=== PATIENT | male | born 1945 | race Caucasian/White ===

== ENCOUNTER 2016-12-17 10:23 | Observation (INO) | payer MEDICARE ==
[2016-12-17 11:12] LABS: Hematocrit 50 % (42-52); Hemoglobin 16.7 g/dl (14.0-18.0); Mean Corpuscular HGB Conc 34 g/dl (31-36); Mean Corpuscular Hemoglobin 30 pg (27-31); Mean Corpuscular Volume 89 fL (80-94); Mean Platelet Volume 8 um3 (7.4-10.4); Red Blood Count 5.59 10^6/ul (4.0-5.4); Red Cell Distribution Width 14 % (10.5-15); White Blood Count 6.1 10^3/ul (3.5-10.8)
--- NOTE | 2016-12-17 11:23 | RAD ---
Indication: Bradycardia. Single frontal view of the chest performed at 1100 hours was reviewed. Comparison is made with previous exam dated January 15, 2016. Likely is noted. Lung slater demonstrate no pleural fluid, pneumonia or pneumothorax. No changes noted since previous exam. IMPRESSION: NO ACTIVE CARDIOPULMONARY DISEASE IS NOTED.
[2016-12-17 11:30] LABS: ALT 20 U/L (7-52); Albumin 4.6 g/dL (3.2-5.2); Alkaline Phosphatase 63 U/L (34-104); BUN/Creatinine Ratio 12.6 (8-20); Blood Urea Nitrogen 11 mg/dL (6-24); CO2 Carbon Dioxide 24 mmol/L (22-32); Calcium 9.6 mg/dL (8.6-10.3); Chloride 106 mmol/L (101-111); EGFR African American 110.6 (>60); Globulin 3.3 g/dL (2-4); Glucose 96 mg/dL (70-100); Sodium 136 mmol/L (133-145); Total Protein 7.9 g/dL (6.4-8.9)
[2016-12-17 12:00] LABS: T4 10.81 g/dL (6.09-12.23)
[2016-12-17 12:01] LABS: TSH (Thyroid Stimulating Horm) 3.94 mcIU/mL (0.34-5.60)
[2016-12-17 12:23] LABS: Magnesium 2.1 mg/dL (1.9-2.7)
[2016-12-17 12:33] LABS: Urine Bilirubin Negative (Negative); Urine Glucose Negative (Negative); Urine Nitrite Negative (Negative)
[2016-12-17] MEDS ORDERED: Fluticasone NASAL SPRAY 50MCG* 16 gm SPRAY BTL BOTH NARES PRN (12:47)
[2016-12-17] MEDS ORDERED: Methocarbamol TAB* 500 MG PO PRN (12:47)
--- NOTE | 2016-12-17 13:42 | ED ---
Peggy Hercules Alok, scribed for Vlad Ambrose MD on 12/17/16 at 1055 . Shortness of Breath - HPI Summary HPI Summary: 71 y/o male presents to the ED for concern of SOB, bradycardia, and HTN for the past 3 days. HR has been fluctuating between 30 and 60 BPM. Patient has no other complains. Pt denies any dizziness, feeling of weakness or LOC. Pt also denies any N/V or CP. His last BM was this morning. PMHx include bowel obstructions and irregular heart rate. - History of Current Complaint Chief Complaint: EDDysrhythmPalp Time Seen by Provider: 12/17/16 10:33 Hx Obtained From: Patient Onset/Duration: Gradual Onset, Lasting Days, Still Present Timing: Constant Current Severity: Moderate Aggrevating Factors: Nothing Alleviating Factors: Nothing - Allergy/Home Medications Allergies/Adverse Reactions: Allergies Allergy/AdvReac Type Severity Reaction Status Date / Time Morphine Allergy Severe Severe Verified 05/22/15 07:53 Nausea and Heart Palpitations Amoxicillin Allergy Unknown Unknown Verified 05/22/15 07:53 Reaction Details Atorvastatin Allergy Unknown Unknown Verified 05/22/15 07:53 Reaction Details Ezetimibe Allergy Unknown Unknown Verified 05/22/15 07:53 Reaction Details Niacin Allergy Unknown Unknown Verified 05/22/15 07:53 Reaction Details Penicillins Allergy Unknown Unknown Verified 05/22/15 07:53 Reaction Details Home Medications: Home Medications Fluticasone NASAL SPRAY 50MCG* [Flonase NASAL SPRAY 50MCG*] 2 spray BOTH NARES QAM PRN 12/17/16 [History Confirmed 12/17/16] Losartan TAB* [Cozaar TAB*] 25 mg PO QPM 12/17/16 [History Confirmed 12/17/16] Methocarbamol TAB* [Robaxin TAB*] 750 mg PO BID PRN 12/17/16 [History Confirmed 12/17/16] Prazosin CAP* [Minipress CAP*] 10 mg PO BEDTIME 12/17/16 [History Confirmed 06/27] Sertraline* [Zoloft*] 50 mg PO DAILY 12/17/16 [History Confirmed 12/17/16] PMH/Surg Hx/FS Hx/Imm Hx Endocrine/Hematology History: Reports: Other Endocrine/Hematological Disorders - Polycythemia Denies: Hx Anticoagulant Therapy, Hx Blood Disorders, Hx Blood Transfusions, Hx Bone Marrow Disease, Hx Diabetes, Hx Systemic Lupus Erythematosus, Hx Sickle Cell Disease, Hx Thyroid Disease, Hx Anemia, Hx Unexplained Bleeding Cardiovascular History: Reports: Hx Hypertension, Other Cardiovascular Problems/ Disorders - HLD Denies: Hx Aneurysm, Hx Angina, Hx Angioplasty, Hx Auto Implanted Cardiovert Defib, Hx Cardiac Arrest, Hx Cardiomegaly, Hx Congenital Heart Disease, Hx Congestive Heart Failure, Hx Coronary Artery Disease, Hx Deep Vein Thrombosis, Hx Embolism, Hx Hypercholesterolemia, Hx Hypotension, Hx Pacemaker/ICD, Hx Peripheral Vascular Disease, Hx Rheumatic Fever, Hx Syncope, Hx Valvular Heart Disease Respiratory History: Reports: Hx Sleep Apnea, Other Respiratory Problems/ Disorders - states [facility] is [facility] growths on right lung Denies: Hx Asthma, Hx Chronic Bronchitis, Hx Chronic Obstructive Pulmonary Disease (COPD), Hx Cystic Fibrosis, Hx Lung Cancer, Hx Pleural Effusion, Hx Pneumonia, Hx Pulmonary Edema, Hx Pulmonary Embolism, Hx Seasonal Allergies GI History: Reports: Hx Irritable Bowel, Hx Obstructive Bowel, Other GI Disorders - multiple SBO Denies: Hx Cirrhosis, Hx Crohn's Disease, Hx Diverticulosis, Hx Gall Bladder Disease, Hx Gastroesophageal Reflux Disease, Hx Gastrointestinal Bleed, Hx Hiatal Hernia, Hx Jaundice, Hx Ileostomy, Hx Pyloric Stenosis, Hx Ulcer History: Reports: Other Problems/Disorders - RENAL CALCULI YRS AGO Denies: Hx Acute Renal Failure, Hx Benign Prostatic Hyperplasia, Hx Chronic Renal Failure, Hx Dialysis, Hx Kidney Infection, Hx Kidney Stones - once, Hx Renal Disease Musculoskeletal History: Reports: Hx Back Problems - ruptured disc Denies: Hx Arthritis, Hx Rheumatoid Arthritis, Hx Bursitis, Hx Congenital Bone Abnormalities, Hx Fibromyalgia, Hx Gout, Hx Orthopedic Injury, Hx Osteoporosis, Hx Scoliosis, Hx Tendonitis, Other Musculoskeletal History Sensory History: Reports: Hx Cataracts - surgery, Hx Contacts or Glasses Denies: Hx Eye Injury, Hx Eye Prosthesis, Hx Glaucoma, Hx Legally Blind, Hx Macular Degeneration, Hx Vision Problem, Hx Deafness, Hx Hearing Aid, Other Sensory Impairments Opthamlomology History: Reports: Hx Cataracts - surgery, Hx Contacts or Glasses Denies: Hx Eye Injury, Hx Eye Prosthesis, Hx Glaucoma, Hx Legally Blind, Hx Macular Degeneration, Hx Vision Problem, Other Sensory Impairments Neurological History: Reports: Other Neuro Impairments/Disorders - SPINE PAIN HX OF RUPTURED DISCS Denies: Hx Dementia, Hx Developmental Delay, Hx Headaches, Hx Migraine, Hx Nerve Disease, Hx Seizures, Hx Spinal Cord Injury, Hx Transient Ischemic Attacks (TIA) Psychiatric History: Reports: Hx Anxiety, Hx Post Traumatic Stress Disorder Denies: Hx Attention Deficit Hyperactivity Disorder, Hx Eating Disorder, Hx Depression, Hx Panic Disorder, Hx Inpatient Treatment, Hx Community Mental Health Tx, Hx Schizophrenia, Hx Bipolar Disorder, Hx Suicide Attempt, Hx of Violent Episodes Against Others, Hx Substance Abuse, Other Psychiatric Issues/ Disorders - Cancer History Cancer Type, Location and Year: "Skin cancer" mid abdomen, 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, left back, right leg Hx Chemotherapy: No Hx Radiation Therapy: No Hx Palliative Cancer Treatment: No - Surgical History Surgery Procedure, Year, and Place: INTESTINAL SX FOR BLOCKAGES X35; APPY; ZEKE ; SINUS POLYP; CATARACTS, skin cancer removal 12/05/14 Hx Anesthesia Reactions: No - Immunization History Date of Tetanus Vaccine: Unknown Date of Influenza Vaccine: Fall 2012 Infectious Disease History: No Infectious Disease History: Denies: Hx Clostridium Difficile, Hx Hepatitis, Hx Human Immunodeficiency Virus (HIV), Hx of Known/Suspected MRSA, Hx Shingles, Hx Tuberculosis, Hx Known/ Suspected VRE, Hx Known/Suspected VRSA, History Other Infectious Disease, Traveled Outside the [place] in Last 30 Days - Family History Known Family History: Positive: Hypertension - Social History Alcohol Use: None Substance Use Type: Reports: None Smoking Status (MU): Former Smoker Type: Cigarettes Amount Used/How Often: PPD Length of Time of Smoking/Using Tobacco: 20 Have You Smoked in the Last Year: No Review of Systems Negative: Fever All Other Systems Reviewed And Are Negative: Yes Physical Exam - Summary Physical Exam Summary: VITAL SIGNS: Reviewed. GENERAL: Patient is a well developed and nourished male who is lying comfortable in the stretcher. Patient is not in any acute respiratory distress. HEAD AND FACE: No signs of trauma. No ecchymosis, hematomas or skull depressions. No sinus tenderness. EYES: PERRLA, EOMI x 2, No injected conjunctiva, no nystagmus. EARS: Hearing grossly intact. Ear canals and tympanic membranes are within normal limits. MOUTH: Oropharynx within normal limits. NECK: Supple, trachea is midline, no adenopathy, no JVD, no carotid bruit, no c- spine tenderness, neck with full ROM. CHEST: Symmetric, no tenderness at palpation LUNGS: Clear to auscultation bilaterally. No wheezing or crackles. CVS: Bradycardia, Regular rate and rhythm, S1 and S2 present, no murmurs or gallops appreciated. ABDOMEN: Soft, non-tender. No signs of distention. No rebound no guarding, and no masses palpated. Bowel sounds are normal. EXTREMITIES: FROM in all major joints, no edema, no cyanosis or clubbing. NEURO: Alert and oriented x 3. No acute neurological deficits. Speech is normal and follows commands. SKIN: Dry and warm Triage Information Reviewed: Yes Vital Signs On Initial Exam: Initial Vitals Temp Pulse Resp BP Pulse Ox 98.1 F 35 20 162/60 95 12/17/16 10:25 12/17/16 10:25 12/17/16 10:25 12/17/16 10:25 12/17/16 10:25 Vital Signs Reviewed: Yes Diagnostics - Vital Signs Vital Signs Temp Pulse Resp BP Pulse Ox 12/17/16 10:25 98.1 F 35 20 162/60 95 - Laboratory Lab Results: Lab Results 12/17/16 Range/Units 10:50 WBC 6.1 (3.5-10.8) 10^3/ul RBC 5.59 H (4.0-5.4) 10^6/ul Hgb 16.7 (14.0-18.0) g/dl Hct 50 (42-52) % MCV 89 (80-94) fL MCH 30 (27-31) pg MCHC 34 (31-36) g/dl RDW 14 (10.5-15) % Plt Count 112 L (150-450) 10^3/ul MPV 8 (7.4-10.4) um3 Neut % (Auto) 62.4 (38-83) % Lymph % (Auto) 23.0 L (25-47) % [place] % (Auto) 8.3 (1-9) % Eos % (Auto) 5.7 (0-6) % Baso % (Auto) 0.6 (0-2) % Absolute Neuts (auto) 3.8 (1.5-7.7) 10^3/ul Absolute Lymphs (auto) 1.4 (1.0-4.8) 10^3/ul Absolute Monos (auto) 0.5 (0-0.8) 10^3/ul Absolute Eos (auto) 0.3 (0-0.6) 10^3/ul Absolute Basos (auto) 0 (0-0.2) 10^3/ul Absolute Nucleated RBC 0.01 10^3/ul Nucleated RBC % 0.1 Result Diagrams: 12/17/16 10:50 12/17/16 11:55 Lab Statement: Any lab studies that have been ordered have been reviewed, and results considered in the medical decision making process. - Radiology CXR Xray Interpretation: Positive (See Comments) - IMPRESSION: NO ACTIVE CARDIOPULMONARY DISEASE IS NOTED. Radiology Interpretation Completed By: Radiologist - EKG 1028 Cardiac Rate: NL EKG Rhythm: Sinus Rhythm Ectopy: PVCs - Multiple EKG Interpretation: No ST elevation Course/Dx - Course Course Of Treatment: 71 y/o male presents to the ED for concern of SOB, bradycardia, and HTN for the past 3 days. Pt denies any dizziness, feeling of weakness or LOC. Pt also denies any N/V or CP. His last BM was this morning. PMHx include bowel obstructions and irregular heart rate. Assessment/Plan: Bloodwork is normal. Urine analysis was negative. CXR IMPRESSION: NO ACTIVE CARDIOPULMONARY DISEASE IS NOTED. EKG showed sinus bradycardia 89 bpm with multiple PVCs. Because of symptoms diagnosed pt with bradycardia and will admit to [facility]. Pt is hemodynamically stable and alert and oriented x3. - Diagnoses Differential Diagnosis/HQI/PQRI: Positive: Other - Arrythmia, bradycardia, Atrial fib Provider Diagnoses: Symptomatic bradycardia - Physician Notifications Discussed Care of Patient With: Dr Sylvester (Hospitalist) - agreed to admit pt Discharge - Discharge Plan Condition: Stable Disposition: ADMITTED TO [facility] documentation as recorded by the Peggy hills Alok accurately reflects the service I personally performed and the decisions made by , Vlad Ambrose MD.
--- NOTE | 2016-12-17 14:39 | ECHO ---
Patient: ANTOLIN SHELTON [facility] Rec#: [id number] : 1945 Date: 12/17/2016 Age: 71y Height: 185.42 cm / 73.0 in Weight: 112.49 kg / 247.9 lbs Sex: M BSA: 2.36 Room#: OP Admit Date#: 12/17/2016 Type: Outpatient Referring: Brandy Henderson NP Reading: Gil Trinh MD Land Acquisition Manager: Agapito Bravo RDCS CC: Guevara Cuadra MD Transthoracic Echocardiogram Indication: Bradycardia,MELGOZA BP: 138/54 HR: 77 Rhythm: Bradycardia Findings History: HLD,HTN,depress PSTD Technical Comments: The study quality is fair. Completed 1430 The study is technically limited due to patient body habitus. Bigeminy confounds wall motion evaluation. Left Ventricle: The left ventricular chamber size is normal. Global left ventricular wall motion and contractility are within normal limits. There is normal left ventricular systolic function. The estimated ejection fraction is 55-60%. The assessment of diastolic function is non-diagnostic. Left Atrium: The left atrial chamber size is normal. Right Ventricle: The right ventricular cavity size is normal. The right ventricular global systolic function is normal. Right Atrium: The right atrial cavity size is normal. Aortic Valve: The aortic valve is trileaflet. There is no evidence of aortic regurgitation. There is no evidence of aortic stenosis. Mitral Valve: The mitral valve leaflets appear normal. There is trace to mild mitral regurgitation. There is no evidence of mitral stenosis. Tricuspid Valve: There is no evidence of tricuspid valve regurgitation. Pulmonic Valve: The pulmonic valve structure is not well visualized. Pericardium: There is no pericardial effusion. Aorta: There is no dilatation of the ascending aorta. There is no dilatation of the aortic arch. There is no dilation of the aortic root. Pulmonary Artery: The main pulmonary artery is not well visualized. Venous: The inferior vena cava appears normal in size. There is a greater than 50% respiratory change in the inferior vena cava dimension. Conclusions The study is technically limited due to patient body habitus. Bigeminy confounds wall motion evaluation. Global left ventricular wall motion and contractility are within normal limits. The estimated ejection fraction is 55-60%. There is trace to mild mitral regurgitation. Similar to 2.2015 except that LVH was not confirmed on this study. Measurements Name Value Normal Range RVIDd (AP) 2D 2.6 cm (0.9 - 2.6) RVDdMajor (2D) 2.7 cm (2.2 - 4.4) RAd ISD 4CH 5 cm (3.4 - 4.9) RA (A4C)W 4 cm (2.9 - 4.6) IVSd (2D) 0.8 cm (0.6 - 1) LVPWd (2D) 0.9 cm (0.6 - 1) LVIDd (2D) 5.6 cm (3.6 - 5.4) LVIDs (2D) 4.2 cm - LV FS (2D) 25 % (25 - 45) Aortic Annulus 2 cm (1.4 - 2.6) Ao root diameter (2D) 3 cm (2.1 - 3.5) Ascending Ao 3 cm (2.1 - 3.4) Aortic arch 1.7 cm (1.8 - 3.4) LA dimension (AP) 2D 4 cm (2.3 - 3.8) LAd ISD 4CH 4.5 cm (2.9 - 5.3) LA ISD 4CH W 3.7 cm (2.5 - 4.5) Name Value Normal Range LA ESV SP 4CH (A/L) 60 ml - LA ESV SP 2CH (A/L) 74 ml - LA ESV BP (A/L) 72 ml - LA ESV BP (A/L) index 30.25 ml/m2 - LA ESV SP 4CH (MOD) 55 ml - LA ESV SP 2CH (MOD) 71 ml - Name Value Normal Range MV E-wave Vmax 0.57 m/sec - MV deceleration time 224 msec - MV A-wave Vmax 0.71 m/sec - MV E:A ratio 0.79 ratio - LV septal e' Vmax 0.09 m/sec - LV lateral e' Vmax 0.09 m/sec - LV E:e' septal ratio 6.3 ratio - LV E:e' lateral ratio 6.3 ratio - Name Value Normal Range LVOT diameter 2.4 cm - LVOT Vmax 0.9 m/sec - Name Value Normal Range IVC diameter 0.7 cm - Name Value Normal Range PV Vmax 1.1 m/sec -
[2016-12-17] MEDS ORDERED: Amiodarone IV VIAL* 0 ML ONE (14:55)
[2016-12-17] MEDS ORDERED: Potassium Chloride LIQUID* 20 MEQ PACKET PO ONE ×2 (16:00→20:00)
[2016-12-17] MEDS: Heparin VIAL(*) 5000 UNITS/ML VIAL (FIVE THOUSAND) SUBCUT SCH ×2 (16:11→21:33)
[2016-12-17] MEDS: Flecainide TAB* 100 MG PO SCH (17:08)
[2016-12-17] MEDS ORDERED: Losartan TAB* 25 MG PO SCH (18:00)
[2016-12-17] MEDS ORDERED: Prazosin CAP* 5 MG PO SCH (21:00)
--- NOTE | 2016-12-17 21:58 | HP ---
HOSPITAL MEDICINE HISTORY AND PHYSICAL: DATE OF ADMISSION: 12/17/16 PRIMARY CARE PHYSICIAN: Dr. Cuadra. MATERIAL COMBINER: Dr. Bhat. ATTENDING PHYSICIAN: Dr. Gilbert Sylvester *(dictation provided by Brandy Henderson NP). CHIEF COMPLAINT: Lower extremity edema and worsening dyspnea on exertion. HISTORY OF PRESENT ILLNESS: Mr. Richey is a 71-year-old male with past medical history of multiple small bowel obstructions as well as hypertension, hyperlipidemia, who presents today to the hospital with concern for new lower extremity edema and increasing shortness of breath with exertion. Mr. Richey has a history also of known very mild bradycardia with PVCs. He has been monitored via Holter monitor with few PVCs noted. He states that he has over the past couple of weeks had increased lower extremity edema. He has also had 2 episodes of chest pain, both occurred while at rest and lasted a few seconds. They were along the left side of the chest. There was no nausea or sweating associated with it. It resolved spontaneously. He has also noted that over several months, he has had increasing dyspnea on exertion. 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 For the lower extremity edema and episodes of chest pain, he went to see Dr. Cuadra. He noted that his blood pressure was high. At that time, the patient was started on lovastatin and pravastatin. The patient did start the lovastatin, but has not started the pravastatin as he recalls having an adverse reaction to pravastatin in the past. The patient was also given a blood pressure cuff to check his blood pressure at home. The patient states when checking his blood pressure, he has noted that his heart rate running in the 30s continuously. He is concerned that perhaps the slow heart rate was what was driving his other symptoms and therefore came to the emergency room for evaluation. In the emergency room, Mr. Richey was confirmed to have a bradycardia with bigeminy, heart rate 70 with bigeminy, but on palpation of the pulse, his heart rate was about 35 due to poor conduction of PVCs. His labs are unremarkable. His troponin is 0. His chest x-ray shows no acute process. PAST MEDICAL HISTORY: 1. Small bowel obstruction, over 30. 2. Hypertension. 3. Hyperlipidemia. 4. Depression. 5. PTSD. 6. History of polycythemia. 7. History of thrombocytopenia. MEDICATIONS: 1. Red yeast rice extract 1200 mg p.o. daily. 2. Aspirin 81 mg p.o. daily. 3. Flonase 2 sprays both nares as needed. 4. Losartan 25 mg p.o. q.p.m. 5. Robaxin 750 mg p.o. b.i.d. 6. Prazosin 2 mg at bedtime. 7. Sertraline 50 mg p.o. daily. ALLERGIES: To MORPHINE, AMOXICILLIN, ATORVASTATIN, ZETIA, NIACIN, and PENICILLIN. FAMILY HISTORY: Reviewed and noncontributory. SOCIAL HISTORY: No report of alcohol, tobacco, or drug use. The patient lives with his , who is healthcare proxy. REVIEW OF SYSTEMS: A 14-point review of systems was completed with the patient and all those not mentioned above are negative. PHYSICAL EXAMINATION GENERAL: Mr. Richey is lying in the bed. He is in no acute distress. He is calm and cooperative to my examination. VITAL SIGNS: Temperature 98.1, heart rate 69, respiratory rate 12, O2 saturation 97% on room air, blood pressure 162/60. LUNGS: Clear to auscultation bilaterally with no accessory muscle use and good aeration. HEART: S1, S2. No murmur, rub, or gallop and regular. ABDOMEN: Soft, nontender with bowel sounds positive x4. EXTREMITIES: No cyanosis or edema. NEUROLOGIC: He is alert and oriented x3. He moves all extremities equally. There is no facial asymmetry or focal weakness. Extraocular movements are intact. SKIN: Intact. DIAGNOSTIC STUDIES/LAB DATA: WBC 6.1, hemoglobin 16.7, hematocrit 50, platelet count 112. Sodium 136, potassium 4.0, chloride 106, serum bicarbonate 24, BUN 11, creatinine 0.87, glucose 96. Urine shows no evidence of infection. Chest x-ray shows no acute intrathoracic process. EKG shows sinus rhythm with bigeminy. ASSESSMENT AND PLAN: Mr. Richey is a 71-year-old male with past medical history of small bowel obstructions and hypertension with hyperlipidemia as well as known mild bradycardia that has been asymptomatic at this time, presents today to the hospital with concern for lower extremity edema and worsening dyspnea on exertion. In the emergency room, he has been found to have a sinus rhythm, but with a persistent bigeminy which is new for him. Plans are for observation in the hospital for the followin. Dyspnea on exertion with lower extremity edema: There is suspicion that this is secondary to his new bigeminy. It is possible that his cardiac output has decreased with poor conduction of premature ventricular contractions. Plan to check transthoracic echocardiogram to evaluate overall cardiac function. The patient will have telemetry monitoring. He will on go for consultation with Dr. Trinh as well. The patient shows no evidence of infection, pulmonary disease or acute coronary syndrome. His troponins are 0.00. 2. Sinus bradycardia with bigeminy. Consultation per Dr. Trinh. 3. Hypertension: Continue losartan and amlodipine. 4. Depression: Continue sertraline. 5. Code status: Full code. 6. DVT prophylaxis: Heparin subcu. 7. Disposition to telemetry floor. TIME SPENT: Approximately 60 minutes was spent on the admission of this patient , more than half the time spent with the patient at the bedside reviewing the events leading up to this hospitalization, performing the physical examination, and reviewing the plan of care. BRANDY HENDERSON NP CC: Dr. Cuadra* [id number]/[facility] [place] [id number] [place]
--- NOTE | 2016-12-17 22:23 | CONS ---
CARDIOLOGY EVALUATION: DATE OF CONSULT: 12/17/16 PATIENT OF: Dr. Cuadra at the [place]. CONSULTING PROVIDER: Brandy Henderson NP REASON FOR EVALUATION: Bradycardia, exercise intolerance. HISTORY OF PRESENT ILLNESS: This is a very pleasant 71-year-old gentleman with a longstanding history of slow heart rates and PVCs. He also has a history of hypertension, hyperlipidemia, and has been limited by back problems. Having said that, he has been fairly active. He has had multiple admissions for small bowel obstruction and at least 3 operations for small bowel obstruction, last one about 10 years ago. He said that he has had over 30 admissions for small bowel obstruction, but had been doing fairly well over the last year from a GI standpoint. About a year ago, he had some atypical chest pain and was evaluated by Dr. Bhat and had a negative stress nuclear. He did well again, but has noticed over the last year that he thinks he is "slowing down." He usually tinkers in his garage, working on old lawn mowers fixing them and he says that he gets a little winded doing his chores over the last few weeks. 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 He also noticed that over the last 2 weeks, he has had a little more swelling in his legs at the end of the day, which somewhat improves in the morning. He has had no syncope or near syncope. He did have one episode of chest pain after working in the garage, sitting in his chair. He sat down in his chair and had about 2 minutes of light pressure over the left side of his chest, it resolved. No associated gas , diaphoresis, or shortness of breath. He also says that when he lays down at night, he gets sweaty for about 10 to 20 minutes and it resolves. He is able to get up in the morning without lightheadedness or shortness of breath. PAST MEDICAL HISTORY: Includes hypertension, hyperlipidemia, multiple small bowel obstructions, back pain. He denies diabetes. He has a history of tobacco use, discontinued 40 years ago. Denies asthma or emphysema. No strokes or mini strokes. He has a history of depression, posttraumatic stress disorder, polycythemia, and thrombocytopenia. PAST SURGICAL HISTORY: Includes appendectomy, cholecystectomy, lysis of adhesions, 3 explorations for small bowel obstruction, cataract surgery, he also had a sinus polyp removed on the left side. MEDICATIONS: At home include: 1. Red rice yeast 1200 mg a day. 2. Aspirin 81 mg a day. 3. Losartan 25 mg in the evening. 4. Nasal spray with Flonase. 5. Amlodipine 10 mg a day. 6. Sertraline (Zoloft) 50 mg a day. 7. Prazosin 10 mg at bedtime. 8. Methocarbamol 750 mg b.i.d. p.r.n. As an inpatient, he is being continued on the same medications except for the red rice yeast. ALLERGIES: Include MORPHINE - nausea, palpitations; AMOXICILLIN - unknown; ATORVASTATIN - unknown; EZETIMIBE - unknown; NIACIN - unknown; PENICILLIN. FAMILY HISTORY: He had 1 brother who of a CVA at 57. He has had 4 sisters , one sister of a congenital heart problem at 8. His mother of an NV at 89. His father of cancer at 74. SOCIAL HISTORY: He denies caffeine use. He denies alcohol use. He is and has 1 adult child. 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 REVIEW OF SYSTEMS: Review of systems x10 was negative except as above. PHYSICAL EXAM: General: He is a well-developed, well-nourished, overweight gentleman in no apparent distress. Vital signs: Weight 248 pounds, blood pressure 138/54, pulse approximately 35 with heart rate of 70 and bigeminy. Neck: No significant JVD. Carotids 2+ without bruits. No cervical adenopathy or thyromegaly. HEENT: Extraocular muscles intact. Sclerae anicteric. Cardiac Exam: S1, S2. Somewhat distant underneath his pacing pad. Lungs: Chest was clear. No CVAT. Abdomen: Multiple healed surgical scars. Nontender. No hepatosplenomegaly. Extremities: Femoral pulses intact without bruits. Distal pulses intact with 1+ edema and chronic venous stasis changes. Deep tendon reflexes 2/4. Neurologic: Alert and oriented x3. Skin: Turgor normal. DIAGNOSTIC STUDIES/LAB DATA: Include white count of 6.1, hemoglobin of 16.7, hematocrit of 50, and platelet count low at 112. Sodium 136, potassium of 4, BUN 11, creatinine of 0.87, and magnesium 2.1. Troponin of 0. BNP minimally elevated at 125. TSH 3.94. Chest x-ray: No acute disease. EKG revealed sinus rhythm with bigeminy with old inferior infarct and probable left atrial enlargement. His EKG from February 2016 revealed sinus rhythm with 2 beats of bigeminy. Otherwise, similar EKG. He had an echocardiogram performed in 2007, which revealed EF of 60%, trace TR. There was a more recent echo, the report of which is not available at present, a year ago which revealed normal LV function and he had a negative stress nuclear approximately a year ago. IMPRESSION: My impression is that Mr. Richey has bigeminy and decreased exercise tolerance and atypical chest pain. He may have developed coronary insufficiency on the basis of bigeminy and perhaps chronotropic insufficiency with exercise due to progression of his bigeminal pattern. Also, he may have developed LV dysfunction or ischemia. For the time being, I have recommended the followin. I suggested a stress echo to evaluate LV function and his heart rate response to exercise. 2. If we determine that he has chronotropic insufficiency, a pacemaker may be helpful. 3. If he is compromised due to frequent PVCs and bigeminy, it may be worth considering a trial of suppression of his PVCs with antiarrhythmics and/or referral for EP evaluation for possible PVC ablation. 4. He is to continue to refrain from caffeine and alcohol use. 5. Further recommendations will depend on his clinical course. We also considered the possibility of PVC-induced cardiomyopathy. CC: Dr. Bhat; Dr. Cuadra at the [facility] in [place]; Gil Trinh MD * [id number]/[facility] #: [id number] [facility]
[2016-12-18] MEDS ORDERED: Ondansetron INJ* 2 MG/ML VIAL IV PRN (01:00)
[2016-12-18 04:58] LABS: BUN/Creatinine Ratio 15.7 (8-20); Calcium 8.9 mg/dL (8.6-10.3); EGFR African American 116.8 (>60); EGFR Non-African American 90.8 (>60); Potassium 4.1 mmol/L (3.5-5.0)
[2016-12-18] MEDS: Heparin VIAL(*) 5000 UNITS/ML VIAL (FIVE THOUSAND) SUBCUT SCH ×2 (05:13→14:59)
[2016-12-18] MEDS ORDERED: Regadenoson* 0.4 MG/5 ML SYRINGE ONE (07:26)
[2016-12-18] MEDS ORDERED: Sertraline* 50 MG TAB PO SCH (09:00)
[2016-12-18] MEDS ORDERED: Aspirin EC Low Dose* 81 MG TAB.EC PO SCH (09:00)
[2016-12-18] MEDS ORDERED: amLODIPine TAB* 5 MG PO SCH (09:00)
--- NOTE | 2016-12-18 11:27 | RAD ---
Edited for charges. INDICATION: Chest pain, abnormal EKG, multiple risk factors for coronary artery disease. COMPARISON: No previous nuclear cardiac studies available for comparison on the [facility] PACS. TECHNIQUE: 10.300 mCi of Tc-99m Myoview were administered IV. SPECT images of the heart were obtained. Later on the same day under the direction of Dr. Trinh, the patient was given an IV injection of a pharmacologic stress agent. Subsequently, the patient was given an IV injection of 25.230 mCi Tc-99m Myoview. SPECT images of the heart were obtained and a gated wall motion study was performed. FINDINGS: Gated wall motion images were obtained at stress and demonstrate global hypokinesia. Calculated left ventricular ejection fraction is 40 % at stress. Estimated LEFT ventricular end diastolic volume is 157 mL. TID 1.02. There is inferior diaphragmatic attenuation and gastrointestinal activity. Based on review of the attenuation corrected and non corrected images there is a small focus of reduced perfusion at the apical inferior wall segments at stress with reversal at rest concerning for ischemia however artifact from inferior bowel activity decreases specificity. IMPRESSION: 1. Dilated cardiomyopathy with global hypokinesia and moderate LEFT ventricular dysfunction with estimated LVEF of 40%. 2. Potential small focus of stress-induced ischemia involving the apical inferior segment. ASSESSMENT: Intermediate risk Based on imaging criteria from ACC/AHA 2002 Guideline Update for the Management of Patients With Chronic Stable Angina Table 23. Noninvasive Risk Stratification. MTDD
[2016-12-18 11:55] VITALS: BP 147/55
[2016-12-18] MEDS: Flecainide TAB* 100 MG PO SCH (12:09)
--- NOTE | 2016-12-18 15:43 | DCNOTE ---
Subjective Date of Service: 12/18/16 Interval History: No c/o, anxious to go home. Objective Active Medications: Amlodipine Besylate (Norvasc Tab*) 10 mg PO DAILY [facility] Last Admin: 12/18/16 12:09 Dose: 10 mg Aspirin (Aspirin Ec Low Dose*) 81 mg PO DAILY [facility] Last Admin: 12/18/16 12:09 Dose: 81 mg Flecainide Acetate (Tambocor Tab*) 50 mg PO DAILY [facility] Last Admin: 12/18/16 12:09 Dose: 50 mg Fluticasone Propionate (Flonase Nasal [place] 50mcg*) 2 spray BOTH NARES QAM PRN PRN Reason: CONGESTION Heparin Sodium (Porcine) (Heparin Vial(*)) 5,000 units SUBCUT Q8HR [facility] Last Admin: 12/18/16 14:59 Dose: 5,000 units Losartan Potassium (Cozaar Tab*) 25 mg PO QPM [facility] Last Admin: 12/17/16 17:09 Dose: 25 mg Methocarbamol (Robaxin Tab*) 750 mg PO BID PRN PRN Reason: SPASMS - MUSCLE Last Admin: 12/17/16 22:23 Dose: 750 mg Ondansetron HCl (Zofran Inj*) 4 mg IV Q6H PRN PRN Reason: NAUSEA Last Admin: 12/18/16 01:07 Dose: 4 mg Prazosin HCl (Minipress Cap*) 10 mg PO BEDTIME [facility] Last Admin: 12/17/16 21:34 Dose: 10 mg Sertraline HCl (Zoloft*) 50 mg PO DAILY [facility] Last Admin: 12/18/16 12:10 Dose: 50 mg Vital Signs 12/17/16 12/17/16 12/17/16 15:45 20:12 22:23 Temperature 97.7 F 98.1 F Pulse Rate 39 62 Respiratory 16 18 Rate Blood Pressure 153/56 146/60 (mmHg) O2 Sat by Pulse 95 98 Oximetry 12/17/16 12/18/16 12/18/16 23:48 00:23 03:48 Temperature 97.5 F 98.1 F Pulse Rate 97 55 Respiratory 20 16 20 Rate Blood Pressure 128/52 132/65 (mmHg) O2 Sat by Pulse 96 95 Oximetry 12/18/16 12/18/16 07:48 11:48 Temperature 97.8 F 98.2 F Pulse Rate 66 30 Respiratory 18 18 Rate Blood Pressure 136/75 147/55 (mmHg) O2 Sat by Pulse 95 98 Oximetry Oxygen Devices in Use Now: None Appearance: Alert, sitting up in bed. In good spirits. Looks comfortable. Eyes: No Scleral Icterus Respiratory: Symmetrical Chest Expansion and Respiratory Effort, Clear to Auscultation, Clear to Percussion Cardiovascular: NL Sounds; No Murmurs; No JVD, RRR, No Edema, - Extremities: No Edema, No Clubbing, Cyanosis Skin: No Rash or Ulcers, No Nodules or Sclerosis, - Neurological: Alert and Oriented x 3, NL Sensation Result Diagrams: 12/17/16 10:50 12/18/16 04:26 Additional Lab and Data: Lab Results 12/17/16 Range/Units 10:50 WBC 6.1 (3.5-10.8) 10^3/ul RBC 5.59 H (4.0-5.4) 10^6/ul Hgb 16.7 (14.0-18.0) g/dl Hct 50 (42-52) % MCV 89 (80-94) fL MCH 30 (27-31) pg MCHC 34 (31-36) g/dl RDW 14 (10.5-15) % Plt Count 112 L (150-450) 10^3/ul MPV 8 (7.4-10.4) um3 Neut % (Auto) 62.4 (38-83) % Lymph % (Auto) 23.0 L (25-47) % [place] % (Auto) 8.3 (1-9) % Eos % (Auto) 5.7 (0-6) % Baso % (Auto) 0.6 (0-2) % Absolute Neuts (auto) 3.8 (1.5-7.7) 10^3/ul Absolute Lymphs (auto) 1.4 (1.0-4.8) 10^3/ul Absolute Monos (auto) 0.5 (0-0.8) 10^3/ul Absolute Eos (auto) 0.3 (0-0.6) 10^3/ul Absolute Basos (auto) 0 (0-0.2) 10^3/ul Absolute Nucleated RBC 0.01 10^3/ul Nucleated RBC % 0.1 Assess/Plan/Problems-Billing Assessment: - Patient Problems (1) Ventricular bigeminy Current Visit: Yes Status: Acute Code(s): I49.9 - CARDIAC ARRHYTHMIA, UNSPECIFIED SNOMED Code(s): 38742520 Comment: Markedly reduced on flecainide. Rx 50 mg daily transmitted. Discussed with Dr. Trinh. Fup Dr. Bhat. (2) History of hypertension Current Visit: No Status: Chronic Priority: Medium Code(s): Z86.79 - PERSONAL HISTORY OF OTHER DISEASES OF THE CIRCULATORY SYSTEM SNOMED Code(s): 046780073
--- NOTE | 2016-12-19 04:38 | DS ---
CC: Dr. Cuadra at the [place]; Dr. Bhat DISCHARGE SUMMARY: DATE OF ADMISSION: 12/17/16 DATE OF DISCHARGE: 12/18/16 HISTORY: This 71-year-old man presented with some swelling of his legs and worsening dyspnea on exe rtion. He was found to be in ventricular bigeminy. He was evaluated by Dr. Trinh. He had a trans thoracic echocardiogram as well as a nuclear stress test. The two tests did not agree, but Dr. Deonte douglas's feeling is that this was likely due to his irregular heartbeat with the bigeminy, and Dr. Vinnie katz felt that his cardiac function is good and there is no significant evidence of ischemia. The patient was given flecainide for his ventricular bigeminy. He was also given some oral potassiu m. He had marked improvement after this and felt better. He will continue on flecainide at home an d potassium. He will follow up with Dr. Bhat. FINAL DIAGNOSES: 1. Ventricular bigeminy. 2. Hypertension. DISCHARGE MEDICATIONS: 1. Flecainide 50 mg once daily. 2. Potassium chloride 20 mEq once daily. 3. Red yeast rice extract daily. 4. Aspirin 81 mg daily. 5. Amlodipine 10 mg daily. 6. Losartan 25 mg every evening. 7. Fluticasone nasal spray 2 sprays both nostrils as needed. 8. Sertraline 50 mg daily. 9. Prazosin 10 mg h.s. 10. Methocarbamol 750 mg b.i.d. p.r.n. [id number]/[facility] #: [id number]
== END 2016-12-18 16:16 | disposition home or self-care (01) ==
LOC: ED 10:23 → MEDTELE 12:39
PROVIDERS: ADMIT Internal Medicine; ATTEND Internal Medicine
DX: R00.8 Other abnormalities of heart beat (principal); I10 Essential (primary) hypertension; R06.00 Dyspnea, unspecified; R00.1 Bradycardia, unspecified; I42.9 Cardiomyopathy, unspecified; E78.5 Hyperlipidemia, unspecified; F32.9 Major depressive disorder, single episode, unspecified; F43.10 Post-traumatic stress disorder, unspecified; Z79.82 Long term (current) use of aspirin; Z79.899 Other long term (current) drug therapy; Z88.1 Allergy status to other antibiotic agents; Z88.0 Allergy status to penicillin; Z88.8 Allergy status to other drugs, medicaments and biological substances
CPT/HCPCS: 36415; 71010; 78452; 80048; 80053; 81003; 82553; 83605; 83735; 83880; 84436; 84443; 84484; 85025; 93005; 93017; 93306; 96372; 96374; 99285; A9270-GY; A9502; G0378; J0282; J1644; J2405; J2785

== ENCOUNTER 2017-02-15 22:55 | Inpatient (IN) | payer MEDICARE ==
[2017-02-15] MEDS ORDERED: Ondansetron INJ* 2 MG/ML VIAL IV ONE (23:26)
[2017-02-15] MEDS ORDERED: NS 0.9% 1000 ML* 1,000 ML IV ONE (23:26)
[2017-02-15] MEDS ORDERED: HYDROmorphone* 1 MG/ML 1 ML SYR IV SLOW PU ONE (23:27)
--- NOTE | 2017-02-16 00:11 | ED ---
[place] Matthew, scribed for Eddy Cordoba MD on 02/15/17 at 2351 . Abdominal Pain/Male - HPI Summary HPI Summary: A 71 y/o male presents to the ED with RLQ abdominal pain since 19:30 today. The pain is rated 9/10 in severity. Associated symptoms include diarrhea and nausea. The patient believes he has a SBO, because of his Hx of multiple SBO. He states the symptoms are similar to his previous episodes of SBO. - History of Current Complaint Chief Complaint: EDAbdPain Stated Complaint: POSS SBO Time Seen by Provider: 02/15/17 23:05 Hx Obtained From: Patient Onset/Duration: Sudden Onset, Lasting Hours, Still Present Timing: Constant Severity Initially: Moderate Severity Currently: Moderate Pain Intensity: 9 Pain Scale Used: 0-10 Numeric Location: Discrete At: RLQ Radiates: No Aggravating Factor(s): Nothing Alleviating Factor(s): Nothing Associated Signs And Symptoms: Positive: Nausea, Diarrhea - Allergies/Home Medications Allergies/Adverse Reactions: Allergies Allergy/AdvReac Type Severity Reaction Status Date / Time Morphine Allergy Severe Severe Verified 05/22/15 07:53 Nausea and Heart Palpitations Amoxicillin Allergy Unknown Unknown Verified 05/22/15 07:53 Reaction Details Atorvastatin Allergy Unknown Unknown Verified 05/22/15 07:53 Reaction Details Ezetimibe Allergy Unknown Unknown Verified 05/22/15 07:53 Reaction Details Niacin Allergy Unknown Unknown Verified 05/22/15 07:53 Reaction Details Penicillins Allergy Unknown Unknown Verified 05/22/15 07:53 Reaction Details PMH/Surg Hx/FS Hx/Imm Hx Endocrine/Hematology History: Reports: Other Endocrine/Hematological Disorders - Polycythemia Denies: Hx Anticoagulant Therapy, Hx Blood Disorders, Hx Blood Transfusions, Hx Bone Marrow Disease, Hx Diabetes, Hx Systemic Lupus Erythematosus, Hx Sickle Cell Disease, Hx Thyroid Disease, Hx Anemia, Hx Unexplained Bleeding Cardiovascular History: Reports: Hx Hypertension, Other Cardiovascular Problems/ Disorders - HLD Denies: Hx Aneurysm, Hx Angina, Hx Angioplasty, Hx Auto Implanted Cardiovert Defib, Hx Cardiac Arrest, Hx Cardiomegaly, Hx Congenital Heart Disease, Hx Congestive Heart Failure, Hx Coronary Artery Disease, Hx Deep Vein Thrombosis, Hx Embolism, Hx Hypercholesterolemia, Hx Hypotension, Hx Myocardial Infarction, Hx Pacemaker/ICD, Hx Peripheral Vascular Disease, Hx Rheumatic Fever, Hx Syncope , Hx Valvular Heart Disease Respiratory History: Reports: Hx Sleep Apnea, Other Respiratory Problems/ Disorders - states [facility] is monitoring growths on right lung Denies: Hx Asthma, Hx Chronic Bronchitis, Hx Chronic Obstructive Pulmonary Disease (COPD), Hx Cystic Fibrosis, Hx Lung Cancer, Hx Pleural Effusion, Hx Pneumonia, Hx Pulmonary Edema, Hx Pulmonary Embolism, Hx Seasonal Allergies GI History: Reports: Hx Irritable Bowel, Hx Obstructive Bowel, Other GI Disorders - multiple SBO Denies: Hx Cirrhosis, Hx Crohn's Disease, Hx Diverticulosis, Hx Gall Bladder Disease, Hx Gastroesophageal Reflux Disease, Hx Gastrointestinal Bleed, Hx Hiatal Hernia, Hx Jaundice, Hx Ileostomy, Hx Pyloric Stenosis, Hx Ulcer History: Reports: Other Problems/Disorders - RENAL CALCULI YRS AGO Denies: Hx Acute Renal Failure, Hx Benign Prostatic Hyperplasia, Hx Chronic Renal Failure, Hx Dialysis, Hx Kidney Infection, Hx Kidney Stones - once, Hx Renal Disease Musculoskeletal History: Reports: Hx Back Problems - ruptured disc Denies: Hx Arthritis, Hx Rheumatoid Arthritis, Hx Bursitis, Hx Congenital Bone Abnormalities, Hx Fibromyalgia, Hx Gout, Hx Orthopedic Injury, Hx Osteoporosis, Hx Scoliosis, Hx Tendonitis, Other Musculoskeletal History Sensory History: Reports: Hx Cataracts - surgery, Hx Contacts or Glasses Denies: Hx Eye Injury, Hx Eye Prosthesis, Hx Glaucoma, Hx Legally Blind, Hx Macular Degeneration, Hx Vision Problem, Hx Deafness, Hx Hearing Aid, Other Sensory Impairments Opthamlomology History: Reports: Hx Cataracts - surgery, Hx Contacts or Glasses Denies: Hx Eye Injury, Hx Eye Prosthesis, Hx Glaucoma, Hx Legally Blind, Hx Macular Degeneration, Hx Vision Problem, Other Sensory Impairments Neurological History: Reports: Other Neuro Impairments/Disorders - SPINE PAIN HX OF RUPTURED DISCS Denies: Hx Dementia, Hx Developmental Delay, Hx Headaches, Hx Migraine, Hx Nerve Disease, Hx Seizures, Hx Spinal Cord Injury, Hx Transient Ischemic Attacks (TIA) Psychiatric History: Reports: Hx Anxiety, Hx Post Traumatic Stress Disorder Denies: Hx Attention Deficit Hyperactivity Disorder, Hx Eating Disorder, Hx Depression, Hx Panic Disorder, Hx Inpatient Treatment, Hx Community Mental Health Tx, Hx Schizophrenia, Hx Bipolar Disorder, Hx Suicide Attempt, Hx of Violent Episodes Against Others, Hx Substance Abuse, Other Psychiatric Issues/ Disorders - Cancer History Cancer Type, Location and Year: "Skin cancer" mid abdomen, 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, left back, right leg Hx Chemotherapy: No Hx Radiation Therapy: No Hx Palliative Cancer Treatment: No - Surgical History Surgery Procedure, Year, and Place: INTESTINAL SX FOR BLOCKAGES X35; APPY; [facility] ; SINUS POLYP; CATARACTS, skin cancer removal 12/05/14 Hx Anesthesia Reactions: No - Immunization History Date of Tetanus Vaccine: Unknown Date of Influenza Vaccine: Fall 2012 Infectious Disease History: Denies: Hx Clostridium Difficile, Hx Hepatitis, Hx Human Immunodeficiency Virus (HIV), Hx of Known/Suspected MRSA, Hx Shingles, Hx Tuberculosis, Hx Known/ Suspected VRE, Hx Known/Suspected VRSA, History Other Infectious Disease, Traveled Outside the [place] in Last 30 Days - Family History Known Family History: Positive: Hypertension - Social History Alcohol Use: None Substance Use Type: Reports: None Smoking Status (MU): Former Smoker Type: Cigarettes Amount Used/How Often: PPD Length of Time of Smoking/Using Tobacco: 20 Have You Smoked in the Last Year: No Review of Systems Constitutional: Negative Eyes: Negative ENT: Negative Cardiovascular: Negative Respiratory: Negative Positive: Abdominal Pain - RLQ, Diarrhea, Nausea Genitourinary: Negative Musculoskeletal: Negative Skin: Negative Neurological: Negative Psychological: Normal All Other Systems Reviewed And Are Negative: Yes Physical Exam Triage Information Reviewed: Yes Vital Signs On Initial Exam: Initial Vitals Temp Pulse Resp BP Pulse Ox 99.7 F 82 20 148/62 96 02/15/17 22:57 02/15/17 22:57 02/15/17 22:57 02/15/17 22:57 02/15/17 22:57 Vital Signs Reviewed: Yes Appearance: Positive: Ill-Appearing, Pain Distress - moderate discomfort Skin: Positive: Warm Head/Face: Positive: Normal Head/Face Inspection Eyes: Positive: ALEXA ENT: Positive: Hearing grossly normal Neck: Positive: Supple Respiratory/Lung Sounds: Positive: Clear to Auscultation, Breath Sounds Present Cardiovascular: Positive: RRR Abdomen Description: Positive: Soft, Distended, Other: - moderate diffuse abd tenderness Bowel Sounds: Positive: Hypoactive Musculoskeletal: Positive: Strength/ROM Intact Neurological: Positive: Alert, Oriented to Person Place, Time Psychiatric: Positive: Affect/Mood Appropriate Diagnostics - Vital Signs Vital Signs Temp Pulse Resp BP Pulse Ox 02/15/17 22:57 99.7 F 82 20 148/62 96 - Laboratory Result Diagrams: 02/16/17 00:05 02/16/17 00:05 Lab Statement: Any lab studies that have been ordered have been reviewed, and results considered in the medical decision making process. - CT A/P CT CT Interpretation: Positive (See Comments) - Stable splenic mass and mild splenomegaly. Low-grade partial small bowel obstruction abscess or free air. Questionable mid pelvic transition point may be secondary to adhesions. Punctate right renal stone. CT Interpretation Completed By: Radiologist - EKG 00:12 Cardiac Rate: NL - 79 bpm EKG Rhythm: Sinus Rhythm EKG Interpretation: Nonspecific IVCD Abdominal Pain Fem Course/Dx - Course Assessment/Plan: A 71 y/o male presents to the ED with RLQ abdominal pain since 19:30 today. The pain is rated 9/10 in severity. Associated symptoms include diarrhea and nausea. The patient believes he has a SBO, because of his Hx of multiple SBO. He states the symptoms are similar to his previous episodes of SBO. Labs were reviewed. CT A/P shows stable splenic mass and mild splenomegaly. Low-grade partial small bowel obstruction abscess or free air. Questionable mid pelvic transition point may be secondary to adhesions. Punctate right renal stone. EKG shows sinus rhythm at 79 bpm w/ nonspecific IVCD. Discussed the case with Dr. Zamudio who will see the patient. Discussed the case with Dr. Hayes who will admit the patient into his services. - Diagnoses Provider Diagnoses: Partial small bowel obstruction - Provider Notifications Discussed Care Of Patient With: Dr. Zamudio (Surgery) at 04:05 -- Notified of patient's history and will see the patient. Dr. Hayes (Hospitalist) at 04:05 - - Notified of patient's history and will admit the patient into his services. Instructed by Provider To: Admit As Inpatient - Critical Care Time Critical Care Time: 30-74 min Discharge - Discharge Plan Condition: Stable Disposition: ADMITTED TO [facility] documentation as recorded by the [place] Matthew accurately reflects the service I personally performed and the decisions made by me, Eddy Cordoba MD.
[2017-02-16 00:27] LABS: Hematocrit 51 % (42-52); Mean Corpuscular HGB Conc 34 g/dl (31-36); Mean Corpuscular Hemoglobin 30 pg (27-31); Mean Corpuscular Volume 89 fL (80-94); Mean Platelet Volume 8 um3 (7.4-10.4); Red Blood Count 5.65 10^6/ul (4.0-5.4); Red Cell Distribution Width 14 % (10.5-15); White Blood Count 11.3 10^3/ul (3.5-10.8)
[2017-02-16 00:31] LABS: Albumin 4.7 g/dL (3.2-5.2); BUN/Creatinine Ratio 18.9 (8-20); C Reactive Protein 4.13 mg/L (< 5.00); Calcium 10.1 mg/dL (8.6-10.3); EGFR African American 88.1 (>60); EGFR Non-African American 68.5 (>60); Globulin 3.1 g/dL (2-4); Magnesium 2.1 mg/dL (1.9-2.7); Potassium 4.3 mmol/L (3.5-5.0); Total Protein 7.8 g/dL (6.4-8.9)
[2017-02-16] MEDS ORDERED: Iohexol 300* (CONTRAST) 10 ML SDV IV ONE (02:12)
[2017-02-16] MEDS ORDERED: HYDROmorphone* 1 MG/ML 1 ML SYR IV SLOW PU ONE ×2 (03:30→04:03)
[2017-02-16] MEDS: HYDROmorphone* 1 MG/ML 1 ML SYR IV SLOW PU PRN ×3 (06:30→19:28)
[2017-02-16] MEDS: NS 0.9% 1000 ML* 1,000 ML IV SCH ×2 (06:31→18:23)
--- NOTE | 2017-02-16 08:05 | RAD ---
INDICATION: Lower abdominal pain. COMPARISON: CT abdomen pelvis February 27, 2015 TECHNIQUE: Axial source images were obtained from the hemidiaphragms to the symphysis pubis following administration of oral and intravenous contrast. 149 mL Omnipaque 300 was utilized. Coronal and sagittal reconstructed images were acquired. Lung bases: There is mild bibasilar atelectasis. Liver: The liver is normal in size. There are no masses. There is no ductal dilatation. Gallbladder: Cholecystectomy. Spleen: There is splenomegaly. The spleen measures 15 cm in length. There is a low-density splenic lesion measuring 2.2 cm, unchanged Pancreas: There is no focal pancreatic mass or ductal dilatation. Adrenal glands: There is no evidence of adrenal mass. Kidneys: The kidneys are normal in size and position. There are prompt nephrograms and there is prompt excretion bilaterally. There are no new renal parenchymal masses. There are renal cortical and parapelvic cysts There is a punctate 2 mm right renal calculus. Adenopathy: There is no evidence of adenopathy by size criteria. Fluid collections: There are no free or localized fluid collections. Vessels:There are no significant atherosclerotic changes involving the aorta. There is no focal aneurysm. The iliac vessels are normal in caliber. The IVC appears normal. GI tract: There is dilatation of the a proximal small bowel with dilatation up to 3.5 cm. The cause the obstruction may be related to adhesions. The distal small bowel is fluid-filled and normal in caliber. The colon is decompressed. Pelvic organs: The prostate is mildly enlarged Bladder: There are no bladder masses. Abdominal and pelvic soft tissues: The extraperitoneal abdominal and pelvic soft tissues appear normal.. Osseous structures: There are no acute osseous findings. Other: None IMPRESSION: Mild bibasilar atelectasis Splenomegaly with stable indeterminate splenic lesion. Partial small bowel obstruction. Suggest follow-up plain radiographs. Nonobstructive right renal calculus. Renal cortical and parapelvic cysts unchanged.
--- NOTE | 2017-02-16 08:45 | HP ---
HISTORY AND PHYSICAL: DATE OF ADMISSION: 02/16/17 PRIMARY CARE PHYSICIAN: Dr. Guevara Cuadra. CHIEF COMPLAINT: Abdominal pain. HISTORY OF PRESENT ILLNESS: The patient is a 71-year-old gentleman with past medical history significant for several small bowel obstructions, who presents to [facility] with a chief complaint of abdominal pain this evening. He said it actually started with diarrhea shortly after dinner at about 7:30 p.m. He then suddenly became quite nauseated and went to the bathroom, vomited up 5 times. He then developed abdominal pain that was diffuse, but more localized in the right mid quadrant. He has no fevers or chills and admits he felt quite anxious throughout the experience. He is also quite anxious because he has gotten this before, but has not had it in a few years. He also notes he may have been drinking somewhat less fluid lately and thinks he may have been dehydrated, which may have prompted this. It should be noted that surgery is aware of his prior SBOs and would like to avoid surgical intervention because of his propensity to develop significant adhesions very quickly. PAST MEDICAL HISTORY: Significant for small bowel obstruction secondary to abdominal surgery, cataracts, posttraumatic stress disorder, thrombocytopenia, chronic kidney disease, hyperlipidemia, and polycythemia. CURRENT MEDICATIONS: The patient is unaware but on discharge on 02/17/17 from this hospital, he was on: 1. Flecainide 50 mg daily. 2. Potassium chloride 20 mEq daily. 3. Red yeast rice extract daily. 4. Aspirin 81 mg daily. 5. Amlodipine 10 mg daily. 6. Losartan 25 mg in the evening. 7. Fluticasone nasal spray 2 sprays each nostril as needed. 8. Sertraline 50 mg daily. 9. Prazosin 10 mg in the evening. 10. Methocarbamol 750 mg twice a day as needed. ALLERGIES: He has an allergy/adverse reaction to MORPHINE, AMOXICILLIN, ATORVASTATIN, ZETIA, NIACIN, and PENICILLIN. FAMILY HISTORY: Reviewed, contributory. SOCIAL HISTORY: No tobacco, alcohol, or recreational drug use. He lives with his who is also his healthcare proxy. REVIEW OF SYSTEMS: A 14-point review of systems was completed with the patient. All pertinent positives and negatives are in the history of present illness, otherwise negative. PHYSICAL EXAMINATION GENERAL: A pleasant gentleman, lying in bed, in no acute distress. VITAL SIGNS: Heart rate 67 beats per minute, respiratory rate 16 breaths per minute, pulse ox 94% on room air, blood pressure 139/61, and temperature is 98.4 degrees. HEENT: Normocephalic, atraumatic. Pupils equal, round, and reactive to light. Moist mucous membranes. NECK: Supple. No JVD, bruits, palpable thyroid, or lymphadenopathy. CHEST: Clear to auscultation and percussion bilaterally. CARDIOVASCULAR EXAM: S1, S2 appreciated. Regularly rate and rhythm. ABDOMINAL EXAM: Positive bowel sounds in all 4 quadrants. Soft, it is distended, but it is only minimally tender in the mid epigastric area. No rebound, guarding, or rigidity. EXTREMITIES: No cyanosis, clubbing, or edema; +2 peripheral pulses bilaterally. NEUROLOGIC: Alert and oriented x3. Moves all extremities. SKIN: No rashes or abnormalities. DIAGNOSTIC STUDIES/LAB DATA: White count 11.3, hemoglobin 17, hematocrit 51, and platelets 134. Sodium 140, potassium 4.2, chloride 105, CO2 26, BUN 20, creatinine 1.06, and glucose 151. INR 0.98. EKG shows normal sinus rhythm at 79 beats per minute; left axis deviation, Qs in II, III, and aVF; and no acute ST-T wave changes. Abdominal and pelvic CT was interpreted by the nighttime radiologist as stable splenic mass; mild splenomegaly; low-grade partial small bowel obstruction, abscess, or free air; mid pelvic transition point, maybe secondary to adhesions ; and punctate right renal stone. ASSESSMENT AND PLAN: 1. Small bowel obstruction: The patient unfortunately has had this before. He does not need an NG tube at this time. We will place him on Dilaudid p.r.n. , Zofran p.r.n., normal saline 100 cc an hour, and Surgery to see in the a.m. 2. Hypertension: Borderline controlled, continue current medication adjusted accordingly. 3. Hyperlipidemia: Stable, continue statin. 4. Arrhythmia: Continue flecainide. 5. DVT prophylaxis: Heparin subcu. 6. FEN: NPO, IV fluids as noted. 7. The patient is a full code. TIME SPENT: Over 75 minutes was spent on this H and P; more than 40 minutes of which was spent in direct [id number] contact with the patient, evaluation, physical exam, counseling, and coordination of care. Please note the patient's med list is not updated, unless we get this, we will not be able to start medications as noted earlier in the assessment and plan. CC: Dr. Guevara Cuadra* [id number]/[facility] #: [id number] MTDD
[2017-02-16] MEDS: Ondansetron INJ* 2 MG/ML VIAL IV PRN ×2 (11:52→19:28)
--- NOTE | 2017-02-16 14:46 | PN ---
Subjective Date of Service: 02/16/17 Interval History: Patient seen and examined at bedside. He reports some intermittent abd pain that is relieved with pain medication. Denies any flatus at this time. No other acute concerns. Family History: Unchanged from Admission Social History: Unchanged from Admission Past Medical History: Unchanged from Admission Objective Active Medications: Hydromorphone HCl (Dilaudid Iv*) 1 mg IV SLOW PU Q4H PRN PRN Reason: PAIN Last Admin: 02/16/17 11:52 Dose: 1 mg Sodium Chloride (Ns 0.9% 1000 Ml*) 1,000 mls @ 100 mls/hr IV PER RATE [facility] Last Admin: 02/16/17 06:31 Dose: 100 mls/hr Ondansetron HCl (Zofran Inj*) 4 mg IV Q4H PRN PRN Reason: NAUSEA Last Admin: 02/16/17 11:52 Dose: 4 mg Vital Signs 02/16/17 02/16/17 02/16/17 04:44 05:00 05:30 Temperature Pulse Rate 65 56 Respiratory 18 16 12 Rate Blood Pressure 139/61 122/62 (mmHg) O2 Sat by Pulse 94 91 Oximetry 02/16/17 02/16/17 02/16/17 06:00 06:26 06:30 Temperature 98.2 F Pulse Rate 56 59 Respiratory 9 20 20 Rate Blood Pressure 134/50 144/66 (mmHg) O2 Sat by Pulse 93 96 Oximetry 02/16/17 02/16/17 02/16/17 07:30 11:52 11:54 Temperature 97.8 F Pulse Rate 57 Respiratory 16 16 16 Rate Blood Pressure 138/68 (mmHg) O2 Sat by Pulse 93 Oximetry 02/16/17 12:52 Temperature Pulse Rate Respiratory 16 Rate Blood Pressure (mmHg) O2 Sat by Pulse Oximetry Oxygen Devices in Use Now: None Appearance: Older male patient, lying in bed, NAD Eyes: PERRLA Ears/Nose/Mouth/Throat: Mucous Membranes Moist Neck: NL Appearance and Movements; NL JVP Respiratory: Symmetrical Chest Expansion and Respiratory Effort, Clear to Auscultation Cardiovascular: NL Sounds; No Murmurs; No JVD, RRR Abdominal: - - abd soft, mildly distended, tender in epigastric and mid abdomen , BS hypoactive Extremities: No Edema Skin: No Rash or Ulcers Neurological: Alert and Oriented x 3, NL Gait, NL Muscle Strength and Tone Lines/Tubes/Other Access: Clean, Dry and Intact Peripheral IV Nutrition: Taking PO's Result Diagrams: 02/16/17 00:05 02/16/17 00:05 Assess/Plan/Problems-Billing Assessment: Mr. Richey is a 71 yo male with a PMH of previous SBO, CKD, polycythemia, HLD , PTSD, thrombocytopenia, and cataracts who presented to the ED on 02/15/17 with concern for abdominal pain that is secondary to SBO. - Patient Problems (1) Partial small bowel obstruction Code(s): K56.69 - OTHER INTESTINAL OBSTRUCTION Comment: Appreciate surgery consult. Continue conservative medical management. NPO, IVF, prn analgesia and antiemetics No BM or flatus reported. (2) Ventricular bigeminy Code(s): I49.9 - CARDIAC ARRHYTHMIA, UNSPECIFIED Comment: Stable. Continue flecainide. Continue outpatient cardiology follow-up. (3) Hypertension Code(s): I10 - ESSENTIAL (PRIMARY) HYPERTENSION Comment: Normotensive Continue amlodipine, prazosin, and losartan. (4) History of posttraumatic stress disorder (PTSD) Code(s): Z86.59 - PERSONAL HISTORY OF OTHER MENTAL AND BEHAVIORAL DISORDERS Comment: Continue sertraline, prazosin. Continue supportive care. (5) Hyperlipidemia Code(s): E78.5 - HYPERLIPIDEMIA, UNSPECIFIED Comment: Resume gemfibrozil when taking PO. (6) Hx of polycythemia Code(s): Z86.2 - PRSNL HISTORY OF DIS OF THE BLD/BLD-FORM ORG/IMMUN MECHNSM (7) Hx of thrombocytopenia Status: Chronic Code(s): Z86.2 - PRSNL HISTORY OF DIS OF THE BLD/BLD-FORM ORG/ IMMUN MECHNSM Comment: Stable. Continue to trend. (8) DVT prophylaxis Code(s): [id number] - Comment: Heparin SQ Status and Disposition: Inpatient admission. Anticipate LOS 2-4 days.
[2017-02-16] MEDS: Losartan TAB* 25 MG PO SCH (18:32)
--- NOTE | 2017-02-16 18:56 | CONS ---
CONSULTATION REPORT: DATE OF CONSULT: 02/16/17 REFERRING PROVIDER: Dr. Nishant Arceo, hospitalist. REASON FOR CONSULTATION: Abdominal pain and small bowel obstruction. HISTORY OF PRESENT ILLNESS: Mr. Conrad Richey is a very pleasant 71-year- old gentleman, who presented to the emergency room last night. He felt that he had become somewhat dehydrated over the course of the day after working, developed some diarrhea with subsequent nausea and some bloating. His pain became somewhat crampy and he was nauseated, although he did not throw up but he presented to the emergency room later last night. He has a history of multiple admissions for bowel obstructions, most recently in 2014. He has had several laparotomies in the past, however, not in the last 10 to 12 years and his recent admission for small bowel obstruction, he responded nicely to nonoperative management. In the emergency room, he is noted to be afebrile with stable vital signs. Laboratory workup included white blood cell count of 11,000, hemoglobin of 17, BUN and creatinine were within normal limits. He had a normal lactic acid and lipase. He underwent a CAT scan of the abdomen and pelvis. I did review these images. This showed some chronic splenomegaly with an intermittent splenic lesion which is unchanged. There was some proximal small bowel distension with distal small bowel collapse consistent with small bowel obstruction. The colon was decompressed. No free fluid or free intraluminal air and these findings were felt secondary to adhesive small bowel disease. He was admitted to the hospitalist service and surgical consultation was obtained. He has not had any further nausea or vomiting but he is refusing a nasogastric tube. PAST MEDICAL HISTORY: 1. Hypertension. 2. Hyperlipidemia. 3. Depression. 4. PTSD. 5. History of polycythemia and thrombocytopenia. 6. Recent admission for right ventricular bigeminy, treated medically with Dr. Trinh. PAST SURGICAL HISTORY: 1. Appendectomy. 2. Open cholecystectomy. 3. Exploratory laparotomy several times for lysis of adhesions but not within the last 12 years. MEDICATIONS: Include: 1. Amlodipine. 2. Zoloft. 3. Minipress. 4. Potassium. 5. Robaxin. 6. Cozaar. 7. Flecainide. 8. Aspirin 81 mg. ALLERGIES: To MORPHINE, AMOXICILLIN, ATORVASTATIN, EZETIMIBE, NIACIN, PENICILLIN. SOCIAL HISTORY: He has no report of alcohol, tobacco, or drug use. The patient lives with his who is his healthcare proxy. He also has a daughter living in town. REVIEW OF SYSTEMS: Cerebrovascular: He denies any visual disturbances or headaches. Cardiovascular: No recent chest pain, shortness of breath or arrhythmia, other than above. Abdomen: As per above. PHYSICAL EXAM: Temperature 98.2, pulse 59, blood pressure 144/66. In general, overweight male, who is in no apparent distress. He is quite alert and conversive. HEENT: Sclerae are anicteric. His oral mucosa is dry. Lungs were clear to auscultation with normal respiratory effort. Heart was a regular rate and rhythm without murmurs, rubs or gallops. Abdomen is soft but protuberant and mildly distended. He had diminished bowel sounds throughout. There is no high pitched sound or tinkling, however. He has a well-healed midline incision from below the xiphoid down towards the pubis. I appreciate no hernia. He has some mild generalized tenderness but no rebound, guarding, or peritoneal signs. IMPRESSION: Small bowel obstruction, most likely adhesive disease. He has had several admissions over the past several years for similar symptoms and he responded nicely to nonoperative management. He has no urgent need for surgical intervention at this point. However, I would recommend placement of a nasogastric tube for gastric and bowel decompression. However, at this point, he is refusing placement of this but would be willing to consent if he developed nausea or vomiting. For now, I recommend continued IV fluids, keeping him n.p.o., increasing his activity as tolerated. Repeat abdominal x-rays have been ordered for tomorrow. Certainly, it would be nice to avoid any surgical intervention in a gentleman who has had multiple procedures in the past and has had a recent cardiac admission and I discussed all of this with him Thank you for this consultation. We will follow him closely with you. CC: [facility]; Dr. Cuadra, [facility], [place], [place]* [id number]/[facility] #: [id number] OMAR
[2017-02-16] MEDS: Heparin VIAL(*) 5000 UNITS/ML VIAL (FIVE THOUSAND) SUBCUT SCH (22:19)
[2017-02-16] MEDS: Prazosin CAP* 5 MG PO SCH (22:21)
[2017-02-16] MEDS: Flecainide TAB* 100 MG PO SCH (23:51)
[2017-02-16] MEDS: Temazepam CAP* 15 MG PO PRN (23:52)
[2017-02-17] MEDS: NS 0.9% 1000 ML* 1,000 ML IV SCH ×3 (04:39→20:49)
[2017-02-17] MEDS: Heparin VIAL(*) 5000 UNITS/ML VIAL (FIVE THOUSAND) SUBCUT SCH ×3 (06:07→21:52)
[2017-02-17 07:11] LABS: Hematocrit 45 % (42-52); Hemoglobin 15.3 g/dl (14.0-18.0); Mean Corpuscular HGB Conc 34 g/dl (31-36); Mean Corpuscular Hemoglobin 30 pg (27-31); Mean Corpuscular Volume 90 fL (80-94); Mean Platelet Volume 8 um3 (7.4-10.4); Red Blood Count 5.04 10^6/ul (4.0-5.4); Red Cell Distribution Width 15 % (10.5-15); White Blood Count 5.3 10^3/ul (3.5-10.8)
[2017-02-17 07:22] LABS: BUN/Creatinine Ratio 17.1 (8-20); Calcium 8.6 mg/dL (8.6-10.3); EGFR African American 129.3 (>60); EGFR Non-African American 100.5 (>60); Potassium 3.8 mmol/L (3.5-5.0)
[2017-02-17 07:46] LABS: Magnesium 2.1 mg/dL (1.9-2.7)
[2017-02-17] MEDS: HYDROmorphone* 1 MG/ML 1 ML SYR IV SLOW PU PRN (07:58)
--- NOTE | 2017-02-17 08:49 | RAD ---
INDICATION: Follow-up partial small bowel obstruction COMPARISON: CT February 16, 2017; abdomen March 08, 2015 TECHNIQUE: Erect and supine views of the abdomen are submitted. FINDINGS: Bones: There are no acute bony findings. Soft tissues: The soft tissues appear normal. The psoas margins are sharp. Bowel gas pattern: There is no current plain radiographic evidence of obstruction. There is residual contrast within a normal caliber colon. Calcifications: There are no abnormal calcifications. Other: None IMPRESSION: NO CURRENT RADIOGRAPHIC EVIDENCE OF PARTIAL SMALL BOWEL OBSTRUCTION
--- NOTE | 2017-02-17 08:56 | PN ---
Progress Note - Progress Note Note: Surgery Progress: S: Denies abd pain; passing flatus. Only used Dilaudid for back pain. O: Vital Signs - 8 hr 02/17/17 02/17/17 02/17/17 03:32 07:50 07:58 Temperature 97.9 F 98.1 F Pulse Rate 48 67 Respiratory 12 15 18 Rate Blood Pressure 135/55 133/58 (mmHg) O2 Sat by Pulse 95 96 Oximetry 02/17/17 08:00 Temperature Pulse Rate Respiratory 18 Rate Blood Pressure (mmHg) O2 Sat by Pulse Oximetry Intake and Output Last 24 Hours 02/15/17 02/16/17 02/17/17 02/18/17 06:59 06:59 06:59 06:59 Intake Total 1000 1994 Output Total 1400 150 Balance 1000 595 -150 Weight 246 lb 246 lb Intake: IV Fluids 1000 1970 NS (0.9%) 1970 Oral 25 Output: Urine 1400 150 Heart: reg Lungs: clear ant Abd: +BS; nondistended; soft, nontender to palp AXR: contrast throughout colon (not read yet) A/P: pSBO, resolving. Will start clear liqs.
[2017-02-17] MEDS ORDERED: Flecainide TAB* 100 MG PO SCH (09:00)
[2017-02-17] MEDS: Flecainide TAB* 100 MG PO SCH (09:39)
[2017-02-17] MEDS: amLODIPine TAB* 5 MG PO SCH (09:39)
[2017-02-17] MEDS: Sertraline* 50 MG TAB PO SCH (09:39)
--- NOTE | 2017-02-17 10:53 | PN ---
Subjective Date of Service: 02/17/17 Interval History: Patient seen and examined at bedside. He reports passing flatus and denies abd pain. Denies CP, SOB. No acute concerns. Family History: Unchanged from Admission Social History: Unchanged from Admission Past Medical History: Unchanged from Admission Objective Active Medications: Amlodipine Besylate (Norvasc Tab*) 10 mg PO DAILY [facility] Last Admin: 02/17/17 09:39 Dose: 10 mg Flecainide Acetate (Tambocor Tab*) 50 mg PO DAILY [facility] Last Admin: 02/17/17 09:39 Dose: 50 mg Heparin Sodium (Porcine) (Heparin Vial(*)) 5,000 units SUBCUT Q8HR [facility] Last Admin: 02/17/17 06:07 Dose: 5,000 units Hydromorphone HCl (Dilaudid Iv*) 1 mg IV SLOW PU Q4H PRN PRN Reason: PAIN Last Admin: 02/17/17 07:58 Dose: 1 mg Sodium Chloride (Ns 0.9% 1000 Ml*) 1,000 mls @ 50 mls/hr IV PER RATE [facility] Last Admin: 02/17/17 09:52 Dose: 50 mls/hr Losartan Potassium (Cozaar Tab*) 25 mg PO QPM [facility] Last Admin: 02/16/17 18:32 Dose: 25 mg Ondansetron HCl (Zofran Inj*) 4 mg IV Q4H PRN PRN Reason: NAUSEA Last Admin: 02/16/17 19:28 Dose: 4 mg Prazosin HCl (Minipress Cap*) 10 mg PO BEDTIME [facility] Last Admin: 02/16/17 22:21 Dose: 10 mg Sertraline HCl (Zoloft*) 50 mg PO DAILY [facility] Last Admin: 02/17/17 09:39 Dose: 50 mg Temazepam (Restoril Cap*) 15 mg PO BEDTIME PRN PRN Reason: INSOMNIA Last Admin: 02/16/17 23:52 Dose: 15 mg Vital Signs 02/16/17 02/16/17 02/16/17 11:52 11:54 12:52 Temperature 97.8 F Pulse Rate 57 Respiratory 16 16 16 Rate Blood Pressure 138/68 (mmHg) O2 Sat by Pulse 93 Oximetry 02/16/17 02/16/17 02/16/17 15:17 19:13 19:28 Temperature 98.0 F Pulse Rate 50 Respiratory 16 16 16 Rate Blood Pressure 130/66 (mmHg) O2 Sat by Pulse 93 Oximetry 02/16/17 02/16/17 02/16/17 20:02 20:28 23:23 Temperature 97.8 F 97.9 F Pulse Rate 61 31 Respiratory 17 16 12 Rate Blood Pressure 152/71 144/50 (mmHg) O2 Sat by Pulse 95 94 Oximetry 02/17/17 02/17/17 02/17/17 03:32 07:50 07:58 Temperature 97.9 F 98.1 F Pulse Rate 48 67 Respiratory 12 15 18 Rate Blood Pressure 135/55 133/58 (mmHg) O2 Sat by Pulse 95 96 Oximetry 02/17/17 02/17/17 08:00 08:58 Temperature Pulse Rate Respiratory 18 18 Rate Blood Pressure (mmHg) O2 Sat by Pulse Oximetry Oxygen Devices in Use Now: None Appearance: Older male patient, ambulating in halls, NAD Eyes: PERRLA Ears/Nose/Mouth/Throat: Mucous Membranes Moist Neck: NL Appearance and Movements; NL JVP Respiratory: Symmetrical Chest Expansion and Respiratory Effort, Clear to Auscultation Cardiovascular: NL Sounds; No Murmurs; No JVD, RRR Abdominal: NL Sounds; No Tenderness; No Distention Extremities: - - trace BLE edema Neurological: Alert and Oriented x 3, NL Gait, NL Muscle Strength and Tone Lines/Tubes/Other Access: Clean, Dry and Intact Peripheral IV Nutrition: Taking PO's Result Diagrams: 02/17/17 06:37 02/17/17 06:37 Assess/Plan/Problems-Billing Assessment: Mr. Richey is a 71 yo male with a PMH of previous SBO, CKD, polycythemia, HLD , PTSD, thrombocytopenia, and cataracts who presented to the ED on 02/15/17 with concern for abdominal pain that is secondary to SBO. - Patient Problems (1) Partial small bowel obstruction Code(s): K56.69 - OTHER INTESTINAL OBSTRUCTION Comment: Appreciate surgery consult. Continue medical management. IVF, prn analgesia and antiemetics Patient with reported flatus Start clear liquids. (2) Ventricular bigeminy Code(s): I49.9 - CARDIAC ARRHYTHMIA, UNSPECIFIED Comment: Continue flecainide. Continue outpatient cardiology follow-up. (3) Hypertension Code(s): I10 - ESSENTIAL (PRIMARY) HYPERTENSION Comment: Normotensive Continue amlodipine, prazosin, and losartan. (4) History of posttraumatic stress disorder (PTSD) Code(s): Z86.59 - PERSONAL HISTORY OF OTHER MENTAL AND BEHAVIORAL DISORDERS Comment: Continue sertraline, prazosin. Continue supportive care. (5) Hyperlipidemia Code(s): E78.5 - HYPERLIPIDEMIA, UNSPECIFIED Comment: Resume gemfibrozil when taking PO. (6) Hx of polycythemia Code(s): Z86.2 - PRSNL HISTORY OF DIS OF THE BLD/BLD-FORM ORG/IMMUN MECHNSM (7) Hx of thrombocytopenia Status: Chronic Code(s): Z86.2 - PRSNL HISTORY OF DIS OF THE BLD/BLD-FORM ORG/ IMMUN MECHNSM Comment: Stable. Continue to trend. (8) DVT prophylaxis Code(s): [id number] - Comment: Heparin SQ Status and Disposition: Inpatient admission. Anticipate LOS 2-4 days.
[2017-02-17] MEDS ORDERED: Potassium Chlor TAB* 20 MEQ TAB.ER PO ONE (12:44)
[2017-02-17] MEDS: Losartan TAB* 25 MG PO SCH (17:05)
[2017-02-17] MEDS: Prazosin CAP* 5 MG PO SCH (21:51)
[2017-02-17] MEDS: Temazepam CAP* 15 MG PO PRN (21:51)
[2017-02-18] MEDS: Heparin VIAL(*) 5000 UNITS/ML VIAL (FIVE THOUSAND) SUBCUT SCH ×3 (05:56→22:15)
[2017-02-18] MEDS: Ondansetron INJ* 2 MG/ML VIAL IV PRN ×2 (05:56→09:39)
[2017-02-18] MEDS: amLODIPine TAB* 5 MG PO SCH (09:32)
[2017-02-18] MEDS: Sertraline* 50 MG TAB PO SCH (09:32)
[2017-02-18] MEDS: Flecainide TAB* 100 MG PO SCH (09:32)
[2017-02-18] MEDS: HYDROmorphone* 1 MG/ML 1 ML SYR IV SLOW PU PRN (09:39)
--- NOTE | 2017-02-18 09:58 | PN ---
Subjective Date of Service: 02/18/17 Interval History: Patient seen and examined at bedside. He reports increased nausea this morning and return of abdominal pain. Also reports multiple BM with both formed and liquid stool, as well as flatus. Denies CP, SOB. Family History: Unchanged from Admission Social History: Unchanged from Admission Past Medical History: Unchanged from Admission Objective Active Medications: Amlodipine Besylate (Norvasc Tab*) 10 mg PO DAILY [facility] Last Admin: 02/18/17 09:32 Dose: 10 mg Flecainide Acetate (Tambocor Tab*) 50 mg PO DAILY [facility] Last Admin: 02/18/17 09:32 Dose: 50 mg Heparin Sodium (Porcine) (Heparin Vial(*)) 5,000 units SUBCUT Q8HR [facility] Last Admin: 02/18/17 05:56 Dose: 5,000 units Hydromorphone HCl (Dilaudid Iv*) 1 mg IV SLOW PU Q4H PRN PRN Reason: PAIN Last Admin: 02/18/17 09:39 Dose: 1 mg Sodium Chloride (Ns 0.9% 1000 Ml*) 1,000 mls @ 50 mls/hr IV PER RATE [facility] Last Admin: 02/17/17 20:49 Dose: 50 mls/hr Losartan Potassium (Cozaar Tab*) 25 mg PO QPM [facility] Last Admin: 02/17/17 17:05 Dose: 25 mg Ondansetron HCl (Zofran Inj*) 4 mg IV Q4H PRN PRN Reason: NAUSEA Last Admin: 02/18/17 09:39 Dose: 4 mg Prazosin HCl (Minipress Cap*) 10 mg PO BEDTIME [facility] Last Admin: 02/17/17 21:51 Dose: 10 mg Sertraline HCl (Zoloft*) 50 mg PO DAILY [facility] Last Admin: 02/18/17 09:32 Dose: 50 mg Temazepam (Restoril Cap*) 15 mg PO BEDTIME PRN PRN Reason: INSOMNIA Last Admin: 02/17/17 21:51 Dose: 15 mg Vital Signs 02/17/17 02/17/17 02/17/17 11:27 15:46 20:03 Temperature 97.4 F 97.8 F 98.1 F Pulse Rate 69 47 53 Respiratory 16 17 19 Rate Blood Pressure 129/59 132/66 141/66 (mmHg) O2 Sat by Pulse 96 96 97 Oximetry 02/17/17 02/17/17 02/18/17 21:43 23:31 03:48 Temperature 98.0 F 98.0 F Pulse Rate 62 63 Respiratory 20 16 17 Rate Blood Pressure 146/59 146/69 (mmHg) O2 Sat by Pulse 97 98 Oximetry 02/18/17 02/18/17 02/18/17 07:59 08:06 09:39 Temperature 98.2 F Pulse Rate 57 Respiratory 17 15 18 Rate Blood Pressure 134/73 (mmHg) O2 Sat by Pulse 98 Oximetry Oxygen Devices in Use Now: None Appearance: Older male, lying in bed, NAD Eyes: PERRLA Ears/Nose/Mouth/Throat: Mucous Membranes Moist Neck: NL Appearance and Movements; NL JVP Respiratory: Symmetrical Chest Expansion and Respiratory Effort, Clear to Auscultation Cardiovascular: NL Sounds; No Murmurs; No JVD, RRR Abdominal: - - abd soft, less distended, hyperactive BS Extremities: No Edema Skin: No Rash or Ulcers Neurological: Alert and Oriented x 3 Lines/Tubes/Other Access: Clean, Dry and Intact Peripheral IV Nutrition: Taking PO's Result Diagrams: 02/17/17 06:37 02/17/17 06:37 Assess/Plan/Problems-Billing Assessment: Mr. Richey is a 71 yo male with a PMH of previous SBO, CKD, polycythemia, HLD , PTSD, thrombocytopenia, and cataracts who presented to the ED on 02/15/17 with concern for abdominal pain that is secondary to SBO. - Patient Problems (1) Partial small bowel obstruction Code(s): K56.69 - OTHER INTESTINAL OBSTRUCTION Comment: Appreciate surgery consult. Patient with increased nausea and pain today - check abd XR. Continue medical management. IVF, prn analgesia and antiemetics (2) Ventricular bigeminy Code(s): I49.9 - CARDIAC ARRHYTHMIA, UNSPECIFIED Comment: Continue flecainide. Continue outpatient cardiology follow-up. (3) Hypertension Code(s): I10 - ESSENTIAL (PRIMARY) HYPERTENSION Comment: Normotensive Continue amlodipine, prazosin, and losartan. (4) History of posttraumatic stress disorder (PTSD) Code(s): Z86.59 - PERSONAL HISTORY OF OTHER MENTAL AND BEHAVIORAL DISORDERS Comment: Continue sertraline, prazosin. Continue supportive care. (5) Hyperlipidemia Code(s): E78.5 - HYPERLIPIDEMIA, UNSPECIFIED Comment: Resume gemfibrozil when taking PO. (6) Hx of polycythemia Code(s): Z86.2 - PRSNL HISTORY OF DIS OF THE BLD/BLD-FORM ORG/IMMUN MECHNSM (7) Hx of thrombocytopenia Status: Chronic Code(s): Z86.2 - PRSNL HISTORY OF DIS OF THE BLD/BLD-FORM ORG/ IMMUN MECHNSM Comment: Stable. Continue to trend. (8) DVT prophylaxis Code(s): [id number] - Comment: Heparin SQ Status and Disposition: Inpatient admission. Anticipate LOS 2-4 days.
--- NOTE | 2017-02-18 12:46 | RAD ---
INDICATION: Small bowel myxbjyzamid-ydoqxi-et COMPARISON: February 17, 2017 TECHNIQUE: Erect and supine views of the abdomen are submitted. FINDINGS: Bones: There are no acute bony findings. Soft tissues: The soft tissues appear normal. The psoas margins are sharp. Bowel gas pattern: The colon is normal in caliber and and contains residual contrast. There are mildly prominent loops of small bowel in left abdomen which are not evident previously and perhaps because they were fluid-filled. There are scant air-fluid levels. The findings suggest a mild partial small bowel obstruction Calcifications: There are no abnormal calcifications. Other: None IMPRESSION: MILD PARTIAL SMALL BOWEL OBSTRUCTION
--- NOTE | 2017-02-18 14:57 | PN ---
Progress Note - Progress Note Note: Surgery Progress: S: Had some increased pain and nausea this a.m. which has since resolved. He has continued to pass both stool and gas. He would like to try clear liqs again. O: Vital Signs - 8 hr 02/18/17 02/18/17 02/18/17 07:59 08:06 09:39 Temperature 98.2 F Pulse Rate 57 Respiratory 17 15 18 Rate Blood Pressure 134/73 (mmHg) O2 Sat by Pulse 98 Oximetry 02/18/17 10:39 Temperature Pulse Rate Respiratory 18 Rate Blood Pressure (mmHg) O2 Sat by Pulse Oximetry Intake and Output Last 24 Hours 02/16/17 02/17/17 02/18/17 02/19/17 06:59 06:59 06:59 06:59 Intake Total 1000 1994 2107 Output Total 1400 4275 Balance 1000 595 -2168 Weight 246 lb 246 lb Intake: IV Fluids 1000 1969 957 NS (0.9%) 1969 957 Oral 25 1150 Output: Urine 1400 4275 Other: # Bowel Movements 1 1 Estimated Stool Amount Small Medium # Voids 1 Heart: reg Lungs: clear ant Abd: +BS; soft; nondistended, nontender to palp AXR: Bowel gas pattern: The colon is normal in caliber and and contains residual contrast. There are mildly prominent loops of small bowel in left abdomen which are not evident previously and perhaps because they were fluid-filled. There are scant air- fluid levels. The findings suggest a mild partial small bowel obstruction Calcifications: There are no abnormal calcifications. Other: None IMPRESSION: MILD PARTIAL SMALL BOWEL OBSTRUCTION A/P: mild pSBO, resolving. Will try clear liqs again. If he does well overnight , adv diet and prob home.
[2017-02-18] MEDS: Losartan TAB* 25 MG PO SCH (17:38)
[2017-02-18] MEDS: NS 0.9% 1000 ML* 1,000 ML IV SCH (19:22)
[2017-02-18] MEDS: Prazosin CAP* 5 MG PO SCH (22:15)
[2017-02-18] MEDS: Temazepam CAP* 15 MG PO PRN (22:19)
[2017-02-19] MEDS: Heparin VIAL(*) 5000 UNITS/ML VIAL (FIVE THOUSAND) SUBCUT SCH ×2 (06:05→14:20)
[2017-02-19] MEDS: Sertraline* 50 MG TAB PO SCH (09:00)
[2017-02-19] MEDS: amLODIPine TAB* 5 MG PO SCH (09:01)
[2017-02-19] MEDS: Flecainide TAB* 100 MG PO SCH (09:01)
--- NOTE | 2017-02-19 09:03 | PN ---
Progress Note - Progress Note Note: Surgery Progress: S: No pain. Has passed further flatus and BM. Blane clears well. O: Vital Signs - 8 hr 02/19/17 02/19/17 03:30 07:49 Temperature 98.1 F 98.1 F Pulse Rate 68 62 Respiratory 16 15 Rate Blood Pressure 145/77 131/68 (mmHg) O2 Sat by Pulse 97 97 Oximetry Intake and Output Last 24 Hours 02/17/17 02/18/17 02/19/17 02/20/17 06:59 06:59 06:59 06:59 Intake Total 1994 2107 3260 Output Total 1400 4275 3050 Balance 595 -2168 210 Weight 246 lb Intake: IV Fluids 1969 957 780 NS (0.9%) 1969 957 780 Medicated IV 60 Zofran 60 Oral 25 1150 2420 Output: Urine 1400 4275 3050 Other: # Bowel Movements 1 1 Estimated Stool Amount Small Medium # Voids 1 Heart: reg LUngs: clear ant Abd: +BS; soft, nontender A: SBO, resolving P: will adv to full liq; if blane could go home and cont to advance at home
[2017-02-19 12:43] VITALS: BP 131/63
--- NOTE | 2017-02-19 12:47 | PN ---
Subjective Date of Service: 02/19/17 Interval History: Patient seen and examined at bedside. Patient reports reinitiating clear liquids last night with no c/o pain or n/v. Tolerating full liquids this AM. Passing flatus and BM. Denies CP, SOB or other acute concern. Requesting to go home. Family History: Unchanged from Admission Social History: Unchanged from Admission Past Medical History: Unchanged from Admission Objective Active Medications: Amlodipine Besylate (Norvasc Tab*) 10 mg PO DAILY [facility] Last Admin: 02/19/17 09:01 Dose: 10 mg Flecainide Acetate (Tambocor Tab*) 50 mg PO DAILY [facility] Last Admin: 02/19/17 09:01 Dose: 50 mg Heparin Sodium (Porcine) (Heparin Vial(*)) 5,000 units SUBCUT Q8HR [facility] Last Admin: 02/19/17 06:05 Dose: 5,000 units Hydromorphone HCl (Dilaudid Iv*) 1 mg IV SLOW PU Q4H PRN PRN Reason: PAIN Last Admin: 02/18/17 09:39 Dose: 1 mg Sodium Chloride (Ns 0.9% 1000 Ml*) 1,000 mls @ 50 mls/hr IV PER RATE [facility] Last Admin: 02/18/17 19:22 Dose: 50 mls/hr Losartan Potassium (Cozaar Tab*) 25 mg PO QPM [facility] Last Admin: 02/18/17 17:38 Dose: 25 mg Ondansetron HCl (Zofran Inj*) 4 mg IV Q4H PRN PRN Reason: NAUSEA Last Admin: 02/18/17 09:39 Dose: 4 mg Prazosin HCl (Minipress Cap*) 10 mg PO BEDTIME [facility] Last Admin: 02/18/17 22:15 Dose: 10 mg Sertraline HCl (Zoloft*) 50 mg PO DAILY [facility] Last Admin: 02/19/17 09:00 Dose: 50 mg Temazepam (Restoril Cap*) 15 mg PO BEDTIME PRN PRN Reason: INSOMNIA Last Admin: 02/18/17 22:19 Dose: 15 mg Vital Signs 02/18/17 02/18/17 02/18/17 15:30 19:12 19:26 Temperature 97.7 F 98.1 F Pulse Rate 54 59 Respiratory 17 18 16 Rate Blood Pressure 139/64 135/62 (mmHg) O2 Sat by Pulse 99 98 Oximetry 02/18/17 02/18/17 02/19/17 19:29 23:27 03:30 Temperature 97.9 F 98.1 F Pulse Rate 53 68 Respiratory 16 14 16 Rate Blood Pressure 131/62 145/77 (mmHg) O2 Sat by Pulse 98 97 Oximetry 02/19/17 02/19/17 02/19/17 07:49 09:09 11:34 Temperature 98.1 F 98.1 F Pulse Rate 62 59 Respiratory 15 18 15 Rate Blood Pressure 131/68 131/63 (mmHg) O2 Sat by Pulse 97 99 Oximetry Oxygen Devices in Use Now: None Appearance: Older male, sitting in chair, NAD Eyes: PERRLA Ears/Nose/Mouth/Throat: Mucous Membranes Moist Neck: NL Appearance and Movements; NL JVP Respiratory: Symmetrical Chest Expansion and Respiratory Effort, Clear to Auscultation Cardiovascular: NL Sounds; No Murmurs; No JVD, RRR Abdominal: NL Sounds; No Tenderness; No Distention Extremities: No Edema Neurological: Alert and Oriented x 3, NL Gait, NL Muscle Strength and Tone Lines/Tubes/Other Access: Clean, Dry and Intact Peripheral IV Nutrition: Taking PO's Result Diagrams: 02/17/17 06:37 02/17/17 06:37 Assess/Plan/Problems-Billing Assessment: Mr. Richey is a 71 yo male with a PMH of previous SBO, CKD, polycythemia, HLD , PTSD, thrombocytopenia, and cataracts who presented to the ED on 02/15/17 with concern for abdominal pain that is secondary to SBO. - Patient Problems (1) Partial small bowel obstruction Code(s): K56.69 - OTHER INTESTINAL OBSTRUCTION Comment: Appreciate surgery consult. Pain and n/v resolved. Tolerating full liquids. Advance diet as tolerated. Outpatient surgical follow-up as needed. (2) Ventricular bigeminy Code(s): I49.9 - CARDIAC ARRHYTHMIA, UNSPECIFIED Comment: Continue flecainide. Continue outpatient cardiology follow-up. (3) Hypertension Code(s): I10 - ESSENTIAL (PRIMARY) HYPERTENSION Comment: Normotensive Continue amlodipine, prazosin, and losartan. (4) History of posttraumatic stress disorder (PTSD) Code(s): Z86.59 - PERSONAL HISTORY OF OTHER MENTAL AND BEHAVIORAL DISORDERS Comment: Continue sertraline, prazosin. Continue supportive care. (5) Hyperlipidemia Code(s): E78.5 - HYPERLIPIDEMIA, UNSPECIFIED Comment: Resume gemfibrozil. (6) Hx of polycythemia Code(s): Z86.2 - PRSNL HISTORY OF DIS OF THE BLD/BLD-FORM ORG/IMMUN MECHNSM (7) Hx of thrombocytopenia Status: Chronic Code(s): Z86.2 - PRSNL HISTORY OF DIS OF THE BLD/BLD-FORM ORG/ IMMUN MECHNSM Comment: Stable. Continue to trend. (8) DVT prophylaxis Code(s): UTJ3271 - Comment: Heparin SQ Status and Disposition: Inpatient admission. D/c to home.
--- NOTE | 2017-02-21 01:58 | DS ---
DISCHARGE SUMMARY: DATE OF ADMISSION: 02/16/17 DATE OF DISCHARGE: 02/19/17 PROVIDER: Laura Avery NP ATTENDING PHYSICIAN: Richie Sylvester MD *(as dictated by Laura Avery NP) CONSULTING PHYSICIAN: Donte Zamudio MD, Surgery PRIMARY CARE PROVIDER: Dr. Guevara Cuadra. PRIMARY DISCHARGE DIAGNOSIS: Small bowel obstruction. SECONDARY DISCHARGE DIAGNOSES: 1. Ventricular bigeminy. 2. History of previous small bowel obstruction. 3. Posttraumatic stress disorder. 4. Thrombocytopenia. 5. Chronic kidney disease. 6. Hyperlipidemia. 7. Polycythemia. MEDICATIONS AT DISCHARGE: 1. [place] 1 tab daily p.r.n. 2. Gemfibrozil 600 mg b.i.d. 3. Losartan 25 mg q.p.m. 4. Fluticasone nasal spray 2 sprays to both nares q.a.m. p.r.n. 5. Flecainide 50 mg daily. 6. Aspirin 81 mg daily. 7. Sertraline 50 mg daily. 8. Red yeast rice extract 1200 mg daily. 9. Prazosin 10 mg at bedtime. 10. Robaxin 750 mg b.i.d. p.r.n. 11. Amlodipine 10 mg daily. HOSPITAL COURSE OF STAY: For full details, please refer to the H and P provided by Dr. Hayes on 02/16/17. In summary, Mr. Richey is a 71-year-old gentleman who presented to the hospital with concern for abdominal pain that initially started with diarrhea shortly after eating dinner. He then became nauseated and went to the bathroom and vomited multiple times. The patient was evaluated in the ER. The CT of the abdomen and pelvis showed low-grade partial small bowel obstruction. The patient was admitted and started on IV fluids and was kept n.p.o. Surgery did consult next morning and advised conservative management at this time given the patient has had multiple surgeries in the past with a recent cardiac admission and it was felt that the patient would be best managed at this time with nonoperative management. The patient responded well to supportive care with IV fluids, p.r.n. antiemetics, and p.r.n. analgesic and was able to transitioned to a clear liquid diet. He did have a brief period where he described some abdominal pain and nausea that returned after being on clear liquids. However, this did resolve on its own without any further intervention. The patient's vital signs remained stable. He was afebrile throughout his stay. The patient still shows signs of ventricular bigeminy, but, however, his rate and symptoms are well controlled on the flecainide. The patient was able to transition from clear to full liquid diet on 02/19/17 and tolerated this successfully. No further complaints. The patient did not require an NG tube during the stay. The patient did request to go home at this point stating that he has had multiple bowel movements and is passing flatus. He was advised to follow up with Surgery as needed and to follow up with his PCP in the upcoming week. CONCERNS AT DISCHARGE: Mr. Richey is discharged to home on 02/19/17 with appointment to follow up at the [facility] with Dr. Cuadra. DIET: Full liquid diet, advanced as tolerated. ACTIVITY: As tolerated. CONDITION: Stable. DISPOSITION: To home. TIME SPENT: Time spent on this discharge was approximately 40 minutes. Again, this is only a brief summary of the patient's hospital course of stay. For full details, please refer to full medical record. If you have any further questions or need further assistance, please feel free to contact me at . LAURA AVERY NP [id number]/[phone]/[facility] #: [id number] OMAR
== END 2017-02-19 15:00 | disposition home or self-care (01) | DRG 390 ==
LOC: ED 22:55 → SSU 02-16 04:35
PROVIDERS: ADMIT Internal Medicine; ATTEND Internal Medicine
DX: K56.60 Unspecified intestinal obstruction (principal); D69.6 Thrombocytopenia, unspecified; F43.10 Post-traumatic stress disorder, unspecified; N18.9 Chronic kidney disease, unspecified; E78.5 Hyperlipidemia, unspecified; I12.9 Hypertensive chronic kidney disease with stage 1 through stage 4 chronic kidney disease, or unspecified chronic kidney disease; G47.30 Sleep apnea, unspecified; K58.9 Irritable bowel syndrome, unspecified; F41.9 Anxiety disorder, unspecified; I49.9 Cardiac arrhythmia, unspecified; M54.9 Dorsalgia, unspecified; D75.1 Secondary polycythemia; Z79.82 Long term (current) use of aspirin; Z88.0 Allergy status to penicillin; Z88.5 Allergy status to narcotic agent; Z88.8 Allergy status to other drugs, medicaments and biological substances; Z88.1 Allergy status to other antibiotic agents; Z87.442 Personal history of urinary calculi; Z85.828 Personal history of other malignant neoplasm of skin; Z98.42 Cataract extraction status, left eye; Z98.41 Cataract extraction status, right eye; Z82.49 Family history of ischemic heart disease and other diseases of the circulatory system; Z87.891 Personal history of nicotine dependence
CPT/HCPCS: 36415; 74020; 74177; 80048; 80053; 83605; 83690; 83735; 84484; 85025; 85610; 86140; 93005; A9270-GY; J1170; J1644; J2405; Q9967

== ENCOUNTER 2017-05-07 02:23 | Observation (INO) | payer MEDICARE ==
[2017-05-07 02:43] LABS: Hematocrit 50 % (42-52); Hemoglobin 16.3 g/dl (14.0-18.0); Mean Corpuscular HGB Conc 33 g/dl (31-36); Mean Corpuscular Hemoglobin 31 pg (27-31); Mean Corpuscular Volume 92 fL (80-94); Mean Platelet Volume 8 um3 (7.4-10.4); Red Blood Count 5.35 10^6/ul (4.0-5.4); Red Cell Distribution Width 14 % (10.5-15); White Blood Count 5.6 10^3/ul (3.5-10.8)
[2017-05-07 02:55] LABS: BUN/Creatinine Ratio 15.4 (8-20); EGFR Non-African American 81.7 (>60); Potassium 4.2 mmol/L (3.5-5.0)
[2017-05-07 02:56] LABS: Albumin 4.1 g/dL (3.2-5.2); Calcium 8.8 mg/dL (8.6-10.3); Globulin 2.8 g/dL (2-4); Total Bilirubin 0.6 mg/dL (0.2-1.0); Total Protein 6.9 g/dL (6.4-8.9)
[2017-05-07 02:58] LABS: Troponin I 0.01 ng/mL (<0.04)
--- NOTE | 2017-05-07 04:50 | ED ---
[facility], scribed for Keli Patel MD on 05/07/17 at 0238 . HPI Chest Pain - HPI Summary HPI Summary: This patient is a 71 year old M BIBA to [facility] with a chief complaint of CP which began at 0115 today. Pt rates the current pain 2/10 and worse pain 10/10 in severity. Symptoms alleviated by NTG SOLE SPLITTER. PMHx of HTN. - History of Current Complaint Chief Complaint: EDChestPainROMI Time Seen by Provider: 05/07/17 02:27 Hx Obtained From: Patient Onset/Duration: Started Minutes Ago - 0115 today, Still Present Timing: Constant Initial Severity: Severe Current Severity: Mild Pain Intensity: 2 - currently. 10/10 at worse Pain Scale Used: 0-10 Numeric Alleviating Factor(s): NTG 123 - Additional Pertinent History Primary Care Physician: SALMA - Allergy/Home Medications Allergies/Adverse Reactions: Allergies Allergy/AdvReac Type Severity Reaction Status Date / Time Morphine Allergy Severe Severe Verified 05/22/15 07:53 Nausea and Heart Palpitations Amoxicillin Allergy Unknown Unknown Verified 05/22/15 07:53 Reaction Details Atorvastatin Allergy Unknown Unknown Verified 05/22/15 07:53 Reaction Details Ezetimibe Allergy Unknown Unknown Verified 05/22/15 07:53 Reaction Details Niacin Allergy Unknown Unknown Verified 05/22/15 07:53 Reaction Details Penicillins Allergy Unknown Unknown Verified 05/22/15 07:53 Reaction Details PMH/Surg Hx/FS Hx/Imm Hx Endocrine/Hematology History: Reports: Other Endocrine/Hematological Disorders - Polycythemia Denies: Hx Anticoagulant Therapy, Hx Blood Disorders, Hx Blood Transfusions, Hx Bone Marrow Disease, Hx Diabetes, Hx Systemic Lupus Erythematosus, Hx Sickle Cell Disease, Hx Thyroid Disease, Hx Anemia, Hx Unexplained Bleeding Cardiovascular History: Reports: Hx Hypertension, Other Cardiovascular Problems/ Disorders - HLD Denies: Hx Aneurysm, Hx Angina, Hx Angioplasty, Hx Auto Implanted Cardiovert Defib, Hx Cardiac Arrest, Hx Cardiomegaly, Hx Congenital Heart Disease, Hx Congestive Heart Failure, Hx Coronary Artery Disease, Hx Deep Vein Thrombosis, Hx Embolism, Hx Hypercholesterolemia, Hx Hypotension, Hx Myocardial Infarction, Hx Pacemaker/ICD, Hx Peripheral Vascular Disease, Hx Rheumatic Fever, Hx Syncope , Hx Valvular Heart Disease Respiratory History: Reports: Hx Sleep Apnea, Other Respiratory Problems/ Disorders - [facility] is monitoring growths on right lung Denies: Hx Asthma, Hx Chronic Bronchitis, Hx Chronic Obstructive Pulmonary Disease (COPD), Hx Cystic Fibrosis, Hx Lung Cancer, Hx Pleural Effusion, Hx Pneumonia, Hx Pulmonary Edema, Hx Pulmonary Embolism, Hx Seasonal Allergies GI History: Reports: Hx Gall Bladder Disease, Hx Irritable Bowel, Hx Obstructive Bowel, Other GI Disorders - multiple SBO Denies: Hx Cirrhosis, Hx Crohn's Disease, Hx Diverticulosis, Hx Gastroesophageal Reflux Disease, Hx Gastrointestinal Bleed, Hx Hiatal Hernia, Hx Jaundice, Hx Ileostomy, Hx Pyloric Stenosis, Hx Ulcer History: Reports: Other Problems/Disorders - RENAL CALCULI YRS AGO Denies: Hx Acute Renal Failure, Hx Benign Prostatic Hyperplasia, Hx Chronic Renal Failure, Hx Dialysis, Hx Kidney Infection, Hx Kidney Stones - once, Hx Renal Disease Musculoskeletal History: Reports: Hx Back Problems - ruptured disc Denies: Hx Arthritis, Hx Rheumatoid Arthritis, Hx Bursitis, Hx Congenital Bone Abnormalities, Hx Fibromyalgia, Hx Gout, Hx Orthopedic Injury, Hx Osteoporosis, Hx Scoliosis, Hx Tendonitis, Other Musculoskeletal History Sensory History: Reports: Hx Cataracts - surgery, Hx Contacts or Glasses Denies: Hx Eye Injury, Hx Eye Prosthesis, Hx Glaucoma, Hx Legally Blind, Hx Macular Degeneration, Hx Vision Problem, Hx Deafness, Hx Hearing Aid, Other Sensory Impairments Opthamlomology History: Reports: Hx Cataracts - surgery, Hx Contacts or Glasses Denies: Hx Eye Injury, Hx Eye Prosthesis, Hx Glaucoma, Hx Legally Blind, Hx Macular Degeneration, Hx Vision Problem, Other Sensory Impairments Neurological History: Reports: Other Neuro Impairments/Disorders - SPINE PAIN HX OF RUPTURED DISCS Denies: Hx Dementia, Hx Developmental Delay, Hx Headaches, Hx Migraine, Hx Nerve Disease, Hx Seizures, Hx Spinal Cord Injury, Hx Transient Ischemic Attacks (TIA) Psychiatric History: Reports: Hx Anxiety, Hx Post Traumatic Stress Disorder Denies: Hx Attention Deficit Hyperactivity Disorder, Hx Eating Disorder, Hx Depression, Hx Panic Disorder, Hx Inpatient Treatment, Hx Community Mental Health Tx, Hx Schizophrenia, Hx Bipolar Disorder, Hx Suicide Attempt, Hx of Violent Episodes Against Others, Hx Substance Abuse, Other Psychiatric Issues/ Disorders - Cancer History Cancer Type, Location and Year: "Skin cancer" mid abdomen, 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, left back, right leg Hx Chemotherapy: No Hx Radiation Therapy: No Hx Palliative Cancer Treatment: No - Surgical History Surgery Procedure, Year, and Place: INTESTINAL SX FOR BLOCKAGES X35; APPY; [facility] ; SINUS POLYP; CATARACTS, skin cancer removal 12/05/14 Hx Anesthesia Reactions: No - Immunization History Date of Tetanus Vaccine: Unknown Date of Influenza Vaccine: Fall 2012 Infectious Disease History: Denies: Hx Clostridium Difficile, Hx Hepatitis, Hx Human Immunodeficiency Virus (HIV), Hx of Known/Suspected MRSA, Hx Shingles, Hx Tuberculosis, Hx Known/ Suspected VRE, Hx Known/Suspected VRSA, History Other Infectious Disease, Traveled Outside the [place] in Last 30 Days - Family History Known Family History: Positive: Hypertension Negative: Cardiac Disease - Social History Alcohol Use: None Substance Use Type: Reports: None Smoking Status (MU): Former Smoker Type: Cigarettes Amount Used/How Often: PPD Length of Time of Smoking/Using Tobacco: 20 Have You Smoked in the Last Year: No Review of Systems Negative: Fever Positive: Chest Pain All Other Systems Reviewed And Are Negative: Yes Physical Exam Triage Information Reviewed: Yes Vital Signs On Initial Exam: Initial Vitals Temp Pulse Resp BP Pulse Ox 98.6 F 64 12 145/69 95 05/07/17 02:24 05/07/17 02:24 05/07/17 02:24 05/07/17 02:24 05/07/17 02:24 Vital Signs Reviewed: Yes Appearance: Positive: Well-Appearing, No Pain Distress Skin: Positive: Warm, Skin Color Reflects Adequate Perfusion, Dry Eyes: Positive: EOMI, ALEXA ENT: Positive: Pharynx normal, TMs normal Neck: Positive: Supple, Nontender Respiratory/Lung Sounds: Positive: Clear to Auscultation, Breath Sounds Present. Negative: Rales, Rhonchi, Wheezes Cardiovascular: Positive: RRR, Other - No gallop. Negative: Murmur, Rub Abdomen Description: Positive: Nontender, Soft, Other: - No rebound. Negative: Distended, Guarding Bowel Sounds: Positive: Present Musculoskeletal: Positive: Strength/ROM Intact, Other - No edema Neurological: Positive: Sensory/Motor Intact, Alert, Oriented to Person Place, Time, CN Intact II-III - 2-12 Psychiatric: Positive: Affect/Mood Appropriate Diagnostics - Vital Signs Vital Signs Temp Pulse Resp BP Pulse Ox 05/07/17 02:24 98.6 F 64 12 145/69 95 - Laboratory Lab Results: Lab Results 05/07/17 05/07/17 05/07/17 Range/Units 02:31 02:31 02:31 WBC 5.6 (3.5-10.8) 10^3/ul RBC 5.35 (4.0-5.4) 10^6/ul Hgb 16.3 (14.0-18.0) g/dl Hct 50 (42-52) % MCV 92 (80-94) fL MCH 31 (27-31) pg MCHC 33 (31-36) g/dl RDW 14 (10.5-15) % Plt Count 117 L (150-450) 10^3/ul MPV 8 (7.4-10.4) um3 Neut % (Auto) 56.2 (38-83) % Lymph % (Auto) 28.4 (25-47) % [place] % (Auto) 7.4 (1-9) % Eos % (Auto) 7.4 H (0-6) % Baso % (Auto) 0.6 (0-2) % Absolute Neuts (auto) 3.2 (1.5-7.7) 10^3/ul Absolute Lymphs (auto) 1.6 (1.0-4.8) 10^3/ul Absolute Monos (auto) 0.4 (0-0.8) 10^3/ul Absolute Eos (auto) 0.4 (0-0.6) 10^3/ul Absolute Basos (auto) 0 (0-0.2) 10^3/ul Absolute Nucleated RBC 0 10^3/ul Nucleated RBC % 0.1 Sodium 138 (133-145) mmol/L Potassium 4.2 (3.5-5.0) mmol/L Chloride 108 (101-111) mmol/L Carbon Dioxide 26 (22-32) mmol/L Anion Gap 4 (2-11) mmol/L BUN 14 (6-24) mg/dL Creatinine 0.91 (0.67-1.17) mg/dL Est GFR ( Amer) 105.0 (>60) Est GFR (Non-Af Amer) 81.7 (>60) BUN/Creatinine Ratio 15.4 (8-20) Glucose 123 H (70-100) mg/dL Lactic Acid 1.4 (0.5-2.0) mmol/L Calcium 8.8 (8.6-10.3) mg/dL Total Bilirubin 0.60 (0.2-1.0) mg/dL AST 18 (13-39) U/L ALT 18 (7-52) U/L Alkaline Phosphatase 53 (34-104) U/L Troponin I 0.01 (<0.04) ng/mL Total Protein 6.9 (6.4-8.9) g/dL Albumin 4.1 (3.2-5.2) g/dL Globulin 2.8 (2-4) g/dL Albumin/Globulin Ratio 1.5 (1-3) Result Diagrams: 05/07/17 02:31 05/07/17 02:31 Lab Statement: Any lab studies that have been ordered have been reviewed, and results considered in the medical decision making process. - Radiology CXR Radiology Interpretation Completed By: ED Physician - Cardiomegaly otherwise negative. - EKG 0230 Cardiac Rate: NL - BPM 74 EKG Rhythm: Sinus Rhythm EKG Interpretation: Frequent PVCs and Inferior Q-waves EKG Comparison: No Significant Change - 12/17/16 Chest Pain Course/Dx - Course Course Of Treatment: 71 yo male with history of bigeminy who reports recent neg chemical stress test here for cp will get 2nd trop at 730 and will go home if trop is neg - Diagnoses Provider Diagnoses: Chest pain Discharge - Discharge Plan Condition: Stable Disposition: OTHER Discharge Disposition Comment: to be determined The documentation as recorded by the [facility] accurately reflects the service I personally performed and the decisions made by me, Keli Patel MD.
[2017-05-07] MEDS ORDERED: Nitroglycerin TAB 0.4 MG* 0.4 MG TAB SL ONE (06:29)
--- NOTE | 2017-05-07 07:36 | RAD ---
INDICATION: Chest pain. COMPARISON: Comparison is made with a prior chest x-ray study from December 17, [address] of the abdomen and pelvis from March 07, 2015. TECHNIQUE: A portable view of the chest was obtained. FINDINGS: The heart is within normal limits in size. There is increased density in the right cardiophrenic angle which is unchanged from the prior chest x-ray study and correlates with a prominent pericardial fat pad on the prior CT study. The lungs are underinflated and clear. No pleural effusion is seen. IMPRESSION: NO EVIDENCE FOR ACUTE DISEASE.
[2017-05-07] MEDS ORDERED: Lidocaine 2% VISCOUS* 15 ML UDC PO ONE (08:02)
[2017-05-07] MEDS ORDERED: Al Hydrox/Mg Hydrox/Simet LIQ* 30 ML UDC PO ONE (08:02)
[2017-05-07] MEDS ORDERED: Methocarbamol TAB* 500 MG PO PRN (08:18)
[2017-05-07] MEDS ORDERED: Fluticasone NASAL SPRAY 50MCG* 16 gm SPRAY BTL BOTH NARES PRN (08:18)
[2017-05-07] MEDS ORDERED: HYDROcodone/ACETAMIN 5-325 MG* 1 TAB PO PRN (08:18)
[2017-05-07] MEDS ORDERED: amLODIPine TAB* 5 MG PO SCH (09:00)
[2017-05-07] MEDS ORDERED: Aspirin EC Low Dose* 81 MG TAB.EC PO SCH (09:00)
[2017-05-07] MEDS ORDERED: Flecainide TAB* 100 MG PO SCH (09:00)
[2017-05-07] MEDS ORDERED: Sertraline* 50 MG TAB PO SCH (09:00)
[2017-05-07] MEDS ORDERED: Gemfibrozil TAB* 600 MG PO SCH (09:00)
--- NOTE | 2017-05-07 10:23 | CONSULT ---
Subjective Date of Service: 05/07/17 Interval History: DOS and admission 05/07/2017 [employer] Reconditioning: Dr. Aidan Bhat PMD: Dr. Cuadra CC: Chest pain Reason for consult: Chest pain. HPI: Mr. 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 Aidan Bhat. He has been in his usual state of health. He worked on [employer] yesterday like he usually does. No memorable trauma or injury. Was awoken overnight with 10/10 sharp focal chest discomfort near left breast that lasted 15 seconds. Went to bathroom, laid down, had another episode that lasted 5 seconds at 2/10 while laying in bed. He had call an ambulance. Had another 2/10 sharp pain lasting several seconds in the ambulance. He had been given a SL NTG but his discomfort had already resolved by the time he received it. Had another episode of sharp pain lasting seconds earlier about 6 AM. He was given another SL NTG but his discomfort had already resolved by the time he received it. Also received a GI cocktail was asymptomatic at that point. His EKG's have shows LAFB with PVC's, no ischemic changes and grossly unchanged from prior EKG's. Has had ischemic work-ups in the past as below that have been without definite ischemia. We ambulated briskly 4 times around [facility] and he did not have any discomfort at that time. The discomfort is not reproducible. Allergies: Niaspan 07/08/06 - flushing Amoxicillin 08/23/06 - hives Penicillin 08/28/13 Morphine 08/28/13 Statins 12/28/16 zetia PMH: Hypertension Small Bowel Obstruction. 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 Personal Habits: Smoking: Patient is a former smoker - quit in 1982.Cigarette Use: Quit 32 Years Ago.Alcohol: Denies alcohol use. Medications Active Medications: Hydrocodone Bitart/Acetaminophen ([place] 5-325 Tab*) 1 tab PO DAILY PRN PRN Reason: PAIN Amlodipine Besylate (Norvasc Tab*) 10 mg PO DAILY [facility] Aspirin (Aspirin Ec Low Dose*) 81 mg PO DAILY [facility] Flecainide Acetate (Tambocor Tab*) 50 mg PO DAILY [facility] Fluticasone Propionate (Flonase Nasal [place] 50mcg*) 2 spray BOTH NARES QAM PRN PRN Reason: CONGESTION Gemfibrozil (Lopid Tab*) 600 mg PO BID [facility] Heparin Sodium (Porcine) (Heparin Vial(*)) 5,000 units SUBCUT Q8HR LYNN Losartan Potassium (Cozaar Tab*) 25 mg PO QPM LYNN Methocarbamol (Robaxin Tab*) 750 mg PO BID PRN PRN Reason: SPASMS - MUSCLE Prazosin HCl (Minipress Cap*) 10 mg PO BEDTIME LYNN Sertraline HCl (Zoloft*) 50 mg PO DAILY [facility] Home Medications: Aspirin EC Low Dose* [Ecotrin EC Low Dose 81 MG*] 81 mg PO DAILY 10/06/12 [ History Confirmed 05/07/17] Red Yeast Rice Extract 1,200 mg PO DAILY 10/06/12 [History Confirmed 05/07/17] amLODIPine TAB* [Norvasc 5 mg TAB*] 10 mg PO DAILY 05/23/14 [History Confirmed 05/07/17] Fluticasone NASAL SPRAY 50MCG* [Flonase NASAL SPRAY 50MCG*] 2 spray BOTH NARES QAM PRN 12/17/16 [History Confirmed 05/07/17] Losartan TAB* [Cozaar TAB*] 25 mg PO QPM 12/17/16 [History Confirmed 05/07/17] Methocarbamol TAB* [Robaxin 500 MG TAB*] 750 mg PO BID PRN 12/17/16 [History Confirmed 05/07/17] Prazosin CAP* [Minipress CAP*] 10 mg PO BEDTIME 12/17/16 [History Confirmed ] Sertraline* [Zoloft*] 50 mg PO DAILY 12/17/16 [History Confirmed 05/07/17] Flecainide TAB* [Tambocor TAB*] 50 mg PO DAILY #30 tab 12/18/16 [Rx Confirmed ] Gemfibrozil TAB* [Lopid TAB*] 600 mg PO BID 02/16/17 [History Confirmed ] HYDROcodone/ACETAMIN 5-325 MG* [[facility] 5-325 TAB*] 1 tab PO DAILY PRN 02/16/17 [ History Confirmed 05/07/17] Icaps Areds 2 1 cap PO DAILY 05/07/17 [History Confirmed 05/07/17] Review of Systems - Measurements Intake and Output: Intake and Output Last 24 Hours 05/05/17 05/06/17 05/07/17 05/08/17 06:59 06:59 06:59 06:59 Weight 245 lb - Review of Systems Constitutional Symptoms: Negative: Weakness, Fatigue, Fever Dermatology: Negative: Rash, Skin Lesions, Skin Lumps HEENT: Negative: Change in Hearing, Vertigo, Sinus Problem Eyes: Negative: Change in Vision, Double Vision Thyroid: Negative: Heat Intolerance, Sweatiness, Tremor, Constipation, Palpitations, Primary Hypothyroidism, Primary Hyperthyroidism, Weight Loss, Weight Gain Pulmonary: Negative: Cough, Sputum, Hemoptysis, Wheezing, Respiratory Distress, Shortness of Breath Cardiology: Positive: Chest Pain Negative: Shortness of Breath, Palpitations, Swelling of Ankles, Peripheral Vascular Dis, Edema, Faintness, Syncope, Claudication, Paroxysmal Nocturnal Dyspnea, Orthopnea Gastroenterology: Negative: Abdominal Pain, Nausea, Vomiting, Anorexia, Indigestion, Difficulty Swallowing, Heartburn, Constipation, Diarrhea, Blood in Stools, Change in Bowel Habits, Haematemesis, Melena Genital - Urinary: Negative: Dysuria, Hematuria, Polyuria Musculoskeletal: Negative: Joint Pain, Joint Stiffness, Arthritis Endocrinology: Positive: Obesity Negative: Calluses, Polydipsia, Polyuria, Gynecomastia, Pituitary Disease Hematologic/Lymphatic: Positive: Use of Antiplatelet Drugs Negative: Anemia, Easy Brusing, Hx Leukemia, Hx Lymphoma, Use of Anticoagulant Neurology: Negative: Headaches, Migraines, Change in Vision, Diplopia, Dizziness, Change in Balancing, Change in Coordination, Change in Memory, Change in Speech , Change in Sphincter Function, Change in Walking, Numbness\Paresthesiae, Unexplained Weakness, Hx of Stroke\TIA, Hx Seizures Psychiatry: Negative: Depressed Mood, Eating Disorders Allergic/Immunologic: Negative: Hx Seasonal Allergies, Hx HIV, Immunocompromise, Swollen Glands Lymph Nodes Review of Systems Statement: All other review of systems negative, unless stated above. Objective Vital Signs: Temp Pulse Resp BP Pulse Ox 97.5 F 60 20 151/68 97 05/07/17 09:55 05/07/17 09:55 05/07/17 09:55 05/07/17 09:55 05/07/17 09:55 Appearance: nad, very pleasant Neck: NL Appearance and Movements; NL JVP, Trachea Midline Respiratory: Symmetrical Chest Expansion and Respiratory Effort, Clear to Auscultation Cardiovascular: NL Sounds; No Murmurs; No JVD, RRR, No Edema Abdominal: NL Sounds; No Tenderness; No Distention Extremities: No Edema Skin: No Rash or Ulcers Neurological: Alert and Oriented x 3 Laboratory Results: Total Bilirubin 0.60 mg/dL (0.2-1.0) 05/07/17 02:31 AST 18 U/L (13-39) 05/07/17 02:31 ALT 18 U/L (7-52) 05/07/17 02:31 Alkaline Phosphatase 53 U/L (34-104) 05/07/17 02:31 Total Protein 6.9 g/dL (6.4-8.9) 05/07/17 02:31 Albumin 4.1 g/dL (3.2-5.2) 05/07/17 02:31 Globulin 2.8 g/dL (2-4) 05/07/17 02:31 Albumin/Globulin Ratio 1.5 (1-3) 05/07/17 02:31 Diagnostic Imaging: Cardiac Testing: Holter Monitor - (02/08/2017) No VT, no SVT, no significant pauses, no AF, very frequent PVC's despite Flecainide use. Echocardiogram - (11/15/2015) Mild,CLVH.EF 55-60%. Grade I (impaired) diastolic dysfunction. Benign heart valves Stress Test - (12/09/2015) Normal cardiac chemical nuclear stress test. No evidence of ischemia/infarction. Normal LVEF 54% Holter Monitor - (07/12/2006) Underlying rhythm was sinus. No pauses. Rare SVE isolated SVE beats and 3 short runs of SVT were seen. Frequent isolated PVC's. [place] focal and 41 vent. couplets. 3 vent triplets and 2 episodes of vent bigeminy were noted. Mild sinus suyapa and tachycardia were seen ( HR 46-[address] bpm). ST levels WNL. All intervals WNL. ( see sample of interval)strip.Record quality was fair to good. Holter Monitor - (08/12/2012) Infrequent vetricular ectopic beats with 9 runs of ventricular bigeminy - longest 5 beats. Stress Test - (08/12/2012) Normal cardiac chemical nuclear stress test. No evidence for ischemia/infarct. Normal LVF EF 51% Echocardiogram - (12/17/2016) The study is technically limited due to patient body habitus. Bigeminy confounds wall motion evaluation. Global left ventricular wall motion and contractility are within normal limits. The estimated EF is 55-60%. There is trace to mild mitral regurgitation. Similar to 2.2016 except that LVH was not confirmed on this study. Lexiscan Stress Test - (12/18/2016) [facility] [place] Dilated cardiomyopathy with global hypokinesia and moderate LVEF ventricular dysfunction with estimated LVEF of 40%. Potential small focus of stress -induced ischemia involving the apical inferior segment. Intermediate risk. Cardiology note: Echo ef 55-60% 12/17/16 Gating suspected on this study due to frequent PVCs. Per cards consult apical defect likely artifact. Assessment/Plan Mr. Bailey pain appears to be non-cardiac. It may have been a muscle spasm. It is now resolved. I advised that he limit work for several days. It was discussed and he expressed understanding that he does have risk factors for cardiac disease and he should not be reassured by this and should not hesitate to seek emergency care for future chest pain episodes. As long as he has no future episodes of chest pain, he can be discharged from a cardiac standpoint. Thank you for allowing me to participate in the cardiovascular care of this patient. Please do not hesitate to contact me with questions or concerns.
[2017-05-07] MEDS ORDERED: Heparin VIAL(*) 5000 UNITS/ML VIAL (FIVE THOUSAND) SUBCUT SCH (14:00)
[2017-05-07 16:08] VITALS: BP 152/71
--- NOTE | 2017-05-07 17:28 | HP ---
CC: Dr. Cuadra; Dr. Bhat HISTORY AND PHYSICAL: DATE OF ADMISSION: 05/07/17 PRIMARY CARE PROVIDER: Dr. Cuadra. STUDENT SUPPORT SERVICES DIRECTOR: Dr. Bhat. CHIEF COMPLAINT: Chest pain. HISTORY OF PRESENT ILLNESS: Mr. Richey is a 71-year-old male, well known to the hospitalist [facility] from multiple previous hospitalizations related to small-bowel obstructions. He presents to the emergency room with complaints of chest pain. The patient states that in general, he had normal day the day prior to admission. 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 The patient had no other symptoms at that point an d came inside. The patient went to bed like usual; however, awakened at approximately 1:15 a.m. wit h complaints of severe chest pain. He can only describe it as horrible and sharp. He states this l asted approximately 30 seconds. He got up, he went to the bathroom, and then went back to bed. Whe n lying back down, he noted where he described as a slight twinge in his chest, rated it to be a 2/1 0 in pain intensity. He states that 2/10 discomfort, however, lasted approximately 45 minutes. The patient was given nitroglycerin by the ambulance crew, which relieved his discomfort. The patient did state that while he was in the ambulance, he felt short of breath and sweaty. In the ER, while awaiting for blood results to return, he had another episode of short-lived chest discomfort, and ju st prior to my arrival in the room at approximately 7 a.m., he had another episode of short-lived ch est discomfort. At this point, the patient is chest pain free. PAST MEDICAL HISTORY: 1. History of recurrent small-bowel obstructions secondary to multiple previous abdominal surgeries . 2. Bilateral cataract extractions. 3. PTSD. 4. Thrombocytopenia. 5. Chronic kidney disease. 6. Hyperlipidemia. 7. Polycythemia. 8. Very frequent PVCs, currently on flecainide. 9. Hypertension. PAST SURGICAL HISTORY: 1. Appendectomy. 2. Cholecystectomy. MEDICATIONS: 1. Norvasc 5 mg p.o. daily. 2. Sertraline 50 mg p.o. daily. 3. Aspirin 81 mg p.o. daily. 4. Red yeast rice 600 mg, 2 caps p.o. daily. 5. Prazosin 5 mg, 2 caps p.o. q.h.s. 6. Flonase 2 squirts each nostril daily as needed for allergies. 7. Flecainide 50 mg p.o. daily. 8. Methocarbamol 750 mg p.o. q.6 hours p.r.n. spasm. 9. Losartan 25 mg p.o. daily. 10. [place] 5/325 one tab p.o. daily p.r.n. pain. 11. Gemfibrozil 600 mg p.o. twice daily. ALLERGIES: NIASPAN, AMOXICILLIN, MORPHINE, LIPITOR, and ZETIA. FAMILY HISTORY: Mom at the age of 89 related to CHF. Dad of colon cancer. The patient's brother has stroke. SOCIAL HISTORY: The patient is a former smoker, quitting approximately 35 years ago. He does not drink alcohol. 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 He is . He has one daughter. Hi s , Vesna Richey, is his healthcare proxy. REVIEW OF SYSTEMS: The patient denies any fevers, chills, or anorexia. He admits to the chest disc omfort as above. No palpitations. No lower extremity edema. No cough. He had mild shortness of breath as above. No nausea, vomiting, abdominal pain, constipation, diarrhea, or hematochezia. No hematuria, no dysuria. He does note he has had increased frequency of urination recently. No strok e-like symptoms. No sudden changes in vision. No dysphagia. He does state that he has been having some muscle spasms in his back recently. No rashes. No anxiety or depression. PHYSICAL EXAMINATION GENERAL: The patient is a well-developed, elderly, well-appearing male, lying in the stretcher, in no acute distress. VITAL SIGNS: Blood pressure 123/66, pulse 58, respirations 11, temp 98.6, O2 sat 94% on room air. HEENT: Pupils are equal. There is evidence of prior cataract extraction bilaterally. Extraocular muscles intact. Oropharynx is clear. Oral mucosa is moist. There is no submandibular, cervical, or supraclavicular adenopathy. Thyroid is not enlarged. No thyroid nodules are noted. PULMONARY: Lungs are clear to auscultation bilaterally. CARDIAC: Normal S1, S2. Heart rate is regular. I did not appreciate any murmurs. There is no lowe r extremity edema. ABDOMEN: Bowel sounds present. Abdomen is soft, nontender, nondistended. MUSCULOSKELETAL: There is no cyanosis or clubbing of the digits. There is full active range of mot ion of all 4 extremities. NEURO: Cranial nerves II through XII are grossly intact. Sensation is intact to light touch throug hout. Strength is 5/5 and symmetric in both upper and lower extremities bilaterally. PSYCH: The patient is alert. He is oriented x3. Affect appears appropriate. SKIN: Warm and dry. There are no rashes. DIAGNOSTIC STUDIES/LAB DATA: Sodium 138, potassium 4.2, chloride 108, CO2 26, BUN 14, creatinine 0 .91, glucose 123, lactic acid 1.4, calcium 8.8. Bilirubin 0.6, AST 18, ALT 18, alk phos 53. Tropon in 0.01, followed up 0.0. Albumin 4.1. WBC 5.6, hemoglobin 16.3, hematocrit 50, platelets 117. EKG reveals sinus rhythm with ventricular trigeminy, but no acute ST-T wave abnormalities. ASSESSMENT AND PLAN: Mr. Richey is 71-year-old male with history of frequent premature ventricul ar contractions, started on flecainide in December 2016, at which time, he was also evaluated with stre ss testing and was felt to have artifactual finding of apical ischemia, who presents to the emergenc y room with complaints of chest pain. 1. Chest pain. At this point, the patient is chest pain free. The description of the pain seems t o be more noncardiac in nature than cardiac. I will get a Cardiology consultation as it is unclear if the patient will benefit from a stress test at this point as it was felt during his admission in December of 2016 that his stress test results were not accurate due to the frequent premature ventricul ar contractions. The patient continues to have frequent premature ventricular contractions. Theref ore, I do not know if he will benefit from stress test at this point. Dr. Davila will be seeing the patient in consultation later this morning. For now, we will go ahead and continue the patient's [facility] medication regimen. A followup troponin will be obtained at 10 o'clock. 2. Hypertension. The patient's blood pressure is under excellent control. He will be maintained o n his usual home medication regimen. 3. Frequent premature ventricular contractions. The patient will continue on flecainide. 4. Hyperlipidemia. The patient will continue on gemfibrozil. His red yeast rice will be held whil e hospitalized. 5. Posttraumatic stress disorder/depression. Continue sertraline. 6. DVT prophylaxis. According to Adult Thrombosis Prophylaxis Risk Factor Assessment Guide, the francine rausch has a total risk factor score of 3, making him high risk. He will be placed on heparin 5000 u nits subcutaneous q.8 hours. 8. Code status is full. TIME SPENT: Fifty-five minutes was spent admitting this patient. [id number]/[facility] #: [id number]
[2017-05-07] MEDS ORDERED: Losartan TAB* 25 MG PO SCH (18:00)
[2017-05-07] MEDS ORDERED: Prazosin CAP* 5 MG PO SCH (21:00)
[2017-05-08] MEDS ORDERED: Pneumococcal Vac Polyvalent* 0.5 ML VIAL IM ONE (09:00)
--- NOTE | 2017-05-08 14:25 | DS ---
CC: Dr. Cuadra DISCHARGE SUMMARY: DATE OF ADMISSION: 05/07/17 DATE OF DISCHARGE: 05/07/17 PRIMARY CARE PROVIDER: Dr. Cuadra. MATERIAL PROCESSOR: Dr. Bhat. PRINCIPAL DIAGNOSIS: Noncardiac chest pain. SECONDARY DIAGNOSES: 1. Frequent premature ventricular contractions. 2. Hypertension. 3. Hyperlipidemia. 4. Benign prostatic hyperplasia. DISCHARGE MEDICATIONS: 1. Icaps 1 cap p.o. daily. 2. Flecainide 50 mg p.o. daily. 3. Aspirin 81mg p.o. daily. 4. [place] 5/325 one tab p.o. daily p.r.n. pain. 5. Gemfibrozil 600 mg p.o. b.i.d.. 6. Flonase 2 squirts both nostrils daily p.r.n. allergies 7. Methocarbamol 750 mg p.o. b.i.d. p.r.n. back spasm. 8. Losartan 25 mg p.o. q.h.s. 9. Red yeast rice 1200 mg p.o. daily. 10. Prazosin 10 mg p.o. q.h.s. 11. Sertraline 50 mg p.o. daily. 12. Amlodipine 5 mg p.o. daily. HOSPITAL COURSE: Mr. Richey is a 71-year-old male who presented to emergency room with complaint s of chest pain. The patient had recent exercise stress test as well as Lexiscan nuclear stress lindsey t in December 2016. The findings of these were felt to not accurately represent the patient's ischemic burden due to the frequent PVCs that he was found to be having at the time of his testing. The pat ient today presented with very atypical chest pain. However, given the abnormal stress test cardiol ogy consultation was requested. The patient was seen in consultation by Dr. Davila who felt that th e patient's chest pain was likely noncardiac in nature. The patient ambulated briskly around the [facility] four times without any discomfort whatsoever. At this point, it was felt the patient is stable for discharge home without any further ischemic workup including echocardiogram or stress testing. T he patient has however been instructed to return to the emergency room if he has any worsened chest pain or any other concerning symptoms. FOLLOWUP CONCERNS: The patient is being discharged home today, 05/07/17. ACTIVITY LEVEL: As tolerated. DIET: Low fat. CONDITION ON DISCHARGE: Stable. The patient should follow up with Dr. Cuadra in the next 4 to 7 days. TIME SPENT: 25 minutes was spent discharging this patient. [id number]/[facility] #: [id number]
== END 2017-05-07 16:34 | disposition home or self-care (01) ==
LOC: ED 02:23 → MEDTELE 07:54
PROVIDERS: ADMIT Hospitalist; ATTEND Hospitalist
DX: R07.89 Other chest pain (principal); I49.3 Ventricular premature depolarization; I10 Essential (primary) hypertension; E78.5 Hyperlipidemia, unspecified; N40.0 Benign prostatic hyperplasia without lower urinary tract symptoms; Z79.899 Other long term (current) drug therapy; Z88.0 Allergy status to penicillin; Z88.5 Allergy status to narcotic agent; Z88.8 Allergy status to other drugs, medicaments and biological substances; I12.9 Hypertensive chronic kidney disease with stage 1 through stage 4 chronic kidney disease, or unspecified chronic kidney disease; N18.9 Chronic kidney disease, unspecified; Z87.891 Personal history of nicotine dependence; F43.10 Post-traumatic stress disorder, unspecified
CPT/HCPCS: 36415; 71010; 80053; 83605; 84484; 85025; 93005; 99284; A9270-GY; G0378; J1644

== ENCOUNTER 2017-09-04 11:26 | Emergency (ER) | payer MEDICARE ==
[2017-09-04 13:23] VITALS: BP 157/80
--- NOTE | 2017-09-04 14:32 | UC ---
Throat Pain/Nasal Gus HPI - HPI Summary HPI Summary: 7 days of worsening sinus pain and congestion - History of Current Complaint Chief Complaint: UCGeneralIllness Stated Complaint: HEAD COLD/SINUS/EARS POPPING Time Seen by Provider: 09/04/17 14:21 Hx Obtained From: Patient Onset/Duration: Gradual Onset, Lasting Days - 7, Still Present Severity: Moderate Pain Intensity: 7 Pain Scale Used: 0-10 Numeric Cough: None Associated Signs & Symptoms: Positive: Sinus Discomfort, Nasal Discharge - Allergies/Home Medications Allergies/Adverse Reactions: Allergies Allergy/AdvReac Type Severity Reaction Status Date / Time Morphine Allergy Severe Severe Verified 09/04/17 11:40 Nausea and Heart Palpitations Amoxicillin Allergy Unknown Unknown Verified 09/04/17 11:40 Reaction Details Atorvastatin Allergy Unknown Unknown Verified 09/04/17 11:40 Reaction Details Ezetimibe Allergy Unknown Unknown Verified 09/04/17 11:40 Reaction Details Niacin Allergy Unknown Unknown Verified 09/04/17 11:40 Reaction Details Penicillins Allergy Unknown Unknown Verified 09/04/17 11:40 Reaction Details PMH/Surg Hx/FS Hx/Imm Hx Previously Healthy: No Endocrine History: Dyslipidemia Cardiovascular History: Cardiac Disease, Hypertension Psychological History: Depression Other History Of: Negative For: Anticoagulant Therapy - Surgical History Surgical History: Yes Surgery Procedure, Year, and Place: INTESTINAL SX FOR BLOCKAGES X35; APPY; [facility] ; SINUS POLYP; CATARACTS, skin cancer removal 12/05/14 - Family History Known Family History: Positive: None, Hypertension Negative: Cardiac Disease - Social History Occupation: Retired Lives: With Family Alcohol Use: None Substance Use Type: None Smoking Status (MU): Former Smoker Type: Cigarettes Amount Used/How Often: PPD Length of Time of Smoking/Using Tobacco: 20 Have You Smoked in the Last Year: No When Did the Patient Quit Smoking/Using Tobacco: 1969 - Immunization History Most Recent Influenza Vaccination: 06/25 Most Recent Tetanus Shot: Within 10 yrs Most Recent Pneumonia Vaccination: 2012 Review of Systems Constitutional: Negative Skin: Negative Eyes: Negative ENT: Nasal Discharge, Sinus Congestion, Sinus Pain/Tenderness Respiratory: Negative Cardiovascular: Negative Gastrointestinal: Negative Genitourinary: Negative Motor: Negative Neurovascular: Negative Musculoskeletal: Negative Neurological: Headache Psychological: Negative Is Patient Immunocompromised?: No All Other Systems Reviewed And Are Negative: Yes Physical Exam Triage Information Reviewed: Yes Appearance: Well-Appearing, No Pain Distress, Well-Nourished Vital Signs: Initial Vital Signs Temp 97.6 F 09/04/17 11:35 Pulse 72 09/04/17 11:35 Resp 18 09/04/17 11:35 BP 171/63 09/04/17 11:35 Pulse Ox 96 09/04/17 11:35 Vital Signs Reviewed: Yes Eye Exam: Normal Eyes: Positive: Conjunctiva Clear ENT Exam: Normal ENT: Positive: Normal ENT inspection, Hearing grossly normal, Pharynx normal, Nasal congestion, Nasal drainage, Uvula midline. Negative: TMs normal, Tonsillar swelling, Tonsillar exudate, Trismus, Muffled voice, Hoarse voice, Dental tenderness, Sinus tenderness Dental Exam: Normal Neck exam: Normal Neck: Positive: Supple, Nontender, No Lymphadenopathy Respiratory Exam: Normal Respiratory: Positive: Chest non-tender, Lungs clear, Normal breath sounds, No respiratory distress, No accessory muscle use Cardiovascular Exam: Normal Cardiovascular: Positive: RRR, No Murmur, Pulses Normal, Brisk Capillary Refill Musculoskeletal Exam: Normal Musculoskeletal: Positive: Strength Intact, ROM Intact, No Edema Neurological Exam: Normal Neurological: Positive: Alert, Muscle Tone Normal Psychological Exam: Normal Skin Exam: Normal Throat Pain/Nasal Course/Dx - Course Assessment/Plan: doxycycline, flonase coninue nasal rinses follow blood pressure with pcp - Differential Dx/Diagnosis Provider Diagnoses: Hypertension in poor control, acute rhinosinusitis Discharge - Discharge Plan Condition: Stable Disposition: HOME Prescriptions: DOXYcycline CAP(*) [DOXYcycline 100MG CAP(*)] 100 mg PO BID #20 cap Fluticasone NASAL SPRAY 50MCG* [Flonase NASAL SPRAY 50MCG*] 2 spray BOTH NARES DAILY #1 btl Patient Education Materials: Fluticasone (Into the nose), Sinusitis (ED), Hypertension (ED) Referrals: Guevara Cuadra MD [Primary Care Provider] - 2 Weeks
== END 2017-09-04 14:40 | disposition home or self-care (01) ==
LOC: UCEAST 11:26
DX: I10 Essential (primary) hypertension (principal); J01.90 Acute sinusitis, unspecified; Z87.891 Personal history of nicotine dependence
CPT/HCPCS: 99212; G0463

== ENCOUNTER 2018-10-26 21:37 | Inpatient (IN) | payer MEDICARE ==
[2018-10-26 22:26] LABS: ABS Basophils 0 10^3/ul (0-0.2); ABS Eosinophils 0.1 10^3/ul (0-0.6); ABS Lymphocytes 0.6 10^3/ul (1.0-4.8); ABS Monocytes 0.8 10^3/ul (0-0.8); ABS Neutrophils 12.6 10^3/ul (1.5-7.7); ABS Nucleated RBC 0 10^3/ul; Eosinophil % 0.5 %; Hematocrit 57 % (42-52); Hemoglobin 19.5 g/dl (14.0-18.0); Lymphocyte % 4.3 %; Mean Corpuscular HGB Conc 34 g/dl (31-36); Mean Corpuscular Hemoglobin 30 pg (27-31); Mean Corpuscular Volume 89 fL (80-94); Mean Platelet Volume 7.6 fL (7.4-10.4); Nucleated Red Blood Cells % 0; Platelet Count 175 10^3/ul (150-450); Red Blood Count 6.44 10^6/ul (4.00-5.40); Red Cell Distribution Width 14 % (10.5-15); White Blood Count 14.1 10^3/ul (3.5-10.8)
[2018-10-26] MEDS ORDERED: NS 0.9% 1000 ML* 1,000 ML IV ONE (22:36)
[2018-10-26 22:43] LABS: Albumin 4.8 g/dL (3.2-5.2); Albumin/Globulin Ratio 1.4 (1-3); BUN/Creatinine Ratio 9.9 (8-20); C Reactive Protein 2.8 mg/L (<8.01); Calcium 10.5 mg/dL (8.6-10.3); EGFR Non-African American 36.7 (>60); Globulin 3.4 g/dL (2-4); Potassium 4.5 mmol/L (3.5-5.0); Total Bilirubin 0.9 mg/dL (0.2-1.0); Total Protein 8.2 g/dL (6.4-8.9)
[2018-10-26] MEDS ORDERED: Ondansetron INJ* 2 MG/ML VIAL IV ONE (22:44)
[2018-10-26] MEDS ORDERED: HYDROmorphone INJ1* 1 MG/ML SYRINGE IV SLOW PU ONE (22:44)
[2018-10-26] MEDS ORDERED: Iodixanol* (CONTRAST) 320 MG/ML 100 ML SDV IV ONE (22:55)
--- NOTE | 2018-10-26 23:45 | ED ---
Abdominal Pain/Male - HPI Summary HPI Summary: Patient is a 73-year-old male who presents emergency department for lower abdominal pain and vomiting that started today. Patient is a history of bowel obstructions and states his symptoms are similar. Patient denies fever, chills , chest pain, shortness of breath, urinary symptoms, blood in stool or emesis. Patient states he had a bowel movement this afternoon. Symptoms are moderate in severity. No current modifying factors. Past medical history polycythemia, hypertension, hyperlipidemia, depression. - History of Current Complaint Chief Complaint: EDAbdPain Stated Complaint: ABD PAIN Time Seen by Provider: 10/26/18 22:07 Hx Obtained From: Patient Pain Intensity: 8 - Allergies/Home Medications Allergies/Adverse Reactions: Allergies Allergy/AdvReac Type Severity Reaction Status Date / Time amoxicillin Allergy Unknown Verified 10/27/18 01:44 Reaction Details atorvastatin [From Lipitor] Allergy Unknown Verified 10/27/18 01:44 Reaction Details ezetimibe [From Zetia] Allergy Unknown Verified 10/27/18 01:44 Reaction Details morphine Allergy Nausea And Verified 10/27/18 01:44 Vomiting niacin Allergy Unknown Verified 10/27/18 01:44 Reaction Details PMH/Surg Hx/FS Hx/Imm Hx Previously Healthy: Yes Endocrine/Hematology History: Reports: Other Endocrine/Hematological Disorders - Polycythemia Denies: Hx Anticoagulant Therapy, Hx Blood Disorders, Hx Blood Transfusions, Hx Bone Marrow Disease, Hx Diabetes, Hx Systemic Lupus Erythematosus, Hx Sickle Cell Disease, Hx Thyroid Disease, Hx Anemia, Hx Unexplained Bleeding Cardiovascular History: Reports: Hx Hypertension, Other Cardiovascular Problems/ Disorders - HLD Denies: Hx Aneurysm, Hx Angina, Hx Angioplasty, Hx Auto Implanted Cardiovert Defib, Hx Cardiac Arrest, Hx Cardiomegaly, Hx Congenital Heart Disease, Hx Congestive Heart Failure, Hx Coronary Artery Disease, Hx Deep Vein Thrombosis, Hx Embolism, Hx Hypercholesterolemia, Hx Hypotension, Hx Myocardial Infarction, Hx Pacemaker/ICD, Hx Peripheral Vascular Disease, Hx Rheumatic Fever, Hx Syncope , Hx Valvular Heart Disease Respiratory History: Reports: Hx Sleep Apnea, Other Respiratory Problems/ Disorders - states [facility] is [facility] growths on right lung Denies: Hx Asthma, Hx Chronic Bronchitis, Hx Chronic Obstructive Pulmonary Disease (COPD), Hx Cystic Fibrosis, Hx Lung Cancer, Hx Pleural Effusion, Hx Pneumonia, Hx Pulmonary Edema, Hx Pulmonary Embolism, Hx Seasonal Allergies GI History: Reports: Hx Gall Bladder Disease, Hx Irritable Bowel, Hx Obstructive Bowel, Other GI Disorders - multiple SBO Denies: Hx Cirrhosis, Hx Crohn's Disease, Hx Diverticulosis, Hx Gastroesophageal Reflux Disease, Hx Gastrointestinal Bleed, Hx Hiatal Hernia, Hx Jaundice, Hx Ileostomy, Hx Pyloric Stenosis, Hx Ulcer History: Reports: Other Problems/Disorders - RENAL CALCULI YRS AGO Denies: Hx Acute Renal Failure, Hx Benign Prostatic Hyperplasia, Hx Chronic Renal Failure, Hx Dialysis, Hx Kidney Infection, Hx Kidney Stones - once, Hx Renal Disease Musculoskeletal History: Reports: Hx Back Problems - ruptured disc Denies: Hx Arthritis, Hx Rheumatoid Arthritis, Hx Bursitis, Hx Congenital Bone Abnormalities, Hx Fibromyalgia, Hx Gout, Hx Orthopedic Injury, Hx Osteoporosis, Hx Scoliosis, Hx Tendonitis, Other Musculoskeletal History Sensory History: Reports: Hx Cataracts - surgery, Hx Contacts or Glasses Denies: Hx Eye Injury, Hx Eye Prosthesis, Hx Glaucoma, Hx Legally Blind, Hx Macular Degeneration, Hx Vision Problem, Hx Deafness, Hx Hearing Aid, Other Sensory Impairments Opthamlomology History: Reports: Hx Cataracts - surgery, Hx Contacts or Glasses Denies: Hx Eye Injury, Hx Eye Prosthesis, Hx Glaucoma, Hx Legally Blind, Hx Macular Degeneration, Hx Vision Problem, Other Sensory Impairments Neurological History: Reports: Other Neuro Impairments/Disorders - SPINE PAIN HX OF RUPTURED DISCS Denies: Hx Dementia, Hx Developmental Delay, Hx Headaches, Hx Migraine, Hx Nerve Disease, Hx Seizures, Hx Spinal Cord Injury, Hx Transient Ischemic Attacks (TIA) Psychiatric History: Reports: Hx Anxiety, Hx Post Traumatic Stress Disorder Denies: Hx Attention Deficit Hyperactivity Disorder, Hx Eating Disorder, Hx Depression, Hx Panic Disorder, Hx Inpatient Treatment, Hx Community Mental Health Tx, Hx Schizophrenia, Hx Bipolar Disorder, Hx Suicide Attempt, Hx of Violent Episodes Against Others, Hx Substance Abuse, Other Psychiatric Issues/ Disorders - Cancer History Cancer Type, Location and Year: "Skin cancer" mid abdomen, 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, left back, right leg Hx Chemotherapy: No Hx Radiation Therapy: No Hx Palliative Cancer Treatment: No - Surgical History Surgery Procedure, Year, and Place: INTESTINAL SX FOR BLOCKAGES X35; APPY; [facility] ; SINUS POLYP; CATARACTS, skin cancer removal 12/05/14 Hx Anesthesia Reactions: No - Immunization History Date of Tetanus Vaccine: Unknown Date of Influenza Vaccine: Fall 2012 Infectious Disease History: No Infectious Disease History: Denies: Hx Clostridium Difficile, Hx Hepatitis, Hx Human Immunodeficiency Virus (HIV), Hx of Known/Suspected MRSA, Hx Shingles, Hx Tuberculosis, Hx Known/ Suspected VRE, Hx Known/Suspected VRSA, History Other Infectious Disease, Traveled Outside the [place] in Last 30 Days - Family History Known Family History: Positive: None, Hypertension, Non-Contributory Negative: Cardiac Disease - Social History Occupation: Retired Lives: With Family Alcohol Use: None Substance Use Type: Reports: None Smoking Status (MU): Former Smoker Type: Cigarettes Amount Used/How Often: PPD Length of Time of Smoking/Using Tobacco: 20 Have You Smoked in the Last Year: No Review of Systems Constitutional: Negative Negative: Fever, Chills Cardiovascular: Negative Negative: Chest Pain Respiratory: Negative Negative: Shortness Of Breath Positive: Abdominal Pain, Vomiting, Nausea. Negative: Diarrhea Genitourinary: Negative Neurological: Negative All Other Systems Reviewed And Are Negative: Yes Physical Exam Triage Information Reviewed: Yes Vital Signs On Initial Exam: Initial Vitals Temp Pulse Resp BP Pulse Ox 96.9 F 81 20 138/79 97 10/26/18 21:38 10/26/18 21:38 10/26/18 21:38 10/26/18 21:38 10/26/18 21:38 Vital Signs Reviewed: Yes Appearance: Positive: Well-Appearing - Pt. lying in bed in NAD. Appears uncomfortable but nontoxic. Skin: Positive: Warm, Dry Head/Face: Positive: Normal Head/Face Inspection Eyes: Positive: Normal, EOMI Neck: Positive: Supple Respiratory/Lung Sounds: Positive: Clear to Auscultation, Breath Sounds Present Cardiovascular: Positive: Normal Abdomen Description: Positive: Other: - Abd. distended but soft. Pain diffusely. No rigidity. Musculoskeletal: Negative: Edema Left, Edema Right Neurological: Positive: Normal, CN Intact II-III Psychiatric: Positive: Affect/Mood Appropriate Diagnostics - Vital Signs Vital Signs Temp Pulse Resp BP Pulse Ox 10/26/18 23:27 18 10/26/18 22:08 74 163/73 97 10/26/18 22:07 60 96 10/26/18 21:38 96.9 F 81 20 138/79 97 - Laboratory Lab Results: Lab Results 10/26/18 10/26/18 10/26/18 Range/Units 22:18 22:18 22:18 WBC 14.1 H (3.5-10.8) 10^3/ul RBC 6.44 H (4.00-5.40) 10^6/ul Hgb 19.5 H (14.0-18.0) g/dl Hct 57 H (42-52) % MCV 89 (80-94) fL MCH 30 (27-31) pg MCHC 34 (31-36) g/dl RDW 14 (10.5-15) % Plt Count 175 (150-450) 10^3/ul MPV 7.6 (7.4-10.4) fL Neut % (Auto) 89.4 % Lymph % (Auto) 4.3 % [place] % (Auto) 5.6 % Eos % (Auto) 0.5 % Baso % (Auto) 0.2 % Absolute Neuts (auto) 12.6 H (1.5-7.7) 10^3/ul Absolute Lymphs (auto) 0.6 L (1.0-4.8) 10^3/ul Absolute Monos (auto) 0.8 (0-0.8) 10^3/ul Absolute Eos (auto) 0.1 (0-0.6) 10^3/ul Absolute Basos (auto) 0 (0-0.2) 10^3/ul Absolute Nucleated RBC 0 10^3/ul Nucleated RBC % 0 Sodium 140 (135-145) mmol/L Potassium 4.5 (3.5-5.0) mmol/L Chloride 104 (101-111) mmol/L Carbon Dioxide 21 L (22-32) mmol/L Anion Gap 15 H (2-11) mmol/L BUN 18 (6-24) mg/dL Creatinine 1.81 H (0.67-1.17) mg/dL Est GFR ( Amer) 44.4 (>60) Est GFR (Non-Af Amer) 36.7 (>60) BUN/Creatinine Ratio 9.9 (8-20) Glucose 189 H (70-100) mg/dL Lactic Acid 1.6 (0.5-2.0) mmol/L Calcium 10.5 H (8.6-10.3) mg/dL Total Bilirubin 0.90 (0.2-1.0) mg/dL AST 20 (13-39) U/L ALT 18 (7-52) U/L Alkaline Phosphatase 75 (34-104) U/L Troponin I 0.00 (<0.04) ng/mL C-Reactive Protein 2.80 (<8.01) mg/L Total Protein 8.2 (6.4-8.9) g/dL Albumin 4.8 (3.2-5.2) g/dL Globulin 3.4 (2-4) g/dL Albumin/Globulin Ratio 1.4 (1-3) Lipase 23 (11.0-82.0) U/L Result Diagrams: 10/26/18 22:18 10/26/18 22:18 Lab Statement: Any lab studies that have been ordered have been reviewed, and results considered in the medical decision making process. Abdominal Pain Fem Course/Dx - Course Course Of Treatment: Pt. presenting with abd. pain and vomiting. He is afebrile with stable VS. Will obtain labs and CT scan for further evaluation. Pt. states pain is 8/10. Pt. states he has had a bad rxn to morphine in the past and usually gets dilaudid for pain. ECG done at 2224 shows a sinus rhythm of 73 bpm , left axis deviation, no ST elevation or depression. CBC shows leukocytosis of 14.1 with left shift. H and H 19.[address] per virtual radiology: IMPRESSION: 1. Stable mild colonic diverticulosis without evidence for acute. diverticulitis. 2. As previously seen there are mildly dilated small bowel loops with air-fluid. levels possibly indicating some degree of small bowel obstruction. There is. borderline wall thickening involving some of the small bowel loops, cannot. exclude nonspecific enteritis. Given CBC, vomiting and dehydration will admit. I spoke with hospitalist, Dr. Moon, who has accepted pt. to her service. Results discussed with pt. He request more nausea and pain medicine. Pt. now notes he is having diarrhea. Pt. has remained stable in ED> - Diagnoses Differential Diagnosis/HQI/PQRI: Abdominal Aortic Aneurysm, ACS, AMI, Appendicitis, Bowel Obstruction, Constipation, Ischemic Bowel, Renal Colic, Urinary Tract Infection Provider Diagnoses: Dehydration, Nausea vomiting and diarrhea Discharge - Sign-Out/Discharge Documenting (check all that apply): Patient Departure - Discharge Plan Condition: Stable Disposition: ADMITTED TO [facility] Referrals: Guevara Cuadra MD [Primary Care Provider] - - Billing Disposition and Condition Condition: STABLE Disposition: Admitted to [facility]
[2018-10-27] MEDS ORDERED: Ondansetron INJ* 2 MG/ML VIAL IV ONE (00:51)
[2018-10-27] MEDS ORDERED: HYDROmorphone INJ* 2 MG/ML CARPUJECT SYRINGE IV SLOW PU ONE (01:00)
[2018-10-27] MEDS ORDERED: HYDROmorphone INJ* 0.5 MG/0.5 ML SYRINGE IV SLOW PU ONE (02:00)
[2018-10-27] MEDS: NS 0.9% 1000 ML* 1,000 ML IV SCH ×2 (04:00→15:06)
[2018-10-27] MEDS ORDERED: hydrALAZINE IV* 20 MG/ML VIAL IV SLOW PU PRN (05:09)
--- NOTE | 2018-10-27 05:12 | HP ---
CC: Dr. Cuadra * HISTORY AND PHYSICAL: DATE OF ADMISSION: 10/27/18 PRIMARY CARE PROVIDER: Dr. Cuadra. COMBINATION PRESSER: Dr. Davila. CHIEF COMPLAINT: Nausea, vomiting, and possible small bowel obstruction. HISTORY OF PRESENT ILLNESS: Mr. Richey is a 73-year-old male, well-known to myself from multiple prior hospitalizations over the last several years for recurrent small bowel obstructions, who presents to the emergency room on the evening of 10/26/18 with complaints of nausea, vomiting, and abdominal pain. The patient states that on newscast director of 10/26/18, he took his to a followup doctor's appointment. While he was sitting in the office waiting for her to finish, he developed mild discomfort in the right lower quadrant. They drove home and he then had diarrhea upon getting home. He subsequently felt nauseous. He sat in his recliner, taking it easy; however, at approximately 11: 30 a.m., he was again feeling nauseous and at approximately 2 p.m., he began vomiting. He states he vomited 6 times. He, at approximately 4:30 p.m., had diarrhea again. He states that he did have a bowel movement before he went to his 's doctor's appointment. He states that the symptoms that he was feeling on 10/26/18 are identical to the symptoms that he feels when he has a bowel obstruction. The patient has had recurrent small bowel obstructions related to prior abdominal surgeries and is sometimes managed without an NG tube and other times managed with NG tube decompression. Today, he feels as if he can manage without the NG tube in place. The abdominal pain at this point is mild. PAST MEDICAL AND SURGICAL HISTORY: 1. History of recurrent small bowel obstructions secondary to multiple prior abdominal surgeries. 2. Bilateral cataract extractions. 3. PTSD. 4. Thrombocytopenia. 5. Chronic kidney disease. 6. Hyperlipidemia. 7. Polycythemia. 8. Frequent PVCs, on flecainide. 9. Hypertension. 10. BPH. 11. Appendectomy. 12. Cholecystectomy. 13. Numerous abdominal surgeries for obstruction. MEDICATIONS: 1. Norvasc 5 mg p.o. daily. 2. Aspirin 81 mg p.o. daily. 3. Red yeast rice 600 mg 2 caps p.o. daily. 4. Finasteride 5 mg p.o. daily. 5. Flonase 2 squirts to each nostril daily as needed for allergies. 6. Flecainide 50 mg p.o. daily. 7. Methocarbamol 750 mg p.o. q.6 hours p.r.n. spasm. 8. Losartan 25 mg p.o. daily. 9. [place] 5/325 one tab p.o. daily p.r.n. pain. 10. Gemfibrozil 600 mg p.o. twice daily. 11. Trazodone 50 mg p.o. q.h.s. (This is reviewed based on prior hospitalization in 2017 as well as outpatient cardiology note by Dr. Davila from July 2018; this list needs to be reviewed with the patient's when she is able to bring in his home medication list). ALLERGIES: NIACIN, AMOXICILLIN, MORPHINE, LIPITOR, and ZETIA. FAMILY HISTORY: Mom at the age of 89 secondary to CHF. Dad secondary to colon cancer. The patient's brother had a stroke. SOCIAL HISTORY: The patient is a former smoker. He quit greater than 35 years ago. He does not drink alcohol. 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 He is . He has 1 daughter. His , Vesna, is his healthcare proxy. REVIEW OF SYSTEMS: A complete 11-system review of systems is obtained. Pertinent positives and negatives are as per HPI. In addition, the patient does state that he fell approximately 1 month ago. He has been having some discomfort in his legs since. Otherwise, the review of systems is negative. PHYSICAL EXAMINATION GENERAL: The patient is a well-developed elderly male, seen sitting up in the stretcher, in no acute distress. VITAL SIGNS: Blood pressure 144/75, pulse 61, O2 sat 96% on room air. HEENT: Pupils are equal and round. Extraocular muscles are intact. There is evidence of prior cataract extraction. Oropharynx is clear. Oral mucosa is moist. There is no submandibular, cervical, or supraclavicular adenopathy. Thyroid is not enlarged. No thyroid nodule is noted. PULMONARY: Lungs are clear to auscultation bilaterally. CARDIAC: Normal S1 and S2. Regular rate and rhythm. I do not appreciate any murmurs. There is no lower extremity edema. ABDOMEN: Bowel sounds are hypoactive. Abdomen is soft. It is mildly tender to palpation in the right lower quadrant, is tympanic to percussion. MUSCULOSKELETAL: There is no cyanosis or clubbing of the digits. There is full active range of motion of all 4 extremities. NEURO: Cranial nerves II through XII are grossly intact. Sensation is intact to light touch throughout. Strength is 5/5 and symmetric in both upper and lower extremities bilaterally. PSYCHIATRIC: The patient is alert. He is oriented x3. Affect appears appropriate. SKIN: Warm and dry. There are no rashes. DIAGNOSTIC STUDIES/LAB DATA: WBC 14.1, hemoglobin 19.5, hematocrit 57, platelets 175. Sodium 140, potassium 4.5, chloride 104, CO2 of 21, BUN 18, creatinine 1.81, glucose 189, lactic acid 1.6, calcium 10.5. Bilirubin 0.9, AST 20, ALT 18, alk phos 75. Troponin 0. CRP 2.8. Albumin 4.8. Lipase 23. CT abdomen and pelvis: The patient is status post cholecystectomy. There is slight decrease in size of 2-cm low attenuation lesion in the spleen. There is stable mild nodularity of the left adrenal gland, stable bilateral renal peripelvic cysts and right renal cortical cysts. Stable mild colonic diverticulosis without evidence for acute diverticulitis. As previously seen, there are mildly dilated small bowel loops with air fluid levels possibly indicating some degree of small bowel obstruction. There is borderline wall thickening involving some of the small bowel loops. Cannot exclude nonspecific enteritis. There is stable diffuse osteopenia and degenerative changes of the spine. There are stable atherosclerotic, aortic, iliac, and femoral artery calcifications. ASSESSMENT AND PLAN: Mr. Richey is a 73-year-old male, who has had a history of recurrent small bowel obstructions, but none over the last year and a half or so, who presents to the emergency room now with complaints of nausea, vomiting, and abdominal pain, and is being admitted for a possible recurrent small bowel obstruction. 1. Probable recurrent small bowel obstruction. The patient has had numerous bowel obstructions in the past. He states this feels very similar to what he has experienced. At this point, the patient will be made n.p.o. except for ice chips. We will hold off on NG tube as there is no evidence of markedly dilated stomach. Additionally, the patient does not feel he needs an NG tube at this point. He will have p.r.n. Zofran for nausea and fentanyl for pain. Typically , the patient is able to resolve these bowel obstructions with conservative management alone. Abdominal x-ray has been ordered for 0900 to evaluate progression of the obstruction. I am going to hold all the patient's home medications though once taking clear liquids, these should all be added back. 2. Hypertension. I am holding the patient's Norvasc and losartan. I have ordered p.r.n. IV hydralazine as needed. 3. Frequent premature ventricular contractions. The patient's flecainide will be on hold. Once taking clear liquids, this should be added back. 4. Posttraumatic stress disorder. The patient states that he believes he takes trazodone at bedtime, this was not on either list from prior hospitalization or Dr. Davila's office. This needs to be confirmed with his when she brings his list in from home. I am holding this for now. 5. Benign prostatic hyperplasia. Hold finasteride. 6. Polycythemia. The patient's CBC will need to be followed. 7. Elevated creatinine. The patient's creatinine today is approximately 2 times his prior baseline. He is going to be receiving normal saline. Followup basic metabolic panel will be obtained at 0900 on 10/27/18. 8. DVT prophylaxis. According to the Adult Thrombosis Prophylaxis Risk Factor Assessment Guide, the patient has a total risk factor score of 4 making him high risk. Heparin 500 units subcutaneous q.8 hours will be utilized as DVT prophylaxis. 9. Code status is full. TIME SPENT: Sixty-five minutes was spent admitting this patient. [id number]/[facility] #: [id number] OMAR
[2018-10-27] MEDS: PROCHLORPERAZINE INJ 5 MG/ML 2 ML VIAL IV PRN ×2 (06:26→11:58)
[2018-10-27] MEDS: Heparin VIAL(*) 5000 UNITS/ML VIAL (FIVE THOUSAND) SUBCUT SCH ×3 (06:26→21:54)
[2018-10-27] MEDS: fentaNYL* 50 MCG/ML 2 ML VIAL (100 MCG VIAL) IV PRN ×2 (06:27→11:58)
[2018-10-27] MEDS: Ondansetron INJ* 2 MG/ML VIAL IV PRN ×3 (08:58→21:49)
[2018-10-27 10:14] LABS: BUN/Creatinine Ratio 16.7 (8-20); Calcium 9.3 mg/dL (8.6-10.3); EGFR Non-African American 55.8 (>60); Potassium 4.3 mmol/L (3.5-5.0)
[2018-10-27 10:53] LABS: Urine Appearance Cloudy; Urine Bilirubin Negative (Negative); Urine Blood Negative (Negative); Urine Color Yellow; Urine Glucose Negative (Negative); Urine Ketones Negative (Negative); Urine Nitrite Negative (Negative); Urine Protein Negative (Negative); Urine Specific Gravity 1.056 (1.010-1.030); Urine Urobilinogen Negative (Negative)
[2018-10-27] MEDS: metroNIDAZOLE IV 500 MG/100ML* 500 MG/100 ML BAG IVPB SCH ×2 (17:29→23:35)
--- NOTE | 2018-10-27 17:50 | PN ---
Subjective Date of Service: 10/27/18 Interval History: patient c/o nausea, mild abd pain. Denies vomiting or diarrhea. Denies chest pain or shortness of breath. Denies fever or chills Family History: Unchanged from Admission Social History: Unchanged from Admission Past Medical History: Unchanged from Admission Objective Active Medications: Fentanyl Citrate (Fentanyl*) 25 mcg IV Q3H PRN PRN Reason: PAIN Last Admin: 10/27/18 11:58 Dose: 25 mcg Heparin Sodium (Porcine) (Heparin Vial(*)) 5,000 units SUBCUT Q8H [facility] Last Admin: 10/27/18 15:08 Dose: 5,000 units Hydralazine HCl (Apresoline Iv*) 5 mg IV SLOW PU Q6H PRN PRN Reason: SBP>170 Sodium Chloride (Ns 0.9% 1000 Ml*) 1,000 mls @ 100 mls/hr IV PER RATE [facility] Last Admin: 10/27/18 15:06 Dose: 100 mls/hr Ciprofloxacin/Dextrose (Cipro 400 Mg Ivpremix(*)) 400 mg in 200 mls @ 200 mls/ hr IVPB Q12H [facility] Metronidazole/Sodium Chloride (Flagyl 500 Mg Ivpb*) 500 mg in 100 mls @ 100 mls /hr IVPB Q8H [facility] Last Admin: 10/27/18 17:29 Dose: 100 mls/hr Ondansetron HCl (Zofran Inj*) 4 mg IV Q6H PRN PRN Reason: NAUSEA Last Admin: 10/27/18 15:17 Dose: 4 mg Prochlorperazine Edisylate (Compazine Inj*) 10 mg IV Q6H PRN PRN Reason: NAUSEA/VOMITING Last Admin: 10/27/18 11:58 Dose: 10 mg Vital Signs - 8 hr 10/27/18 10/27/18 10/27/18 11:37 11:58 13:00 Temperature 98.6 F Pulse Rate 78 Respiratory 16 19 18 Rate Blood Pressure 146/68 (mmHg) O2 Sat by Pulse 95 Oximetry 10/27/18 15:23 Temperature 98.8 F Pulse Rate 80 Respiratory 16 Rate Blood Pressure 157/68 (mmHg) O2 Sat by Pulse 95 Oximetry Oxygen Devices in Use Now: None Appearance: Appears comfortable, sitting in the chair Eyes: No Scleral Icterus Ears/Nose/Mouth/Throat: Clear Oropharnyx, Mucous Membranes Moist Neck: NL Appearance and Movements; NL JVP, Trachea Midline Respiratory: Symmetrical Chest Expansion and Respiratory Effort, Clear to Auscultation Cardiovascular: NL Sounds; No Murmurs; No JVD, No Edema Abdominal: - - soft, mild tenderness with palpation to right lower quadrant. BS hypoactive x4 Extremities: No Edema, No Clubbing, Cyanosis Skin: No Rash or Ulcers Neurological: Alert and Oriented x 3 Nutrition: - - ICE chips Result Diagrams: 10/26/18 22:18 10/27/18 09:22 Additional Lab and Data: Lab Results 10/26/18 10/26/18 10/26/18 Range/Units 22:18 22:18 22:18 WBC 14.1 H (3.5-10.8) 10^3/ul RBC 6.44 H (4.00-5.40) 10^6/ul Hgb 19.5 H (14.0-18.0) g/dl Hct 57 H (42-52) % MCV 89 (80-94) fL MCH 30 (27-31) pg MCHC 34 (31-36) g/dl RDW 14 (10.5-15) % Plt Count 175 (150-450) 10^3/ul MPV 7.6 (7.4-10.4) fL Neut % (Auto) 89.4 % Lymph % (Auto) 4.3 % [place] % (Auto) 5.6 % Eos % (Auto) 0.5 % Baso % (Auto) 0.2 % Absolute Neuts (auto) 12.6 H (1.5-7.7) 10^3/ul Absolute Lymphs (auto) 0.6 L (1.0-4.8) 10^3/ul Absolute Monos (auto) 0.8 (0-0.8) 10^3/ul Absolute Eos (auto) 0.1 (0-0.6) 10^3/ul Absolute Basos (auto) 0 (0-0.2) 10^3/ul Absolute Nucleated RBC 0 10^3/ul Nucleated RBC % 0 Sodium 140 (135-145) mmol/L Potassium 4.5 (3.5-5.0) mmol/L Chloride 104 (101-111) mmol/L Carbon Dioxide 21 L (22-32) mmol/L Anion Gap 15 H (2-11) mmol/L BUN 18 (6-24) mg/dL Creatinine 1.81 H (0.67-1.17) mg/dL Est GFR ( Amer) 44.4 (>60) Est GFR (Non-Af Amer) 36.7 (>60) BUN/Creatinine Ratio 9.9 (8-20) Glucose 189 H (70-100) mg/dL Lactic Acid 1.6 (0.5-2.0) mmol/L Calcium 10.5 H (8.6-10.3) mg/dL Total Bilirubin 0.90 (0.2-1.0) mg/dL AST 20 (13-39) U/L ALT 18 (7-52) U/L Alkaline Phosphatase 75 (34-104) U/L Troponin I 0.00 (<0.04) ng/mL C-Reactive Protein 2.80 (<8.01) mg/L Total Protein 8.2 (6.4-8.9) g/dL Albumin 4.8 (3.2-5.2) g/dL Globulin 3.4 (2-4) g/dL Albumin/Globulin Ratio 1.4 (1-3) Lipase 23 (11.0-82.0) U/L Assess/Plan/Problems-Billing Assessment: Mr. Bailey is a 73 y.o male with pmhx significant for multiple abd surgeries , hx of several bowel obstructions, PTSD, who presented to the ER with abd pain found to have possible bowel obstruction. - Patient Problems (1) Partial small bowel obstruction Current Visit: No Status: Acute Priority: High Code(s): K56.69 - OTHER INTESTINAL OBSTRUCTION * DO NOT USE * SNOMED Code(s): 256380520 Comment: Appreciate surgery consult. continue with nausea and mild RLQ abd pain ice chips/ IVF- poss. advance diet tomorrow. Patient with possible enteritis will start on cipro and flagyl - patient with 14 WBC's lower abd pain. i will cover him empirically (2) History of depression Current Visit: No Status: Chronic Priority: Medium Code(s): Z86.59 - PERSONAL HISTORY OF OTHER MENTAL AND BEHAVIORAL DISORDERS SNOMED Code(s): 753663669 Comment: will resume medications when patient is tolerating orals (3) Hyperlipidemia Current Visit: No Status: Acute Code(s): E78.5 - HYPERLIPIDEMIA, UNSPECIFIED SNOMED Code(s): 26477033 Comment: will resume medications when taking orals (4) History of posttraumatic stress disorder (PTSD) Current Visit: No Status: Chronic Priority: Medium Code(s): Z86.59 - PERSONAL HISTORY OF OTHER MENTAL AND BEHAVIORAL DISORDERS SNOMED Code(s): 944599663 Comment: will resume medications when taking orals . Continue supportive care. (5) Hx of thrombocytopenia Current Visit: No Status: Chronic Priority: Medium Code(s): Z86.2 - PRSNL HISTORY OF [facility] SN[facility] Code(s): 214388255 Comment: Stable. Continue to trend. (6) Hypertension Current Visit: No Status: Chronic Priority: Medium Code(s): I10 - ESSENTIAL (PRIMARY) HYPERTENSION SNOMED Code(s): 22120280 Comment: Normotensive will resume medications when taking orals (7) DVT prophylaxis Current Visit: No Status: Acute Priority: Medium Code(s): FJK6157 - SNOMED Code(s): 801251812 Comment: Heparin SQ Status and Disposition: Discharge home when medically stable
[2018-10-27] MEDS: Ciprofloxacin 400MG IVPREMIX(* 400 MG/200 ML BAG IVPB SCH (18:43)
[2018-10-27] MEDS ORDERED: HYDROmorphone INJ1* 1 MG/ML SYRINGE IV SLOW PU ONE (19:43)
--- NOTE | 2018-10-27 20:35 | CONS ---
CONSULTATION REPORT: DATE OF CONSULT: 10/27/18 CHIEF COMPLAINT: Bowel obstruction. HISTORY OF PRESENT ILLNESS: This is a pleasant 73-year-old gentleman who was admitted to the medical service after presenting to the emergency room with some nausea, vomiting, and abdominal discomfort. While in the hospital, he was placed on IV fluids n.p.o., serial abdominal exams, and abdominal films. Abdominal x-ray today revealed a nonspecific pattern. He started passing flatus around noon. He states he may feel just mildly nauseated but is thirsty and would like to try some water. PAST MEDICAL HISTORY: He had multiple recurrent small bowel obstructions treated conservatively here at the hospital. He has had multiple prior abdominal surgeries by report. He has a history of PTSD, thrombocytopenia, chronic renal disease, hyperlipidemia, polycythemia, frequent PVCs, hypertension , and BPH. PAST SURGICAL HISTORY: Cholecystectomy, appendectomy, surgeries for bowel obstructions, bilateral cataract surgery. ALLERGIES: NIACIN, AMOXICILLIN, MORPHINE, LIPITOR, and ZETIA. FAMILY HISTORY: His mother at the age of 89 of CHF. His father had colon cancer. SOCIAL HISTORY: He is a former smoker quitting 35 years ago. No alcohol use. He is retired, . REVIEW OF SYSTEMS: Complete 11-system review of systems was performed. Positives are in the history of present illness. PHYSICAL EXAM: General: A pleasant gentleman lying in bed in no apparent distress. His vital signs were stable. HEENT: The sclerae are anicteric. Oral mucosa is pink and moist. Neck is supple, no JVD, no mass. Heart is regular. Lungs are clear. Abdomen: Soft, nondistended, nontender. No masses or organomegaly. Surgical scars are noted. Extremities: No clubbing, cyanosis , or edema. Skin: No rash, petechiae, or jaundice. Neuro Exam: Grossly intact. No focal motor or sensory deficits obvious. DIAGNOSTIC STUDIES/LAB DATA: Radiologic scans as above. Plain x-ray showed nonspecific bowel gas pattern today. CT scan showed possible partial obstruction with some mildly dilated loops of bowel. ASSESSMENT AND PLAN: Resolved or resolving possible partial obstruction. At this point, he has been passing gas since noon and is going to try a little water tonight. I discussed the case with nurse practitioner and he may get advanced tomorrow depending on how he feels to a liquid diet. At this time there is no obvious acute surgical issue. [id number]/[facility] #: [id number] OMAR
[2018-10-28] MEDS: Ciprofloxacin 400MG IVPREMIX(* 400 MG/200 ML BAG IVPB SCH (03:53)
[2018-10-28] MEDS: NS 0.9% 1000 ML* 1,000 ML IV SCH ×2 (05:14→18:20)
[2018-10-28] MEDS: Heparin VIAL(*) 5000 UNITS/ML VIAL (FIVE THOUSAND) SUBCUT SCH ×3 (05:59→21:34)
[2018-10-28] MEDS: metroNIDAZOLE IV 500 MG/100ML* 500 MG/100 ML BAG IVPB SCH ×3 (06:45→23:16)
[2018-10-28] MEDS: fentaNYL* 50 MCG/ML 2 ML VIAL (100 MCG VIAL) IV PRN (07:10)
[2018-10-28 08:19] LABS: ABS Basophils 0 10^3/ul (0-0.2); ABS Eosinophils 0.1 10^3/ul (0-0.6); ABS Monocytes 0.6 10^3/ul (0-0.8); ABS Neutrophils 4.7 10^3/ul (1.5-7.7); ABS Nucleated RBC 0 10^3/ul; Eosinophil % 1.7 %; Hematocrit 47 % (42-52); Hemoglobin 15.8 g/dl (14.0-18.0); Lymphocyte % 14.8 %; Mean Corpuscular HGB Conc 34 g/dl (31-36); Mean Corpuscular Hemoglobin 30 pg (27-31); Mean Corpuscular Volume 90 fL (80-94); Mean Platelet Volume 7.6 fL (7.4-10.4); Nucleated Red Blood Cells % 0; Platelet Count 118 10^3/ul (150-450); Red Blood Count 5.21 10^6/ul (4.00-5.40); Red Cell Distribution Width 14 % (10.5-15); White Blood Count 6.5 10^3/ul (3.5-10.8)
[2018-10-28 08:30] LABS: BUN/Creatinine Ratio 18.3 (8-20); Calcium 8.8 mg/dL (8.6-10.3); EGFR Non-African American 69.6 (>60); Potassium 4.1 mmol/L (3.5-5.0)
--- NOTE | 2018-10-28 11:37 | PN ---
Progress Note - Progress Note Date of Service: 10/28/18 SOAP: Subjective: Passing large amounts of flatus Tolerating water No abdominal pain No N/V Objective: Temp Pulse Resp BP Pulse Ox 98.5 F 58 18 146/69 95 10/28/18 07:43 10/28/18 07:43 10/28/18 08:00 10/28/18 07:43 10/28/18 07:43 PEX: Abd is soft and slightly distended. Bowel sounds are present and are normoactive. No tenderness Assessment: SBO-resolving Plan: Start clear liquids If tolerates, could be discharged later today if patient desires. Will follow
[2018-10-28] MEDS ORDERED: LORazepam INJ* 2 MG/ML 1 ML VIAL ONE ×2 (13:23→20:42)
[2018-10-28] MEDS: Sertraline* 50 MG TAB PO SCH (14:57)
[2018-10-28] MEDS ORDERED: cefTRIAXone(*) 1 GM in NS 0.9% 50 ML* 50 ML IVPB SCH (15:00)
[2018-10-28] MEDS ORDERED: Losartan TAB* 25 MG PO SCH (18:00)
[2018-10-28] MEDS: Flecainide TAB* 100 MG PO SCH (18:19)
[2018-10-28] MEDS: Ondansetron INJ* 2 MG/ML VIAL IV PRN (18:26)
[2018-10-28] MEDS ORDERED: LORazepam INJ* 2 MG/ML 1 ML VIAL IV PUSH ONE (20:43)
--- NOTE | 2018-10-28 20:47 | PN ---
Hospitalist Progress Note Date of Service: 10/28/18 HOSPITALIST ADDENDUM Called by RN because patient was complaining of chest pain. Patient seen and examined at bedside. He c/o feeling jittery, with a flushing sensation, very hot as if sweat was about to pour out of him. He describes his chest pain as tightness and it makes difficult to breathe. Feels better if he stands by his bed. States abdominal pain is resolved and although he has not had a BM yet, he has passed flatus. RN states he had a similar episode earlier, improved with Ativan and Zoloft, but he was not as flushed as he is now. VS 77 22 140/80 97% 2 liters Gen: elderly gentleman sitting up in bed, appears anxious, with flushed appearance, no diaphoresis Chest: BS+ bilaterally with no added sounds CVS: normal S1 and S2, RRR Abd: soft, NT, BS+ Neuro: AAOx3, BELL EKG: NSR at 77bpm, PVCs, no ST-T changes, IVCD, no significant changes from prior A/P: This appears to be anxiety related, but will check CxR and labs. Ativan for symptomatic treatment now. If recurrent may need further w/u, including for carcinoid, considering his significant flushing.
[2018-10-28 21:00] LABS: ABS Basophils 0 10^3/ul (0-0.2); ABS Eosinophils 0.1 10^3/ul (0-0.6); ABS Lymphocytes 1.5 10^3/ul (1.0-4.8); ABS Monocytes 0.7 10^3/ul (0-0.8); ABS Neutrophils 4.9 10^3/ul (1.5-7.7); ABS Nucleated RBC 0 10^3/ul; Eosinophil % 0.7 %; Hematocrit 49 % (42-52); Hemoglobin 16.7 g/dl (14.0-18.0); Lymphocyte % 20.2 %; Mean Corpuscular HGB Conc 34 g/dl (31-36); Mean Corpuscular Hemoglobin 31 pg (27-31); Mean Corpuscular Volume 89 fL (80-94); Mean Platelet Volume 7.7 fL (7.4-10.4); Nucleated Red Blood Cells % 0; Platelet Count 153 10^3/ul (150-450); Red Blood Count 5.48 10^6/ul (4.00-5.40); Red Cell Distribution Width 14 % (10.5-15); White Blood Count 7.2 10^3/ul (3.5-10.8)
[2018-10-28] MEDS ORDERED: traZODone TAB* 50 MG TAB PO SCH (21:00)
[2018-10-28 21:16] LABS: Calcium 9.3 mg/dL (8.6-10.3)
[2018-10-28 21:22] LABS: BUN/Creatinine Ratio 21.1 (8-20); EGFR Non-African American 77.3 (>60)
--- NOTE | 2018-10-28 21:53 | PN ---
Subjective Date of Service: 10/28/18 Interval History: Patient with no complaints. Patient states that he is passing gas, abdominal pain has resolved. Denies chest pain or shortness of breath. denies n/v/d. 1400 patient c/o feeling jittery and shaky. tearful, slightly short of breath , vital sign taken and WNL. Patient denies abd pain , nausea or vomiting. Ativan 0.5mg ordered and given. 1430 patient reports relief of symptoms. after ativan. Family History: Unchanged from Admission Social History: Unchanged from Admission Past Medical History: Unchanged from Admission Objective Active Medications: Amlodipine Besylate (Norvasc Tab*) 10 mg PO DAILY [facility] Aspirin (Aspirin Ec Tab*) 81 mg PO DAILY [facility] Fentanyl Citrate (Fentanyl*) 25 mcg IV Q3H PRN PRN Reason: PAIN Last Admin: 10/28/18 07:10 Dose: 25 mcg Finasteride (Proscar Tab*) 5 mg PO DAILY [facility] Flecainide Acetate (Tambocor Tab*) 50 mg PO DAILY [facility] Last Admin: 10/28/18 18:19 Dose: 50 mg Heparin Sodium (Porcine) (Heparin Vial(*)) 5,000 units SUBCUT Q8H [facility] Last Admin: 10/28/18 21:34 Dose: 5,000 units Hydralazine HCl (Apresoline Iv*) 5 mg IV SLOW PU Q6H PRN PRN Reason: SBP>170 Sodium Chloride (Ns 0.9% 1000 Ml*) 1,000 mls @ 100 mls/hr IV PER RATE [facility] Last Admin: 10/28/18 18:20 Dose: 100 mls/hr Metronidazole/Sodium Chloride (Flagyl 500 Mg Ivpb*) 500 mg in 100 mls @ 100 mls /hr IVPB Q8H [facility] Last Admin: 10/28/18 15:58 Dose: 100 mls/hr Ceftriaxone Sodium 1 gm/ (Sodium Chloride) 50 mls @ 200 mls/hr IVPB Q24H [facility] Last Admin: 10/28/18 15:30 Dose: 200 mls/hr Losartan Potassium (Cozaar Tab*) 25 mg PO QPM [facility] Last Admin: 10/28/18 18:20 Dose: 25 mg Ondansetron HCl (Zofran Inj*) 4 mg IV Q6H PRN PRN Reason: NAUSEA Last Admin: 10/28/18 18:26 Dose: 4 mg Prochlorperazine Edisylate (Compazine Inj*) 10 mg IV Q6H PRN PRN Reason: NAUSEA/VOMITING Last Admin: 10/27/18 11:58 Dose: 10 mg Sertraline HCl (Zoloft*) 50 mg PO DAILY [facility] Last Admin: 10/28/18 14:57 Dose: 50 mg Trazodone HCl (Desyrel Tab*) 50 mg PO BEDTIME [facility] Last Admin: 10/28/18 21:32 Dose: 50 mg Vital Signs - 8 hr 10/28/18 10/28/18 10/28/18 13:51 15:01 15:42 Temperature 98.0 F 98.1 F Pulse Rate 75 68 Respiratory 16 20 16 Rate Blood Pressure 122/56 150/60 (mmHg) O2 Sat by Pulse 96 96 Oximetry 10/28/18 10/28/18 10/28/18 19:17 20:32 20:44 Temperature 97.8 F Pulse Rate 88 75 Respiratory 18 22 25 Rate Blood Pressure 141/50 147/76 (mmHg) O2 Sat by Pulse 96 97 Oximetry Oxygen Devices in Use Now: None Appearance: alert and oriented x 3 no acute distress Eyes: No Scleral Icterus Ears/Nose/Mouth/Throat: Clear Oropharnyx, Mucous Membranes Moist Neck: NL Appearance and Movements; NL JVP Respiratory: Symmetrical Chest Expansion and Respiratory Effort, Clear to Auscultation Cardiovascular: NL Sounds; No Murmurs; No JVD, No Edema Abdominal: - - no tenderness, mild distention, BS active x 4 Extremities: No Edema, No Clubbing, Cyanosis Skin: No Rash or Ulcers Neurological: Alert and Oriented x 3 Nutrition: Taking PO's Result Diagrams: 10/28/18 20:50 10/28/18 20:50 Additional Lab and Data: Lab Results 10/26/18 10/26/18 10/26/18 Range/Units 22:18 22:18 22:18 WBC 14.1 H (3.5-10.8) 10^3/ul RBC 6.44 H (4.00-5.40) 10^6/ul Hgb 19.5 H (14.0-18.0) g/dl Hct 57 H (42-52) % MCV 89 (80-94) fL MCH 30 (27-31) pg MCHC 34 (31-36) g/dl RDW 14 (10.5-15) % Plt Count 175 (150-450) 10^3/ul MPV 7.6 (7.4-10.4) fL Neut % (Auto) 89.4 % Lymph % (Auto) 4.3 % [place] % (Auto) 5.6 % Eos % (Auto) 0.5 % Baso % (Auto) 0.2 % Absolute Neuts (auto) 12.6 H (1.5-7.7) 10^3/ul Absolute Lymphs (auto) 0.6 L (1.0-4.8) 10^3/ul Absolute Monos (auto) 0.8 (0-0.8) 10^3/ul Absolute Eos (auto) 0.1 (0-0.6) 10^3/ul Absolute Basos (auto) 0 (0-0.2) 10^3/ul Absolute Nucleated RBC 0 10^3/ul Nucleated RBC % 0 Sodium 140 (135-145) mmol/L Potassium 4.5 (3.5-5.0) mmol/L Chloride 104 (101-111) mmol/L Carbon Dioxide 21 L (22-32) mmol/L Anion Gap 15 H (2-11) mmol/L BUN 18 (6-24) mg/dL Creatinine 1.81 H (0.67-1.17) mg/dL Est GFR ( Amer) 44.4 (>60) Est GFR (Non-Af Amer) 36.7 (>60) BUN/Creatinine Ratio 9.9 (8-20) Glucose 189 H (70-100) mg/dL Lactic Acid 1.6 (0.5-2.0) mmol/L Calcium 10.5 H (8.6-10.3) mg/dL Total Bilirubin 0.90 (0.2-1.0) mg/dL AST 20 (13-39) U/L ALT 18 (7-52) U/L Alkaline Phosphatase 75 (34-104) U/L Troponin I 0.00 (<0.04) ng/mL C-Reactive Protein 2.80 (<8.01) mg/L Total Protein 8.2 (6.4-8.9) g/dL Albumin 4.8 (3.2-5.2) g/dL Globulin 3.4 (2-4) g/dL Albumin/Globulin Ratio 1.4 (1-3) Lipase 23 (11.0-82.0) U/L Assess/Plan/Problems-Billing Assessment: Mr. Bailey is a 73 y.o male with pmhx significant for multiple abd surgeries , hx of several bowel obstructions, PTSD, who presented to the ER with abd pain found to have possible bowel obstruction. - Patient Problems (1) Partial small bowel obstruction Current Visit: No Status: Acute Priority: High Code(s): K56.69 - OTHER INTESTINAL OBSTRUCTION * DO NOT USE * SNOMED Code(s): 566270733 Comment: Appreciate surgery consult. continue with nausea and mild RLQ abd pain - diet advanced by surgery to clear liquids - patient tolerating well. Patient with possible enteritis will start on ceftriaxone and flagyl - patient with 14 WBC's lower abd pain. i will cover him empirically - changed cipro to ceftriaxone d/t resuming flecainide and risk of QT prolongation - will repeat flat plate of the abd in the AM (2) History of depression Current Visit: No Status: Chronic Priority: Medium Code(s): Z86.59 - PERSONAL HISTORY OF OTHER MENTAL AND BEHAVIORAL DISORDERS SNOMED Code(s): 252255323 Comment: - resumed zoloft and trazadone - patient with episode of feeling anxious, shaky and mild shortness of breath. Given ativan 0.5mg symptoms resolved - suspect this could be related to serotonin withdrawal from holding zoloft (3) History of posttraumatic stress disorder (PTSD) Current Visit: No Status: Chronic Priority: Medium Code(s): Z86.59 - PERSONAL HISTORY OF OTHER MENTAL AND BEHAVIORAL DISORDERS SNOMED Code(s): 721848541 Comment: will resume medications when taking orals . Continue supportive care. (4) Hx of thrombocytopenia Current Visit: No Status: Chronic Priority: Medium Code(s): Z86.2 - PRSNL HISTORY OF DIS [facility]LD[facility] SNOM[facility] Code(s): 458618974 Comment: Stable. Continue to trend. (5) Hypertension Current Visit: No Status: Chronic Priority: Medium Code(s): I10 - ESSENTIAL (PRIMARY) HYPERTENSION SNOMED Code(s): 20510311 Comment: Normotensive will resume medications when taking orals (6) DVT prophylaxis Current Visit: No Status: Acute Priority: Medium Code(s): ZIC7483 - SNOMED Code(s): 936857835 Comment: Heparin SQ Status and Disposition: Discharge home when medically stable
[2018-10-28 22:00] LABS: Potassium 3.8 mmol/L (3.5-5.0)
[2018-10-29] MEDS: fentaNYL* 50 MCG/ML 2 ML VIAL (100 MCG VIAL) IV PRN ×2 (03:23→08:05)
[2018-10-29] MEDS: metroNIDAZOLE IV 500 MG/100ML* 500 MG/100 ML BAG IVPB SCH (06:05)
[2018-10-29] MEDS: Heparin VIAL(*) 5000 UNITS/ML VIAL (FIVE THOUSAND) SUBCUT SCH (06:06)
[2018-10-29 07:52] LABS: BUN/Creatinine Ratio 18.4 (8-20); Calcium 8.9 mg/dL (8.6-10.3); EGFR Non-African American 85.5 (>60); Potassium 3.7 mmol/L (3.5-5.0)
[2018-10-29] MEDS: Flecainide TAB* 100 MG PO SCH (08:11)
[2018-10-29] MEDS: Ondansetron INJ* 2 MG/ML VIAL IV PRN (08:11)
[2018-10-29] MEDS: Sertraline* 50 MG TAB PO SCH (08:11)
[2018-10-29] MEDS ORDERED: Aspirin EC TAB* 81 MG TAB.EC PO SCH (09:00)
[2018-10-29] MEDS ORDERED: Finasteride TAB* 5 MG PO SCH (09:00)
[2018-10-29] MEDS ORDERED: amLODIPine TAB* 5 MG PO SCH (09:00)
[2018-10-29] MEDS ORDERED: LORazepam TAB(*) 1 MG PO PRN (09:45)
--- NOTE | 2018-10-29 11:43 | PN ---
Progress Note - Progress Note Date of Service: 10/29/18 SOAP: Subjective: Reports passing flatus and stool. Tolerating liquids with no pain. He is anxious to go home. Objective: Vital Signs Temp 98.4 F 10/29/18 07:32 Pulse 68 10/29/18 07:32 Resp 20 10/29/18 10:25 BP 137/62 10/29/18 07:32 Pulse Ox 96 10/29/18 07:32 Gen: NAD Abd: distended, soft and nontender. Intake & Output 10/28/18 10/29/18 10/29/18 18:59 06:59 18:59 Intake Total 2435 992 60 Output Total 600 100 Balance 1835 892 60 Intake: IV Fluids 1595 992 all fluids 560 ns 1035 992 Oral 840 0 60 Output: Urine 600 100 Other: Estimated Void Medium # Bowel Movements 0 1 Estimated Stool Amount Medium # Voids 1 0 Assessment: SBO-resolving Plan: Agree with plan for discharge. No need for further imaging or surgical followup.
[2018-10-29 11:46] VITALS: BP 140/55
--- NOTE | 2018-10-29 21:54 | DS ---
DISCHARGE SUMMARY: DATE OF ADMISSION: 10/27/18 DATE OF DISCHARGE: 10/29/18 PRIMARY DIAGNOSIS: Small-bowel obstruction. SECONDARY DIAGNOSES: 1. History of depression. 2. Posttraumatic stress disorder. 3. Thrombocytopenia. 4. Hypertension. HOSPITAL COURSE: This is a 73-year-old male with a history of recurrent small- bowel obstruction, ca me into the hospital with complaints of nausea, vomiting, abdominal pain, and right lower quadrant pa in. Please refer to the history and physical for full details. The patient has a history of multipl e recurrent small- bowel obstruction secondary to multiple prior abdominal surgeries. The patient humphrey d a CT of the abdomen and pelvis that showed mildly dilated small-bowel loops with air-fluid levels i ndicating partial small-bowel obstruction, borderline wall- thickening of the bowel loops, possible e nteritis. The patient was supportively managed, initially n.p.o., also on Zofran and pain medication s as needed, was seen by Dr. Frankel, General Surgery. With supportive management, patient's obstruc tion improved. Patient tolerated clear liquid diet. Please refer to surgical consult by Dr. Oliveros for full details. As the patient is tolerating his diet, patient is being discharged. Patient is to slowly advance his diet. Patient agrees that he has had these episodes multiple times and wants to go slow on his diet. Vitals and labs noted to be stable at the time of discharge. Patient was also noted to be anxious in the hospital, needing Ativan. Patient does have a history of PTSD and anxiety and had a panic attack, which improved with Ativan. Vitals and labs noted to be stable at the time of discharge. WBC 7.2, hemoglobin 16.7, hematocrit 49, platelets noted to be 153. Sodium 141, potas sium 3.7, chloride 110, CO2 of 24, BUN 16, creatinine 0.8. PHYSICAL EXAMINATION: HEENT: NCAT. Heart: S1 and S2 present. Regular at the time of exam. Lungs : Clear to auscultation bilaterally. Abdomen: Soft, nontender. No rebound, no guarding. Bowel so unds present. Extremities: No edema. Neuro: Alert, oriented x3. Patient requesting to go home at this time. CONDITION: Stable. INSTRUCTIONS: Patient to follow up with his primary care physician in a week. MEDICATIONS LIST: At the time of discharge, 1. Trazodone 50 mg p.o. b.i.d. 2. Amlodipine 10 mg p.o. daily. 3. Triamcinolone cream. 4. Sertraline 50 mg p.o. daily. 5. Red yeast rice. 6. 7. Methocarbamol/Robaxin 750 mg p.o. b.i.d. that he takes p.r.n. 8. Losartan 25 mg p.o. q.p.m. 9. Lorazepam 1 mg p.o. q.8 hours p.r.n. 10. [place] 5/325 one tab p.o. daily p.r.n. Patient advised to use this very sparingly and is angelia su to use it for severe pain. This is a home medication for the patient. 11. Gemfibrozil 600 mg p.o. b.i.d. 13. Fluticasone daily. 14. Flecainide 50 mg p.o. daily. 15. Finasteride 5 mg p.o. daily. 16. Aspirin 81 mg p.o. daily. TIME SPENT: Total time spent on discharge is equal to 45 minutes. [id number]/[facility] #: [id number]
== END 2018-10-29 13:30 | disposition home or self-care (01) | DRG 390 ==
LOC: ED 21:37 → MED 10-27 01:41
PROVIDERS: ADMIT Hospitalist; ATTEND Internal Medicine
DX: K56.600 Partial intestinal obstruction, unspecified as to cause (principal); E78.5 Hyperlipidemia, unspecified; F32.9 Major depressive disorder, single episode, unspecified; G47.30 Sleep apnea, unspecified; K58.9 Irritable bowel syndrome, unspecified; K57.30 Diverticulosis of large intestine without perforation or abscess without bleeding; E86.0 Dehydration; I49.3 Ventricular premature depolarization; I12.9 Hypertensive chronic kidney disease with stage 1 through stage 4 chronic kidney disease, or unspecified chronic kidney disease; K52.9 Noninfective gastroenteritis and colitis, unspecified; N18.9 Chronic kidney disease, unspecified; N40.0 Benign prostatic hyperplasia without lower urinary tract symptoms; M85.88 Other specified disorders of bone density and structure, other site; F43.10 Post-traumatic stress disorder, unspecified; D75.1 Secondary polycythemia; D69.6 Thrombocytopenia, unspecified; F41.0 Panic disorder [episodic paroxysmal anxiety]; Z88.8 Allergy status to other drugs, medicaments and biological substances; Z87.442 Personal history of urinary calculi; Z98.42 Cataract extraction status, left eye; Z98.41 Cataract extraction status, right eye; Z88.5 Allergy status to narcotic agent; Z88.0 Allergy status to penicillin; Z85.828 Personal history of other malignant neoplasm of skin; Z90.49 Acquired absence of other specified parts of digestive tract; Z87.891 Personal history of nicotine dependence; Z82.49 Family history of ischemic heart disease and other diseases of the circulatory system; Z80.0 Family history of malignant neoplasm of digestive organs; Z82.3 Family history of stroke; Z79.82 Long term (current) use of aspirin
CPT/HCPCS: 36415; 71045; 74018; 74177; 80048; 80053; 81003; 83605; 83690; 84484; 85025; 86140; 93005; 99284; A9270-GY; J0696; J0744; J0780; J1170; J1644; J2060; J2405; J3010; J3490; Q9967

== ENCOUNTER 2019-01-26 20:28 | Emergency (ER) | payer MEDICARE ==
[2019-01-26] MEDS ORDERED: Ketorolac INJ* 30 MG/ML 1 ML VIAL IM ONE (23:04)
--- NOTE | 2019-01-26 23:12 | ED ---
Back Pain - HPI Summary HPI Summary: 73-year-old male presents with complaints of left lower back pain. States sudden onset yesterday morning around 6 AM. States he was sitting on the toilet and leaned over to wipe when the pain started. Describes pain as sharp and nonradiating. States pain was initially intermittent but today has become more constant. Pain worsens with movement especially walking and twisting. Took 1 dose of ibuprofen today with some improvement in the pain. Denies fever , chills, abdominal pain, nausea, vomiting, diarrhea, dysuria, frequency, urgency, hematuria, loss of bowel or bladder control, weakness, numbness, or tingling of the lower extremities. - History of Current Complaint Chief Complaint: EDFlankPain Stated Complaint: BACK PAIN PER EMS Time Seen by Provider: 01/26/19 22:50 Hx Obtained From: Patient Pain Intensity: 5 - Allergies/Home Medications Allergies/Adverse Reactions: Allergies Allergy/AdvReac Type Severity Reaction Status Date / Time amoxicillin Allergy Unknown Verified 01/26/19 20:50 Reaction Details atorvastatin [From Lipitor] Allergy Unknown Verified 01/26/19 20:50 Reaction Details ezetimibe [From Zetia] Allergy Unknown Verified 01/26/19 20:50 Reaction Details morphine Allergy Nausea And Verified 01/26/19 20:50 Vomiting niacin Allergy Unknown Verified 01/26/19 20:50 Reaction Details Penicillins Allergy Unknown Verified 01/26/19 20:50 Reaction Details PMH/Surg Hx/FS Hx/Imm Hx Endocrine/Hematology History: Reports: Other Endocrine/Hematological Disorders - Polycythemia Denies: Hx Anticoagulant Therapy, Hx Blood Disorders, Hx Blood Transfusions, Hx Bone Marrow Disease, Hx Diabetes, Hx Systemic Lupus Erythematosus, Hx Sickle Cell Disease, Hx Thyroid Disease, Hx Anemia, Hx Unexplained Bleeding Cardiovascular History: Reports: Hx Hypercholesterolemia, Hx Hypertension, Other Cardiovascular Problems/Disorders - Ventricular bigemini Denies: Hx Aneurysm, Hx Angina, Hx Angioplasty, Hx Auto Implanted Cardiovert Defib, Hx Cardiac Arrest, Hx Cardiomegaly, Hx Congenital Heart Disease, Hx Congestive Heart Failure, Hx Coronary Artery Disease, Hx Deep Vein Thrombosis, Hx Embolism, Hx Hypotension, Hx Myocardial Infarction, Hx Pacemaker/ICD, Hx Peripheral Vascular Disease, Hx Rheumatic Fever, Hx Syncope, Hx Valvular Heart Disease Respiratory History: Reports: Hx Sleep Apnea, Other Respiratory Problems/ Disorders - states [facility] on right lung Denies: Hx Asthma, Hx Chronic Bronchitis, Hx Chronic Obstructive Pulmonary Disease (COPD), Hx Cystic Fibrosis, Hx Lung Cancer, Hx Pleural Effusion, Hx Pneumonia, Hx Pulmonary Edema, Hx Pulmonary Embolism, Hx Seasonal Allergies GI History: Reports: Hx Gall Bladder Disease, Hx Irritable Bowel, Hx Obstructive Bowel - multiple SBO Denies: Hx Cirrhosis, Hx Crohn's Disease, Hx Diverticulosis, Hx Gastroesophageal Reflux Disease, Hx Gastrointestinal Bleed, Hx Hiatal Hernia, Hx Jaundice, Hx Ileostomy, Hx Pyloric Stenosis, Hx Ulcer History: Reports: Hx Kidney Stones - once, Other Problems/Disorders - BPH Denies: Hx Acute Renal Failure, Hx Benign Prostatic Hyperplasia, Hx Chronic Renal Failure, Hx Dialysis, Hx Kidney Infection, Hx Renal Disease Musculoskeletal History: Reports: Hx Back Problems - ruptured disc Denies: Hx Arthritis, Hx Rheumatoid Arthritis, Hx Bursitis, Hx Congenital Bone Abnormalities, Hx Fibromyalgia, Hx Gout, Hx Orthopedic Injury, Hx Osteoporosis, Hx Scoliosis, Hx Tendonitis, Other Musculoskeletal History Sensory History: Reports: Hx Cataracts - surgery, Hx Contacts or Glasses Denies: Hx Eye Injury, Hx Eye Prosthesis, Hx Glaucoma, Hx Legally Blind, Hx Macular Degeneration, Hx Vision Problem, Hx Deafness, Hx Hearing Aid, Other Sensory Impairments Opthamlomology History: Reports: Hx Cataracts - surgery, Hx Contacts or Glasses Denies: Hx Eye Injury, Hx Eye Prosthesis, Hx Glaucoma, Hx Legally Blind, Hx Macular Degeneration, Hx Vision Problem, Other Sensory Impairments Neurological History: Reports: Other Neuro Impairments/Disorders - SPINE PAIN HX OF RUPTURED DISCS Denies: Hx Dementia, Hx Developmental Delay, Hx Headaches, Hx Migraine, Hx Nerve Disease, Hx Seizures, Hx Spinal Cord Injury, Hx Transient Ischemic Attacks (TIA) Psychiatric History: Reports: Hx Anxiety, Hx Post Traumatic Stress Disorder Denies: Hx Attention Deficit Hyperactivity Disorder, Hx Eating Disorder, Hx Depression, Hx Panic Disorder, Hx Inpatient Treatment, Hx Community Mental Health Tx, Hx Schizophrenia, Hx Bipolar Disorder, Hx Suicide Attempt, Hx of Violent Episodes Against Others, Hx Substance Abuse, Other Psychiatric Issues/ Disorders - Cancer History Cancer Type, Location and Year: "Skin cancer" mid abdomen, 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, left back, right leg Hx Chemotherapy: No Hx Radiation Therapy: No Hx Palliative Cancer Treatment: No - Surgical History Surgery Procedure, Year, and Place: INTESTINAL SX FOR BLOCKAGES X35; APPY; [facility] ; SINUS POLYP; CATARACTS, skin cancer removal 12/05/14 Hx Anesthesia Reactions: No - Immunization History Date of Tetanus Vaccine: Unknown Date of Influenza Vaccine: Fall 2012 Infectious Disease History: No Infectious Disease History: Denies: Hx Clostridium Difficile, Hx Hepatitis, Hx Human Immunodeficiency Virus (HIV), Hx of Known/Suspected MRSA, Hx Shingles, Hx Tuberculosis, Hx Known/ Suspected VRE, Hx Known/Suspected VRSA, History Other Infectious Disease, Traveled Outside the [place] in Last 30 Days - Family History Known Family History: Positive: None, Hypertension, Non-Contributory Negative: Cardiac Disease - Social History Occupation: Retired Lives: With Family Alcohol Use: None Substance Use Type: Reports: None Smoking Status (MU): Former Smoker Type: Cigarettes Amount Used/How Often: PPD Length of Time of Smoking/Using Tobacco: 20 Have You Smoked in the Last Year: No Review of Systems Negative: Fever, Chills Negative: Palpitations, Chest Pain Negative: Shortness Of Breath, Cough Negative: Abdominal Pain, Vomiting, Diarrhea, Nausea Negative: dysuria, frequency, hematuria, incontinence, urgency Musculoskeletal: Other - See HPI Negative: Rash Negative: Weakness, Paresthesia, Numbness All Other Systems Reviewed And Are Negative: Yes Physical Exam - Summary Physical Exam Summary: GENERAL APPEARANCE: Well developed, well nourished, alert and cooperative, and appears to be in no acute distress. NECK: Neck supple, non-tender. CARDIAC: Normal S1 and S2. No S3, S4 or murmurs. Rhythm is regular. There is no peripheral edema, cyanosis or pallor. Extremities are warm and well perfused. Capillary refill is less than 2 seconds. Peripheral pulses intact. LUNGS: Clear to auscultation without rales, rhonchi, wheezing or diminished breath sounds. ABDOMEN: Positive bowel sounds. Soft, nondistended, nontender. No guarding or rebound. No masses or hepatosplenomegally. No CVA tenderness. MUSKULOSKELETAL: ROM intact to all extremities. No joint erythema or tenderness. Normal muscular development. Normal gait. BACK: Examination of the spine reveals normal posture, no spinal deformity or tenderness over the mid spine. Paraspinous tenderness to the left lower back over the sacroiliac joint without muscular spasm. EXTREMITIES: No significant deformity or joint abnormality. No edema. NEUROLOGICAL: Strength and sensation symmetric and intact to lower extremities. Reflexes 2+ bilaterally. SKIN: Skin normal color, texture and turgor with no lesions or eruptions. Triage Information Reviewed: Yes Vital Signs On Initial Exam: Initial Vitals Temp Pulse Resp BP Pulse Ox 97.8 F 73 18 167/74 98 01/26/19 20:30 01/26/19 20:30 01/26/19 20:30 01/26/19 20:30 01/26/19 20:30 Vital Signs Reviewed: Yes Diagnostics - Vital Signs Vital Signs Temp Pulse Resp BP Pulse Ox 01/26/19 23:00 34 97 01/26/19 22:58 14 01/26/19 22:00 97.6 F 44 16 160/63 97 01/26/19 20:59 98.1 F 01/26/19 20:30 97.8 F 73 18 167/74 98 - Laboratory Lab Statement: Any lab studies that have been ordered have been reviewed, and results considered in the medical decision making process. Back Pain Course/Dx - Course Assessment/Plan: 73-year-old male presents with complaints of left lower back pain. States sudden onset yesterday morning around 6 AM. States he was sitting on the toilet and leaned over to wipe when the pain started. Describes pain as sharp and nonradiating. States pain was initially intermittent but today has become more constant. Pain worsens with movement especially walking and twisting. Took 1 dose of ibuprofen today with some improvement in the pain. Denies fever, chills, abdominal pain, nausea, vomiting, diarrhea, dysuria , frequency, urgency, hematuria, loss of bowel or bladder control, weakness, numbness, or tingling of the lower extremities. Afebrile. Hypertensive otherwise vital signs are stable. Exam was unremarkable except for some paraspinous tenderness to the left lower back over the sacroiliac joint. Urinalysis was normal. Patient was given an injection of ketorolac 30 mg IM with minimal relief so he was also given a dose of hydrocodoneacetaminophen 5 mg/325 mg 1 tab by mouth for the pain. I'm recommending conservative treatment for acute low back pain including NSAIDs, muscle relaxant, and heat therapy. He is to follow-up with his primary care provider one to 2 days if symptoms do not improve. Anticipatory guidance and warning symptoms are reviewed with the patient. Verbalizes understanding and agrees with plan of care. - Diagnoses Differential Diagnosis/HQI/PQRI: Positive: Herniated Disc, Strain, Other - sacroillitis Provider Diagnoses: Acute low back pain Discharge - Sign-Out/Discharge Documenting (check all that apply): Patient Departure Patient Received Moderate/Deep Sedation with Procedure: No - Discharge Plan Condition: Stable Disposition: HOME Prescriptions: Cyclobenzaprine HCl 10 mg PO Q8HR PRN #21 tablet PRN Reason: Spasms Ibuprofen 600 mg PO Q8HR PRN #30 tablet PRN Reason: Pain Patient Education Materials: Acute Low Back Pain (ED) Referrals: Guevara Cuadra MD [Primary Care Provider] - 2 Days Additional Instructions: The urine test performed in the emergency room tonight was normal. I suspect that your pain in musculoskeletal in origin. You were given an anti-inflammatory injection called ketorolac (Toradol) and a dose of hydrocodoneacetaminophen (Altus) for your pain. Take ibuprofen 600 mg 1 tablet every 8 hours as needed for pain. Take cyclobenzaprine (Flexeril) one tablet every 8 hours as needed for severe pain or spasm. Apply a heating pad to the affected area for 15-20 minutes at least 4 times a day to help with the pain into relax the muscles. Follow-up with your primary care provider within the next 1-2 days for recheck of symptoms. Seek immediate medical attention in the emergency room if you develop any fever , severe abdominal pain, nausea, vomiting, worsening of back pain, numbness, tingling, or weakness of the lower extremities, or loss of bowel or bladder control, or any worsening of symptoms. - Billing Disposition and Condition Condition: STABLE Disposition: Home
[2019-01-26 23:29] LABS: Urine Appearance Clear; Urine Bilirubin Negative (Negative); Urine Blood Negative (Negative); Urine Color Yellow; Urine Glucose Negative (Negative); Urine Ketones Negative (Negative); Urine Nitrite Negative (Negative); Urine Protein Negative (Negative); Urine Specific Gravity 1.015 (1.010-1.030); Urine Urobilinogen Negative (Negative)
[2019-01-27] MEDS ORDERED: HYDROcodone/ACETAMIN 5-325 MG* 1 TAB PO ONE (00:04)
[2019-01-27 00:14] VITALS: BP 162/80
== END 2019-01-27 00:22 | disposition home or self-care (01) ==
LOC: ED 20:28
DX: M54.5 Low back pain (principal); I10 Essential (primary) hypertension; E78.00 Pure hypercholesterolemia, unspecified; D75.1 Secondary polycythemia; R00.8 Other abnormalities of heart beat; G47.30 Sleep apnea, unspecified; F41.9 Anxiety disorder, unspecified; F43.12 Post-traumatic stress disorder, chronic; Z87.442 Personal history of urinary calculi; Z88.3 Allergy status to other anti-infective agents; Z88.5 Allergy status to narcotic agent; Z88.8 Allergy status to other drugs, medicaments and biological substances; Z88.0 Allergy status to penicillin; Z85.828 Personal history of other malignant neoplasm of skin; Z87.891 Personal history of nicotine dependence
CPT/HCPCS: 81003; 96374; 99283; J1885

== ENCOUNTER 2019-04-06 13:43 | Emergency (ER) | payer MEDICARE ==
[2019-04-06 17:17] LABS: Urine Appearance Cloudy; Urine Bacteria Absent (Absent); Urine Bilirubin Negative (Negative); Urine Blood 1+ (Negative); Urine Color Amber; Urine Glucose Negative (Negative); Urine Granular Casts Present (Absent); Urine Ketones Negative (Negative); Urine Nitrite Negative (Negative); Urine Protein 2+(100 mg/dL) (Negative); Urine Red Blood Cell 3+(>10/hpf) (Absent); Urine Specific Gravity 1.025 (1.010-1.030); Urine Urobilinogen Negative (Negative); Urine White Blood Cell 1+(6-10/hpf) (Absent)
[2019-04-06] MEDS ORDERED: Ondansetron INJ* 2 MG/ML VIAL IV ONE (17:39)
[2019-04-06] MEDS ORDERED: HYDROmorphone INJ1* 1 MG/ML SYRINGE IV SLOW PU ONE (17:39)
[2019-04-06 17:42] LABS: ABS Lymphocytes 0.4 10^3/ul (1.0-4.8); ABS Monocytes 0.7 10^3/ul (0-0.8); ABS Neutrophils 11.1 10^3/ul (1.5-7.7); Eosinophil % 0.3 %; Hematocrit 52 % (42-52); Hemoglobin 17.4 g/dL (14.0-18.0); Lymphocyte % 3.1 %; Mean Corpuscular HGB Conc 34 g/dL (31-36); Mean Corpuscular Hemoglobin 30 pg (27-31); Mean Corpuscular Volume 90 fL (80-94); Nucleated Red Blood Cells % 0.2; Platelet Count 139 10^3/uL (150-450); Red Blood Count 5.77 10^6 /uL (4.18-5.48); Red Cell Distribution Width 14 % (10-15); White Blood Count 12.2 10^3/uL (3.5-10.8)
--- NOTE | 2019-04-06 17:44 | ED ---
Abdominal Pain/Male - HPI Summary HPI Summary: This patient is a 73 year old M presenting to [facility] with a chief complaint of lower right quadrant abdominal pain since the afternoon of 04/06/19. Pt had diarrhea the night of 04/05/19. Then the morning of 04/06/19 he had a bowl of cereal and drank water. Pt reports at 1030 feeling nauseous, vomiting from 1030- 1330. Pain onset today as well. At present he is still feeling nauseous and still has pain. In triage severity was rated 8/10. Pt has PMHx of bowel obstruction, per triage, he states that present symptoms are similar to his prior bowel obstruction. - History of Current Complaint Chief Complaint: EDAbdPain Stated Complaint: ABDOMINAL PAIN PER PT Time Seen by Provider: 04/06/19 16:43 Hx Obtained From: Patient Onset/Duration: Lasting Hours, Still Present Timing: Constant, Lasting Hours Severity Initially: Severe Severity Currently: Severe Pain Intensity: 8 Pain Scale Used: 0-10 Numeric Location: Discrete At: RLQ Associated Signs And Symptoms: Positive: Nausea, Vomiting, Diarrhea - Allergies/Home Medications Allergies/Adverse Reactions: Allergies Allergy/AdvReac Type Severity Reaction Status Date / Time amoxicillin Allergy Unknown Verified 04/06/19 13:48 Reaction Details atorvastatin [From Lipitor] Allergy Unknown Verified 04/06/19 13:48 Reaction Details ezetimibe [From Zetia] Allergy Unknown Verified 04/06/19 13:48 Reaction Details morphine Allergy Nausea And Verified 04/06/19 13:48 Vomiting niacin Allergy Unknown Verified 04/06/19 13:48 Reaction Details Penicillins Allergy Unknown Verified 04/06/19 13:48 Reaction Details PMH/Surg Hx/FS Hx/Imm Hx Endocrine/Hematology History: Reports: Other Endocrine/Hematological Disorders - Polycythemia Denies: Hx Anticoagulant Therapy, Hx Blood Disorders, Hx Blood Transfusions, Hx Bone Marrow Disease, Hx Diabetes, Hx Systemic Lupus Erythematosus, Hx Sickle Cell Disease, Hx Thyroid Disease, Hx Anemia, Hx Unexplained Bleeding Cardiovascular History: Reports: Hx Hypercholesterolemia, Hx Hypertension, Other Cardiovascular Problems/Disorders - Ventricular bigemini Denies: Hx Aneurysm, Hx Angina, Hx Angioplasty, Hx Auto Implanted Cardiovert Defib, Hx Cardiac Arrest, Hx Cardiomegaly, Hx Congenital Heart Disease, Hx Congestive Heart Failure, Hx Coronary Artery Disease, Hx Deep Vein Thrombosis, Hx Embolism, Hx Hypotension, Hx Myocardial Infarction, Hx Pacemaker/ICD, Hx Peripheral Vascular Disease, Hx Rheumatic Fever, Hx Syncope, Hx Valvular Heart Disease Respiratory History: Reports: Hx Sleep Apnea, Other Respiratory Problems/ Disorders - states [facility] on right lung Denies: Hx Asthma, Hx Chronic Bronchitis, Hx Chronic Obstructive Pulmonary Disease (COPD), Hx Cystic Fibrosis, Hx Lung Cancer, Hx Pleural Effusion, Hx Pneumonia, Hx Pulmonary Edema, Hx Pulmonary Embolism, Hx Seasonal Allergies GI History: Reports: Hx Gall Bladder Disease, Hx Irritable Bowel, Hx Obstructive Bowel - multiple SBO, Other GI Disorders - multiple SBO Denies: Hx Cirrhosis, Hx Crohn's Disease, Hx Diverticulosis, Hx Gastroesophageal Reflux Disease, Hx Gastrointestinal Bleed, Hx Hiatal Hernia, Hx Jaundice, Hx Ileostomy, Hx Pyloric Stenosis, Hx Ulcer History: Reports: Hx Kidney Stones - once, Other Problems/Disorders - BPH Denies: Hx Acute Renal Failure, Hx Benign Prostatic Hyperplasia, Hx Chronic Renal Failure, Hx Dialysis, Hx Kidney Infection, Hx Renal Disease Musculoskeletal History: Reports: Hx Back Problems - ruptured disc Denies: Hx Arthritis, Hx Rheumatoid Arthritis, Hx Bursitis, Hx Congenital Bone Abnormalities, Hx Fibromyalgia, Hx Gout, Hx Orthopedic Injury, Hx Osteoporosis, Hx Scoliosis, Hx Tendonitis, Other Musculoskeletal History Sensory History: Reports: Hx Cataracts - surgery, Hx Contacts or Glasses Denies: Hx Eye Injury, Hx Eye Prosthesis, Hx Glaucoma, Hx Legally Blind, Hx Macular Degeneration, Hx Vision Problem, Hx Deafness, Hx Hearing Aid, Other Sensory Impairments Opthamlomology History: Reports: Hx Cataracts - surgery, Hx Contacts or Glasses Denies: Hx Eye Injury, Hx Eye Prosthesis, Hx Glaucoma, Hx Legally Blind, Hx Macular Degeneration, Hx Vision Problem, Other Sensory Impairments Neurological History: Reports: Other Neuro Impairments/Disorders - SPINE PAIN HX OF RUPTURED DISCS Denies: Hx Dementia, Hx Developmental Delay, Hx Headaches, Hx Migraine, Hx Nerve Disease, Hx Seizures, Hx Spinal Cord Injury, Hx Transient Ischemic Attacks (TIA) Psychiatric History: Reports: Hx Anxiety, Hx Post Traumatic Stress Disorder Denies: Hx Attention Deficit Hyperactivity Disorder, Hx Eating Disorder, Hx Depression, Hx Panic Disorder, Hx Inpatient Treatment, Hx Community Mental Health Tx, Hx Schizophrenia, Hx Bipolar Disorder, Hx Suicide Attempt, Hx of Violent Episodes Against Others, Hx Substance Abuse, Other Psychiatric Issues/ Disorders - Cancer History Cancer Type, Location and Year: "Skin cancer" mid abdomen, 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, left back, right leg Hx Chemotherapy: No Hx Radiation Therapy: No Hx Palliative Cancer Treatment: No - Surgical History Surgery Procedure, Year, and Place: INTESTINAL SX FOR BLOCKAGES X35; APPY; [facility] ; SINUS POLYP; CATARACTS, skin cancer removal 12/05/14 Hx Anesthesia Reactions: No - Immunization History Date of Tetanus Vaccine: Unknown Date of Influenza Vaccine: Fall 2012 Infectious Disease History: No Infectious Disease History: Denies: Hx Clostridium Difficile, Hx Hepatitis, Hx Human Immunodeficiency Virus (HIV), Hx of Known/Suspected MRSA, Hx Shingles, Hx Tuberculosis, Hx Known/ Suspected VRE, Hx Known/Suspected VRSA, History Other Infectious Disease, Traveled Outside the [place] in Last 30 Days - Family History Known Family History: Positive: Hypertension Negative: Cardiac Disease - Social History Alcohol Use: None Substance Use Type: Reports: None Smoking Status (MU): Former Smoker Type: Cigarettes Amount Used/How Often: PPD Length of Time of Smoking/Using Tobacco: 20 Have You Smoked in the Last Year: No Review of Systems Negative: Fever Positive: Abdominal Pain, Vomiting, Diarrhea, Nausea All Other Systems Reviewed And Are Negative: Yes Physical Exam - Summary Physical Exam Summary: Appearance: The patient is well-nourished in no acute distress and in no acute pain. Skin: The skin is warm and dry and skin color reflects adequate perfusion. HEENT: The head is normocephalic and atraumatic. The pupils are equal and reactive. The conjunctivae are clear and without drainage. Nares are patent and without drainage. Mouth reveals moist mucous membranes and the throat is without erythema and exudate. The external ears are intact. The ear canals are patent and without drainage. The tympanic membranes are intact. Neck: The neck is supple with full range of motion and non-tender. There are no carotid bruits. There is no neck vein distemension. Respiratory: Chest is non-tender. Lungs are clear to auscultation and breath sounds are symmetrical and equal. Cardiovascular: Heart is regular rate and rhythm. There is no murmur or rub auscultated. There is no peripheral edema and pulses are symmetrical and equal. Abdomen: The abdomen is soft and mild right lower quadrant tenderness. There are few high pitched bowel sounds. There is no organomegaly palpated. Musculoskeletal: There is no back tenderness noted. Extremities are non-tender with full range of motion. There is good capillary refill. There is no peripheral edema or calf tenderness elicited. Neurological: Patient is alert and oriented to person, place and time. The patient has symmetrical motor strength in all four extremities. Cranial nerves are grossly intact. Deep tendon reflexes are symmetrical and equal in all four extremities. Psychiatric: The patient has an appropriate affect and does not exhibit any anxiety or depression. Triage Information Reviewed: Yes Vital Signs On Initial Exam: Initial Vitals Temp Pulse Resp BP Pulse Ox 97.2 F 91 16 124/85 96 04/06/19 13:45 04/06/19 13:45 04/06/19 13:45 04/06/19 13:45 04/06/19 13:45 Vital Signs Reviewed: Yes Diagnostics - Vital Signs Vital Signs Temp Pulse Resp BP Pulse Ox 04/06/19 17:00 72 92 04/06/19 16:44 74 96 04/06/19 15:49 98.3 F 71 16 135/72 100 04/06/19 13:45 97.2 F 91 16 124/85 96 - Laboratory Lab Results: Lab Results 04/06/19 Range/Units 16:47 Urine Color Josselin Urine Appearance Cloudy Urine pH 5.0 (5-9) Ur Specific [place] 1.025 (1.010-1.030) Urine Protein 2+(100 mg/dl) A (Negative) Urine Ketones Negative (Negative) Urine Blood 1+ A (Negative) Urine Nitrate Negative (Negative) Urine Bilirubin Negative (Negative) Urine Urobilinogen Negative (Negative) Ur Leukocyte Esterase Negative (Negative) Urine WBC (Auto) 1+(6-10/hpf) A (Absent) Urine RBC (Auto) 3+(>10/hpf) A (Absent) Calcium Oxalate Crystal Present A (Absent) Urine Bacteria Absent (Absent) Hyaline Casts Present A (Absent) Granular Casts Present A (Absent) Urine Glucose Negative (Negative) Result Diagrams: 04/06/19 17:29 04/06/19 17:29 Lab Statement: Any lab studies that have been ordered have been reviewed, and results considered in the medical decision making process. - Radiology Abd X-Ray Radiology Interpretation Completed By: Radiologist Summary of Radiographic Findings: Abdominal X-Ray reveals, per radiologist, IMPRESSION: Nonobstructive bowel gas pattern. ED physician has reviewed this radiology report. Abdominal Pain Male Course/Dx - Course Course Of Treatment: Mr. Richey presented concerned that he was having another episode of small bowel obstruction. He has come to the emergency department frequently with a bowel obstruction or an incomplete bowel obstruction. At times he is gotten better on his own and gone home and at other times he's needed to be admitted. He was nontoxic in appearance with stable vitals. He did begin to feel better on his own here and labs and x-ray were okay aside from a mild nonspecific leukocytosis. I recommended we treat him symptomatically. He knows that if he is worsening again he may need to come back and be hospitalized. - Diagnoses Provider Diagnoses: Abdominal pain Discharge - Sign-Out/Discharge Documenting (check all that apply): Patient Departure - Discharge Patient Received Moderate/Deep Sedation with Procedure: No - Discharge Plan Condition: Stable Disposition: HOME Prescriptions: Ondansetron ODT TAB* [Zofran Odt TAB*] 4 mg PO Q6H PRN #20 tab.odt PRN Reason: Nausea/Vomiting Patient Education Materials: Abdominal Pain (ED) Referrals: Guevara Cuadra MD [Primary Care Provider] - 3 Days Additional Instructions: Follow up with primary care provider within 2-3 days. RETURN TO THE EMERGENCY DEPARTMENT FOR CHANGING OR WORSENING SYMPTOMS. - Billing Disposition and Condition Condition: STABLE Disposition: Home - Attestation Statements Document Initiated by Jeana: Yes Documenting Scribe: VAN DECKER Provider For Whom Jeana is Documenting (Include Credential): JUSTUS TRIVEDI MD Scribe Attestation: ICARLOS GAYATRI PRAKASH, scribed for JUSTUS TRIVEDI MD on 04/06/19 at 2214. Scribe Documentation Reviewed: Yes Provider Attestation: The documentation as recorded by the jeana, VAN DECKER accurately reflects the service I personally performed and the decisions made by me, JUSTUS TRIVEDI MD Status of Scribe Document: Viewed
[2019-04-06 18:00] LABS: Albumin 4.4 g/dL (3.2-5.2); Albumin/Globulin Ratio 1.5 (1-3); BUN/Creatinine Ratio 16.7 (8-20); C Reactive Protein 12.38 mg/L (<8.01); Calcium 9.7 mg/dL (8.6-10.3); EGFR African American 71.4 (>60); Globulin 2.9 g/dL (2-4); Potassium 4.5 mmol/L (3.5-5.0); Total Bilirubin 0.9 mg/dL (0.2-1.0); Total Protein 7.3 g/dL (6.4-8.9)
[2019-04-06 21:06] VITALS: BP 133/83
== END 2019-04-06 20:40 | disposition home or self-care (01) ==
LOC: ED 13:43
DX: R10.31 Right lower quadrant pain (principal); I10 Essential (primary) hypertension; Z87.891 Personal history of nicotine dependence; Z88.5 Allergy status to narcotic agent; Z88.0 Allergy status to penicillin; Z88.8 Allergy status to other drugs, medicaments and biological substances
CPT/HCPCS: 36415; 74019; 80053; 81003; 81015; 83605; 83690; 85025; 86140; 87086; 96374; 96375; 99283; J1170; J2405

== ENCOUNTER 2019-07-24 08:17 | Inpatient (IN) | payer MEDICARE ==
[2019-07-24] MEDS ORDERED: Famotidine IV* 10 MG/ML 2 ML (20 mg) IV SLOW PU ONE (08:38)
[2019-07-24] MEDS ORDERED: fentaNYL* 50 MCG/ML 2 ML VIAL (100 MCG VIAL) IV SLOW PU ONE ×2 (08:38→10:46)
[2019-07-24] MEDS ORDERED: Ondansetron INJ* 2 MG/ML VIAL IV ONE (08:38)
[2019-07-24] MEDS ORDERED: Lactated Ringers 1000 ML Bag* 1,000 ML IV ONE (09:00)
[2019-07-24] MEDS ORDERED: Lactated Ringers 1000 ML Bag* 1,000 ML IV SCH (09:00)
--- OUTSIDE RECORDS SUMMARY | 2019-07-24 09:05 | XMS REPORT | Continuity of Care Document ---
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 Onset: 06/08/2012 Difficulty breathing Altaf Rosales M.D. 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 ETOH Use Quit Using Alcohol. Recreational Drug Use Never Used Drugs Allergies, Adverse Reactions, Alerts Active Allergies Reaction Severity Comments Date Amoxicillin 08/02/2007 Zetia 08/02/2007 Penicillins 03/16/2014 Inactive Allergies NKDA 08/02/2007 Medications Active Medications SIG Qnty Indications Ordering Provider Date Fluticasone 2 sprays each 29.7ml Altaf Rosales, 05/17/2019 Propionate nostril every day M.D. 50mcg/Act Suspension Sertraline HCL Unknown 100mg Tablets Metoprolol Succinate 1/4 Tab bid Unknown ER 50mg Tablets ER 24HR Amlodipine Besylate Unknown 10mg Tablets Aspirin qday Unknown 81mg Tablets Prazosin HCL Unknown 2mg Capsules Red Yeast Rice Unknown 600mg Capsules Immunizations Description No Information Available Vital Signs Date Vital Result Comment 06/22/2019 8:26am Weight 241.00 lb Height 72 inches 6'0" BMI (Body Mass Index) 32.7 kg/m2 BP Systolic 140 mmHg BP Diastolic 68 mmHg Heart Rate 59 /min O2 % BldC Oximetry 95 % Body Temperature 96.7 F Pain Level 0 05/17/2019 9:48am Weight 245.00 lb Height 72 inches 6'0" BMI (Body Mass Index) 33.2 kg/m2 BP Systolic 162 mmHg BP Diastolic 75 mmHg Heart Rate 67 /min O2 % BldC Oximetry 95 % Body Temperature 96.8 F Steele Score 3 Pain Level 0 Results Description No Information Available Procedures Date Code Description Status 05/17/2019 97752 Nasal Endoscopy, Diag. Completed Medical Devices Description No Information Available Encounters Type Date Location Provider Dx Diagnosis Office Visit 06/22/2019 Main Office Kasey Porter J33.9 Nasal polyp, 8:45a [employer] SPECIALIST unspecified Office Visit 05/17/2019 Main Office Kasey Porter G47.33 Obstructive sleep 10:00a [employer] SPECIALIST apnea (adult) (pediatric) J33.9 Nasal polyp, unspecified Assessments Date Code Description Provider 06/22/2019 J33.9 Nasal polyp, unspecified Kasey Porter NP 05/17/2019 G47.33 Obstructive sleep apnea (adult) (pediatric) Kasey Porter NP 05/17/2019 J33.9 Nasal polyp, unspecified Kasey Porter NP Plan of Treatment Future Appointment(s):09/21/2019 8:45 am - Kasey Porter NP at Main Office Functional Status Description No Information Available Mental Status Description No Information Available Referrals Description No Information Available
--- OUTSIDE RECORDS SUMMARY | 2019-07-24 09:05 | XMS REPORT | Continuity of Care Document ---
:1945 External Reference #:[id number] Author Name Kasey Porter NP (transmitted by agent of provider Ya Hein) Address [address] [place] [address] Care Team Providers Name Role Phone Guevara Cuadra MD - Family Medicine Care Team Information [employer]ist Problems Active Problems Provider Date Disturbance in sleep behavior Altaf Rosales M.D. Onset: 06/08/2012 Difficulty breathing Altaf Rosales M.D. Onset: 06/08/2012 Social History Type Date Description Comments Sex [...] Oximetry 95 % Body Temperature 96.8 F Raleigh Score 3 Pain Level 0 Results Description No Information Available Procedures Date Code Description Status 05/17/2019 27849 Nasal Endoscopy, Diag. Completed Medical Devices Description No Information Available Encounters Type Date Location Provider Dx Diagnosis Office Visit 05/17/2019 Main Office Kasey Porter G47.33 Obstructive sleep 10:00a [employer]ER apnea (adult) (pediatric) J33.9 Nasal polyp, unspecified Assessments Date Code Description Provider 05/17/2019 G47.33 Obstructive sleep apnea (adult) (pediatric) Kasey Porter NP 05/17/2019 J33.9 Nasal polyp, unspecified Kasey Porter NP Plan of Treatment No Information Available Functional Status Description No Information Available Mental Status Description No Information Available Referrals Description No Information Available
--- NOTE | 2019-07-24 09:19 | ED ---
Abdominal Pain/Male - HPI Summary HPI Summary: Pt is a 74 y/o M presenting to the ED with a chief complaint of abdominal pain. He notes significant PMHx of 36 bowel obstructions. His last bowel movement was this morning, which is typical per the pt, and he last ate at 0200, but it did not stay down. He has been nauseous and vomiting, with his last episode of emesis described as feculent. He denies dysuria or hematuria. - History of Current Complaint Chief Complaint: EDAbdPain Stated Complaint: ABDOMINAL PAIN AND VOMITING PER PT Time Seen by Provider: 07/24/19 08:34 Hx Obtained From: Patient Onset/Duration: Sudden Onset, Lasting Hours, Still Present Timing: Constant, Lasting Hours Severity Initially: Moderate Severity Currently: Severe Pain Intensity: 10 Pain Scale Used: 0-10 Numeric Location: Diffuse Radiates: No Aggravating Factor(s): Nothing Alleviating Factor(s): Nothing Associated Signs And Symptoms: Positive: Nausea, Vomiting. Negative: Urinary Symptoms - Allergies/Home Medications Allergies/Adverse Reactions: Allergies Allergy/AdvReac Type Severity Reaction Status Date / Time amoxicillin Allergy Unknown Verified 07/24/19 08:29 Reaction Details atorvastatin [From Lipitor] Allergy Unknown Verified 07/24/19 08:29 Reaction Details ezetimibe [From Zetia] Allergy Unknown Verified 07/24/19 08:29 Reaction Details morphine Allergy Nausea And Verified 07/24/19 08:29 Vomiting niacin Allergy Unknown Verified 07/24/19 08:29 Reaction Details Penicillins Allergy Unknown Verified 07/24/19 08:29 Reaction Details PMH/Surg Hx/FS Hx/Imm Hx Previously Healthy: Yes Endocrine/Hematology History: Reports: Other Endocrine/Hematological Disorders - Polycythemia Denies: Hx Anticoagulant Therapy, Hx Blood Disorders, Hx Blood Transfusions, Hx Bone Marrow Disease, Hx Diabetes, Hx Systemic Lupus Erythematosus, Hx Sickle Cell Disease, Hx Thyroid Disease, Hx Anemia, Hx Unexplained Bleeding Cardiovascular History: Reports: Hx Hypercholesterolemia, Hx Hypertension, Other Cardiovascular Problems/Disorders - Ventricular bigemini Denies: Hx Aneurysm, Hx Angina, Hx Angioplasty, Hx Auto Implanted Cardiovert Defib, Hx Cardiac Arrest, Hx Cardiomegaly, Hx Congenital Heart Disease, Hx Congestive Heart Failure, Hx Coronary Artery Disease, Hx Deep Vein Thrombosis, Hx Embolism, Hx Hypotension, Hx Myocardial Infarction, Hx Pacemaker/ICD, Hx Peripheral Vascular Disease, Hx Rheumatic Fever, Hx Syncope, Hx Valvular Heart Disease Respiratory History: Reports: Hx Sleep Apnea, Other Respiratory Problems/ Disorders - states [facility] is monitoring growths on right lung Denies: Hx Asthma, Hx Chronic Bronchitis, Hx Chronic Obstructive Pulmonary Disease (COPD), Hx Cystic Fibrosis, Hx Lung Cancer, Hx Pleural Effusion, Hx Pneumonia, Hx Pulmonary Edema, Hx Pulmonary Embolism, Hx Seasonal Allergies GI History: Reports: Hx Gall Bladder Disease, Hx Irritable Bowel, Hx Obstructive Bowel - multiple SBO, Other GI Disorders - multiple SBO Denies: Hx Cirrhosis, Hx Crohn's Disease, Hx Diverticulosis, Hx Gastroesophageal Reflux Disease, Hx Gastrointestinal Bleed, Hx Hiatal Hernia, Hx Jaundice, Hx Ileostomy, Hx Pyloric Stenosis, Hx Ulcer History: Reports: Hx Kidney Stones - once, Other Problems/Disorders - BPH Denies: Hx Acute Renal Failure, Hx Benign Prostatic Hyperplasia, Hx Chronic Renal Failure, Hx Dialysis, Hx Kidney Infection, Hx Renal Disease Musculoskeletal History: Reports: Hx Back Problems - ruptured disc Denies: Hx Arthritis, Hx Rheumatoid Arthritis, Hx Bursitis, Hx Congenital Bone Abnormalities, Hx Fibromyalgia, Hx Gout, Hx Orthopedic Injury, Hx Osteoporosis, Hx Scoliosis, Hx Tendonitis, Other Musculoskeletal History Sensory History: Reports: Hx Cataracts - surgery, Hx Contacts or Glasses Denies: Hx Eye Injury, Hx Eye Prosthesis, Hx Glaucoma, Hx Legally Blind, Hx Macular Degeneration, Hx Vision Problem, Hx Deafness, Hx Hearing Aid, Other Sensory Impairments Opthamlomology History: Reports: Hx Cataracts - surgery, Hx Contacts or Glasses Denies: Hx Eye Injury, Hx Eye Prosthesis, Hx Glaucoma, Hx Legally Blind, Hx Macular Degeneration, Hx Vision Problem, Other Sensory Impairments Neurological History: Reports: Other Neuro Impairments/Disorders - SPINE PAIN HX OF RUPTURED DISCS Denies: Hx Dementia, Hx Developmental Delay, Hx Headaches, Hx Migraine, Hx Nerve Disease, Hx Seizures, Hx Spinal Cord Injury, Hx Transient Ischemic Attacks (TIA) Psychiatric History: Reports: Hx Anxiety, Hx Post Traumatic Stress Disorder Denies: Hx Attention Deficit Hyperactivity Disorder, Hx Eating Disorder, Hx Depression, Hx Panic Disorder, Hx Inpatient Treatment, Hx Community Mental Health Tx, Hx Schizophrenia, Hx Bipolar Disorder, Hx Suicide Attempt, Hx of Violent Episodes Against Others, Hx Substance Abuse, Other Psychiatric Issues/ Disorders - Cancer History Cancer Type, Location and Year: "Skin cancer" mid abdomen, 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, left back, right leg Hx Chemotherapy: No Hx Radiation Therapy: No Hx Palliative Cancer Treatment: No - Surgical History Surgery Procedure, Year, and Place: INTESTINAL SX FOR BLOCKAGES X35; APPY; [facility] ; SINUS POLYP; CATARACTS, skin cancer removal 12/05/14 Hx Anesthesia Reactions: No - Immunization History Date of Tetanus Vaccine: Unknown Date of Influenza Vaccine: Fall 2012 Infectious Disease History: No Infectious Disease History: Denies: Hx Clostridium Difficile, Hx Hepatitis, Hx Human Immunodeficiency Virus (HIV), Hx of Known/Suspected MRSA, Hx Shingles, Hx Tuberculosis, Hx Known/ Suspected VRE, Hx Known/Suspected VRSA, History Other Infectious Disease, Traveled Outside the [place] in Last 30 Days - Family History Known Family History: Positive: Hypertension Negative: Cardiac Disease - Social History Alcohol Use: None Hx Substance Use: No Substance Use Type: Reports: None Hx Tobacco Use: Yes Smoking Status (MU): Former Smoker Type: Cigarettes Amount Used/How Often: PPD Length of Time of Smoking/Using Tobacco: 20 Have You Smoked in the Last Year: No Review of Systems Positive: Abdominal Pain, Vomiting, Nausea Negative: dysuria, hematuria All Other Systems Reviewed And Are Negative: Yes Physical Exam - Summary Physical Exam Summary: Constitutional: Well-developed, Well-nourished, Alert. (-) Distressed Skin: Warm, Dry HENT: Normocephalic; Atraumatic Eyes: Conjunctiva normal Neck: Musculoskeletal ROM normal neck. (-) JVD, (-) Stridor, (-) Tracheal deviation Cardio: Rhythm regular, rate normal, Heart sounds normal; Intact distal pulses; The pedal pulses are 2+ and symmetric. Radial pulses are 2+ and symmetric. Pulmonary/Chest wall: Effort normal. (-) Respiratory distress, (-) Wheezes, (-) Rales Abd: Large midline surgical scar that seems to be well-healed. Slightly distended, moderate diffuse tenderness. Not tympanitic. (-) Guarding, (-) Rebound Musculoskeletal: (-) Edema Neuro: Alert, Oriented x3 Psych: Mood and affect Normal Triage Information Reviewed: Yes Vital Signs On Initial Exam: Initial Vitals Temp Pulse Resp BP Pulse Ox 97.6 F 93 18 110/76 96 07/24/19 08:19 07/24/19 08:19 07/24/19 08:19 07/24/19 08:19 07/24/19 08:19 Vital Signs Reviewed: Yes Procedures - Sedation Patient Received Moderate/Deep Sedation with Procedure: No Diagnostics - Vital Signs Vital Signs Temp Pulse Resp BP Pulse Ox 07/24/19 08:48 22 07/24/19 08:19 97.6 F 93 18 110/76 96 - Laboratory Result Diagrams: 07/24/19 09:00 07/24/19 09:00 Lab Statement: Any lab studies that have been ordered have been reviewed, and results considered in the medical decision making process. - Radiology Abd XR Radiology Interpretation Completed By: Radiologist Summary of Radiographic Findings: Nonspecific bowel gas pattern. ED physician has reviewed this report. CXR Radiology Interpretation Completed By: Radiologist Summary of Radiographic Findings: No active cardiopulmonary disease. ED physician has reviewed this report. - CT CT a/p CT Interpretation Completed By: Radiologist Summary of CT Findings: NO DILATED LOOPS A SMALL BOWEL TRANSITION POINT TO SUGGEST SMALL BOWEL OBSTRUCTION. ED physician has reviewed this report. - EKG 0841 Cardiac Rate: NL - 81bpm EKG Rhythm: Sinus Rhythm ST Segment: Normal Ectopy: PVCs EKG Comparison: No Significant Change Summary of EKG Findings: EKG at 0841 shows NSR at 81bpm with old inferior Q- waves, old PVCs, old incomplete RBBB, and no STEMI. No change in comparison to EKG on 10/28/18. ED physician has reviewed and interpreted this report. Re-Evaluation - Re-Evaluation 1st re-eval Re-Evaluation Time: 13:00 Change: Unchanged Comment: After speaking with the patient again and informing him of his laboratory/imaging results, I do not feel that the pt is stable for discharge, as he has been NPO for about 12 hours, drained about 300-400ml of bilious fluid from his NG tube, and is still unable to keep anything down. I will contact Dr. Oliveros. Abdominal Pain Male Course/Dx - Course Course Of Treatment: Pt is a 74 y/o M presenting to the ED with a chief complaint of abdominal pain. He notes significant PMHx of 36 bowel obstructions, with 3 bowel surgeries, cholecystectomy, and appendectomy. His last bowel movement was this morning, which is typical per the pt, and he last ate at 0200, but it did not stay down. He has been nauseous and vomiting, with his last episode of emesis described as feculent. He denies dysuria or hematuria. On exam, the pt's abdomen has a large midline surgical scar that seems to be well-healed. The abd is slightly distended with moderate diffuse tenderness. In the ED course, the pt was given 20mg Pepcid, 100mcg Fentanyl, 4mg Zofran, and 1L LR. EKG at 0841 shows NSR at 81bpm with old inferior Q-waves , old PVCs, old incomplete RBBB, and no STEMI. No change in comparison to EKG on 10/28/18. Pts lab results show lactic acid of 2.1. He also has RBC of 5.93 with Hgb of 18.2 and Hct of 53, plt of 149, and glucose of 162. Abd XR shows: Nonspecific bowel gas pattern. CXR shows: No active cardiopulmonary disease. Pt's pain returned after a couple of hours, so the pt received another 100mcg of Fentanyl. CT a/p shows: NO DILATED LOOPS A SMALL BOWEL TRANSITION POINT TO SUGGEST SMALL BOWEL OBSTRUCTION. After speaking with the patient again and informing him of his laboratory/imaging results, I do not feel that the pt is stable for discharge, as he has been NPO for about 12 hours, drained about 300- 400ml of bilious fluid from his NG tube, and is still unable to keep anything down. 1321 - I spoke with Dr. Oliveros about the pt's present condition, who recommends admission to medicine for a possible SBO that is not seen on the CT. - Diagnoses Provider Diagnoses: Partial small bowel obstruction - Provider Notifications Discussed Care Of Patient With: Wade Oliveros Time Discussed With Above Provider: 13:21 Instructed by Provider To: Admit As Inpatient Discharge ED - Sign-Out/Discharge Documenting (check all that apply): Patient Departure - Discharge Plan Condition: Stable Disposition: ADMITTED TO [facility] - Billing Disposition and Condition Condition: STABLE Disposition: Admitted to [facility] - Attestation Statements Document Initiated by Scribe: Yes Documenting Scribe: Beatriz Cerda Provider For Whom Mauricio is Documenting (Include Credential): Eddy Barclay MD. Scribe Attestation: Beatriz Hercules, scribed for Eddy Barclay MD. on 07/24/19 at 1850. Scribe Documentation Reviewed: Yes Provider Attestation: The documentation as recorded by the scribe, Beatriz Cerda accurately reflects the service I personally performed and the decisions made by me, Eddy Barclay MD. Status of Scribe Document: Viewed Consult Consult: 1321 - I spoke with Dr. Oliveros about the pt, who recommends admission to medicine for a possible SBO that is not seen on the CT. 1324 - I spoke with Dr. Sylvester about the pt's present condition.
[2019-07-24 09:28] LABS: Albumin 4.6 g/dL (3.2-5.2); Albumin/Globulin Ratio 1.8 (1-3); BUN/Creatinine Ratio 16.2 (8-20); Calcium 9.5 mg/dL (8.6-10.3); EGFR African American 83.1 (>60); EGFR Non-African American 68.7 (>60); Globulin 2.6 g/dL (2-4); Indirect Bilirubin 0.5 mg/dL (0.3-1.0); Magnesium 1.8 mg/dL (1.9-2.7); Potassium 4.6 mmol/L (3.5-5.0); Total Bilirubin 0.7 mg/dL (0.2-1.0); Total Protein 7.2 g/dL (6.4-8.9)
[2019-07-24 10:17] LABS: ABS Eosinophils 0.1 10^3/ul (0-0.6); ABS Lymphocytes 0.3 10^3/ul (1.0-4.8); ABS Monocytes 1.1 10^3/ul (0-0.8); ABS Neutrophils 8.8 10^3/ul (1.5-7.7); ABS Nucleated RBC 0.1 10^3/ul; Hematocrit 53 % (42-52); Hemoglobin 18.2 g/dL (14.0-18.0); Lymphocyte % 2.8 %; Mean Corpuscular HGB Conc 34 g/dL (31-36); Mean Corpuscular Hemoglobin 31 pg (27-31); Mean Corpuscular Volume 89 fL (80-94); Nucleated Red Blood Cells % 0.8; Red Blood Count 5.93 10^6 /uL (4.18-5.48); Red Cell Distribution Width 14 % (10-15); White Blood Count 10.3 10^3/uL (3.5-10.8)
[2019-07-24 11:36] LABS: Mean Platelet Volume 7.8 fL (7.4-10.4); Platelet Count 149 10^3/uL (150-450)
[2019-07-24] MEDS ORDERED: Iohexol 300* (CONTRAST) 10 ML SDV IV ONE (11:44)
[2019-07-24] MEDS ORDERED: Magnesium Sulfate 2 GM IV* 2 GM/50 ML BAG IVPB ONE (13:43)
[2019-07-24] MEDS ORDERED: Ondansetron INJ* 2 MG/ML VIAL IV PRN (13:56)
[2019-07-24] MEDS ORDERED: HYDROmorphone INJ* 0.5 MG/0.5 ML SYRINGE IV SLOW PU PRN (14:01)
[2019-07-24] MEDS ORDERED: Fluticasone NASAL SPRAY 50MCG* 16 gm SPRAY BTL BOTH NARES PRN (14:19)
[2019-07-24] MEDS ORDERED: LORazepam TAB(*) 1 MG PO PRN (14:19)
[2019-07-24] MEDS: NS 0.9% 1000 ML** 1,000 ML IV SCH (15:25)
[2019-07-24] MEDS ORDERED: Sertraline* 25 MG TAB PO ONE (15:28)
[2019-07-24] MEDS: Gemfibrozil TAB* 600 MG PO SCH (15:36)
--- NOTE | 2019-07-24 15:52 | HP ---
CC: Dr. Oliveros; Dr. Guevara Cuadra HISTORY AND PHYSICAL: DATE OF ADMISSION: 07/24/19 PRIMARY CARE PROVIDER: Dr. Guevara Cuadra. CHIEF COMPLAINT: Abdominal pain, nausea and vomiting. HISTORY OF PRESENT ILLNESS: This is a 74-year-old male with past medical history of recurrent small bowel obstruction, multiple abdominal surgeries, who now presents to the emergency room because of abdominal pain. He describes the abdominal pain as right lower quadrant sharp crampy pain, 7/10. The pain started earlier this morning at about 5 p.m. It was associated with nausea and vomiting. Since the pain started, he has had about 7 episodes of emesis with no blood. He also reported since the pain started he had 1 episode of liquid bowel movement. He reports no fevers, no chills, does not recall what he ate yesterday. He reports that he has had several episodes of small bowel obstruction and also several episodes where he has abdominal pain, which has been managed with NG tube and decompression. At this point in time, he reports his pain is 3/10 and his nausea has subsided. In the emergency room, the patient was seen and evaluated, labs and imaging were done. The patient was noted to have on CAT scan no dilated loops of bowel to suggest small bowel obstruction. Dr. Oliveros, the general surgeon was consulted by the emergency room physician, who recommended NG tube and admission to the medical team. Subsequently, NG tube was placed, after which 450 cc of emesis was drained. Subsequently, the hospitalist service was called. PAST MEDICAL HISTORY: Includes: 1. History of recurrent small bowel obstruction secondary to multiple prior abdominal surgeries. 2. PTSD. 3. Thrombocytopenia. 4. Chronic kidney disease. 5. Hyperlipidemia. 6. Polycythemia. 7. Frequent PVCs, on flecainide. 8. Hypertension. 9. BPH. PAST SURGICAL HISTORY: 1. Bilateral cataract extraction. 2. Multiple abdominal surgeries for obstruction. 3. Cholecystectomy. 4. Appendectomy. HOME MEDICATIONS: The patient states that none of his medications have changed, although we are unable to verify the home medications with the primary care provider as today is and his primary care office is closed. The patient reports that his medication list includes: 1. Lorazepam 1 mg every 8 hours as needed. 2. AREDS vitamins 1 cap daily. 3. Ibuprofen 600 mg every 8 hours as needed. 4. Hydrocodone/acetaminophen 5/325 one tablet daily as needed. 5. Gemfibrozil 600 mg twice a day with meals. 6. Trazodone 50 mg at bedtime. 7. Amlodipine 10 mg daily. 8. Triamcinolone 1 application topical b.i.d. as needed. 9. Zoloft 50 mg daily. 10. Red yeast rice 1200 mg daily. 11. Prazosin 10 mg at bedtime. 12. Zofran 4 mg every 6 hours as needed for nausea and vomiting. 13. Robaxin tablet 750 mg b.i.d. as needed. 14. Losartan 25 mg at bedtime. 15. Fluticasone 2 sprays both nares daily. 16. Fluticasone 2 sprays both nares as needed additionally. 17. Flecainide 50 mg daily. 18. Finasteride 5 mg daily. 19. Cyclobenzaprine 10 mg every 8 hours as needed. 20. Aspirin 81 mg daily. ALLERGIES: Include NIACIN, AMOXICILLIN, MORPHINE, LIPITOR, and ZETIA. FAMILY HISTORY: Mother at age 89 due to CHF. Father developed colon cancer and subsequently . Brother has a stroke. SOCIAL HISTORY: The patient is , lives at home with his , Vesna, who is a healthcare proxy. The patient is a former smoker, quit about 36 years ago. Does not drink any alcohol. 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 REVIEW OF SYSTEMS: A complete review of systems was done. There are no fevers , no chills. No chest pain, no shortness of breath, no palpitations, no cough. No burning upon urination. Has frequent urinary hesitancy as well as increased urinary frequency; however, unchanged and baseline. Otherwise, a full review of systems was done and as per the HPI. PHYSICAL EXAMINATION GENERAL: This is a well-developed, well-nourished elderly male, sitting on a chair in the emergency room, in no acute distress. VITAL SIGNS: Blood pressure is 142/63, heart rate of 69, respiratory rate of 94 , temperature of 97.6 Fahrenheit. HEENT: Pupils are equal, round, reactive to light. Atraumatic, normocephalic. Oral mucosa is moist. NG tube is in place. NECK: There are no thyroid nodules noted. LUNGS: There is no tachypnea, no use of accessory muscles. Lungs are clear to auscultation without any wheezing, rales, or rhonchi. HEART: There is no chest wall tenderness. Normal S1, S2. Regular rate and rhythm. No murmurs. No lower extremity edema. ABDOMEN: Bowel sounds are hypoactive. Abdomen is soft. Mild tenderness in the right lower quadrant region. There is no rigidity or guarding. Non- distended abdomen. Multiple surgical scars noted. MUSCULOSKELETAL: There is no cyanosis, clubbing, or edema. NEUROLOGICAL: Alert and oriented x3 with no focal neurological deficits. Tongue is midline with no facial asymmetry. Speech is clear and coherent. PSYCHIATRIC: He appears to be cooperative. SKIN: The skin is warm and dry, with no lesions identified. DIAGNOSTIC STUDIES/LAB DATA: WBC 10.3, hemoglobin 18.2, hematocrit 53, platelets of 149. Chemistry: Sodium of 139, potassium 4.6, chloride 106, bicarb 24, BUN 17, creatinine of 1.05, glucose of 162, lactic acid of 2.1, magnesium of 1.8, lipase of 22. The patient underwent an abdominal x-ray, which showed nonspecific bowel gas pattern. Chest x-ray: No active cardiopulmonary disease. Abdomen CT shows no dilated loops of small bowel transition point to suggest small bowel obstruction. IMPRESSION AND PLAN: 1. Abdominal pain, nausea and vomiting. CT rules out small bowel obstruction. However, the patient has history of recurrent small bowel obstruction episodes. At this time, our working diagnosis is ileus vs. partial small bowel obstruction. At this point, continue NG tube to low intermittent suction. Place the patient n.p.o., pain control with Dilaudid as needed, Zofran as needed. Dr. Oliveros, General Surgery, has been consulted. Continue IV fluids. Obtain abdominal xray in the morning, and then decide regarding NG tube vs. diet stat us. 2. Elevated lactic acid. In the setting of nausea, vomiting, dehydration as well as intraabdominal pathology ongoing. We will start the patient on IV hydration. 3. Hypomagnesemia. Repletion has been ordered. 4. History of premature ventricular contraction. Continue flecainide. 5. History of posttraumatic stress disorder. Continue on sertraline. 6. History of hypertension. Start the patient on amlodipine and continue losartan once the patient is able to eat. 7. Start the patient on pantoprazole 40 mg IV, diet is n.p.o., activity as tolerated. 8. DVT risk assessment: At this point, the patient is high risk; however, due to thrombocytopenia, the patient also may undergo surgery if the patient does not improve, so we will start the patient on sequential compression devices. [id number]/[facility] #: [id number] MTDD
[2019-07-24] MEDS ORDERED: Losartan TAB* 25 MG PO SCH (18:00)
--- NOTE | 2019-07-24 18:05 | PN ---
Progress Note - Progress Note Date of Service: 07/24/19 Note: Brief Surgery Note (full consult dictated): S: 74 yo patient well known to our office w/ mult past episodes of SBO admitted w/ symptoms similar to past episodes, i.e., abdominal pain, nausea, vomiting. At present he is without pain, though still some nausea. NG tube in place. Passing flatus since admission. O: Abd: no sig distension. BS present; somewhat hypo. Soft; no tenderness elicited. Labs and imaging reviewed. A: likely partial SBO, already appears to be resolving P: cont NG overnight; labs and AXR noted as being ordered for a.m. Will follow.
[2019-07-24] MEDS ORDERED: Prazosin CAP* 5 MG PO SCH (21:00)
[2019-07-24] MEDS ORDERED: traZODone TAB* 50 MG TAB PO SCH (21:00)
--- NOTE | 2019-07-24 21:12 | CONS ---
CC: Dr. Cuadra at [facility] * SURGICAL CONSULT NOTE: DATE OF CONSULT: 07/24/19 ATTENDING SURGEON: Wade Oliveros MD CHIEF COMPLAINT: Small bowel obstruction. HISTORY OF PRESENT ILLNESS: This is a 74-year-old male, well known to our service from multiple prior episodes of small bowel obstruction including previous exploratory laparotomies for small bowel obstruction. He states that he had awakened this morning around 2 a.m. and had diarrhea. He tried to go back to sleep and at about 4:30 a.m., woke up with abdominal pain across the lower abdomen with associated vomiting. He states his symptoms were similar to episodes of small bowel obstruction in the past. He presented this morning to the ED. An NG tube was placed with drainage of 450 mL per the hospitalist note. There is minimal drainage in the NG trap at the present time. He has not had any further bowel movements. He states that he has passed some flatus since admission and at the present time denies pain, though still admits to some nausea. He does not feel particularly distended. PAST MEDICAL HISTORY: Includes multiple episodes of small bowel obstruction and at least 2 prior exploratory laparotomies as well as prior appendectomy and laparoscopic cholecystectomy. His medical problems include anxiety and insomnia secondary to PTSD, cardiac arrhythmia, hypertension, and polycythemia. The remainder of his past medical history, family history, social history, and review of systems are outlined in his admission history and physical and are not repeated here (he is followed by Dr. Davila for routine cardiology followup. He also has been followed regularly through the [facility] in [place] for multiple lung nodules and splenic nodule. At this point, no biopsies have been performed and no apparent changes.) PHYSICAL EXAMINATION: Height 6 feet, 1 inch, weight 240 pounds. Temperature 97.9, blood pressure 137/88, pulse 70, respirations 16, room air saturation 98% . General: Well nourished, mildly obese male, in no acute distress. NG tube present. Skin: Warm and dry. No suspicious rashes or lesions. HEENT: Pupils equal and around, reactive. EOMs intact. No conjunctival pallor. Oropharynx: Mucous membranes moist. No intraoral lesions. Neck: No lymphadenopathy or thyromegaly. Heart: Regular rate and rhythm. No murmur appreciated. Lungs: Clear to auscultation. No rales or wheezes. Abdomen: Well-healed midline incision as well as multiple laparoscopic incisions. No apparent distention. Bowel sounds are present, slightly hypoactive. Abdomen is soft with no tenderness elicited by palpation. No palpable masses or organomegaly. No palpable hernias. Extremities: No edema. Neurological: Grossly intact. DIAGNOSTIC STUDIES/LAB DATA: White blood cell count 10,300, hemoglobin 18.2, hematocrit 53, platelets 149. Electrolytes, BUN and creatinine are normal as are liver function tests and lipase. Lactic acid is slightly elevated at 2.1. Magnesium is slightly low at 1.8. Imaging was reviewed including plain films of the abdomen and CT (with IV contrast only). NG tube is in place within the body of the stomach. CT was notable for mildly dilated fluid filled small bowel loops without a transition point (read by the radiologist's as being nondistended). There are occasional diverticula in the distal colon without evidence of diverticulitis as well as multiple renal cysts. IMPRESSION: Partial small bowel obstruction, which appears to be already beginning to resolve. PLAN: Continue NG tube overnight with relative n.p.o. (I did agree that the patient could have ice chips). He does have repeat labs and abdominal x-rays in the morning per the hospitalist orders. We will continue to follow with you , but expect this to resolve without operative intervention. PAULA MCCARTNEY [id number]/[facility] #: [id number] OMAR
[2019-07-25] MEDS: NS 0.9% 1000 ML** 1,000 ML IV SCH (02:15)
[2019-07-25 06:19] LABS: Hematocrit 44 % (42-52); Hemoglobin 15.1 g/dL (14.0-18.0); Mean Corpuscular HGB Conc 34 g/dL (31-36); Mean Corpuscular Hemoglobin 31 pg (27-31); Mean Corpuscular Volume 90 fL (80-94); Mean Platelet Volume 7.6 fL (7.4-10.4); Platelet Count 117 10^3/uL (150-450); Red Blood Count 4.93 10^6 /uL (4.18-5.48); Red Cell Distribution Width 14 % (10-15); White Blood Count 4.7 10^3/uL (3.5-10.8)
[2019-07-25 06:48] LABS: Calcium 8.5 mg/dL (8.6-10.3); Magnesium 2.3 mg/dL (1.9-2.7); Potassium 3.8 mmol/L (3.5-5.0)
[2019-07-25 06:53] LABS: BUN/Creatinine Ratio 17.4 (8-20); EGFR African American 104.6 (>60); EGFR Non-African American 86.5 (>60); Phosphorus 2.5 mg/dL (2.5-5.0)
--- NOTE | 2019-07-25 08:47 | PN ---
Progress Note - Progress Note Date of Service: 07/25/19 Note: Surgery Progress: S: No pain. No N/V. Passing flatus and had BM. O: Vital Signs - 8 hr 07/25/19 07/25/19 03:31 08:07 Temperature 98.4 F 98.6 F Pulse Rate 71 59 Respiratory 17 16 Rate Blood Pressure 141/69 137/60 (mmHg) O2 Sat by Pulse 97 97 Oximetry Intake and Output Last 24 Hours 07/23/19 07/24/19 07/25/19 07/26/19 06:59 06:59 06:59 06:59 Intake Total 3344 Output Total 1100 Balance 2244 Weight 240 lb Intake: IV Fluids 2990 NS 990 IVPB 54 Magnesium Sulfate 54 Oral 300 Output: NG Tube Drainage Amount 400 Urine 700 Other: Estimated Void Medium Date of Last Bowel 07/25 Movement # Bowel Movements 1 Estimated Stool Amount Medium # Voids 1 Gen: NAD Abd: +BS (hypo). Soft, nontender. AXR: (unread) nonspecific bowel gas pattern A: pSBO, resolving P: NG d/c'd; start clears; discussed w/ hospitalist; likely d/c later this pm if blane clears
[2019-07-25] MEDS ORDERED: Fluticasone NASAL SPRAY 50MCG* 16 gm SPRAY BTL BOTH NARES SCH (09:00)
[2019-07-25] MEDS ORDERED: Flecainide TAB* 100 MG PO SCH (09:00)
[2019-07-25] MEDS ORDERED: Aspirin EC TAB* 81 MG TAB.EC PO SCH (09:00)
[2019-07-25] MEDS ORDERED: Influenza VAC *QUAD* 2019-20* 0.5 ML SYRINGE IM ONE (09:00)
[2019-07-25] MEDS ORDERED: Pantoprazole IV* 40 MG IV SCH (09:00)
[2019-07-25] MEDS: Gemfibrozil TAB* 600 MG PO SCH (09:00)
[2019-07-25] MEDS ORDERED: Sertraline* 50 MG TAB PO SCH (09:00)
[2019-07-25] MEDS ORDERED: Finasteride TAB* 5 MG PO SCH (09:00)
[2019-07-25] MEDS ORDERED: amLODIPine TAB* 5 MG PO SCH (09:00)
[2019-07-25 11:48] VITALS: BP 147/62
--- NOTE | 2019-07-25 21:28 | DS ---
CC: Dr. Guevara Cuadra * DISCHARGE SUMMARY: DATE OF ADMISSION: 07/24/19 DATE OF DISCHARGE: 07/25/19 PRIMARY CARE PROVIDER: Dr. Guevara Cuadra. ATTENDING PHYSICIAN: Dr. Paco Comer.* (DICTATED BY BHAKTI THOMPSON NP) PRIMARY DIAGNOSIS: 1. Partial small bowel obstruction. SECONDARY DIAGNOSES: 1. History of premature ventricular contractions. 2. Posttraumatic stress disorder. 3. Hypertension. 4. Hyperlipidemia. 5. Chronic kidney disease. 6. Chronic thrombocytopenia. STUDIES WHILE IN THE HOSPITAL: 1. Abdomen x-ray on 07/24/19, reads as nonspecific bowel gas pattern. 2. Chest x-ray on 07/24/19, reads as no active cardiopulmonary disease. 3. EKG on 07/24/19, shows normal sinus rhythm at a rate of 81, 1 PVC. This EKG appears consistent with prior EKG on file from October 2018. 4. Abdomen and pelvis CT on 07/24/19, reads as no dilated loops of small bowel transition point to suggest small bowel obstruction. 5. Abdomen x-ray on 07/25/19, reads as nasogastric tube at the gastroesophageal junction. Improving small bowel distention. HISTORY OF PRESENT ILLNESS AND HOSPITAL COURSE: Mr. Richey is a 74-year-old male with past medical history of recurrent small bowel obstructions, PTSD, thrombocytopenia, chronic kidney disease, hyperlipidemia, frequent PVCs, on flecainide, hypertension, and BPH, who presented to the emergency room on , with complaints of abdominal pain, nausea, and vomiting. Please see history and physical by Dr. Nicole for complete summary of the events leading up to this hospitalization. In short, the patient reported abdominal pain starting the morning of presentation. This was in the right lower quadrant and rated a 7 out of 10. He reported 1 episode of loose stool since the pain started. In the emergency room, the patient had imaging as noted above and there was no obvious small bowel obstruction on imaging, though clinically the patient certainly appeared to have at least a partial small bowel obstruction. The patient had an NG tube placed and 450 mL of gastric fluid was drained. He was admitted by the hospitalist service. The patient was kept n.p.o., on IV hydration. He did not require any pain medication overnight and as of this morning was feeling significantly better. The patient was seen by PAULA Yuen, with Surgery this morning, who removed the patient's NG tube and placed him on a clear liquid diet. He advised that if the patient tolerated the clear liquid diet, he could be discharged to home. The patient did have clear liquids this morning which he tolerated well. He has had a bowel movement today and has been passing gas. Abdominal pain and nausea and vomiting have resolved. The patient did have an elevated lactic acid in the emergency room, though that was not field representatives director of infection and rather was likely elevated due to nausea, vomiting, and dehydration. On exam, he is alert and oriented x4. He has no focal neurological deficits. His heart has a regular rate and rhythm without murmurs, rubs, or gallops. Lungs are clear to auscultation without rhonchi, wheezes, or rubs. Abdomen is soft, nontender with hypoactive bowel sounds throughout. Mr. Richey is stable for discharge today. Vital signs are as follows: Temp 98.1, heart rate 62, respiratory rate 16, oxygen saturation 98% on room air, blood pressure 147/62. DISCHARGE MEDICATIONS: Continued medications: 1. Amlodipine 10 mg p.o. daily. 2. Aspirin 81 mg p.o. daily. 3. Flexeril 10 mg p.o. q.8 hours p.r.n. muscle spasms. 4. Finasteride 5 mg p.o. daily. 5. Flecainide 50 mg p.o. daily. 6. Fluticasone 2 sprays both nares daily. 7. Gemfibrozil 600 mg p.o. b.i.d. 8. [place] 5/325 one tab p.o. daily p.r.n. pain. 9. Ibuprofen 600 mg p.o. q.8 hours p.r.n. pain. 10. PreserVision 1 cap p.o. daily. 11. Lorazepam 1 mg p.o. q.8 hours p.r.n. anxiety. 12. Losartan 25 mg p.o. daily. 13. Robaxin 750 mg p.o. b.i.d. p.r.n. muscle spasms. 14. Ondansetron 4 mg p.o. q.6 hours p.r.n. nausea and vomiting. 15. Prazosin 10 mg p.o. at bedtime. 16. Red yeast rice 1200 mg p.o. daily. 17. Sertraline 50 mg p.o. daily. 18. Trazodone 50 mg p.o. at bedtime. 19. Triamcinolone 0.1% one application topically b.i.d. DISCHARGE PLAN: Mr. Richey will be discharged home. Activity will be as tolerated. Diet will be clear liquids, advancing as tolerated. The patient has had multiple small bowel obstructions in the past and is quite familiar with how to advance his diet at home. He is comfortable doing this and does not have any further questions regarding this. Medications are as noted above. He can continue his usual medications and I have not made any changes. He will need to follow up with his primary care provider in the next 4 to 7 days. He should return to the emergency room or nearest hospital for any worsening symptoms, shortness of breath, lightheadedness, dizziness, chest discomfort, high fevers, chills, night sweats, loss of consciousness, or any other worrisome signs or symptoms. DISCHARGE CONDITION: Stable. DISCHARGE DISPOSITION: Home. This is a summarized report of a complex medical history and hospital stay. For further details, please see the entire medical record. TIME SPENT: Approximately 45 minutes was spent on this discharge. BHAKTI THOMPSON NP [id number]/[facility] #: [id number] OMAR
== END 2019-07-25 12:50 | disposition home or self-care (01) | DRG 390 ==
LOC: ED 08:17 → SSU 13:54
PROVIDERS: ADMIT Internal Medicine; ATTEND Internal Medicine
PROC: 0D9670Z Drainage of Stomach with Drainage Device, Via Natural or Artificial Opening (ICD-10-PCS; principal; 2019-07-24)
DX: K56.600 Partial intestinal obstruction, unspecified as to cause (principal); D75.1 Secondary polycythemia; E78.00 Pure hypercholesterolemia, unspecified; G47.30 Sleep apnea, unspecified; K58.9 Irritable bowel syndrome, unspecified; N40.0 Benign prostatic hyperplasia without lower urinary tract symptoms; F41.9 Anxiety disorder, unspecified; E86.0 Dehydration; I49.3 Ventricular premature depolarization; E83.42 Hypomagnesemia; I45.10 Unspecified right bundle-branch block; K57.30 Diverticulosis of large intestine without perforation or abscess without bleeding; N18.9 Chronic kidney disease, unspecified; D69.6 Thrombocytopenia, unspecified; R79.89 Other specified abnormal findings of blood chemistry; I12.9 Hypertensive chronic kidney disease with stage 1 through stage 4 chronic kidney disease, or unspecified chronic kidney disease; E78.5 Hyperlipidemia, unspecified; F43.10 Post-traumatic stress disorder, unspecified; Z87.442 Personal history of urinary calculi; Z85.828 Personal history of other malignant neoplasm of skin; Z90.49 Acquired absence of other specified parts of digestive tract; Z87.891 Personal history of nicotine dependence; Z80.0 Family history of malignant neoplasm of digestive organs; Z88.0 Allergy status to penicillin; Z88.8 Allergy status to other drugs, medicaments and biological substances; Z88.5 Allergy status to narcotic agent; Z23 Encounter for immunization; Z79.82 Long term (current) use of aspirin
CPT/HCPCS: 36415; 71046; 74018; 74019; 74177; 80048; 80076; 83605; 83690; 83735; 84100; 85025; 85027; 90686; 93005; 96374; 96375; 99284; A9270-GY; J2405; J3010; J3475; Q9967

== ENCOUNTER 2019-10-09 10:17 | Emergency (ER) | payer MEDICARE ==
--- OUTSIDE RECORDS SUMMARY | 2019-10-09 10:23 | XMS REPORT | Continuity of Care Document ---
:1945 External Reference #:[id number] Author Name Kasey Porter NP (transmitted by agent of provider Bernice Rodriguez) Address [address] [place] [address] Care Team Providers Name Role Phone Guevara Cuadra MD - Family Medicine Care Team Information Tip Inserter Problems Active Problems Provider Date Disturbance in [...] Available Vital Signs Date Vital Result Comment 09/21/2019 8:21am Weight 238.00 lb Height 72 inches 6'0" BMI (Body Mass Index) 32.3 kg/m2 BP Systolic 176 mmHg BP Diastolic 75 mmHg Heart Rate 64 /min O2 % BldC Oximetry 97 % Body Temperature 97.5 F Pain Level 0 06/22/2019 8:26am Weight 241.00 lb Height 72 inches 6'0" BMI (Body Mass Index) 32.7 kg/m2 BP Systolic 140 mmHg BP Diastolic 68 mmHg Heart Rate 59 /min O2 % BldC Oximetry 95 % Body Temperature 96.7 F Pain Level 0 Results Description No Information Available Procedures Date Code Description Status 05/17/2019 95989 Nasal Endoscopy, Diag. 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
--- OUTSIDE RECORDS SUMMARY | 2019-10-09 10:23 | XMS REPORT | Continuity of Care Document ---
:1945 External Reference #:[id number] Author Name Kasey Porter NP Address [address] [place] [address] Care Team Providers Name Role Phone Guevara Cuadra MD - Family Medicine Care Team Information Board Saw Runner Problems Active Problems Provider Date Disturbance in [...] Available Procedures Date Code Description Status 05/17/2019 70226 Nasal Endoscopy, Diag. 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 Office Visit 05/17/2019 Main Office Kasey Porter, G47.33 Obstructive sleep 10:00a NUCLEAR TEST TECHNICIAN apnea (adult) (pediatric) J33.9 Nasal polyp, unspecified Assessments Date Code Description Provider 09/21/2019 J33.9 Nasal polyp, unspecified Kasey Porter, NUCLEAR TEST TECHNICIAN 06/22/2019 J33.9 Nasal polyp, unspecified Kasey Porter, NUCLEAR TEST TECHNICIAN 05/17/2019 G47.33 Obstructive sleep apnea (adult) (pediatric) Kasey Porter, NUCLEAR TEST TECHNICIAN 05/17/2019 J33.9 Nasal polyp, unspecified Kasey Porter, NUCLEAR TEST TECHNICIAN Plan of Treatment No Information Available Functional Status Description No Information Available Mental Status Description No Information Available Referrals Description No Information Available
[2019-10-09 10:32] VITALS: BP 145/68
--- NOTE | 2019-10-09 10:58 | UC ---
Lower Extremity/Ankle HPI - HPI Summary HPI Summary: 74-year-old male comes in with a chief complaint of right great toe pain. Patient reports injured the great toenail about a year ago he's been having some problems ever since. Last several weeks is been some increasing pain. Has had about 3 months of toenail discoloration and change in shape. Has seen a telephone answerer in the past but it's been several years. No fevers no chills no drainage. No specific trauma other than one year ago. - History of Current Complaint Chief Complaint: UCLowerExtremity Stated Complaint: TOE NAIL PROBLEM Time Seen by Provider: 10/09/19 10:42 Pain Intensity: 2 - Allergies/Home Medications Allergies/Adverse Reactions: Allergies Allergy/AdvReac Type Severity Reaction Status Date / Time amoxicillin Allergy Unknown Verified 10/09/19 10:27 Reaction Details atorvastatin [From Lipitor] Allergy Unknown Verified 10/09/19 10:27 Reaction Details ezetimibe [From Zetia] Allergy Unknown Verified 10/09/19 10:27 Reaction Details morphine Allergy Nausea And Verified 10/09/19 10:27 Vomiting niacin Allergy Unknown Verified 10/09/19 10:27 Reaction Details Penicillins Allergy Unknown Verified 10/09/19 10:27 Reaction Details PMH/Surg Hx/FS Hx/Imm Hx Previously Healthy: Yes Endocrine History: Dyslipidemia Cardiovascular History: Hypertension Other History Of: Negative For: Anticoagulant Therapy - Surgical History Surgical History: Yes Surgery Procedure, Year, and Place: INTESTINAL SX FOR BLOCKAGES X35; APPY; [facility] ; SINUS POLYP; CATARACTS, skin cancer removal 12/05/14 - Family History Known Family History: Positive: Hypertension Negative: Cardiac Disease - Social History Alcohol Use: None Substance Use Type: None Smoking Status (MU): Former Smoker Type: Cigarettes Amount Used/How Often: PPD Length of Time of Smoking/Using Tobacco: 20 Have You Smoked in the Last Year: No When Did the Patient Quit Smoking/Using Tobacco: 1969 - Immunization History Most Recent Influenza Vaccination: 07/25/19 Most Recent Tetanus Shot: Within 10 yrs Most Recent Pneumonia Vaccination: 2012 Review of Systems All Other Systems Reviewed And Are Negative: Yes Constitutional: Positive: Negative Skin: Positive: Other - SEE HPI Eyes: Positive: Negative ENT: Positive: Negative Respiratory: Positive: Negative Cardiovascular: Positive: Negative Gastrointestinal: Positive: Negative Motor: Positive: Negative Neurovascular: Positive: Negative Musculoskeletal: Positive: Other: - SEE HPI Neurological: Positive: Negative Psychological: Positive: Negative Is Patient Immunocompromised?: No Physical Exam Triage Information Reviewed: Yes Appearance: Well-Appearing, No Pain Distress, Well-Nourished Vital Signs: Initial Vital Signs Temp 98.0 F 10/09/19 10:27 Pulse 62 10/09/19 10:27 Resp 18 10/09/19 10:27 BP 145/68 10/09/19 10:27 Pulse Ox 96 10/09/19 10:27 Vital Signs Reviewed: Yes Eye Exam: Normal Eyes: Positive: Conjunctiva Clear Neck: Positive: Supple Respiratory: Positive: No respiratory distress Musculoskeletal: Positive: Strength Intact, ROM Intact, Other: - The right toenail is enlarged and appears to have a fungal infection. It's well attached. Neurological: Positive: Alert Psychological: Positive: Age Appropriate Behavior Skin: Positive: Other - Is minimal erythema just proximal to the right great toenail on the dorsal aspect. Normal capillary refill normal sensation. Lower Extremity Course/Dx - Course Course Of Treatment: We will start initial treatment and have the patient follow-up with podiatry. We discussed getting an x-ray today but because there is been no recent trauma and infectious symptoms are minimal no x-ray was done today. - Differential Dx/Diagnosis Provider Diagnosis: Onychia and paronychia of toe Discharge ED - Sign-Out/Discharge Documenting (check all that apply): Patient Departure All imaging exams completed and their final reports reviewed: No Studies - Discharge Plan Condition: Stable Disposition: HOME Prescriptions: Clindamycin Cap(NF) [Clindamycin Cap 300 mg Cap(NF)] 300 mg PO TID #21 cap Efinaconazole [Jublia] 1 applic TOPICAL DAILY #1 bottle Patient Education Materials: Paronychia (ED), Skin Yeast Infection (ED) Referrals: Guevara Cuadra MD [Primary Care Provider] - Coleen Montano DPM [Doctor of Podiatric Medicine] - Redd Hastings DPM [Doctor of Podiatric Medicine] - Additional Instructions: FOLLOW UP WITH YOUR AUTOMOTIVE MANUFACTURER. GET REEVALUATED SOONER IF NOT IMPROVED OR WORSE OR ANY QUESTIONS OR CONCERNS. - Billing Disposition and Condition Condition: STABLE Disposition: Home
== END 2019-10-09 11:04 | disposition home or self-care (01) ==
LOC: UCEAST 10:17
DX: L03.031 Cellulitis of right toe (principal); I10 Essential (primary) hypertension; Z88.0 Allergy status to penicillin; Z88.8 Allergy status to other drugs, medicaments and biological substances; Z88.5 Allergy status to narcotic agent; Z87.891 Personal history of nicotine dependence
CPT/HCPCS: 99211; G0463

== ENCOUNTER 2019-10-30 07:04 | Emergency (ER) | payer MEDICARE ==
[2019-10-30 07:16] VITALS: BP 159/68
--- NOTE | 2019-10-30 07:22 | UC ---
Hip/Pelvis Pain - HPI Summary HPI Summary: Patient presents to urgent care for evaluation of pain in his left hip. Patient is a 74 her abdomen. Patient states about 2 weeks ago he woke up with pain. Patient states intermittently the pain radiates down the lateral aspect of his leg. Patient states that the lateral aspect of the hip. Patient has type I or 2 doses of ibuprofen with little improvement. Patient denies any leg weakness. Patient has trauma. Patient states he does get restless at night cause a PTSD and sometimes knows that he thrashes a little bit. Patient without a change to bowel or bladder. No rash. No fever. Patient has never had surgery visit. Patient's medications as entered in the EMR by triage nurse reviewed. No analgesia today - History Of Current Complaint Chief Complaint: UCLowerExtremity Stated Complaint: LEFT HIP PAIN Time Seen by Provider: 10/30/19 07:21 Hx Obtained From: Patient Pain Intensity: 10 - Allergies/Home Medications Allergies/Adverse Reactions: Allergies Allergy/AdvReac Type Severity Reaction Status Date / Time amoxicillin Allergy Unknown Verified 10/30/19 07:17 Reaction Details atorvastatin [From Lipitor] Allergy Unknown Verified 10/30/19 07:17 Reaction Details ezetimibe [From Zetia] Allergy Unknown Verified 10/30/19 07:17 Reaction Details morphine Allergy Nausea And Verified 10/30/19 07:17 Vomiting niacin Allergy Unknown Verified 10/30/19 07:17 Reaction Details Penicillins Allergy Unknown Verified 10/30/19 07:17 Reaction Details PMH/Surg Hx/FS Hx/Imm Hx Cardiovascular History: Hypertension Psychological History: Post Traumatic Stress Disorder Other History Of: Negative For: Anticoagulant Therapy - Surgical History Surgical History: Yes Surgery Procedure, Year, and Place: INTESTINAL SX FOR BLOCKAGES X35; APPY; ZEKE ; SINUS POLYP; CATARACTS, skin cancer removal 12/05/14 - Family History Known Family History: Positive: Hypertension, Non-Contributory Negative: Cardiac Disease - Social History Occupation: Retired Lives: Alone Alcohol Use: None Substance Use Type: None Smoking Status (MU): Former Smoker Type: Cigarettes Amount Used/How Often: PPD Length of Time of Smoking/Using Tobacco: 20 Have You Smoked in the Last Year: No When Did the Patient Quit Smoking/Using Tobacco: 1969 - Immunization History Most Recent Influenza Vaccination: 07/25/19 Most Recent Tetanus Shot: Within 10 yrs Most Recent Pneumonia Vaccination: 2013 Review of Systems All Other Systems Reviewed And Are Negative: Yes Constitutional: Positive: Negative Skin: Positive: Negative Motor: Positive: Other - left hip pain Is Patient Immunocompromised?: No Physical Exam - Summary Physical Exam Summary: Vital Signs Reviewed: Yes A+Ox3, no distress Eyes: Conjunctiva Clear ENT: Hearing grossly normal neck: supple Respiratory: Positive: No respiratory distress, No accessory muscle use CTA throughout no w/r Cardiovascular: skin color reflect adequate perfusion RRR nl s1, s2 no m/r 2+ DP CBT < 2 sec Musculoskeletal Exam: no spinous process pain c/t/l/s + SLE b/l with pain left hip. + flex/ext knee, ankle + mild increased pain with external rotation of hip lateral aspect. Little pain with internal rotation. + point tenderness superior to greater trochanter Neurological: Positive: Alert, ambulatory without difficulty Psychological: Positive: Normal Response To examiner Skin: Positive: no rash, no ecchymosis Triage Information Reviewed: Yes Vital Signs: Initial Vital Signs Temp 98.2 F 10/30/19 07:11 Pulse 66 10/30/19 07:11 Resp 19 10/30/19 07:11 BP 159/68 10/30/19 07:11 Pulse Ox 100 10/30/19 07:11 Diagnostics - Radiology No standard instances Radiology Interpretation Completed By: Radiologist - Patient Name: ANTOLIN SHELTON Medical Record#: [id number] Ordering Physician: Orquidea Vickers MD Acct.#: [id number] : 1945 Age: 74 Sex: M Location: [facility] Exam Date: 10/30/19736 ADM Status: REG ER Order Information: HIP LEFT 2 VIEWS AND PELVIS Accession Number: [id number] CPT: 93054 HISTORY: pain lateral aspect hip ? bursitis . COMPARISONS: None relevant available at the time of dictation. VIEWS: 3, Frontal view of the pelvis with frontal and frog-leg views of the left hip FINDINGS: BONE DENSITY: Normal. BONES: There is no displaced fracture. JOINTS: There is moderate osteoarthritis of the hips and SI joints. ALIGNMENT: There is no dislocation. SOFT TISSUES: Unremarkable. OTHER FINDINGS : Degenerative changes are noted of the lower lumbar spine. IMPRESSION: OSTEOARTHRITIS. NO ACUTE OSSEOUS INJURY. IF SYMPTOMS PERSIST, RECOMMEND REPEAT IMAGING. < Electronically signed by Guevara Thomas MD in [place]> 10/30/19801 Dictated By: Guevara Thomas MD Dictated Date/Time: 10/30/19800 Transcribed Date/ Time: 10/30/19800 Copy to: CC:Guevara Cuadra MD; Orquidea Vickers MD Imaging - [facility] Imaging - [facility] Imaging - [facility] [address] [address] ph [phone]) ph ([phone]) ph ([phone]) This report is only to be considered final once signed by the Provider (s) as displayed in the "<Electronically Signed by >" field (s). Absence of a signature indicates the report is in a draft status and still needs to be finalized. In the event this document was created by someone other than the signing Provider, the individual initiating the document will be listed in the "Entered by:" or "Dictated by:" slater. 1 of 1 Re-Evaluation - Re-Evaluation First Eval Comment: reviewd imaging with pt - no fx, + osteoarthritis. Concern to give oral prednisone given pt's history of PTSD, vivid dreams, and age. Scheduled appt tomorrow at 2pm with Dr Riley - ? injection. pt comfortable and in agreement with plan. reviewed with pt analgesia regimen. declined offer for cane/walker. strict return precautions - pt comfortable and in agreement with plan Hip Injury Course/Dx - Course Course Of Treatment: Patient presents urgent care with ongoing pain in his left hip. Patient states no trauma spelled it for 3 weeks. Patient took Motrin once with little improvement. Patient states he has radiation of the lateral aspect of his leg up 8 times. No weakness. On exam vital signs are stable. Patient does have point tenderness just superior to the left greater trochanter tear. Patient with good distal CSM. Pain increases with internal/external rotation of the hip and straight leg. Will give Tylenol will take imaging. Suspicious this could be bursitis. After imaging will discuss with orthopedics or sports medicine. Patient comfortable the plan. Slight hesitation to use systemic steroids given patient's age and history of PTSD. slight elevation of BP - history of same - Differential Dx/Diagnosis Provider Diagnosis: Left hip pain Discharge ED - Sign-Out/Discharge Documenting (check all that apply): Patient Departure All imaging exams completed and their final reports reviewed: Yes - Discharge Plan Condition: Stable Disposition: HOME Patient Education Materials: Osteoarthritis (ED), Hip Pain (ED) Referrals: Guevara Cuadra MD [Primary Care Provider] - Cliff Riley MD [Medical Doctor] - (2pm tomorrow, 10/31/2019 - please arrive 15minutes early) Additional Instructions: -Okay to alternate ibuprofen (Advil, Motrin) 400mg and Tylenol (acetaminophen) 1000mg every 3 hours for pain or fever. Take with food. Do NOT take for more than 4-5 days. - Okay to apply heat to your leg - slow, gentle stretching exercises are important - Okay to apply a pillow under knees if you lay on your back or between your knees if you are on your side to help support your hip - Use a walker as needed for balance and support - You have an appointment tomorrow at 2pm with Dr Riley, audio visual specialist. Please arrive 15 minutes early to complete registration paperwork If your pain is uncontrolled, you develop leg weakness, difficulty with your bowel or bladder or any other concerns - it is recommended you go to the emergency department for further evaluation and treatment - Billing Disposition and Condition Condition: STABLE Disposition: Home
[2019-10-30] MEDS ORDERED: Acetaminophen TAB* 325 MG PO ONE (07:30)
== END 2019-10-30 08:51 | disposition home or self-care (01) ==
LOC: UCEAST 07:04
DX: M16.12 Unilateral primary osteoarthritis, left hip (principal); M25.552 Pain in left hip; I10 Essential (primary) hypertension; Z88.0 Allergy status to penicillin; Z88.5 Allergy status to narcotic agent; Z88.8 Allergy status to other drugs, medicaments and biological substances; Z87.891 Personal history of nicotine dependence
CPT/HCPCS: 99212; A9270-GY; G0463

== ENCOUNTER 2019-12-17 17:32 | Inpatient (IN) | payer MEDICARE ==
[2019-12-17] MEDS ORDERED: NS 0.9% 1000 ML** 1,000 ML IV ONE ×2 (17:42→19:13)
[2019-12-17] MEDS ORDERED: Ondansetron INJ* 2 MG/ML VIAL IV ONE ×2 (17:48→19:38)
--- NOTE | 2019-12-17 17:52 | ED ---
Abdominal Pain/Male - HPI Summary HPI Summary: This pt is a 74 Y/O M presenting to [facility] with a CC of abdominal pain that is rated a 7/10 in severity. He states that the feeling is very similar to a SBO as the pt has experienced them before. He states that he has been vomiting excessively since 12/16/2019 without any relief. He states that he feels distended and has been unable to eat without increasing his nausea. The symptoms began at 0700 with nausea. He denies any fevers, chills, headaches, SOB , CP, groin pain, and sore throat. He states that he was unable to take his medications this morning due to the nausea and vomiting. He also denies any hematemesis. He has a PMHx of a previous SBO 3 months ago and HTN, polycythemia and an appendectomy. He denies any alleviating factors. - History of Current Complaint Chief Complaint: EDAbdPain Stated Complaint: ABD PAIN Time Seen by Provider: 12/17/19 17:40 Hx Obtained From: Patient Onset/Duration: Sudden Onset, Lasting Hours - 9 hours, Still Present Severity Initially: Mild Severity Currently: Severe Pain Intensity: 7 Pain Scale Used: 0-10 Numeric Location: Discrete At: RLQ Radiates: No Character: Other: - states similar to SBO Aggravating Factor(s): Food Alleviating Factor(s): Nothing Associated Signs And Symptoms: Positive: Negative - chills, headaches, SOB, groin pain, hematemesis, and sore throat, Decreased Appetite, Nausea, Vomiting. Negative: Fever, Chest Pain - Allergies/Home Medications Allergies/Adverse Reactions: Allergies Allergy/AdvReac Type Severity Reaction Status Date / Time amoxicillin Allergy Unknown Verified 12/17/19 19:43 Reaction Details atorvastatin [From Lipitor] Allergy Unknown Verified 12/17/19 19:43 Reaction Details ezetimibe [From Zetia] Allergy Unknown Verified 12/17/19 19:43 Reaction Details morphine Allergy Nausea And Verified 12/17/19 19:43 Vomiting niacin Allergy Unknown Verified 12/17/19 19:43 Reaction Details Penicillins Allergy Unknown Verified 12/17/19 19:43 Reaction Details Home Medications: Home Medications Aspirin EC TAB* [Ecotrin EC Low Dose 81 MG*] 81 mg PO DAILY 10/06/12 [History Confirmed 12/17/19] Red Yeast Rice 1,200 mg PO DAILY 10/06/12 [History Confirmed 12/17/19] Losartan TAB* [Cozaar TAB*] 25 mg PO QPM 12/17/16 [History Confirmed 12/17/19] Sertraline* [Zoloft*] 50 mg PO DAILY 12/17/16 [History Confirmed 12/17/19] Flecainide TAB* [Tambocor TAB*] 50 mg PO DAILY #30 tab 12/18/16 [Rx Confirmed ] Gemfibrozil TAB* [Lopid TAB*] 600 mg PO BID AC 02/16/17 [History Confirmed 05/30] Fluticasone NASAL SPRAY 50MCG* [Flonase NASAL SPRAY 50MCG*] 2 spray BOTH NARES DAILY #1 btl 09/04/17 [Rx Confirmed 12/17/19] Finasteride TAB* [Proscar TAB*] 5 mg PO DAILY 10/28/18 [History Confirmed ] amLODIPine TAB* [Norvasc 5 mg TAB*] 10 mg PO DAILY 10/28/18 [History Confirmed 12/17/19] traZODone TAB* [Desyrel TAB*] 50 mg PO BEDTIME 10/28/18 [History Confirmed 12/16] PMH/Surg Hx/FS Hx/Imm Hx Previously Healthy: Yes Endocrine/Hematology History: Reports: Other Endocrine/Hematological Disorders - Polycythemia Denies: Hx Anticoagulant Therapy, Hx Blood Disorders, Hx Blood Transfusions, Hx Bone Marrow Disease, Hx Diabetes, Hx Systemic Lupus Erythematosus, Hx Sickle Cell Disease, Hx Thyroid Disease, Hx Anemia, Hx Unexplained Bleeding Cardiovascular History: Reports: Hx Hypercholesterolemia, Hx Hypertension, Other Cardiovascular Problems/Disorders - Ventricular bigemini Denies: Hx Aneurysm, Hx Angina, Hx Angioplasty, Hx Auto Implanted Cardiovert Defib, Hx Cardiac Arrest, Hx Cardiomegaly, Hx Congenital Heart Disease, Hx Congestive Heart Failure, Hx Coronary Artery Disease, Hx Deep Vein Thrombosis, Hx Embolism, Hx Hypotension, Hx Myocardial Infarction, Hx Pacemaker/ICD, Hx Peripheral Vascular Disease, Hx Rheumatic Fever, Hx Syncope, Hx Valvular Heart Disease Respiratory History: Reports: Hx Sleep Apnea, Other Respiratory Problems/ Disorders - states [facility] is monitoring growths on right lung Denies: Hx Asthma, Hx Chronic Bronchitis, Hx Chronic Obstructive Pulmonary Disease (COPD), Hx Cystic Fibrosis, Hx Lung Cancer, Hx Pleural Effusion, Hx Pneumonia, Hx Pulmonary Edema, Hx Pulmonary Embolism, Hx Seasonal Allergies GI History: Reports: Hx Gall Bladder Disease, Hx Irritable Bowel, Hx Obstructive Bowel - multiple SBO, Other GI Disorders - multiple SBO Denies: Hx Cirrhosis, Hx Crohn's Disease, Hx Diverticulosis, Hx Gastroesophageal Reflux Disease, Hx Gastrointestinal Bleed, Hx Hiatal Hernia, Hx Jaundice, Hx Ileostomy, Hx Pyloric Stenosis, Hx Ulcer History: Reports: Hx Kidney Stones - once, Other Problems/Disorders - BPH Denies: Hx Acute Renal Failure, Hx Benign Prostatic Hyperplasia, Hx Chronic Renal Failure, Hx Dialysis, Hx Kidney Infection, Hx Renal Disease Musculoskeletal History: Reports: Hx Back Problems - ruptured disc Denies: Hx Arthritis, Hx Rheumatoid Arthritis, Hx Bursitis, Hx Congenital Bone Abnormalities, Hx Fibromyalgia, Hx Gout, Hx Orthopedic Injury, Hx Osteoporosis, Hx Scoliosis, Hx Tendonitis, Other Musculoskeletal History Sensory History: Reports: Hx Cataracts - surgery, Hx Contacts or Glasses Denies: Hx Eye Injury, Hx Eye Prosthesis, Hx Glaucoma, Hx Legally Blind, Hx Macular Degeneration, Hx Vision Problem, Hx Deafness, Hx Hearing Aid, Other Sensory Impairments Opthamlomology History: Reports: Hx Cataracts - surgery, Hx Contacts or Glasses Denies: Hx Eye Injury, Hx Eye Prosthesis, Hx Glaucoma, Hx Legally Blind, Hx Macular Degeneration, Hx Vision Problem, Other Sensory Impairments Neurological History: Reports: Other Neuro Impairments/Disorders - SPINE PAIN HX OF RUPTURED DISCS Denies: Hx Dementia, Hx Developmental Delay, Hx Headaches, Hx Migraine, Hx Nerve Disease, Hx Seizures, Hx Spinal Cord Injury, Hx Transient Ischemic Attacks (TIA) Psychiatric History: Reports: Hx Anxiety, Hx Post Traumatic Stress Disorder Denies: Hx Attention Deficit Hyperactivity Disorder, Hx Eating Disorder, Hx Depression, Hx Panic Disorder, Hx Inpatient Treatment, Hx Community Mental Health Tx, Hx Schizophrenia, Hx Bipolar Disorder, Hx Suicide Attempt, Hx of Violent Episodes Against Others, Hx Substance Abuse, Other Psychiatric Issues/ Disorders - Cancer History Cancer Type, Location and Year: "Skin cancer" mid abdomen, 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, left back, right leg Hx Chemotherapy: No Hx Radiation Therapy: No Hx Palliative Cancer Treatment: No - Surgical History Surgical History: Yes Surgery Procedure, Year, and Place: INTESTINAL SX FOR BLOCKAGES X35; APPY; ZEKE ; SINUS POLYP; CATARACTS, skin cancer removal 12/05/14 Hx Anesthesia Reactions: No - Immunization History Date of Tetanus Vaccine: Unknown Date of Influenza Vaccine: Fall 2012 Immunizations Up to Date: Yes Infectious Disease History: No Infectious Disease History: Denies: Hx Clostridium Difficile, Hx Hepatitis, Hx Human Immunodeficiency Virus (HIV), Hx of Known/Suspected MRSA, Hx Shingles, Hx Tuberculosis, Hx Known/ Suspected VRE, Hx Known/Suspected VRSA, History Other Infectious Disease, Traveled Outside the [place] in Last 30 Days - Family History Known Family History: Positive: Hypertension, Non-Contributory Negative: Cardiac Disease - Social History Occupation: Retired Lives: With Family Alcohol Use: None Hx Substance Use: No Substance Use Type: Reports: None Hx Tobacco Use: Yes Smoking Status (MU): Former Smoker Type: Cigarettes Amount Used/How Often: PPD Length of Time of Smoking/Using Tobacco: 20 Have You Smoked in the Last Year: No Review of Systems Negative: Fever, Chills Negative: Sore Throat Negative: Chest Pain Negative: Shortness Of Breath Gastrointestinal: Negative - hematemesis Positive: Abdominal Pain, Vomiting, Nausea Genitourinary: Negative - groin pain Negative: Headache All Other Systems Reviewed And Are Negative: Yes Physical Exam - Summary Physical Exam Summary: GENERAL: Patient is a well-developed and nourished male who is lying comfortable in the stretcher. Patient is not in any acute respiratory distress. HEAD AND FACE: No signs of trauma. No ecchymosis, hematomas or skull depressions. No sinus tenderness. EYES: PERRLA, EOMI x 2, No injected conjunctiva, no nystagmus. EARS: Hearing grossly intact. Ear canals and tympanic membranes are within normal limits. MOUTH: Oropharynx within normal limits. NECK: Supple, trachea is midline, no adenopathy, no JVD, no carotid bruit, no c- spine tenderness, neck with full ROM. CHEST: Symmetric, no tenderness at palpation. LUNGS: Clear to auscultation bilaterally. No wheezing or crackles. CVS: Regular rate and rhythm, S1 and S2 present, no murmurs or gallops appreciated. ABDOMEN: RLQ tenderness with mild distension. Soft. No rebound, no guarding, and no masses palpated. Bowel sounds are normal. EXTREMITIES: FROM in all major joints, no edema, no cyanosis or clubbing. NEURO: Alert and oriented x 3. No acute neurological deficits. Speech is normal and follows commands. SKIN: Dry and warm. Triage Information Reviewed: Yes Vital Signs On Initial Exam: Initial Vitals Temp Pulse Resp BP Pulse Ox 96.4 F 104 18 102/78 95 12/17/19 17:34 12/17/19 17:34 12/17/19 17:34 12/17/19 17:34 12/17/19 17:34 Vital Signs Reviewed: Yes Procedures - Sedation Patient Received Moderate/Deep Sedation with Procedure: No Diagnostics - Vital Signs Vital Signs Temp Pulse Resp BP Pulse Ox 12/17/19 17:34 96.4 F 104 18 102/78 95 - Laboratory Result Diagrams: 12/17/19 17:51 12/17/19 17:51 Lab Statement: Any lab studies that have been ordered have been reviewed, and results considered in the medical decision making process. - CT CT A/P CT Interpretation Completed By: Radiologist Summary of CT Findings: 1. Mild versus early small bowel obstruction with transition in the right lower. quadrant. 2. Bosniak type I renal cysts. No followup indicated. 3. Splenic focus likely a hemangioma or hamartoma. No followup imaging. indicated per ACR guidelines. ED physician has reviewed this report. Abdominal Pain Male Course/Dx - Course Course Of Treatment: This pt is a 74 Y/O M presenting to [facility] with a CC of abdominal pain that is rated a 7/10 in severity. He states that the feeling is very similar to a SBO as the pt has experienced them before. He states that he has been vomiting excessively since 12/16/2019 without any relief. He states that he feels distended and has been unable to eat without increasing his nausea. His PE found that he has RLQ tenderness with mild distension and normal bowel sounds. He has abnormalities in his WBC, RBC, and Hgb laboratory values. CT A/ P: 1. Mild versus early small bowel obstruction with transition in the right lower. quadrant. 2. Bosniak type I renal cysts. No followup indicated. 3. Splenic focus likely a hemangioma or hamartoma. No followup imaging indicated per ACR guidelines. ED physician has reviewed this report. He was given Zofran during his ED course. He will be admitted to [facility] for further care by Dr. Smith , Hospitalist, at 2013 for a SBO. surgery was made aware of the pt being admitted at 2124. - Diagnoses Provider Diagnoses: SBO (small bowel obstruction) - Provider Notifications Discussed Care Of Patient With: Aníbal Smith Time Discussed With Above Provider: 20:14 Instructed by Provider To: Admit As Inpatient Discharge ED - Sign-Out/Discharge Documenting (check all that apply): Patient Departure - discharge - Discharge Plan Condition: Good Disposition: ADMITTED TO [facility] Referrals: Guevara Cuadra MD [Primary Care Provider] - - Billing Disposition and Condition Condition: GOOD Disposition: Admitted to [facility] - Attestation Statements Document Initiated by Mauricio: Yes Documenting Scribe: Kingsley Burden Provider For Whom Mauricio is Documenting (Include Credential): Richard Shirley MD Scribe Attestation: Kingsley Hercules scrvioleted for Richard Shirley MD on 12/17/19 at 2143. Scribe Documentation Reviewed: Yes Provider Attestation: The documentation as recorded by the Kingsley hills accurately reflects the service I personally performed and the decisions made by Richard hutchison MD Status of Scribe Document: Viewed
[2019-12-17 18:01] LABS: ABS Eosinophils 0.2 10^3/ul (0-0.6); ABS Lymphocytes 1.4 10^3/ul (1.0-4.8); ABS Monocytes 0.9 10^3/ul (0-0.8); ABS Neutrophils 11.3 10^3/ul (1.5-7.7); Eosinophil % 1.3 %; Hematocrit 57 % (42-52); Hemoglobin 19.7 g/dL (14.0-18.0); Lymphocyte % 10.3 %; Mean Corpuscular HGB Conc 35 g/dL (31-36); Mean Corpuscular Hemoglobin 30 pg (27-31); Mean Corpuscular Volume 88 fL (80-94); Mean Platelet Volume 7.9 fL (7.4-10.4); Nucleated Red Blood Cells % 0.2; Platelet Count 230 10^3/uL (150-450); Red Blood Count 6.46 10^6 /uL (4.18-5.48); Red Cell Distribution Width 14 % (10-15); White Blood Count 13.9 10^3/uL (3.5-10.8)
[2019-12-17 18:18] LABS: Albumin/Globulin Ratio 1.5 (1-3); BUN/Creatinine Ratio 10.2 (8-20); EGFR African American 45.5 (>60); EGFR Non-African American 37.6 (>60); Globulin 3.3 g/dL (2-4); Potassium 4.6 mmol/L (3.5-5.0); Total Bilirubin 0.9 mg/dL (0.2-1.0); Total Protein 8.3 g/dL (6.4-8.9)
[2019-12-17 18:24] LABS: Activated Partial Thrombo Time 32.3 seconds (26.0-38.0); INR 0.98 (0.82-1.09)
--- OUTSIDE RECORDS SUMMARY | 2019-12-17 18:24 | XMS REPORT | Continuity of Care Document ---
:1945 External Reference #:[id number] Author Name Cliff Riley M.D. 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 [phone] Medicine Problems Active Problems Provider Date Conduction disorder of the heart Aidan Bhat M.D., [facility], Onset: 2012 [facility] Premature beats Aidan Bhat M.D., [facility], Onset: 10/15/2014 [facility] Chest pain Aidan Bhat M.D., [facility], Onset: 11/13/2015 [facility] Social History Type Date Description Comments Sex Unknown Cigarette Use Quit 32 Years Ago ETOH Use Denies alcohol use Remote alcoholism Tobacco Use Start: Unknown Patient is a former quit in 1982 End: Unknown smoker Recreational Drug Use Denies Drug Use Smoking Status Reviewed: 10/31/19 Patient is a former quit in 1982 smoker Exercise Type/Frequency Bikes daily stationary bicycle for 10 mins Allergies, Adverse Reactions, Alerts Active Allergies Reaction Severity Comments Date Niaspan flushing 07/08/2006 Amoxicillin hives 08/23/2006 Penicillin 08/28/2013 Morphine 08/28/2013 Statins platelet count went up Moderate 12/28/2016 Medications Active Medications SIG Qnty Indications Ordering Date Provider Sertraline HCL 1/2 tablet po daily 90tabs Unknown 100mg depression Tablets Aspirin Ec 1 po qd 90tabs Unknown 81mg Tablets DR Red Yeast Rice 2 cap po daily Unknown 600mg Tablets Cpap used at night Unknown Device Fluticasone 2 sprays each Unknown Propionate nostril daily as 50mcg/Act needed Suspension Flecainide Acetate take 1 tablet by 90tabs Aidan Rosales mouth once daily Ricky Bhat, 50mg Tablets NIELS LOWE Losartan Potassium 1 by mouth every Unknown day 25mg Tablets Hydrocodone-Acetamin 1 tablet every day Unknown ophen as needed for pain 5-325mg Tablets Gemfibrozil 1 by mouth twice a Unknown 600mg day before Tablets breakfast and dinner Amlodipine Besylate 1 by mouth every [place], Guevara, day MD 10mg Tablets Finasteride 1 by mouth every Unknown 5mg day Tablets Medications Administered in Office Medication SIG Qnty Indications Ordering Provider Date Inj, Regadenoson, 0.1 MG Aidan Bhat M.D., 12/09/2015 Injection BAC, NIELS Technetium TC 99M Aidan Bhat M.D., 12/09/2015 Tetrofosmin, Per Unit Dose FACC, FASNC Up To 40 Millicuries Injection Inj, Regadenoson, 0.1 MG Aidan Bhat M.D., 08/12/2012 Injection FACC, NIELS Technetium TC 99M Aidan Bhat M.D., 08/12/2012 Tetrofosmin, Per Unit Dose FACC, FASNC Up To 40 Millicuries Injection Immunizations Description No Information Available Vital Signs Date Vital Result Comment 10/31/2019 2:21pm Height 72.5 inches 6'0.50" Weight 244.00 lb Heart Rate 78 /min BP Systolic 142 mmHg BP Diastolic 70 mmHg Respiratory Rate 12 /min Body Temperature 97.8 F Pain Level 4 BMI (Body Mass Index) 32.6 kg/m2 08/09/2019 2:36pm Height 73 inches 6'1" Weight 232.38 lb with shoes Heart Rate 60 /min BP Systolic Sitting 142 mmHg Rue reg cuff BP Diastolic Sitting 70 mmHg Rue reg cuff BP Systolic Standing 138 mmHg Rue reg cuff BP Diastolic Standing 72 mmHg Rue reg cuff Respiratory Rate 12 /min BMI (Body Mass Index) 30.7 kg/m2 Ejection Fraction 55-60% ECHO 12/17/2016 Results Description No Information Available Procedures Date Code Description Status 08/09/2019 84974 EKG Tracing & Interpretation Completed Medical Devices Description No Information Available Encounters Type Date Location Provider Dx Diagnosis Office Visit 08/09/2019 [facility] Gianfranco Saenz I49.3 Ventricular premature 2:40p Of Oliver Davila, DO FACC depolarization 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 Office Visit 07/25/2019 Surgical Richard Hernandez K56.600 Partial 7:00a [facility] Katharine PA intestinal obstruction, unspecified as to cause Office Visit 07/25/2019 [facility] Nohelia Gilma, INVENTORY AUDITOR K56.600 Partial 9:49a [facility] intestinal Hospitalists obstruction, unspecified as to cause F43.10 Post-traumatic stress disorder, unspecified I10 Essential (primary) hypertension E78.5 Hyperlipidemia, unspecified N18.9 Chronic kidney disease, unspecified D69.6 Thrombocytopenia, unspecified Z86.79 Personal history of other diseases of the circulatory system Office Visit 07/24/2019 [facility] Richard Hernandez K56.600 Partial 7:00a [facility] PAULA Alcantar intestinal obstruction, unspecified as to cause Office Visit 07/24/2019 [facility] Liz Movva, R10.9 Unspecified 9:49a Assoc,asmita MD abdominal pain Hospitalists R11.2 Nausea with vomiting, unspecified R74.0 Nonspec elev of levels of transamns & lactic acid dehydrgnse E83.42 Hypomagnesemia Z86.79 Personal history of other diseases of the circulatory system Z86.59 Personal history of other mental and behavioral disorders Assessments Date Code Description Provider 10/31/2019 M54.42 Lumbago with sciatica, left side Cliff Riley M.D. 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 Gianfranco Davila, DO FACC 07/25/2019 K56.600 Partial intestinal obstruction, PAULA Norris unspecified as to cause 07/25/2019 K56.600 Partial intestinal obstruction, Nohelia Gilma, INVENTORY AUDITOR unspecified as to cause 07/25/2019 F43.10 Post-traumatic stress disorder, Nohelia Gilma, INVENTORY AUDITOR unspecified 07/25/2019 I10 Essential (primary) hypertension Nohelia Gilma, INVENTORY AUDITOR 07/25/2019 E78.5 Hyperlipidemia, unspecified Nohelia Gilma, INVENTORY AUDITOR 07/25/2019 N18.9 Chronic kidney disease, unspecified Nohelia Gilma, INVENTORY AUDITOR 07/25/2019 D69.6 Thrombocytopenia, unspecified Nohelia Gilma, INVENTORY AUDITOR 07/25/2019 Z86.79 Personal history of other diseases of the Nohelia Gilma, INVENTORY AUDITOR circulatory system 07/24/2019 R10.9 Unspecified abdominal pain Liz Nicole MD 07/24/2019 R11.2 Nausea with vomiting, unspecified Liz Nicole MD 07/24/2019 K56.600 Partial intestinal obstruction, PAULA Norris unspecified as to cause 07/24/2019 R74.0 Nonspecific elevation of levels of Liz Nicole MD transaminase and lactic acid dehydrogenase [LDH] 07/24/2019 E83.42 Hypomagnesemia Liz Nicole MD 07/24/2019 Z86.79 Personal history of other diseases of the Liz Nicole MD circulatory system 07/24/2019 Z86.59 Personal history of other mental and Liz Nicole MD behavioral disorders Plan of Treatment 10/31/2019 - Cliff Riley M.D.M54.42 Lumbago with sciatica, left sideNew Therapy: Physical TherapyFollow up:Follow up: None. Primary care OK to use ice and heat OK to use tylenol and carefully use ibuprofen Care with bending and heavier lifting Functional Status Description No Information Available Mental Status Description No Information Available Referrals Description No Information Available
[2019-12-17] MEDS ORDERED: Iodixanol* (CONTRAST) 320 MG/ML 100 ML SDV IV ONE (18:26)
[2019-12-17] MEDS ORDERED: HYDROmorphone INJ* 0.5 MG/0.5 ML SYRINGE IV ONE (20:34)
[2019-12-17] MEDS ORDERED: HYDROmorphone INJ* 0.5 MG/0.5 ML SYRINGE IV PRN (21:33)
[2019-12-17] MEDS ORDERED: Acetaminophen TAB* 325 MG PO PRN (21:36)
[2019-12-18] MEDS: NS 0.9% 1000 ML** 1,000 ML IV SCH ×3 (00:26→21:31)
[2019-12-18] MEDS: traZODone TAB* 50 MG TAB PO SCH ×2 (00:54→20:14)
[2019-12-18] MEDS: Heparin VIAL(*) 5000 UNITS/ML VIAL (FIVE THOUSAND) SUBCUT SCH ×4 (00:56→20:14)
[2019-12-18 06:20] LABS: ABS Monocytes 0.6 10^3/ul (0-0.8); ABS Neutrophils 5.7 10^3/ul (1.5-7.7); Eosinophil % 0.5 %; Hematocrit 47 % (42-52); Hemoglobin 16.1 g/dL (14.0-18.0); Lymphocyte % 12.9 %; Mean Corpuscular HGB Conc 35 g/dL (31-36); Mean Corpuscular Hemoglobin 31 pg (27-31); Mean Corpuscular Volume 88 fL (80-94); Mean Platelet Volume 7.4 fL (7.4-10.4); Nucleated Red Blood Cells % 0.1; Platelet Count 145 10^3/uL (150-450); Red Blood Count 5.27 10^6 /uL (4.18-5.48); Red Cell Distribution Width 14 % (10-15); White Blood Count 7.4 10^3/uL (3.5-10.8)
[2019-12-18 06:37] LABS: BUN/Creatinine Ratio 19.6 (8-20); Calcium 8.8 mg/dL (8.6-10.3); EGFR African American 85.9 (>60); Magnesium 2.1 mg/dL (1.9-2.7); Phosphorus 4.1 mg/dL (2.5-5.0); Potassium 4.3 mmol/L (3.5-5.0)
--- NOTE | 2019-12-18 06:55 | HP ---
HISTORY AND PHYSICAL: DATE OF ADMISSION: 12/17/19 HISTORY OF PRESENT ILLNESS: This is a 74-year-old male with recurrent history of small bowel obstruction. He has been admitted multiple times for bowel obstructions. He has undergone exploratory laparotomy for adhesiolysis, however the adhesions are so extensive that the bowel cannot be mobilized. His last hospitalization for bowel obstruction was in July 2019. The patient presented to the ED with chief complaint of abdominal pain that is rated at 7/10 in severity. He states that this feeling is very similar to when he had the initial small bowel obstruction. The patient states this is about 37th time he has been hospitalized for small bowel obstruction secondary to adhesions. He states that he has been vomiting excessively that he cannot even count number of times he vomited. There is associated abdominal distention. He said he had not passed gas either. He said because of this, he had not been able to eat and the nausea and vomiting are worsening as well as the abdominal distention. All this problem started around 7 a.m. this morning. He denies any fever, chills, headaches, shortness of breath, chest pain, groin pain and/ or sore throat. He reported he was not able to keep anything down, so he did not take his medications today. He denies any hematemesis. His last small bowel obstruction admission was more than 3 months ago. He denies any aggravating or alleviating factors. PAST MEDICAL HISTORY: Include: 1. Hypertension. 2. Hyperlipidemia. 3. BPH. 4. Anxiety. 5. Depression. 6. Small bowel obstruction. PAST SURGICAL HISTORY: 1. Cholecystectomy. 2. Appendectomy. 3. Laparotomy secondary to small bowel obstruction. MEDICATIONS: The patient is takin. Baby aspirin 81 mg daily. 2. Red yeast rice 1200 mg p.o. daily. 3. Losartan 25 mg daily. 4. Zoloft 50 mg daily. 5. Flecainide tablet 50 mg p.o. daily. 6. Gemfibrozil 600 mg b.i.d. with food. 7. Fluticasone nasal spray 50 mcg 2 sprays both nares daily. 8. Finasteride 5 mg p.o. daily. 9. Amlodipine 5 mg tablet that he takes 10 mg p.o. daily. 10. Trazodone 50 mg p.o. at bedtime. ALLERGIES: AMOXICILLIN, reaction unknown; ATORVASTATIN, reaction unknown; ZETIA , reaction unknown; MORPHINE, nausea and vomiting; NIACIN, unknown reaction; PENICILLINS, unknown reaction. FAMILY HISTORY: Dad had stomach cancer. Mom of heart attack and has a history of hypertension and CAD. SOCIAL HISTORY: Former smoker, quit in 1973, had 25 years history of smoking 1 pack per day. When he was in , he went to [place]; said he was smoking about 2 packs per day while in [place]. Alcohol, quit in 1973, occasional drinker. Denied use of illicit drugs. He is with a daughter and 2 grandsons. Said the is healthy and living with the family. REVIEW OF SYSTEMS: Negative fever and chills. Negative sore throat. Negative chest pain. Negative shortness of breath. There is no significant weight change. There was no double vision. No ear discharge. Denied having rhinorrhea. No thyroid enlargement. No orthopnea. No dyspnea. Positive abdominal pain. Positive nausea and vomiting. No dysuria. No frequency. There is no seizure. No loss of consciousness. No pruritus and no skin ulceration. Review of 14 systems completed, all others negative. PHYSICAL EXAMINATION GENERAL: A 74-year-old male, awake and alert, in no severe distress, well nourished, lying comfortably in bed with NG tube for decompression already in place, the patient is not in any acute respiratory distress. VITAL SIGNS: Temperature 96.4, pulse 104, respiratory rate 18, BP 102/78, pulse oximetry 95%. HEAD AND FACE: No signs of trauma. No ecchymosis. No hematomas as well as cord compression. No sinus tenderness. EYES: EOMI. PERRLA. Noninjected conjunctivae. No nystagmus. EARS: Hearing grossly intact. Ear canals and tympanic membranes are within normal limits. Mouth, oropharynx normal limits. NECK: Supple. Trachea is midline. No adenopathy. No JVD. No carotid bruits. No C-spine tenderness. Full range of motion. CHEST: Symmetric, no tenderness to palpation. LUNGS: Clear to auscultation bilaterally. No wheezes. No crackles. CARDIOVASCULAR: Regular rate and rhythm. S1 and S2 present. No murmurs or gallops appreciated. ABDOMEN: Right lower quadrant tenderness with mild distention. Soft. No rebound, no guarding, and no masses palpated. Bowel sounds are slightly regurgitated. EXTREMITIES: Full range of motion in all major joints. No edema. No cyanosis or clubbing. NEURO: Alert and oriented x3. No acute neurological deficits. Speech is normal and full. PSYCH: Normal mood and affect. SKIN: Dry and warm. DIAGNOSTIC STUDIES/LAB DATA: Labs, hematology, WBC 13.2, RBC 6.46, hemoglobin 19.7, hematocrit 57, MCV 88, MCH 30, MCHC 35, RDW 14, platelet count 230, MPV 7.9, absolute neutrophils 11.3, absolute lymphocytes 1.4, absolute monocytes 0.9 , neutrophil percentage 51.9, lymphocyte percentage 10.3, monocytes 6.2, eosinophils 1.3. Chemistry, sodium 138, potassium 4.6, chloride 103, carbon dioxide 21, anion gap of 14, BUN 50, creatinine 1.77, estimated GFR non- 37.6, BUN creatinine ratio 10.2, glucose 178. Lactic acid of 1.9. Calcium 11.1. Total bilirubin 0.9, AST 18, ALT 20, alkaline phosphatase 83, total protein 8.3, albumin 5.0, globulin 3.3, albumin globulin ratio 1.5. INR 0.98. APTT 32.3. CT abdomen and pelvis, summary of CT findings, mild versus early small bowel obstruction with transition in the right lower quadrant, , no followup indicated, splenic focus likely a hemangioma or hematoma, no followup imaging. ASSESSMENT AND PLAN: A 74-year-old male with previous history of small bowel obstruction came in now with severe nausea and vomiting and abdominal pain. The patient was admitted to the medical floor, will obtain surgical consult, NG tube decompression stat for abdominal pain and small bowel obstruction, pain control, rehydration with IV normal saline, Zofran, nausea and vomiting. As already stated, a Surgery consult is requested. Follow up lab and replete electrolytes as needed. For high blood pressure, hypertension. I will continue home meds, losartan 25 mg p.o. daily and amlodipine 10 mg p.o. daily with holding parameters. For BPH, the patient will continue finasteride 5 mg p.o. daily. For hyperlipidemia, the patient will continue gemfibrozil 600 mg p.o. b.i.d. For insomnia, the patient to continue trazodone 50 mg at bedtime. Anxiety and depression. The patient to continue Zoloft 50 mg p.o. daily. This medication can be taken with little sips of water with again in mind the patient has small bowel obstruction, which will be decompressed with NG tube decompression. We will continue intermittent decompression as needed. The patient chose to be full code at this time. DVT prophylaxis with heparin. Fluids, electrolytes, and nutrition: Cardiac diet for the patient. The patient will continue IV fluid hydration until can tolerate p.o. TIME SPENT: On this admission is greater than 60 minutes, greater than half of the time was spent [id number] with patient obtaining my history and physical, the other half of the time was spent going over the plan of care with the patient and implementing plan of care, the patient is in agreement. Thank you very much for the opportunity to partake in the healthcare needs of this beba gentleman. [id number]/CPS #: [id number] OMAR
[2019-12-18] MEDS: Fluticasone NASAL SPRAY 50MCG* 16 gm SPRAY BTL BOTH NARES SCH (09:22)
[2019-12-18] MEDS: Sertraline* 50 MG TAB PO SCH (09:23)
[2019-12-18] MEDS: amLODIPine TAB* 5 MG PO SCH (09:23)
[2019-12-18] MEDS: Aspirin EC TAB* 81 MG TAB.EC PO SCH (09:23)
[2019-12-18] MEDS: Finasteride TAB* 5 MG PO SCH (09:24)
[2019-12-18] MEDS: Gemfibrozil TAB* 600 MG PO SCH ×2 (09:25→16:54)
[2019-12-18] MEDS: Flecainide* 50 MG TAB PO SCH (09:25)
[2019-12-18] MEDS: RED YEAST RICE 1200 MG PO SCH (09:40)
[2019-12-18] MEDS ORDERED: Ondansetron INJ* 2 MG/ML VIAL IV PRN (10:20)
--- NOTE | 2019-12-18 10:33 | PN ---
Subjective Date of Service: 12/18/19 Interval History: Patient with improved abd pain and bloating sensation since NG tube placed. Tells me abd pain is 3/10. Does report nausea. Denies fever/chills today, difficulty breathing, chest pain, passing flatus. Patient took pills po this AM and has not vomited since. Objective Active Medications: Acetaminophen (Tylenol Tab*) 650 mg PO Q4H PRN PRN Reason: MILD PAIN or TEMP > 100.4 Amlodipine Besylate (Norvasc Tab*) 10 mg PO DAILY [facility] Last Admin: 12/18/19 09:23 Dose: 10 mg Aspirin (Aspirin Ec Tab*) 81 mg PO DAILY [facility] Last Admin: 12/18/19 09:23 Dose: 81 mg Finasteride (Proscar Tab*) 5 mg PO DAILY [facility] Last Admin: 12/18/19 09:24 Dose: 5 mg Flecainide Acetate (Flecainide* Tab) 50 mg PO DAILY [facility] Last Admin: 12/18/19 09:25 Dose: 50 mg Fluticasone Propionate (Flonase Nasal [place] 50mcg*) 2 spray BOTH NARES DAILY [facility] Last Admin: 12/18/19 09:22 Dose: 2 spray Gemfibrozil (Lopid Tab*) 600 mg PO BID AC [facility] Last Admin: 12/18/19 09:25 Dose: 600 mg Heparin Sodium (Porcine) (Heparin Vial(*)) 5,000 units SUBCUT Q8HR [facility] Last Admin: 12/18/19 06:11 Dose: 5,000 units Hydromorphone HCl (Dilaudid Inj*) 0.5 mg IV Q4H PRN PRN Reason: PAIN - SEVERE Last Admin: 12/18/19 03:41 Dose: 0.5 mg Sodium Chloride (Ns 0.9% 1000 Ml) 1,000 mls @ 100 mls/hr IV PER RATE [facility] Last Admin: 12/18/19 00:26 Dose: 100 mls/hr Losartan Potassium (Cozaar Tab*) 25 mg PO BEDTIME [facility] Non-Formulary Medication (Red Yeast Rice [Red Yeast Rice]) 1,200 mg PO DAILY [facility] Last Admin: 12/18/19 09:40 Dose: Not Given Ondansetron HCl (Zofran Inj*) 4 mg IV Q4H PRN PRN Reason: NAUSEA Sertraline HCl (Zoloft*) 50 mg PO DAILY [facility] Last Admin: 12/18/19 09:23 Dose: 50 mg Trazodone HCl (Desyrel Tab*) 50 mg PO BEDTIME [facility] Last Admin: 12/18/19 00:54 Dose: 50 mg Vital Signs - 8 hr 12/18/19 12/18/19 12/18/19 03:41 08:55 09:00 Temperature 98.4 F 97.7 F Pulse Rate 63 55 Respiratory 20 14 14 Rate Blood Pressure 157/63 142/63 (mmHg) O2 Sat by Pulse 97 96 Oximetry Oxygen Devices in Use Now: None Appearance: Elderly white male, sitting on edge of bed, appearing comfortable and in NAD, NG in place not currrently to suction as about to walk to bathroom Eyes: No Scleral Icterus, - - PERRL Ears/Nose/Mouth/Throat: Mucous Membranes Moist Neck: Trachea Midline Respiratory: Symmetrical Chest Expansion and Respiratory Effort, Clear to Auscultation Cardiovascular: NL Sounds; No Murmurs; No JVD, RRR Abdominal: - - hypoactive BS, abd very minimally distended with tenderness to palpation in RLQ; no rebound tenderness or guarding Extremities: No Edema, No Clubbing, Cyanosis Skin: No Rash or Ulcers Neurological: Alert and Oriented x 3 Result Diagrams: 12/18/19 06:03 12/18/19 06:03 Assess/Plan/Problems-Billing Assessment: 74 yo white male with PMHx frequent SBOs and prior lysis of adhesions, HTN, HLD , BPH, anxiety, depression, PTSD, CKD presents with abdominal pain and absence of flatus. - Patient Problems (1) Small bowel obstruction Current Visit: Yes Status: Acute Code(s): K56.609 - UNSP INTESTNL OBST, UNSP TO PARTIAL VERSUS COMPLETE OBST SNOMED Code(s): 920673730 Comment: -hx of frequent SBOs with hx of prior ex lap for lysis of adhesions in 2001 -presented with abdominal pain -CT abd/pelvis demonstrates SBO with transition point in RLQ -continue NG tube, has tolerated pills po today -no flatus or BM today -appreciate gen surg consult, conservative mgmt for now -continue pain control (2) Hyperlipidemia Current Visit: No Status: Acute Code(s): E78.5 - HYPERLIPIDEMIA, UNSPECIFIED SNOMED Code(s): 10227798 Comment: -continue gemfibrozil (3) Hypertension Current Visit: No Status: Chronic Priority: Medium Code(s): I10 - ESSENTIAL (PRIMARY) HYPERTENSION SNOMED Code(s): 14547876 Comment: -minimally hypertensive with SBP in 150s -continue amlodipine and losartan (4) Frequent PVCs Current Visit: Yes Status: Acute Code(s): I49.3 - VENTRICULAR PREMATURE DEPOLARIZATION SNOMED Code(s): 45156482 Comment: -per recent cardiology note, patient has history of left anterior fascicular block with prior frequent ectopy -continue flecainide -rate has been controlled (5) DVT prophylaxis Current Visit: No Status: Acute Priority: Medium Code(s): ZBO1390 - SNOMED Code(s): 454526513 Comment: -Heparin SQ (6) Full code status Current Visit: Yes Status: Acute Code(s): Z78.9 - OTHER SPECIFIED HEALTH STATUS SNOMED Code(s): 012739286 Status and Disposition: pending medical improvement
--- NOTE | 2019-12-18 11:58 | CONSULT ---
Consult Consult: DATE OF CONSULTATION: 12/18/19 REASON FOR CONSULTATION: SBO HPI: Conrad Bailey is a 74-year-old man with a history of recurrent small bowel obstructions who presented to the ED with abdominal pain with nausea and vomiting last night. The symptoms started yesterday morning. He had multiple episodes of emesis before he came to the ED. He has been admitted multiple times for bowel obstructions. He has undergone exploratory laparotomy for adhesiolysis, however the adhesions are so extensive that the bowel cannot be mobilized. His last hospitalization for bowel obstruction was in July 2019. Today the patient reports the abdominal pain is minimal and rates it at 1 or 2 out of 10. Yesterday the pain was 8 out of 10. He denies nausea currently. An NG tube was placed last night. The patient also reports that he feels anxious today. He takes sertraline for anxiety and wonders if the medication is being absorbed with the bowel obstruction. PMH: Hypertension, hyperlipidemia, BPH, anxiety and depression, PTSD PSH: Laparoscopic cholecystectomy, appendectomy, exploratory laparotomy Home Medications Medication Instructions Recorded Confirmed Type Aspirin EC TAB* [Ecotrin EC Low 81 mg PO DAILY 10/06/12 12/17/19 History Dose 81 MG*] Red Yeast Rice 1,200 mg PO DAILY 10/06/12 12/17/19 History Losartan TAB* [Cozaar TAB*] 25 mg PO QPM 12/17/16 12/17/19 History Sertraline* [Zoloft*] 50 mg PO DAILY 12/17/16 12/17/19 History Flecainide TAB* [Tambocor TAB*] 50 mg PO DAILY #30 tab 12/18/16 12/17/19 Rx Gemfibrozil TAB* [Lopid TAB*] 600 mg PO BID AC 02/16/17 12/17/19 History Fluticasone NASAL SPRAY 50MCG* 2 spray BOTH NARES DAILY #1 btl 09/04/17 Rx [Flonase NASAL SPRAY 50MCG*] Finasteride TAB* [Proscar TAB*] 5 mg PO DAILY 10/28/18 12/17/19 History amLODIPine TAB* [Norvasc 5 mg TAB*] 10 mg PO DAILY 10/28/18 12/17/19 History traZODone TAB* [Desyrel TAB*] 50 mg PO BEDTIME 10/28/18 12/17/19 History Allergies amoxicillin Allergy (Verified 12/17/19 19:43) Unknown Reaction Details atorvastatin [From Lipitor] Allergy (Verified 12/17/19 19:43) Unknown Reaction Details ezetimibe [From Zetia] Allergy (Verified 12/17/19 19:43) Unknown Reaction Details morphine Allergy (Verified 12/17/19 19:43) Nausea And Vomiting niacin Allergy (Verified 12/17/19 19:43) Unknown Reaction Details Penicillins Allergy (Verified 12/17/19 19:43) Unknown Reaction Details FH: Father had stomach cancer. Mother had hypertension and CAD. SH: Patient quit smoking 20-30 years ago. He also quit drinking alcohol at that time. He denies recreational drug use. He is a [place] [employer] . ROS: 10 point review of systems was obtained. Pertinent positives and negatives are in the HPI. PHYSICAL EXAM: Temp Pulse Resp BP Pulse Ox 97.5 F 69 18 163/62 95 12/18/19 11:15 12/18/19 14:55 12/18/19 14:55 12/18/19 14:55 12/18/19 14:55 General: No acute distress. Head: Normocephalic and atraumatic. Eyes: Pupils are equal. No scleral icterus. Nose: NG tube to suction. There is brown fluid draining from the tube. Mouth: Moist mucous membranes. CV: Regular rate and rhythm. Respiratory: Clear to auscultation. No sensory muscle use. Abdomen: Soft, nondistended, nontender. Well-healed midline incision. No guarding or rebound. Extremities: Warm. No pedal edema. Skin: Warm and dry. Intact. Neuro: Alert and oriented 3. Moves all extremities equally. Psych: Normal affect. Laboratory Results - last 24 hr 12/17/19 12/17/19 12/17/19 17:51 17:51 18:09 WBC 13.9 H RBC 6.46 H Hgb 19.7 H Hct 57 H MCV 88 MCH 30 MCHC 35 RDW 14 Plt Count 230 MPV 7.9 Neut % (Auto) 81.9 Lymph % (Auto) 10.3 [place] % (Auto) 6.2 Eos % (Auto) 1.3 Baso % (Auto) 0.3 Absolute Neuts (auto) 11.3 H Absolute Lymphs (auto) 1.4 Absolute Monos (auto) 0.9 H Absolute Eos (auto) 0.2 Absolute Basos (auto) 0.0 Absolute Nucleated RBC 0.0 Nucleated RBC % 0.2 INR (Anticoag Therapy) 0.98 APTT 32.3 Sodium 138 Potassium 4.6 Chloride 103 Carbon Dioxide 21 L Anion Gap 14 H BUN 18 Creatinine 1.77 H Est GFR ( Amer) 45.5 Est GFR (Non-Af Amer) 37.6 BUN/Creatinine Ratio 10.2 Glucose 178 H Lactic Acid Calcium 11.0 H Phosphorus Magnesium Total Bilirubin 0.90 AST 18 ALT 20 Alkaline Phosphatase 83 Total Protein 8.3 Albumin 5.0 Globulin 3.3 Albumin/Globulin Ratio 1.5 12/17/19 12/18/19 12/18/19 18:09 06:03 06:03 WBC 7.4 RBC 5.27 Hgb 16.1 Hct 47 MCV 88 MCH 31 MCHC 35 RDW 14 Plt Count 145 L MPV 7.4 Neut % (Auto) 77.6 Lymph % (Auto) 12.9 [place] % (Auto) 8.8 Eos % (Auto) 0.5 Baso % (Auto) 0.2 Absolute Neuts (auto) 5.7 Absolute Lymphs (auto) 1.0 Absolute Monos (auto) 0.6 Absolute Eos (auto) 0.0 Absolute Basos (auto) 0.0 Absolute Nucleated RBC 0.0 Nucleated RBC % 0.1 INR (Anticoag Therapy) APTT Sodium 140 Potassium 4.3 Chloride 111 Carbon Dioxide 22 Anion Gap 7 BUN 20 Creatinine 1.02 Est GFR ( Amer) 85.9 Est GFR (Non-Af Amer) 71.0 BUN/Creatinine Ratio 19.6 Glucose 114 H Lactic Acid 1.9 Calcium 8.8 Phosphorus 4.1 Magnesium 2.1 Total Bilirubin AST ALT Alkaline Phosphatase Total Protein Albumin Globulin Albumin/Globulin Ratio CT abdomen/pelvis: dilated small bowel. Per radiology, transition point likely in the right lower quadrant. IMPRESSION: 74-year-old man with recurrent small bowel obstructions. The abdomen has been explored in the past. There were so many adhesions that the obstruction could not be treated surgically. Fortunately, the obstructions have self-resolved in the past. I recommend continuing conservative management. PLAN: NPO. IV hydration. NG to low continuous suction. Encourage ambulation. Will follow.
[2019-12-18] MEDS ORDERED: hydrOXYzine HCL TAB* 50 MG PO PRN (13:47)
[2019-12-18] MEDS ORDERED: Metoclopramide IV* 5 MG/ML 2 ML VIAL IV PRN (13:59)
[2019-12-18] MEDS ORDERED: LORazepam INJ* 2 MG/ML 1 ML VIAL IV PUSH PRN (15:37)
[2019-12-18] MEDS ORDERED: Lorazepam PYXIS KEY PRN (15:37)
[2019-12-18] MEDS ORDERED: Losartan TAB* 25 MG PO SCH (21:00)
[2019-12-19] MEDS: Heparin VIAL(*) 5000 UNITS/ML VIAL (FIVE THOUSAND) SUBCUT SCH ×3 (06:20→21:46)
[2019-12-19] MEDS: NS 0.9% 1000 ML** 1,000 ML IV SCH ×2 (08:11→21:44)
[2019-12-19] MEDS: Gemfibrozil TAB* 600 MG PO SCH ×2 (08:24→17:03)
[2019-12-19] MEDS: Sertraline* 50 MG TAB PO SCH (08:24)
[2019-12-19] MEDS: Aspirin EC TAB* 81 MG TAB.EC PO SCH (08:24)
[2019-12-19] MEDS: Finasteride TAB* 5 MG PO SCH (08:24)
[2019-12-19] MEDS: amLODIPine TAB* 5 MG PO SCH (08:24)
[2019-12-19] MEDS: Flecainide* 50 MG TAB PO SCH (08:25)
[2019-12-19] MEDS: Fluticasone NASAL SPRAY 50MCG* 16 gm SPRAY BTL BOTH NARES SCH (08:25)
[2019-12-19] MEDS: RED YEAST RICE 1200 MG PO SCH (08:38)
--- NOTE | 2019-12-19 10:19 | PN ---
Progress Note - Progress Note Date of Service: 12/19/19 Note: Feeling better today. Passing flatus, no bowel movements. Denies abdominal pain. NG tube clamped this morning for medications, and patient denies nausea. Denies chest pain or SOB. Has been ambulating without difficulty. NG output recorded as 100 ml. He feels ready to start sips. Vital Signs - 12 hr Temp Pulse Resp BP Pulse Ox 12/19/19 07:39 97.6 F 60 18 138/67 98 12/19/19 02:24 98.6 F 65 19 154/60 96 12/18/19 23:22 97.3 F 59 16 153/57 97 Intake & Output 12/18/19 12/19/19 12/19/19 22:59 06:59 14:59 Intake Total 240 1970 Output Total 400 100 Balance -160 1870 Intake: IV Fluids 1970 NS (0.9%) 1970 Oral 240 0 Output: NG Tube Drainage Amount 100 Urine 400 Other: Estimated Void Large # Voids 1 General: NAD, sitting up in chair. NG tube with clear-brown fluid in tubing. CV: RRR Resp: Clear to auscultation. No accessory muscle use. Abdomen: Soft, nontender, nondistended. Extremities: Warm. No pedal edema Neuro: Alert and oriented x3. Moves all extremities equally. Psych: Normal affect A&P 74M with recurrent SBO, current episode resolving. -Sips of clears today, advance slowly to soft diet later today or tomorrow. -Consider removing NG tube (unless patient becomes nauseous while clamped) -Encourage ambulation.
--- NOTE | 2019-12-19 13:10 | PN ---
Subjective Date of Service: 12/19/19 Interval History: Patient c/o left foot pain with tingling, worse when is dangling off bed, improved when elevated. Had flatus overnight but no BM since admission. Denies fever/chills, chest pain, difficulty breathing. NG clamped this AM and has had no nausea, vomiting, or abd pain since that. Objective Active Medications: Acetaminophen (Tylenol Tab*) 650 mg PO Q4H PRN PRN Reason: MILD PAIN or TEMP > 100.4 Amlodipine Besylate (Norvasc Tab*) 10 mg PO DAILY [facility] Last Admin: 12/19/19 08:24 Dose: 10 mg Aspirin (Aspirin Ec Tab*) 81 mg PO DAILY [facility] Last Admin: 12/19/19 08:24 Dose: 81 mg Finasteride (Proscar Tab*) 5 mg PO DAILY [facility] Last Admin: 12/19/19 08:24 Dose: 5 mg Flecainide Acetate (Flecainide* Tab) 50 mg PO DAILY [facility] Last Admin: 12/19/19 08:25 Dose: 50 mg Fluticasone Propionate (Flonase Nasal [place] 50mcg*) 2 spray BOTH NARES DAILY [facility] Last Admin: 12/19/19 08:25 Dose: 2 spray Gemfibrozil (Lopid Tab*) 600 mg PO BID AC [facility] Last Admin: 12/19/19 08:24 Dose: 600 mg Heparin Sodium (Porcine) (Heparin Vial(*)) 5,000 units SUBCUT Q8HR [facility] Last Admin: 12/19/19 06:20 Dose: 5,000 units Hydromorphone HCl (Dilaudid Inj*) 0.5 mg IV Q4H PRN PRN Reason: PAIN - SEVERE Last Admin: 12/18/19 03:41 Dose: 0.5 mg Hydroxyzine HCl (Atarax Tab*) 50 mg PO Q6H PRN PRN Reason: anxiety Last Admin: 12/18/19 14:06 Dose: 50 mg Sodium Chloride (Ns 0.9% 1000 Ml) 1,000 mls @ 100 mls/hr IV PER RATE [facility] Last Admin: 12/19/19 08:11 Dose: 100 mls/hr Lorazepam (Ativan Inj*) 0.5 mg IV PUSH Q6H PRN PRN Reason: Anxiety Breakthrough Last Admin: 12/18/19 15:54 Dose: 0.5 mg Losartan Potassium (Cozaar Tab*) 25 mg PO BEDTIME [facility] Last Admin: 12/18/19 20:14 Dose: 25 mg Metoclopramide HCl (Reglan Iv*) 5 mg IV Q6H PRN PRN Reason: NAUSEA/VOMITING Miscellaneous (Ativan Pyxis Kwong) 1 ea N/A .ATIVAN IV KWONG PRN PRN Reason: PYXIS KWONG Non-Formulary Medication (Red Yeast Rice [Red Yeast Rice]) 1,200 mg PO DAILY [facility] Last Admin: 12/19/19 08:38 Dose: Not Given Sertraline HCl (Zoloft*) 50 mg PO DAILY [facility] Last Admin: 12/19/19 08:24 Dose: 50 mg Trazodone HCl (Desyrel Tab*) 50 mg PO BEDTIME [facility] Last Admin: 12/18/19 20:14 Dose: 50 mg Vital Signs - 8 hr 12/19/19 12/19/19 07:39 10:20 Temperature 97.6 F Pulse Rate 60 Respiratory 18 16 Rate Blood Pressure 138/67 (mmHg) O2 Sat by Pulse 98 Oximetry Oxygen Devices in Use Now: None Appearance: Elderly, obese, white male, sitting in chair, appearing comfortable and in NAD Eyes: No Scleral Icterus, - - PERRL Ears/Nose/Mouth/Throat: Mucous Membranes Moist Neck: Trachea Midline Respiratory: Symmetrical Chest Expansion and Respiratory Effort, Clear to Auscultation Cardiovascular: NL Sounds; No Murmurs; No JVD, RRR Abdominal: - - normoactive BS, abd soft, nontender, nondistended Extremities: No Edema, No Clubbing, Cyanosis, - - R ankle ROM full, no tenderness to palpation throughout right foot Skin: No Rash or Ulcers Neurological: Alert and Oriented x 3 Result Diagrams: 12/18/19 06:03 12/18/19 06:03 Diagnostic Imaging: CT Abdomen/pelvis IMPRESSION: 1. Mild versus early small bowel obstruction with transition in the right lower quadrant. 2. Bosniak type I renal cysts. No followup indicated. 3. Splenic focus likely a hemangioma or hamartoma. No followup imaging indicated per ACR guidelines. Assess/Plan/Problems-Billing Assessment: 74 yo white male with PMHx frequent SBOs and prior lysis of adhesions, HTN, HLD , BPH, anxiety, depression, PTSD, CKD presents with abdominal pain and absence of flatus. - Patient Problems (1) Small bowel obstruction Current Visit: Yes Status: Acute Code(s): K56.609 - UNSP INTESTNL OBST, UNSP TO PARTIAL VERSUS COMPLETE OBST SNOMED Code(s): 680699507 Comment: -hx of frequent SBOs with hx of prior ex lap for lysis of adhesions in 2001 -presented with abdominal pain -CT abd/pelvis demonstrates SBO with transition point in RLQ -appreciate gen surg consult, conservative mgmt for now -NG tube clamped today, has tolerated for >6hrs and Dr. Wynn says OK to remove -continue pain control (2) Left foot pain Current Visit: Yes Status: Acute Code(s): M79.672 - PAIN IN LEFT FOOT SNOMED Code(s): 49807283 Comment: -chronic issue -pattern sounds as if it could be related to venous insufficiency, and skin changes are consistent with hx of venous insufficiency, ddx includes neuropathic pain or PAD (less likely) -started gabapentin -should f/u issue with PCP (3) Hyperlipidemia Current Visit: No Status: Acute Code(s): E78.5 - HYPERLIPIDEMIA, UNSPECIFIED SNOMED Code(s): 36674929 Comment: -continue gemfibrozil (4) Hypertension Current Visit: No Status: Chronic Priority: Medium Code(s): I10 - ESSENTIAL (PRIMARY) HYPERTENSION SNOMED Code(s): 08020500 Comment: -minimally hypertensive at times -continue amlodipine -increasing home losartan (5) Frequent PVCs Current Visit: Yes Status: Acute Code(s): I49.3 - VENTRICULAR PREMATURE DEPOLARIZATION SNOMED Code(s): 33676470 Comment: -per recent cardiology note, patient has history of left anterior fascicular block with prior frequent ectopy -continue flecainide -rate has been controlled (6) Imaging abnormality Current Visit: Yes Status: Acute Code(s): R93.89 - ABNORMAL FINDINGS ON DX IMAGING OF OTH BODY STRUCTURES SNOMED Code(s): 943755285 Comment: -2.2cm focus on spleen, which on CT radiology read has increased enhancement since last CT in 2019 -briefly discussed with heme/onc team who believes 3 month imaging follow up with CT or abd US is reasonable (7) DVT prophylaxis Current Visit: No Status: Acute Priority: Medium Code(s): OMH1272 - SNOMED Code(s): 641994189 Comment: -Heparin SQ (8) Full code status Current Visit: Yes Status: Acute Code(s): Z78.9 - OTHER SPECIFIED HEALTH STATUS SNOMED Code(s): 722402238 Status and Disposition: pending medical improvement
[2019-12-19] MEDS: Gabapentin CAP(*) 100 MG PO SCH ×2 (14:50→21:44)
[2019-12-19] MEDS ORDERED: Losartan TAB* 25 MG PO SCH (21:00)
[2019-12-19] MEDS: traZODone TAB* 50 MG TAB PO SCH (21:46)
[2019-12-20 04:44] LABS: BUN/Creatinine Ratio 16.9 (8-20); Calcium 8.5 mg/dL (8.6-10.3); EGFR African American 118.9 (>60); EGFR Non-African American 98.2 (>60); Potassium 3.8 mmol/L (3.5-5.0)
[2019-12-20] MEDS: Heparin VIAL(*) 5000 UNITS/ML VIAL (FIVE THOUSAND) SUBCUT SCH (06:34)
[2019-12-20] MEDS: amLODIPine TAB* 5 MG PO SCH (09:25)
[2019-12-20] MEDS: Gemfibrozil TAB* 600 MG PO SCH (09:26)
[2019-12-20] MEDS: Aspirin EC TAB* 81 MG TAB.EC PO SCH (09:29)
[2019-12-20] MEDS: Finasteride TAB* 5 MG PO SCH (09:29)
[2019-12-20] MEDS: Flecainide* 50 MG TAB PO SCH (09:30)
[2019-12-20] MEDS: Sertraline* 50 MG TAB PO SCH (09:30)
[2019-12-20] MEDS: Fluticasone NASAL SPRAY 50MCG* 16 gm SPRAY BTL BOTH NARES SCH (09:33)
[2019-12-20] MEDS: Gabapentin CAP(*) 100 MG PO SCH (09:39)
[2019-12-20] MEDS: RED YEAST RICE 1200 MG PO SCH (09:39)
[2019-12-20 12:20] VITALS: BP 147/58
--- NOTE | 2019-12-20 13:36 | PN ---
Progress Note - Progress Note Date of Service: 12/20/19 Note: Surgery Progress: S: patient seen at bedside. Denies pain, N/V. Passing flatus and stool. Richy reg diet. O: Vital Signs - 8 hr 12/20/19 12/20/19 12/20/19 08:07 09:43 11:13 Temperature 97.6 F 97.6 F Pulse Rate 54 65 Respiratory 18 18 14 Rate Blood Pressure 149/71 149/63 (mmHg) O2 Sat by Pulse 98 98 Oximetry 12/20/19 11:45 Temperature 97.7 F Pulse Rate 68 Respiratory 17 Rate Blood Pressure 147/58 (mmHg) O2 Sat by Pulse 98 Oximetry Intake and Output Last 24 Hours 12/18/19 12/19/19 12/20/19 12/21/19 06:59 06:59 06:59 06:59 Intake Total 2555 685 5873 120 Output Total 0 750 1575 Balance 2555 -65 4298 120 Weight 230 lb 4.8 oz Intake: IV Fluids 2555 445 4583 NS (0.9%) 540 072 9310 Oral 0 240 1290 120 Output: NG Tube Drainage Amount 100 Urine 0 750 1475 Other: Estimated Void Small Medium Date of Last Bowel 12/17/2019 Movement # Bowel Movements 0 # Voids 3 0 PE: no exam performed Lab: P3 nl A: SBO, resolved P: agree w/ discharge; surgical f/u prn
--- NOTE | 2019-12-21 00:38 | DS ---
CC: Dr. Cuadra * DISCHARGE SUMMARY: DATE OF ADMISSION: 12/17/19 DATE OF DISCHARGE: 12/20/19 PRIMARY CARE PROVIDER: Dr. Cuadra. ATTENDING PHYSICIAN: Dr. Colin * (dictated by Salma Marquez NP). PRIMARY DIAGNOSES: 1. Small bowel obstruction. 2. Hypertension. 3. Benign prostatic hyperplasia. 4. Hyperlipidemia. 5. Insomnia. 6. Anxiety and depression. CONSULTATION WHILE IN THE HOSPITAL: General Surgery, Dr. Wynn. STUDIES WHILE IN THE HOSPITAL: 1. CT abdomen/pelvis with contrast: Mild versus early small bowel obstruction with transition in lower right quadrant. Bosniak type 1 renal cyst. No followup indicated. Splenic focus likely a hemangioma or hematoma. No followup imaging indicated per ACR guidelines. 2. Chest x-ray: Lines and tubes as above. No active cardiopulmonary disease. This was obtained for placement of NG tube. 3. EKG: Impression: Sinus rhythm. DISCHARGE HOME MEDICATIONS: Continued home medications: 1. Tambocor tab 50 mg p.o. daily. 2. Proscar 5 mg p.o. daily. 3. Aspirin 81 mg p.o. daily. 4. Lopid 600 mg p.o. b.i.d. a.c. 5. Flonase 2 sprays both nares daily. 6. Amlodipine 10 mg p.o. daily. 7. Zoloft 50 mg p.o. daily. 8. Red yeast rice 1200 mg p.o. daily. 9. Trazodone 50 mg p.o. bedtime. No new home medications, changed home medications, or discontinued home medications. Changed home medications: 1. Losartan increased from 25 mg p.o. daily to 50 mg p.o. daily. HISTORY OF PRESENT ILLNESS/HOSPITAL COURSE: Mr. Richey is a 74-year-old male with a past medical history significant for small bowel obstruction, hypertension, hyperlipidemia, BPH, anxiety, depression; who presented to the emergency department on 12/17/19 with complaints of vomiting and abdominal pain. Please see history and physical dictated by Dr. Smith, for complete summary of events leading up to hospitalization, but in short, the patient presented with above-mentioned complaints and has a significant history of bowel obstruction. Specifically, the patient has been hospitalized 37 times for the same. While in the emergency department, the patient had a CT, which revealed a possible early small bowel obstruction. The patient was admitted to the hospital for medical management. While in the hospital, the patient had an NG tube for compression, pain control , hydration, Zofran. The patient had a surgical consult by Dr. Wynn, who recommended continuing the conservative management specifically IV hydration and NG tube. The patient was trailed with NG tube clamps and tolerated well. Yesterday, the patient was started on clear liquid diet and tolerated this well. The patient was advanced to a soft diet this morning. Upon assessment this morning, the patient reports his abdominal pain has resolved. He denies any nausea or vomiting. He reports he is passing flatus. He reports he also feels that he will have a bowel movement this morning. The patient reports he feels ready for discharge. The patient is stable for discharge home. REVIEW OF SYSTEMS: The patient denies abdominal pain, nausea, vomiting. A 14- point review of systems was completed and all others were negative. PHYSICAL EXAMINATION: General: Mr. Richey is sitting in a chair. Appears to be in no acute distress. Appears stated age. Vital Signs: Temp 97.6, HR 65 , RR 14, O2 saturation 98% on room air, BP is 149/63. HEENT: Sclerae without icterus. EOMs intact. Oral mucosa is moist without lesion. Posterior pharynx is clear. Neck: Supple. Respiratory: Symmetrical chest expansion. No accessory muscle use. Lungs are clear to auscultation. CV: Regular rate and rhythm. S1, S2 present. No murmurs, rubs or gallops. Extremities: Skin is warm and smooth bilaterally. No edema. No clubbing or cyanosis. Musculoskeletal: No pain or deformities. Abdomen: Soft, nontender. Bowel sounds normoactive throughout. Nondistended. Neuro: Awake, alert, and oriented x4. Motor strength is 5/5 in the upper and lower extremities. Skin: Grossly intact. No lesions. LABORATORY DATA: WBC 7.4, hemoglobin 16.1, hematocrit 47, platelets 145. Sodium 140, potassium 3.8, chloride 111, carbon dioxide 23, BUN 13, creatinine 0.77. DISCHARGE PLAN/FOLLOWUP: 1. Small bowel obstruction: As mentioned above, the patient reports symptoms have resolved. He reports he is passing flatus. He reports he as if he is going to have a bowel movement. The patient has a significant history of small bowel obstruction, very worst in signs, symptoms, and treatment. The patient should follow up with his primary care. The patient should monitor self for any signs, symptoms or worsening condition. 2. Hypertension: The patient should continue his home medications of amlodipine 10 mg and increase his losartan to 50 mg at bedtime. 3. Hyperlipidemia: The patient should continue his gemfibrozil. 4. Frequent premature ventricular contractions: The patient should continue his flecainide and follow up with his blueprint reproducer as previously recommended. 5. Imaging abnormality: Focus on spleen, which was seen on CT has increased since last CT in 2019. Previous provider discussed with Hematology/Oncology, who recommends a followup imaging of CT or abdominal ultrasound in 3 months. 6. Benign prostatic hyperplasia: The patient should continue his finasteride. 7. Insomnia: The patient should continue his trazodone. 8. Anxiety and depression: The patient should continue his Zoloft. 9. Followup: The patient should follow up with his primary care in 1 to 3 days. Once again, we recommend repeat imaging in 3 months for foci seen on spleen. 10. Education: The patient was educated on signs and symptoms of new or worsening conditions, when to return to the emergency department. The patient stated understanding. TIME SPENT: Approximately 35 minutes was spent on this discharge, greater than half of that time was spent [id number] with the patient discussing discharge plan and instructions. This is a summarized report of a complex medical history and hospital stay. For further details, please see entire medical record. This plan was discussed with my attending, Dr. Colin, who is in agreement with plan of care. SALMA MARQUEZ, G[employer] PL[employer] TECHNICIAN [id number]/[facility] #: [id number] [place]
== END 2019-12-20 13:20 | disposition home or self-care (01) | DRG 390 ==
LOC: ED 17:32 → MED 21:36
PROVIDERS: ADMIT Family Medicine; ATTEND Internal Medicine
DX: K56.50 Intestinal adhesions [bands], unspecified as to partial versus complete obstruction (principal); E78.5 Hyperlipidemia, unspecified; N40.0 Benign prostatic hyperplasia without lower urinary tract symptoms; F32.9 Major depressive disorder, single episode, unspecified; F43.10 Post-traumatic stress disorder, unspecified; G47.00 Insomnia, unspecified; I10 Essential (primary) hypertension; I49.3 Ventricular premature depolarization; F41.9 Anxiety disorder, unspecified; M79.672 Pain in left foot; I87.2 Venous insufficiency (chronic) (peripheral); Z87.19 Personal history of other diseases of the digestive system; Z79.82 Long term (current) use of aspirin; Z79.899 Other long term (current) drug therapy; Z88.1 Allergy status to other antibiotic agents; Z88.5 Allergy status to narcotic agent; Z88.0 Allergy status to penicillin; Z88.8 Allergy status to other drugs, medicaments and biological substances; Z80.0 Family history of malignant neoplasm of digestive organs; Z82.49 Family history of ischemic heart disease and other diseases of the circulatory system; Z87.891 Personal history of nicotine dependence
CPT/HCPCS: 36415; 71045; 74177; 80048; 80053; 83036; 83605; 83735; 84100; 85025; 85610; 85730; 93005; 96361; 96374; 99284; A9270-GY; J1170; J1644; J2060; J2405; Q9967

== ENCOUNTER 2019-12-26 12:40 | Emergency (ER) | payer MEDICARE ==
--- NOTE | 2019-12-26 12:51 | ED ---
Abdominal Pain/Male - HPI Summary HPI Summary: 74 year old M presenting to [facility] via EMS with a chief complaint of right sided abdominal pain, bloating, nausea, and vomiting since 06:30 this morning. The patient rates the pain 7/10 in severity. Patient reports a slight cough. Symptoms aggravated by nothing. Symptoms alleviated by nothing. Patient reports a history of bowel obstructions and that he was seen 1 week ago for a bowel obstruction. Patient denies any fever or constipation. Medication list reviewed. Allergy list reviewed. Home Medications Medication Instructions Recorded Confirmed Type Aspirin EC TAB* [Ecotrin EC Low 81 mg PO DAILY 10/06/12 12/17/19 History Dose 81 MG*] Red Yeast Rice 1,200 mg PO DAILY 10/06/12 12/17/19 History Sertraline* [Zoloft*] 50 mg PO DAILY 12/17/16 12/17/19 History Flecainide TAB* [Tambocor TAB*] 50 mg PO DAILY #30 tab 12/18/16 12/17/19 Rx Gemfibrozil TAB* [Lopid TAB*] 600 mg PO BID AC 02/16/17 12/17/19 History Fluticasone NASAL SPRAY 50MCG* 2 spray BOTH NARES DAILY #1 btl 09/04/17 Rx [Flonase NASAL SPRAY 50MCG*] Finasteride TAB* [Proscar TAB*] 5 mg PO DAILY 10/28/18 12/17/19 History amLODIPine TAB* [Norvasc 5 mg TAB*] 10 mg PO DAILY 10/28/18 12/17/19 History traZODone TAB* [Desyrel TAB*] 50 mg PO BEDTIME 10/28/18 12/17/19 History Losartan TAB* [Cozaar TAB*] 50 mg PO BEDTIME 30 Days #60 tab 12/20/19 Rx - History of Current Complaint Stated Complaint: GENERALIZED ABD PAIN PER EMS Time Seen by Provider: 12/26/19 12:42 Hx Obtained From: Patient Onset/Duration: Lasting Hours Timing: Constant Severity Currently: Moderate Pain Intensity: 7 Pain Scale Used: 0-10 Numeric Location: Discrete At: RUQ, Discrete At: RLQ Radiates: No Aggravating Factor(s): Nothing Alleviating Factor(s): Nothing Associated Signs And Symptoms: Positive: Cough, Nausea, Vomiting, Other - Bloating. Negative: Fever, Constipation - Allergies/Home Medications Allergies/Adverse Reactions: Allergies Allergy/AdvReac Type Severity Reaction Status Date / Time amoxicillin Allergy Unknown Verified 12/26/19 12:56 Reaction Details atorvastatin [From Lipitor] Allergy Unknown Verified 12/26/19 12:56 Reaction Details ezetimibe [From Zetia] Allergy Unknown Verified 12/26/19 12:56 Reaction Details morphine Allergy Nausea And Verified 12/26/19 12:56 Vomiting niacin Allergy Unknown Verified 12/26/19 12:56 Reaction Details Penicillins Allergy Unknown Verified 12/26/19 12:56 Reaction Details Home Medications: Home Medications Aspirin EC TAB* [Ecotrin EC Low Dose 81 MG*] 81 mg PO DAILY 10/06/12 [History Confirmed 12/26/19] Red Yeast Rice 1,200 mg PO DAILY 10/06/12 [History Confirmed 12/26/19] Sertraline* [Zoloft*] 50 mg PO DAILY 12/17/16 [History Confirmed 12/26/19] Flecainide TAB* [Tambocor TAB*] 50 mg PO DAILY #30 tab 12/18/16 [Rx Confirmed ] Gemfibrozil TAB* [Lopid TAB*] 600 mg PO BID 02/16/17 [History Confirmed ] Fluticasone NASAL SPRAY 50MCG* [Flonase NASAL SPRAY 50MCG*] 2 spray BOTH NARES DAILY #1 btl 09/04/17 [Rx Confirmed 12/26/19] Finasteride TAB* [Proscar TAB*] 5 mg PO DAILY 10/28/18 [History Confirmed ] amLODIPine TAB* [Norvasc 5 mg TAB*] 10 mg PO DAILY 10/28/18 [History Confirmed 12/26/19] traZODone TAB* [Desyrel TAB*] 50 mg PO BEDTIME 10/28/18 [History Confirmed 12/25] Losartan TAB* [Cozaar TAB*] 25 mg PO QPM 12/26/19 [History Confirmed 12/26/19] Metoclopramide TAB* [Reglan TAB*] 5 mg PO Q8H #12 tab 12/26/19 [Rx] PMH/Surg Hx/FS Hx/Imm Hx Endocrine/Hematology History: Reports: Other Endocrine/Hematological Disorders - Polycythemia Denies: Hx Anticoagulant Therapy, Hx Blood Disorders, Hx Blood Transfusions, Hx Bone Marrow Disease, Hx Diabetes, Hx Systemic Lupus Erythematosus, Hx Sickle Cell Disease, Hx Thyroid Disease, Hx Anemia, Hx Unexplained Bleeding Cardiovascular History: Reports: Hx Hypercholesterolemia, Hx Hypertension, Other Cardiovascular Problems/Disorders - Ventricular bigemini Denies: Hx Aneurysm, Hx Angina, Hx Angioplasty, Hx Auto Implanted Cardiovert Defib, Hx Cardiac Arrest, Hx Cardiomegaly, Hx Congenital Heart Disease, Hx Congestive Heart Failure, Hx Coronary Artery Disease, Hx Deep Vein Thrombosis, Hx Embolism, Hx Hypotension, Hx Myocardial Infarction, Hx Pacemaker/ICD, Hx Peripheral Vascular Disease, Hx Rheumatic Fever, Hx Syncope, Hx Valvular Heart Disease Respiratory History: Reports: Hx Sleep Apnea, Other Respiratory Problems/ Disorders - states [facility] is monitoring growths on right lung Denies: Hx Asthma, Hx Chronic Bronchitis, Hx Chronic Obstructive Pulmonary Disease (COPD), Hx Cystic Fibrosis, Hx Lung Cancer, Hx Pleural Effusion, Hx Pneumonia, Hx Pulmonary Edema, Hx Pulmonary Embolism, Hx Seasonal Allergies GI History: Reports: Hx Gall Bladder Disease, Hx Irritable Bowel, Hx Obstructive Bowel - multiple SBO, Other GI Disorders - multiple SBO Denies: Hx Cirrhosis, Hx Crohn's Disease, Hx Diverticulosis, Hx Gastroesophageal Reflux Disease, Hx Gastrointestinal Bleed, Hx Hiatal Hernia, Hx Jaundice, Hx Ileostomy, Hx Pyloric Stenosis, Hx Ulcer History: Reports: Hx Kidney Stones - once, Other Problems/Disorders - BPH Denies: Hx Acute Renal Failure, Hx Benign Prostatic Hyperplasia, Hx Chronic Renal Failure, Hx Dialysis, Hx Kidney Infection, Hx Renal Disease Musculoskeletal History: Reports: Hx Back Problems - ruptured disc Denies: Hx Arthritis, Hx Rheumatoid Arthritis, Hx Bursitis, Hx Congenital Bone Abnormalities, Hx Fibromyalgia, Hx Gout, Hx Orthopedic Injury, Hx Osteoporosis, Hx Scoliosis, Hx Tendonitis, Other Musculoskeletal History Sensory History: Reports: Hx Cataracts - surgery, Hx Contacts or Glasses Denies: Hx Eye Injury, Hx Eye Prosthesis, Hx Glaucoma, Hx Legally Blind, Hx Macular Degeneration, Hx Vision Problem, Hx Deafness, Hx Hearing Aid, Other Sensory Impairments Opthamlomology History: Reports: Hx Cataracts - surgery, Hx Contacts or Glasses Denies: Hx Eye Injury, Hx Eye Prosthesis, Hx Glaucoma, Hx Legally Blind, Hx Macular Degeneration, Hx Vision Problem, Other Sensory Impairments Neurological History: Reports: Other Neuro Impairments/Disorders - SPINE PAIN HX OF RUPTURED DISCS Denies: Hx Dementia, Hx Developmental Delay, Hx Headaches, Hx Migraine, Hx Nerve Disease, Hx Seizures, Hx Spinal Cord Injury, Hx Transient Ischemic Attacks (TIA) Psychiatric History: Reports: Hx Anxiety, Hx Post Traumatic Stress Disorder Denies: Hx Attention Deficit Hyperactivity Disorder, Hx Eating Disorder, Hx Depression, Hx Panic Disorder, Hx Inpatient Treatment, Hx Community Mental Health Tx, Hx Schizophrenia, Hx Bipolar Disorder, Hx Suicide Attempt, Hx of Violent Episodes Against Others, Hx Substance Abuse, Other Psychiatric Issues/ Disorders - Cancer History Cancer Type, Location and Year: "Skin cancer" mid abdomen, 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, left back, right leg Hx Chemotherapy: No Hx Radiation Therapy: No Hx Palliative Cancer Treatment: No - Surgical History Surgery Procedure, Year, and Place: INTESTINAL SX FOR BLOCKAGES X35; APPY; ZEKE ; SINUS POLYP; CATARACTS, skin cancer removal 12/05/14 Hx Anesthesia Reactions: No - Immunization History Date of Tetanus Vaccine: Unknown Date of Influenza Vaccine: Fall 2012 Infectious Disease History: Denies: Hx Clostridium Difficile, Hx Hepatitis, Hx Human Immunodeficiency Virus (HIV), Hx of Known/Suspected MRSA, Hx Shingles, Hx Tuberculosis, Hx Known/ Suspected VRE, Hx Known/Suspected VRSA, History Other Infectious Disease - Family History Known Family History: Positive: Hypertension Negative: Cardiac Disease - Social History Alcohol Use: None Hx Substance Use: No Substance Use Type: Reports: None Hx Tobacco Use: Yes Smoking Status (MU): Former Smoker Type: Cigarettes Amount Used/How Often: PPD Length of Time of Smoking/Using Tobacco: 20 Have You Smoked in the Last Year: No Review of Systems Negative: Fever Positive: Cough Gastrointestinal: Negative - Constipation Positive: Abdominal Pain, Vomiting, Nausea, Other - Bloating All Other Systems Reviewed And Are Negative: Yes Physical Exam - Summary Physical Exam Summary: Constitutional: Well-developed, Well-nourished, Alert. (-) Distressed Skin: Warm, Dry HENT: Normocephalic; Atraumatic Eyes: Conjunctiva normal Neck: Musculoskeletal ROM normal neck. (-) JVD, (-) Stridor, (-) Tracheal deviation Cardio: Rhythm regular, rate normal, Heart sounds normal; Intact distal pulses; Radial pulses are 2+ and symmetric. (-) Murmur Pulmonary/Chest wall: Effort normal. (-) Respiratory distress, (-) Wheezes, (-) Rales Abd: Soft, mild right lower quadrant tenderness, mild distension, (-) Guarding, (-) Rebound Musculoskeletal: (-) Edema Lymph: (-) Cervical adenopathy Neuro: Alert, Oriented x3 Psych: Mood and affect Normal Triage Information Reviewed: Yes Vital Signs Reviewed: Yes Procedures - Sedation Patient Received Moderate/Deep Sedation with Procedure: No Diagnostics - Laboratory Result Diagrams: 12/26/19 13:10 12/26/19 13:11 Lab Statement: Any lab studies that have been ordered have been reviewed, and results considered in the medical decision making process. - CT Abdomen/Pelvis CT CT Interpretation Completed By: Radiologist Summary of CT Findings: 1. AGAIN NOTED ARE FINDINGS SUGGESTIVE OF A PARTIAL OR INTERMITTENT SMALL BOWEL OBSTRUCTION, SIMILAR IN APPEARANCE TO DECEMBER 17, 2019. 2. LOW-ATTENUATION LESION IN THE SPLEEN, STABLE FROM MAY 06, 2013. THE STABILITY IS CONSISTENT WITH A NONAGGRESSIVE LESION. ED physician has reviewed this report. Re-Evaluation - Re-Evaluation First Eval Re-Evaluation Time: 15:55 Comment: The patient has not vomited since coming here, he is comfortable with discharge. Abdominal Pain Male Course/Dx - Course Course Of Treatment: Patient is here with right-sided abdominal pain and vomiting. Patient did have 2 bowel movements today. Patient was here roughly 10 days ago with a partial bowel obstruction. Patient had blood work today which was grossly unremarkable. Patient a CT scan which showed no change from his prior CT scan. Patient had no vomiting while in the ED. Patient will be trialed on outpatient therapy with by mouth nausea medication. Patient was comfortable with this and was discharged just 3 tablets of Zofran and a prescription for Reglan. - Diagnoses Provider Diagnoses: Partial bowel obstruction Discharge ED - Sign-Out/Discharge Documenting (check all that apply): Patient Departure - Discharge Plan Condition: Stable Disposition: HOME Prescriptions: Metoclopramide TAB* [Reglan TAB*] 5 mg PO Q8H #12 tab Patient Education Materials: Bowel Obstruction (ED) Referrals: Guevara Cuadra MD [Primary Care Provider] - 3 Days Additional Instructions: Follow-up with your PCP in a few days. Return to the emergency department for any vomiting or if you are unable to drink any fluids. Fill your prescription tomorrow morning and use your dispensed medications from today. - Billing Disposition and Condition Condition: STABLE Disposition: Home - Attestation Statements Document Initiated by Scribe: Yes Documenting Scribe: Katt Montanez Provider For Whom Mauricio is Documenting (Include Credential): Fabian Currie MD Scribe Attestation: Katt Hercules, scribed for Fabian Currie MD on 12/26/19 at [id number]. Scribe Documentation Reviewed: Yes Provider Attestation: The documentation as recorded by the Katt hills accurately reflects the service I personally performed and the decisions made by me, Fabian Currie MD Status of Scribe Document: Viewed
[2019-12-26] MEDS ORDERED: Ondansetron INJ* 2 MG/ML VIAL IV ONE ×2 (12:52→15:07)
[2019-12-26] MEDS ORDERED: NS 0.9% 1000 ML** 1,000 ML IV ONE (12:52)
--- OUTSIDE RECORDS SUMMARY | 2019-12-26 12:53 | XMS REPORT | Continuity of Care Document ---
:1945 External Reference #:[id number] Author Name Evonne Wynn MD (transmitted by agent of provider Jessica Dennis) Address [address] [place] [id number] Care Team Providers Name Role Phone Guevara Cuadra MD - Emergency Care Team Information Material Clerk [phone] Medicine Problems Active Problems Provider Date Conduction disorder of the heart Aidan Bhat M.D., [facility], Onset: 2012 [facility] Premature beats Aidan Bhat M.D., [facility], Onset: 10/15/2014 [facility] Chest pain Aidan Bhat M.D., [facility], Onset: 11/13/2015 [facility] Social History Type Date Description Comments Sex [...] dinner Amlodipine Besylate 1 by mouth every Venecia, Guevara, day MD 10mg Tablets Finasteride 1 [...] Available Procedures Date Code Description Status 08/09/2019 35877 EKG Tracing & Interpretation Completed Medical Devices Description No Information Available Encounters Type Date Location Provider Dx Diagnosis Office Visit 12/19/2019 Surgical Evonne Wynn MD K56.609 Unsp intestnl obst , 7:00a [facility] unsp as to partial versus complete obst Office Visit 10/31/2019 [facility] Dirk Rosemary, M54.42 Lumbago with 2:00p at [place] Ricky sciatica, left side Office Visit 08/09/2019 [facility] Gianfranco S. 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 Office Visit 07/25/2019 Surgical Richard Hernandez K56.600 Partial 7:00a [facility] [place], [place] intestinal obstruction, unspecified as to cause Office Visit 07/25/2019 [facility] Nohelia Gilma, [employer] SCI[employer] DIRECTOR K56.600 Partial 9:49a [facility] intestinal Hospitalists obstruction, unspecified as to cause F43.10 Post-traumatic stress disorder, unspecified I10 Essential (primary) hypertension E78.5 Hyperlipidemia, unspecified N18.9 Chronic kidney disease, unspecified D69.6 Thrombocytopenia, unspecified Z86.79 Personal history of other diseases of the circulatory system Office Visit 07/24/2019 Surgical Richard Hernandez K56.600 Partial 7:00a [facility] [place] intestinal obstruction, unspecified as to cause Office Visit 07/24/2019 [facility] Liz Movva, R10.9 Unspecified 9:49a Assoc,asmita MD abdominal pain Hospitalists R11.2 Nausea with vomiting, unspecified R74.0 Nonspec elev of levels of transamns & lactic acid dehydrgnse E83.42 Hypomagnesemia Z86.79 Personal history of other diseases of the circulatory system Z86.59 Personal history of other mental and behavioral disorders Assessments Date Code Description Provider 12/19/2019 K56.609 Unspecified intestinal obstruction, Evonne Wynn MD unspecified as to partial versus complete obstruction 12/18/2019 K56.609 Unspecified intestinal obstruction, Evonne Wynn MD unspecified as to partial versus complete obstruction 10/31/2019 M54.42 Lumbago with sciatica, left side Cliff Riley M.D. 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 Gianfranco Davila, DO FAC 07/25/2019 K56.600 Partial intestinal obstruction, PAULA Norris unspecified as to cause 07/25/2019 K56.600 Partial intestinal obstruction, Nohelia Gilma, SPACE SCI[employer] DIRECTOR unspecified as to cause 07/25/2019 F43.10 Post-traumatic stress disorder, Nohelia Gilma, SPACE SCIENC[employer] DIRECTOR unspecified 07/25/2019 I10 Essential (primary) hypertension Nohelia Gilma, SP[employer] SCIENC[employer] DIRECTOR 07/25/2019 E78.5 Hyperlipidemia, unspecified Nohelia Gilma, [employer] SCI[employer] DIRECTOR 07/25/2019 N18.9 Chronic kidney disease, unspecified Nohelia Gilma, [employer] SCI[employer] DIRECTOR 07/25/2019 D69.6 Thrombocytopenia, unspecified Nohelia Gilma, [employer] SCI[employer] DIRECTOR 07/25/2019 Z86.79 Personal history of other diseases of the Nohelia Gilma, SPACE SCIENCES DIRECTOR circulatory system 07/24/2019 R10.9 Unspecified abdominal pain [...] use ice and heat OK to use Tylenol and carefully use ibuprofen Care with bending and heavier lifting Functional Status Description No Information Available Mental Status Description No Information Available Referrals Description No Information Available
--- OUTSIDE RECORDS SUMMARY | 2019-12-26 12:53 | XMS REPORT | Continuity of Care Document ---
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 Helper [phone] Medicine Problems Active Problems Provider Date Conduction disorder of the heart Aidan Bhat M.D., [facility], Onset: 2012 [facility] Premature beats Aidan Bhat M.D., [facility], Onset: 10/15/2014 [facility] Chest pain Aidan Bhat M.D., [facility], Onset: 11/13/2015 [facility] Social History Type Date Description Comments Sex [...] Available Procedures Date Code Description Status 08/09/2019 34182 EKG Tracing & Interpretation Completed Medical Devices Description No Information Available Encounters Type Date Location Provider Dx Diagnosis Office Visit 12/19/2019 Surgical Evonne Wynn MD K56.609 Unsp intestnl obst , 7:00a [facility] unsp as to partial versus complete obst Office Visit 12/18/2019 Surgical Evonne Wynn MD K56.609 Unsp intestnl obst , 7:00a [facility] unsp as to partial versus complete obst Office Visit 10/31/2019 [facility] Dirk Rosemary, M54.42 Lumbago with 2:00p at [place] Ricky sciaticjillian, left side Office Visit 08/09/2019 [facility] Gianfranco Saenz I49.3 Ventricular 2:40p [facility] Davila, DO FACC premature depolarization 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 Office Visit 07/25/2019 Surgical Richard Hernandez K56.600 Partial 7:00a [facility] [place], [place] intestinal obstruction, unspecified as to cause Office Visit 07/25/2019 [facility] Nohelia Gilma, [employer]CH[employer] K56.600 Partial 9:49a Assoc,pc intestinal Hospitalists obstruction, unspecified as to cause F43.10 Post-traumatic stress disorder, unspecified I10 Essential (primary) hypertension E78.5 Hyperlipidemia, unspecified N18.9 Chronic kidney disease, unspecified D69.6 Thrombocytopenia, unspecified Z86.79 Personal history of other diseases of the circulatory system Office Visit 07/24/2019 Surgical Richard Hernandez K56.600 Partial 7:00a [facility] [place], [place] intestinal obstruction, unspecified as to cause Office Visit 07/24/2019 [facility] Liz Movva, R10.9 Unspecified 9:49a Assoc,pc MD abdominal pain Hospitalists R11.2 Nausea with [...] DO FAC 07/25/2019 K56.600 Partial intestinal obstruction, Richard Alcantar, PAULA unspecified as to cause 07/25/2019 K56.600 Partial intestinal obstruction, Nohelia Gilma, [employer] unspecified as to cause 07/25/2019 F43.10 Post-traumatic stress disorder, Onhelia Gilma, [employer] unspecified 07/25/2019 I10 Essential (primary) hypertension Nohelia Gilma, [employer] 07/25/2019 E78.5 Hyperlipidemia, unspecified Nohelia Gilma, [employer] 07/25/2019 N18.9 Chronic kidney disease, unspecified Nohelia Gilma, [employer] 07/25/2019 D69.6 Thrombocytopenia, unspecified Nohelia Gilma, [employer] 07/25/2019 Z86.79 Personal history of other diseases of the Nohelia Gilma, [employer] circulatory system 07/24/2019 R10.9 Unspecified abdominal pain Liz Nicole MD 07/24/2019 R11.2 Nausea with vomiting, unspecified Liz Nicole MD 07/24/2019 K56.600 Partial intestinal obstruction, Richard [place], [place] unspecified as to cause 07/24/2019 R74.0 Nonspecific elevation of levels of Liz Nicole MD transaminase and lactic acid dehydrogenase [LDH] 07/24/2019 E83.42 Hypomagnesemia Liz Nicole MD 07/24/2019 Z86.79 Personal history of other diseases of the Liz Nicole MD circulatory system 07/24/2019 Z86.59 Personal history of other mental and Liz Nicole MD behavioral disorders Plan of Treatment 10/31/2019 - Dirk Rosemary, M.D.M54.42 Lumbago with sciatica, left sideNew Therapy: Physical TherapyFollow up:Follow up: None. Primary care OK to use ice and heat OK to use Tylenol and carefully use ibuprofen Care with bending and heavier lifting Functional Status Description No Information Available Mental Status Description No Information Available Referrals Description No Information Available
[2019-12-26 13:17] LABS: ABS Eosinophils 0.3 10^3/ul (0-0.6); ABS Lymphocytes 1.2 10^3/ul (1.0-4.8); ABS Monocytes 0.5 10^3/ul (0-0.8); ABS Neutrophils 6.2 10^3/ul (1.5-7.7); Eosinophil % 3.1 %; Hematocrit 50 % (42-52); Hemoglobin 17.3 g/dL (14.0-18.0); Lymphocyte % 14.3 %; Mean Corpuscular HGB Conc 35 g/dL (31-36); Mean Corpuscular Hemoglobin 31 pg (27-31); Mean Corpuscular Volume 89 fL (80-94); Mean Platelet Volume 7.6 fL (7.4-10.4); Platelet Count 195 10^3/uL (150-450); Red Blood Count 5.64 10^6 /uL (4.18-5.48); Red Cell Distribution Width 15 % (10-15); White Blood Count 8.2 10^3/uL (3.5-10.8)
[2019-12-26 13:35] LABS: ALT 18 U/L (7-52); Albumin 4.3 g/dL (3.2-5.2); Albumin/Globulin Ratio 1.3 (1-3); Alkaline Phosphatase 74 U/L (34-104); Blood Urea Nitrogen 12 mg/dL (6-24); C Reactive Protein 6.51 mg/L (<8.01); CO2 Carbon Dioxide 27 mmol/L (22-32); Calcium 9.9 mg/dL (8.6-10.3); Chloride 106 mmol/L (101-111); EGFR African American 96.8 (>60); Globulin 3.4 g/dL (2-4); Glucose 119 mg/dL (70-100); Sodium 140 mmol/L (135-145); Total Protein 7.7 g/dL (6.4-8.9)
[2019-12-26] MEDS ORDERED: Iohexol 300* (CONTRAST) 10 ML SDV IV ONE (14:57)
[2019-12-26 15:03] LABS: Anion Gap 7 mmol/L (2-11)
[2019-12-26] MEDS ORDERED: Ondansetron ODT TAB* 4 MG SL SCH (16:00)
[2019-12-26] MEDS: O ndansetron ODT 4MG 5TAB PRPK 4 MG PAK PO ONE ×2 (16:28→16:49)
[2019-12-26 16:47] VITALS: BP 159/76
== END 2019-12-26 16:46 | disposition home or self-care (01) ==
LOC: ED 12:40
DX: K56.600 Partial intestinal obstruction, unspecified as to cause (principal); R10.9 Unspecified abdominal pain; E78.00 Pure hypercholesterolemia, unspecified; R11.2 Nausea with vomiting, unspecified; I10 Essential (primary) hypertension; Z79.82 Long term (current) use of aspirin; Z79.899 Other long term (current) drug therapy; Z88.0 Allergy status to penicillin; Z87.891 Personal history of nicotine dependence; Z85.828 Personal history of other malignant neoplasm of skin; Z86.79 Personal history of other diseases of the circulatory system; Z87.442 Personal history of urinary calculi
CPT/HCPCS: 36415; 74177; 80053; 85025; 86140; 96361; 96374; 96375; 99283; A9270-GY; J2405; Q9967

== ENCOUNTER 2021-07-20 05:56 | Inpatient (IN) ==
[2021-07-20] MEDS ORDERED: Lactated Ringers 1000 ml BAG 1,000 ML IV ONE (06:14)
[2021-07-20 07:14] LABS: ABS Eosinophils 0.1 10^3/ul (0-0.6); ABS Lymphocytes 0.9 10^3/ul (1.0-4.8); ABS Monocytes 0.7 10^3/ul (0-0.8); ABS Neutrophils 2.7 10^3/ul (1.5-7.7); Eosinophil % 1.9 %; Hematocrit 52 % (42-52); Mean Corpuscular HGB Conc 34 g/dL (31-36); Mean Corpuscular Hemoglobin 30 pg (27-31); Mean Corpuscular Volume 89 fL (80-94); Nucleated Red Blood Cells % 0.1; Platelet Count 171 10^3/uL (150-450); Red Cell Distribution Width 15 % (10-15); White Blood Count 4.4 10^3/uL (3.5-10.8)
[2021-07-20] MEDS ORDERED: Ondansetron 4 mg VIAL 2 MG/ML 2 ml VIAL IV ONE ×2 (07:29→10:47)
[2021-07-20] MEDS ORDERED: fentaNYL 100 mcg/2 ml 50 MCG/ML VIAL IV SLOW PU ONE ×2 (07:31→10:47)
[2021-07-20 07:43] LABS: ALT 23 U/L (7-52); AST 23 U/L (13-39); Albumin 4.3 g/dL (3.2-5.2); Albumin/Globulin Ratio 1.5 (1-3); Alkaline Phosphatase 58 U/L (35-149); Anion Gap 12 mmol/L (2-11); Blood Urea Nitrogen 17 mg/dL (6-24); CO2 Carbon Dioxide 22 mmol/L (22-32); Calcium 10.4 mg/dL (8.6-10.3); Chloride 105 mmol/L (101-111); Globulin 2.9 g/dL (2-4); Glucose 124 mg/dL (70-100); Lipase 14 U/L (11.0-82.0); Magnesium 1.9 mg/dL (1.9-2.7); Sodium 139 mmol/L (135-145); Total Protein 7.2 g/dL (6.4-8.9)
[2021-07-20 07:47] LABS: Troponin I 0.03 ng/mL (<0.03)
[2021-07-20] MEDS ORDERED: Iohexol 300 (CONTRAST) 10 ML SDV IV ONE (08:49)
[2021-07-20 11:16] LABS: Urine Appearance Cloudy; Urine Bacteria Absent (Absent); Urine Bilirubin Negative (Negative); Urine Blood Negative (Negative); Urine Color Yellow; Urine Glucose Negative (Negative); Urine Ketones Trace (Negative); Urine Nitrite Negative (Negative); Urine Protein Negative (Negative); Urine Red Blood Cell Trace(0-2/hpf) (Absent); Urine Specific Gravity 1.016 (1.002-1.030); Urine Squamous Epithelial Cell Present (Absent); Urine Urobilinogen Negative (Negative); Urine White Blood Cell 1+(6-10/hpf) (Absent)
[2021-07-20] MEDS ORDERED: Enoxaparin 40 MG/0.4 ML SYR SUBCUT SCH (12:00)
[2021-07-20 12:14] LABS: Rapid COVID-19 Molecular Undetected (Undetected)
[2021-07-20] MEDS ORDERED: Enoxaparin 100 MG/ML SYR SUBCUT SCH (13:00)
[2021-07-20] MEDS: NS 0.9% 1000 ml BAG 1,000 ML IV SCH (14:20)
[2021-07-20] MEDS: fentaNYL 100 mcg/2 ml 50 MCG/ML VIAL IV SLOW PU PRN ×2 (15:25→19:28)
[2021-07-20] MEDS ORDERED: Lorazepam PYXIS KEY PRN (17:45)
[2021-07-20] MEDS: Enoxaparin 100 MG/ML SYR SUBCUT SCH (17:46)
[2021-07-20] MEDS: LORazepam 2 mg VIAL 1 ml IV PUSH PRN (23:15)
[2021-07-21] MEDS: NS 0.9% 1000 ml BAG 1,000 ML IV SCH ×3 (01:11→22:16)
[2021-07-21] MEDS: fentaNYL 100 mcg/2 ml 50 MCG/ML VIAL IV SLOW PU PRN (01:44)
[2021-07-21] MEDS: Ondansetron 4 mg VIAL 2 MG/ML 2 ml VIAL IV PRN ×2 (01:59→22:27)
[2021-07-21 04:56] LABS: ABS Eosinophils 0.1 10^3/ul (0-0.6); ABS Lymphocytes 0.9 10^3/ul (1.0-4.8); ABS Monocytes 0.4 10^3/ul (0-0.8); Eosinophil % 2.8 %; Hematocrit 49 % (42-52); Hemoglobin 16.7 g/dL (14.0-18.0); Lymphocyte % 24.7 %; Mean Corpuscular HGB Conc 34 g/dL (31-36); Mean Corpuscular Hemoglobin 30 pg (27-31); Mean Corpuscular Volume 88 fL (80-94); Mean Platelet Volume 7.8 fL (7.4-10.4); Nucleated Red Blood Cells % 0.2; Platelet Count 143 10^3/uL (150-450); Red Blood Count 5.56 10^6 /uL (4.18-5.48); Red Cell Distribution Width 15 % (10-15); White Blood Count 3.5 10^3/uL (3.5-10.8)
[2021-07-21 05:20] LABS: Potassium 3.7 mmol/L (3.5-5.0)
[2021-07-21] MEDS: Enoxaparin 100 MG/ML SYR SUBCUT SCH ×2 (05:26→18:06)
[2021-07-21] MEDS: LORazepam 2 mg VIAL 1 ml IV PUSH PRN (05:35)
[2021-07-21] MEDS: Pantoprazole VIAL 40 MG VIAL IV SCH (11:00)
[2021-07-22] MEDS ORDERED: Prochlorperazine 5 mg/ml 2 ml VIAL (10 mg) IV PRN (03:20)
[2021-07-22] MEDS: LORazepam 2 mg VIAL 1 ml IV PUSH PRN (04:28)
[2021-07-22 05:13] LABS: Troponin I 0.01 ng/mL (<0.03)
[2021-07-22] MEDS: Enoxaparin 100 MG/ML SYR SUBCUT SCH (05:36)
[2021-07-22] MEDS: NS 0.9% 1000 ml BAG 1,000 ML IV SCH (08:34)
[2021-07-22] MEDS: Pantoprazole VIAL 40 MG VIAL IV SCH (08:38)
[2021-07-22 08:45] LABS: Hematocrit 47 % (42-52); Hemoglobin 15.8 g/dL (14.0-18.0); Mean Corpuscular HGB Conc 34 g/dL (31-36); Mean Corpuscular Hemoglobin 30 pg (27-31); Mean Corpuscular Volume 89 fL (80-94); Mean Platelet Volume 8.7 fL (7.4-10.4); Platelet Count 142 10^3/uL (150-450); Red Blood Count 5.24 10^6 /uL (4.18-5.48); Red Cell Distribution Width 15 % (10-15); White Blood Count 5.9 10^3/uL (3.5-10.8)
[2021-07-22 09:14] LABS: Calcium 8.8 mg/dL (8.6-10.3); Potassium 3.9 mmol/L (3.5-5.0)
[2021-07-22 09:19] LABS: ABS Eosinophils 0.1 10^3/ul (0-0.6); ABS Monocytes 0.6 10^3/ul (0-0.8); ABS Neutrophils 4.2 10^3/ul (1.5-7.7); Lymphocyte % 16.9 %; Nucleated Red Blood Cells % 0.1
[2021-07-23] MEDS: Pantoprazole VIAL 40 MG VIAL IV SCH (08:41)
[2021-07-23 11:19] VITALS: BP 132/70
== END 2021-07-23 15:15 | disposition home or self-care (01) | DRG 309 ==
LOC: ED 05:56 → SSU 11:21
PROVIDERS: ADMIT Internal Medicine; ATTEND Internal Medicine

== ENCOUNTER 2022-06-07 21:30 | Inpatient (IN) ==
[2022-06-07] MEDS ORDERED: NS 0.9% 1000 ml BAG 1,000 ML IV ONE (22:14)
[2022-06-07] MEDS ORDERED: Ondansetron 4 mg VIAL 2 MG/ML 2 ml VIAL IV ONE (22:14)
[2022-06-07 23:23] LABS: ABS Eosinophils 0.1 10^3/ul (0-0.6); ABS Lymphocytes 1.1 10^3/ul (1.0-4.8); ABS Monocytes 0.8 10^3/ul (0-0.8); ABS Neutrophils 4.5 10^3/ul (1.5-7.7); Hematocrit 53 % (42-52); Hemoglobin 18.1 g/dL (14.0-18.0); Lymphocyte % 17.7 %; Mean Corpuscular HGB Conc 34 g/dL (31-36); Mean Corpuscular Hemoglobin 31 pg (27-31); Mean Corpuscular Volume 91 fL (80-94); Mean Platelet Volume 7.7 fL (7.4-10.4); Nucleated Red Blood Cells % 0.3; Platelet Count 154 10^3/uL (150-450); Red Blood Count 5.87 10^6 /uL (4.18-5.48); Red Cell Distribution Width 15 % (10-15); White Blood Count 6.4 10^3/uL (3.5-10.8)
[2022-06-07 23:23] LABS: Urine Appearance Clear; Urine Color Yellow; Urine Glucose Negative (Negative); Urine Ketones Trace (Negative); Urine Specific Gravity 1.029 (1.002-1.030)
[2022-06-07 23:24] LABS: Urine Blood Negative (Negative); Urine Nitrite Positive (Negative); Urine Protein 1+ (30 mg/dL) (Negative); Urine Urobilinogen 0.2 (Negative) (Negative)
[2022-06-07 23:30] LABS: Urine Bacteria Absent (Absent); Urine Red Blood Cell Trace(0-2/hpf) (Absent); Urine White Blood Cell Trace(0-5/hpf) (Absent)
[2022-06-07 23:45] LABS: INR 1.27 (0.89-1.11)
[2022-06-08] LABS: Albumin 4.3 g/dL (3.2-5.2); Albumin/Globulin Ratio 1.6 (1-3); C Reactive Protein 17.54 mg/L (<8.01); Calcium 10.1 mg/dL (8.6-10.3); Globulin 2.7 g/dL (2-4); Potassium 4.2 mmol/L (3.5-5.0); Total Bilirubin 1.3 mg/dL (0.2-1.0); eGFR CKD-EPI 53.7 (>60)
[2022-06-08] MEDS ORDERED: Iodixanol (CONTRAST) 320 MG/ML 100 ML SDV IV ONE (00:12)
[2022-06-08] MEDS ORDERED: Metoclopramide 5 MG/ML VIAL (10 mg) IV SLOW PU ONE (01:24)
[2022-06-08] MEDS ORDERED: Morphine 4 MG/ML VIAL (1 ml) IV ONE (01:24)
[2022-06-08] MEDS ORDERED: Metoprolol Tartrate 5 mg VIAL 5 ml VIAL (1 mg/ml) IV SCH (03:00)
[2022-06-08] MEDS: Metoprolol Tartrate 5 mg VIAL 5 ml VIAL (1 mg/ml) IV SCH ×4 (04:30→21:01)
[2022-06-08] MEDS: Morphine 2 MG/ML SYRINGE IV PRN ×2 (04:39→18:30)
[2022-06-08] MEDS: Lactated Ringers 1000 ml BAG 1,000 ML IV SCH ×2 (04:45→16:43)
[2022-06-08] MEDS: Heparin 5000 UNITS/ML 1 mL VIAL SUBCUT SCH ×3 (06:03→21:01)
[2022-06-08] MEDS: Pantoprazole VIAL 40 MG VIAL IV SCH (10:20)
[2022-06-09] MEDS: Morphine 2 MG/ML SYRINGE IV PRN (01:42)
[2022-06-09] MEDS: Ondansetron 4 mg VIAL 2 MG/ML 2 ml VIAL IV PRN ×4 (01:42→23:29)
[2022-06-09] MEDS ORDERED: Chlorhexidine MOUTHWASH 0.12% 15 ML UDC SWISH SPIT ONE (02:17)
[2022-06-09] MEDS: Metoprolol Tartrate 5 mg VIAL 5 ml VIAL (1 mg/ml) IV SCH ×2 (03:32→07:21)
[2022-06-09 06:10] LABS: ABS Lymphocytes 0.7 10^3/ul (1.0-4.8); ABS Monocytes 0.6 10^3/ul (0-0.8); ABS Neutrophils 4.3 10^3/ul (1.5-7.7); Eosinophil % 0.5 %; Hematocrit 49 % (42-52); Hemoglobin 16.4 g/dL (14.0-18.0); Lymphocyte % 12.7 %; Mean Corpuscular HGB Conc 34 g/dL (31-36); Mean Corpuscular Hemoglobin 31 pg (27-31); Mean Corpuscular Volume 91 fL (80-94); Mean Platelet Volume 7.9 fL (7.4-10.4); Nucleated Red Blood Cells % 0.1; Platelet Count 128 10^3/uL (150-450); Red Blood Count 5.34 10^6 /uL (4.18-5.48); Red Cell Distribution Width 14 % (10-15); White Blood Count 5.7 10^3/uL (3.5-10.8)
[2022-06-09 06:32] LABS: Potassium 4.4 mmol/L (3.5-5.0); eGFR CKD-EPI 85.1 (>60)
[2022-06-09] MEDS: Enoxaparin 80 MG/0.8 ML SYR SUBCUT SCH ×2 (07:21→20:17)
[2022-06-09] MEDS: Pantoprazole VIAL 40 MG VIAL IV SCH (07:21)
[2022-06-09] MEDS ORDERED: Lorazepam PYXIS KEY PRN (07:58)
[2022-06-09] MEDS ORDERED: LORazepam 2 mg VIAL 1 ml IV PUSH ONE (07:59)
[2022-06-09] MEDS ORDERED: Diatrizoate Meg/Sod(CONTRAST) 30 ML ORAL.SOLN PO ONE (13:11)
[2022-06-10] MEDS: Ondansetron 4 mg VIAL 2 MG/ML 2 ml VIAL IV PRN (05:02)
[2022-06-10 05:39] LABS: ABS Lymphocytes 0.9 10^3/ul (1.0-4.8); ABS Monocytes 0.6 10^3/ul (0-0.8); ABS Neutrophils 5.4 10^3/ul (1.5-7.7); ABS Nucleated RBC 0.1 10^3/ul; Eosinophil % 0.2 %; Hematocrit 50 % (42-52); Hemoglobin 16.6 g/dL (14.0-18.0); Lymphocyte % 12.9 %; Mean Corpuscular HGB Conc 33 g/dL (31-36); Mean Corpuscular Hemoglobin 30 pg (27-31); Mean Corpuscular Volume 91 fL (80-94); Mean Platelet Volume 7.5 fL (7.4-10.4); Nucleated Red Blood Cells % 0.7; Platelet Count 142 10^3/uL (150-450); Red Blood Count 5.51 10^6 /uL (4.18-5.48); Red Cell Distribution Width 15 % (10-15); White Blood Count 6.9 10^3/uL (3.5-10.8)
[2022-06-10 07:09] LABS: Calcium 9.2 mg/dL (8.6-10.3); Potassium 4.3 mmol/L (3.5-5.0); eGFR CKD-EPI 75.2 (>60)
[2022-06-10] MEDS: Pantoprazole VIAL 40 MG VIAL IV SCH (10:12)
[2022-06-10] MEDS: Enoxaparin 80 MG/0.8 ML SYR SUBCUT SCH (10:15)
[2022-06-10 12:28] VITALS: BP 129/64
== END 2022-06-10 16:34 | disposition home or self-care (01) | DRG 389 ==
LOC: ED 21:30 → SUATTDRO 06-08 02:12 → EDHOLD 06-08 02:12 → MEDTELE 06-08 15:58
PROVIDERS: ADMIT Internal Medicine; ATTEND Internal Medicine

== ENCOUNTER 2023-09-13 11:07 | Inpatient (IN) ==
[2023-09-13] MEDS ORDERED: cefTRIAXone 1 gm/50 mL D5W 1 GM/50 ML BAG IV ONE (15:27)
[2023-09-13 17:15] LABS: ABS Lymphocytes 0.7 10^3/uL (1.0-4.8); ABS Monocytes 0.4 10^3/uL (0.0-1.1); Hematocrit 56.2 % (38-53); Hemoglobin 19.6 g/dL (13.2-16.3); Lymphocyte % 23.2 %; Mean Corpuscular Hemoglobin 31.3 pg (27-33); Mean Corpuscular Hgb Conc 34.9 g/dL (31-36); Mean Corpuscular Volume 89.9 fL (80-97); Mean Platelet Volume 9.4 fL (7.5-11.2); Nucleated Red Blood Cells % 0.2 %/100WBC (0.0-0.8); Platelet Count 118 10^3/uL (150-450); Red Blood Count 6.25 10^6/uL (4.06-5.63); Red Cell Distribution Width 14.6 % (12-17); White Blood Count 3.1 10^3/uL (3.6-10.2)
[2023-09-13] MEDS ORDERED: Dexamethasone IV 4 MG/ML VIAL 1 ml VIAL IV SLOW PU ONE (18:11)
[2023-09-13 18:28] LABS: ALT 42 U/L (7-52); Albumin 4.1 g/dL (3.2-5.2); Albumin/Globulin Ratio 1.2 (1-3); Alkaline Phosphatase 54 U/L (35-149); Blood Urea Nitrogen 29 mg/dL (6-24); C Reactive Protein 14.52 mg/L (<8.01); CO2 Carbon Dioxide 17 mmol/L (22-32); Calcium 9.3 mg/dL (8.6-10.3); Chloride 106 mmol/L (101-111); Creatinine, Serum 1.16 mg/dL (0.67-1.17); Globulin 3.5 g/dL (2-4); Glucose 151 mg/dL (70-100); Sodium 137 mmol/L (135-145); Total Bilirubin 1.1 mg/dL (0.2-1.0); Total Protein 7.6 g/dL (6.4-8.9); eGFR CKD-EPI 63.7 (>60)
[2023-09-13 18:30] LABS: Anion Gap 14 mmol/L (2-16)
[2023-09-13] MEDS ORDERED: Lactated Ringers 1000 ml BAG 1,000 ML IV ONE (18:36)
[2023-09-13] MEDS ORDERED: Iohexol 350 (CONTRAST) 500 ML MDV IV ONE (18:53)
[2023-09-13 21:17] LABS: Potassium Redraw 3.9 mmol/L (3.5-5.0)
[2023-09-13 21:55] LABS: High Sensitivity Troponin 1 Hr 7 pg/mL (<20)
[2023-09-13] MEDS ORDERED: Remdesivir 100 mg Vial 200 MG in NS 0.9% 250 ml 210 ML IV ONE (23:23)
[2023-09-14] MEDS: Gemfibrozil 600 mg PO SCH ×2 (08:41→17:17)
[2023-09-14 11:12] LABS: INR 1.48 (0.83-1.13)
[2023-09-14 11:28] LABS: Albumin 3.8 g/dL (3.2-5.2); Albumin/Globulin Ratio 1.3 (1-3); Calcium 8.8 mg/dL (8.6-10.3); Creatinine, Serum 1.08 mg/dL (0.67-1.17); Magnesium 1.9 mg/dL (1.9-2.7); Phosphorus 3.9 mg/dL (2.5-5.0); Potassium 3.9 mmol/L (3.5-5.0); Total Bilirubin 0.8 mg/dL (0.2-1.0); Total Protein 6.8 g/dL (6.4-8.9); eGFR CKD-EPI 69.4 (>60)
[2023-09-14 11:45] LABS: ABS Lymphocytes 0.5 10^3/uL (1.0-4.8); ABS Monocytes 0.2 10^3/uL (0.0-1.1); ABS Neutrophils 1.8 10^3/uL (1.5-7.6); ABS Nucleated RBC 0.02 10^3/ul; Hematocrit 51.5 % (38-53); Hemoglobin 17.3 g/dL (13.2-16.3); Lymphocyte % 18.7 %; Mean Corpuscular Hemoglobin 30.4 pg (27-33); Mean Corpuscular Hgb Conc 33.7 g/dL (31-36); Mean Corpuscular Volume 90.4 fL (80-97); Mean Platelet Volume 8.5 fL (7.5-11.2); Nucleated Red Blood Cells % 0.7 %/100WBC (0.0-0.8); Platelet Count 87 10^3/uL (150-450); Red Cell Distribution Width 14.3 % (12-17); White Blood Count 2.5 10^3/uL (3.6-10.2)
[2023-09-14 14:06] LABS: Urine Appearance Clear; Urine Bilirubin Negative (Negative); Urine Blood Negative (Negative); Urine Color Yellow; Urine Glucose Negative (Negative); Urine Ketones Negative (Negative); Urine Nitrite Negative (Negative); Urine Protein Negative (Negative); Urine Specific Gravity 1.026 (1.002-1.030); Urine Urobilinogen Negative (Negative)
[2023-09-14] MEDS: Remdesivir 100 mg Vial 100 MG in NS 0.9% 250 ml 230 ML IV SCH (22:03)
[2023-09-15] MEDS: Gemfibrozil 600 mg PO SCH ×2 (07:50→16:59)
[2023-09-15 08:28] LABS: ABS Lymphocytes 0.8 10^3/uL (1.0-4.8); ABS Monocytes 0.4 10^3/uL (0.0-1.1); ABS Neutrophils 3.8 10^3/uL (1.5-7.6); ABS Nucleated RBC 0.04 10^3/ul; Hematocrit 50.3 % (38-53); Hemoglobin 16.9 g/dL (13.2-16.3); Lymphocyte % 15.5 %; Mean Corpuscular Hemoglobin 30.2 pg (27-33); Mean Corpuscular Hgb Conc 33.6 g/dL (31-36); Mean Corpuscular Volume 89.8 fL (80-97); Mean Platelet Volume 8.9 fL (7.5-11.2); Nucleated Red Blood Cells % 0.9 %/100WBC (0.0-0.8); Platelet Count 101 10^3/uL (150-450); Red Blood Count 5.59 10^6/uL (4.06-5.63); Red Cell Distribution Width 14.7 % (12-17); White Blood Count 4.9 10^3/uL (3.6-10.2)
[2023-09-15 08:42] LABS: INR 1.34 (0.83-1.13)
[2023-09-15] MEDS ORDERED: Empagliflozin 25 MG TAB PO SCH (09:00)
[2023-09-15 10:02] LABS: Albumin 3.7 g/dL (3.2-5.2); Albumin/Globulin Ratio 1.4 (1-3); Calcium 8.9 mg/dL (8.6-10.3); Creatinine, Serum 0.95 mg/dL (0.67-1.17); Globulin 2.7 g/dL (2-4); Magnesium 2.1 mg/dL (1.9-2.7); Potassium 4.1 mmol/L (3.5-5.0); Total Bilirubin 0.7 mg/dL (0.2-1.0); Total Protein 6.4 g/dL (6.4-8.9); eGFR CKD-EPI 80.9 (>60)
[2023-09-15] MEDS: Empagliflozin 25 MG TAB PO SCH (11:09)
[2023-09-15 12:11] LABS: TSH Ultra Thyroid Stim Horm 0.28 mcIU/mL (0.34-5.60)
[2023-09-15 12:16] LABS: Ferritin 778.9 ng/mL (24-336)
[2023-09-15 16:10] LABS: Free T4 1.39 ng/dL (0.61-1.12)
[2023-09-15] MEDS ORDERED: Dextrose 50% Syringe 50 ml 25 GM/50 ML SYRINGE IV PUSH PRN (16:23)
[2023-09-15] MEDS: Remdesivir 100 mg Vial 100 MG in NS 0.9% 250 ml 230 ML IV SCH (22:34)
[2023-09-16] MEDS: Gemfibrozil 600 mg PO SCH (08:11)
[2023-09-16] MEDS: Empagliflozin 25 MG TAB PO SCH (08:14)
[2023-09-16 11:13] LABS: INR 1.41 (0.83-1.13)
[2023-09-16 11:18] LABS: ABS Lymphocytes 0.7 10^3/uL (1.0-4.8); ABS Monocytes 0.3 10^3/uL (0.0-1.1); ABS Neutrophils 4.6 10^3/uL (1.5-7.6); ABS Nucleated RBC 0.01 10^3/ul; Hematocrit 49.9 % (38-53); Hemoglobin 16.8 g/dL (13.2-16.3); Lymphocyte % 12.1 %; Mean Corpuscular Hemoglobin 30.4 pg (27-33); Mean Corpuscular Hgb Conc 33.6 g/dL (31-36); Mean Corpuscular Volume 90.6 fL (80-97); Mean Platelet Volume 8.9 fL (7.5-11.2); Nucleated Red Blood Cells % 0.3 %/100WBC (0.0-0.8); Platelet Count 126 10^3/uL (150-450); Red Blood Count 5.51 10^6/uL (4.06-5.63); Red Cell Distribution Width 14.7 % (12-17); White Blood Count 5.5 10^3/uL (3.6-10.2)
[2023-09-16 11:19] LABS: Calcium 8.8 mg/dL (8.6-10.3); Creatinine, Serum 1.01 mg/dL (0.67-1.17); Potassium 4.2 mmol/L (3.5-5.0); eGFR CKD-EPI 75.2 (>60)
[2023-09-16 14:08] VITALS: BP 132/84
[2023-09-16 15:15] LABS: Albumin 3.7 g/dL (3.2-5.2); Albumin/Globulin Ratio 1.4 (1-3); Globulin 2.7 g/dL (2-4); Magnesium 2.2 mg/dL (1.9-2.7); Phosphorus 2.7 mg/dL (2.5-5.0); Total Bilirubin 0.6 mg/dL (0.2-1.0); Total Protein 6.4 g/dL (6.4-8.9)
== END 2023-09-16 16:00 | disposition home or self-care (01) | DRG 177 ==
LOC: ED 11:07 → SUATTDRO 21:59 → EDHOLD 21:59 → MED 09-14 13:12
PROVIDERS: ADMIT Internal Medicine; ATTEND Internal Medicine